=== PATIENT | male | born 1960 | race African-American/Black ===

== ENCOUNTER 2016-11-07 12:58 | Emergency (ER) | payer OTHER ==
[2016-11-07 13:06] VITALS: BP 144/90; PULSE 106; TEMP 98; BMI 40.6
[2016-11-07] MEDS ORDERED: diazePAM 5 MG TABLET PO ONE (13:52)
[2016-11-07] MEDS ORDERED: KETOROLAC TROMETHAMINE 60 MG/2 ML VIAL IM ONE (13:52)
--- NOTE | 2016-11-07 14:11 | PDOC ---
History of Present Illness - General Chief Complaint: Pain Stated Complaint: PAIN Time Seen by Provider: 11/07/16 13:30 History Source: Patient Exam Limitations: No Limitations - History of Present Illness Initial Comments: 11/07/16 14:06 CC pain to left shoulder x 4 days; no trauma; seen at [facility] and at [facility] for same this week Occurred: reports: other (4 days) Upper Extremity Pain Location: left: shoulder Past History - Past Medical History Allergies/Adverse Reactions: Allergies Allergy/AdvReac Type Severity Reaction Status Date / Time No Known Allergies Allergy Verified 11/07/16 13:01 Home Medications: Ambulatory Orders No Home Medications 0 dose .ROUTE UTDICT 03/28/13 Other medical history: [email or web address] - Surgical History Abdominal Surgery: Yes Appendectomy: Yes - Psycho/Social/Smoking Cessation Hx Anxiety: No Suicidal Ideation: No Smoking Status: Yes Smoking History: Former smoker Years of Tobacco Use: 10 Have you smoked in the past 12 months: No Number of Cigarettes Smoked Daily: 15 Information on smoking cessation initiated: No Hx Alcohol Use: No Drug/Substance Use Hx: No Substance Use Type: None Review of Systems - Review of Systems Constitutional: No: Symptoms Reported, Chills, Fever, Malaise HEENTM: No: Symptoms Reported Respiratory: No: Symptoms reported, Cough Cardiac (ROS): No: Symptoms Reported ABD/GI: No: Symptoms Reported : Yes: Symptoms Reported Musculoskeletal: Yes: Joint Pain, Muscle Pain, Joint Stiffness Integumentary: Yes: Symptoms Reported. No: Sweating Neurological: No: Numbness, Paresthesia *Physical Exam - Vital Signs Last Vital Signs Temp Pulse Resp BP Pulse Ox 98.0 F 106 H 18 144/90 100 11/07/16 13:02 11/07/16 13:02 11/07/16 13:02 11/07/16 13:02 11/07/16 13:02 - Physical Exam General Appearance: Yes: Appropriately Dressed HEENT: positive: TMs Normal, Pharynx Normal Neck: positive: Tender lateral (on left lateral neck; limited ROM in all directions). negative: Tender midline Respiratory/Chest: positive: Lungs Clear, Other (tender upper left back with significant spasm). negative: Chest Tender Musculoskeletal: positive: Other (limited ROM left shoulder, no tenderness elbow , wrist) Extremity: positive: Other (nl strength wrist elbow) ED Treatment Course - RADIOLOGY Radiology Studies Ordered: Category Date Time Status SHOULDER-LEFT [RAD] Stat Radiology 11/07/16 13:51 Taken Medical Decision Making - Medical Decision Making 11/07/16 15:04 better post toradol and valium; xray negative *DC/Admit/Observation/Transfer Diagnosis at time of Disposition: Left shoulder pain Qualifiers: Chronicity: acute Qualified Code(s): M25.512 - Pain in left shoulder - Discharge Dispostion Disposition: HOME Condition at time of disposition: Stable Admit: No - Referrals Referrals: Hector Burnett MD [Staff Physician] - - Patient Instructions Additional Instructions: no driving after valium in ED; see dr burnett next week if no better; continue naprosyn; swith to skelaxin instead of flexeril - Post Discharge Activity Work/School Note: Back to Work
[2016-11-07] MEDS ORDERED: diazePAM 5 MG TABLET ONE (14:18)
[2016-11-07] MEDS ORDERED: KETOROLAC TROMETHAMINE 60 MG/2 ML VIAL ONE (14:19)
--- NOTE | 2016-11-12 10:32 | EKG ---
Test Reason : Blood Pressure : / mmHG Vent. Rate : 105 BPM Atrial Rate : 105 BPM P-R Int : 140 ms QRS Dur : 090 ms QT Int : 334 ms P-R-T Axes : 055 010 068 degrees QTc Int : 441 ms SINUS TACHYCARDIA OTHERWISE NORMAL ECG WHEN COMPARED WITH ECG OF 24-SEP-2014 11:16, NO SIGNIFICANT CHANGE WAS FOUND Confirmed by RAFAT MCCLOUD MD ([id number]) on 11/12/2016 10:31:33 AM Referred By: Confirmed By:RAFAT MCCLOUD MD
== END 2016-11-07 15:09 | disposition home or self-care (01) ==
LOC: JERFT 12:58 → JER 12:58 → MERGE 12:58 → JERFT 15:09
PROC: 3E0233Z Introduction of Anti-inflammatory into Muscle, Percutaneous Approach (ICD-10-PCS; principal; 2016-11-07)
DX: M25.512 Pain in left shoulder (principal)
CPT/HCPCS: 73030-TC-LT; 93005; 93010; 99281-25

== ENCOUNTER 2016-11-11 22:26 | Emergency (ER) | payer OTHER ==
[2016-11-11 22:35] VITALS: BP 141/96; TEMP 97.4; BMI 41.8
[2016-11-11] MEDS ORDERED: diazePAM 5 MG TABLET PO ONE (23:05)
--- NOTE | 2016-11-11 23:05 | PDOC ---
History of Present Illness - General Chief Complaint: Back Pain Stated Complaint: BACK PAIN Time Seen by Provider: 11/11/16 22:40 History Source: Patient Exam Limitations: No Limitations - History of Present Illness Initial Comments: CHIEF COMPLAINT: 56 y/o afebrile male who was seen here a few days ago c/o worsened low back pain. HISTORY OF PRESENT ILLNESS: The patient states he was seen for upper back pain. Today he states he felt a pop in his left lower back and now has pain when he moved. He denies f/c, n/v/d, CP, SOB, abd pain, hematuria, dysuria, saddle anesthesia, numbness/tingling in lower extremities, bowel/bladder incontinence. Vital signs on arrival are notable for pulse of 108. REVIEW OF SYSTEMS: GENERAL/CONSTITUTIONAL: No fever. HEAD, EYES, EARS, NOSE AND THROAT: No change in vision. No ear pain or discharge. No sore throat. CARDIOVASCULAR: No chest pain or shortness of breath. RESPIRATORY: No cough, wheezing, or hemoptysis. GASTROINTESTINAL: No abd pain, nausea, vomiting, diarrhea. GENITOURINARY: No dysuria, frequency, or change in urination. MUSCULOSKELETAL: No joint or muscle swelling or pain. No neck pain. +left low back pain. SKIN: No rash or easy bruising. NEUROLOGIC: No headache, vertigo, loss of consciousness, or loss of sensation. PHYSICAL EXAM: GENERAL: The patient is awake, alert, and fully oriented, in no acute distress. He is obese and ambulatory. HEAD: Normal with no signs of trauma. ABDOMEN: Soft, non-distended, non-tender even to deep palpation, no hepatomegaly or splenomegaly, no masses. BACK: TTP of left flank and left lower lumbar paravertebral muscles. No midline lumbar spine TTP or step offs. EXTREMITIES: Normal range of motion, no edema. NEUROLOGICAL: Normal speech, normal gait. CN II-XII grossly intact. PSYCH: Normal mood, normal affect. SKIN: Warm, dry, normal turgor, no rashes or lesions noted. Past History - Past Medical History Allergies/Adverse Reactions: Allergies Allergy/AdvReac Type Severity Reaction Status Date / Time No Known Allergies Allergy Verified 11/11/16 22:31 Home Medications: Ambulatory Orders Diazepam [Valium] 10 mg PO HS #6 tablet MDD 3 11/12/16 Other medical history: denies - Surgical History Appendectomy: Yes - Psycho/Social/Smoking Cessation Hx Anxiety: No Suicidal Ideation: No Smoking Status: Yes Smoking History: Current every day smoker Number of Cigarettes Smoked Daily: 8 Cigars Per Day: 0 Information on smoking cessation initiated: Yes 'Breaking Loose' booklet given: 11/11/16 Hx Alcohol Use: No Drug/Substance Use Hx: No Trauma Specific PMHX - Complaint Specific PMHX Arthritis: No Back Injury: No Neck Injury: No Hx Sacro Iliac Joint Dysfunction: No *Physical Exam - Vital Signs Last Vital Signs Temp Pulse Resp BP Pulse Ox 97.4 F L 108 H 18 141/96 98 11/11/16 22:32 11/11/16 22:32 11/11/16 22:32 11/11/16 22:32 11/11/16 22:32 Medical Decision Making - Medical Decision Making A/P: 56 y/o male with left low back pain today. Already on Naproxen and flexeril with little relief. Will proceed as follows: 1. UA 2. PO valium UA negative for blood Pt states he feels much better after valium. Will d/c to home with rx for valium. Instructed him not to drive while taking. INstructed him to apply heating pad to the affected area and stretch affected area multiple times per day. INstructed him to f/u with his PCP within 1 week for refill of valium The patient verbalizes understanding of all instructions, has no further questions and is awaiting discharge. *DC/Admit/Observation/Transfer Diagnosis at time of Disposition: Back muscle spasm Low back pain Qualifiers: Chronicity: acute Back pain laterality: left Sciatica presence: without sciatica Qualified Code(s): M54.5 - Low back pain - Discharge Dispostion Disposition: HOME Condition at time of disposition: Improved - Patient Instructions Printed Discharge Instructions: DI for Back Spasm Additional Instructions: Discharge Instructions: -Take Valium as prescribed for spasm; may cause drowsiness so do not drive while taking -Continue taking naproxen -Use heating pad to the area -Stretch the affected area multiple times per day -Follow up with your doctor within 1 week
[2016-11-11] MEDS ORDERED: diazePAM 5 MG TABLET ONE (23:09)
[2016-11-11 23:39] LABS: URINE APPEARANCE CLEAR; URINE BILIRUBIN NEGATIVE (NEGATIVE); URINE BLOOD NEGATIVE (NEGATIVE); URINE COLOR LTYELLOW; URINE GLUCOSE (UA) NEGATIVE (NEGATIVE); URINE KETONE NEGATIVE (NEGATIVE); URINE LEUK ESTERASE NEGATIVE (NEGATIVE); URINE NITRITE NEGATIVE (NEGATIVE); URINE PROTEIN NEGATIVE (NEGATIVE); URINE UROBILINOGEN NEGATIVE E.U./dl (0.2-1.0)
[2016-11-12 00:33] VITALS: PULSE 103
== END 2016-11-12 00:46 | disposition home or self-care (01) ==
LOC: JERFT 22:26
DX: M62.830 Muscle spasm of back (principal); M54.5 Low back pain; F17.210 Nicotine dependence, cigarettes, uncomplicated
CPT/HCPCS: 81003; 87086; 99281-25

== ENCOUNTER 2016-11-28 20:55 | Inpatient (IN) | payer OTHER ==
[2016-11-28] MEDS ORDERED: diazePAM 2 MG TABLET PO ONE (21:50)
[2016-11-28] MEDS ORDERED: diazePAM 2 MG TABLET ONE (22:12)
--- NOTE | 2016-11-28 22:19 | PDOC ---
History of Present Illness - General Chief Complaint: Pain, Acute Stated Complaint: SIDE PAIN Time Seen by Provider: 11/28/16 21:10 - History of Present Illness Initial Comments: 11/28/16 22:22 Mr. Leiva is a 56 y/o obese male with no PMH presenting to the ED with increasing spasmodic pain. Pt. states that he was seen in the ED in October with similar pain. Now he states that the pain is worse/more frequent and affecting his neck, upper back, chest and arms. When he is having the pain, he rates it at a 12/10, after the spasm finishes, the pain is a 0/10. Pt. states the pain is more frequent when he lays down and nothing has made the spasm better or less frequent. States that ibuprofen, naproxen, and flexaril have not helped him. Pt. is unable to put a shirt on unassisted and states he has limited range of motion in his arms. Pt. states that his arms feel weak more so on his left side. Denies saddle anaesthesia, gait changes, bladder or bowel incontinence. GENERAL/CONSTITUTIONAL: No fever or chills. No weakness. No weight change. HEAD, EYES, EARS, NOSE AND THROAT: No change in vision. No ear pain or discharge. No sore throat. CARDIOVASCULAR: No chest pain or palpitations. RESPIRATORY: No cough, wheezing, or shortness of breath. GASTROINTESTINAL: No nausea, vomiting, diarrhea or constipation. GENITOURINARY: No dysuria, frequency, or change in urination. Denies bladder/ bowel incontinence MUSCULOSKELETAL: (+) neck/back No joint or muscle swelling or pain. SKIN: No rash or easy bruising. NEUROLOGIC: No headache, vertigo, loss of consciousness, or loss of sensation. PSYCHIATRIC: No depression or anxiety. ENDOCRINE: No increased thirst. No abnormal weight change. HEMATOLOGIC/LYMPHATIC: No anemia, easy bleeding, or history of blood clots. ALLERGIC/IMMUNOLOGIC: No hives or skin allergy. No latex allergy. Past History - Past Medical History Allergies/Adverse Reactions: Allergies Allergy/AdvReac Type Severity Reaction Status Date / Time No Known Allergies Allergy Verified 11/28/16 21:02 Home Medications: Ambulatory Orders Diazepam [Valium] 10 mg PO HS #6 tablet MDD 3 11/12/16 Other medical history: Deneis - Surgical History Appendectomy: Yes - Immunization History Immunization Up to Date: No - Psycho/Social/Smoking Cessation Hx Anxiety: No Suicidal Ideation: No Smoking Status: Yes Smoking History: Former smoker Have you smoked in the past 12 months: No Number of Cigarettes Smoked Daily: 8 Cigars Per Day: 0 Information on smoking cessation initiated: No 'Breaking Loose' booklet given: 11/11/16 Hx Alcohol Use: Yes Drug/Substance Use Hx: No *Physical Exam - Vital Signs Last Vital Signs Temp Pulse Resp BP Pulse Ox 97.9 F 125 H 24 150/95 99 11/28/16 20:59 11/28/16 20:59 11/28/16 20:59 11/28/16 20:59 11/28/16 20:59 - Physical Exam Comments: 11/28/16 22:34 GENERAL: The patient is awake, alert, and fully oriented, in no acute distress. Pt. is sitting on exam bed, guarding his back. HEAD: Normal with no signs of trauma. ENT: Pupils equal, round and reactive to light, extraocular movements intact, sclera anicteric, conjunctiva clear. Neck supple. LUNGS: Clear to auscultation bilaterally. Normal excursion. No respiratory distress or use of accessory muscles. CV: RRR, S1/S2, no MRG. Cap refill < 2 sec. ABDOMEN: Soft, non-distended, non-tender. EXTREMITIES: Flexion of shoulders to 45 degrees b/l pain with further flexion. 3 /5 strength in RUE and erp consultant B/L. No edema. NECK/BACK: TTP of paraspinous muscles of the thoracic spine and cervical spine. Pain with flexion, abduction, lateral rotation of neck. Gait intact, patient refused toe to heel walking. NEUROLOGICAL: Normal speech, normal gait. CN II-XII grossly intact. PSYCH: Normal mood, normal affect. SKIN: Warm, dry, normal turgor, no rashes or lesions noted. ED Treatment Course - LABORATORY CBC & Chemistry Diagram: 11/28/16 22:15 11/28/16 22:15 - RADIOLOGY Radiology Studies Ordered: Category Date Time Status CERVICAL SPINE CT W/O CONTR [CT] Stat CT Scan 11/28/16 21:49 Ordered - Medications Given in the ED: ED Medications Discontinued Medications Generic Name Dose Route Start Last Admin Trade Name Freq PRN Reason Stop Dose Admin Diazepam 2 mg 11/28/16 21:50 11/28/16 22:14 Valium - PO 11/28/16 21:51 2 mg ONCE ONE Administration Medical Decision Making - Medical Decision Making 11/28/16 22:44 Mr. Leiva is a 56 y/o male who presents with increasing spasmodic pain of his back and neck. Given worsening symptoms of neck and arm strength, concerned for new c-spine herniation. Will order CT-scan. Will also order blood work to look for electrolyte changes given the spasmotic nature of his symptoms. Will medicate for pain. 1. Basic labs 2. CT-cervical spine to evaluate neck 3. Valium to reduce the spasms Will re-evaluate. 11/28/16 23:59 Pt. was entered into [facility]. Last narcotic received and only narcotic received was 06/03/2016 for Tylenol with codeine. Pt. also received a prescription for valium on 11/12/16. Pt. could not tolerate laying flat for CT scan. 5mg IV valium ordered to help with symptoms. 11/29/16 02:[address] C-Spine EXAM: CT of the cervical spine without contrast. IMAGES: 362. There are multifocal osseous lytic lesions suspicious for metastasis, one notably involving the left C4 facets/pedicle with soft tissue extension into the C4/5 perineuroforaminal space; correlate clinically (?side/level of arm symptoms). No gross acute central canal/epidural soft tissue abnormality. Impression: as above. THIS DOCUMENT HAS BEEN ELECTRONICALLY SIGNED Joesph Rodriguez MD 11/29/2016 00:14 ROSA M.Jeff. Please call Imaging Documentation Coordinator [phone] ([phone]) with questions. Pt. was made aware of CT scan reading. Advised that it was a preliminary reading and that he would be admitted to the hosptial for further evaluation. Called Dr. Riggs for admission. 1st call 11/29/16 03:[address] Riggs. Will admit *DC/Admit/Observation/Transfer Diagnosis at time of Disposition: Cancer - Discharge Dispostion Condition at time of disposition: Fair Admit: Yes - Referrals Referrals: Bryson Villarreal MD [Primary Care Provider] -
[2016-11-28 22:47] LABS: BASOPHIL 0.7 % (0-2.0); MCH 27.8 pg (25.7-33.7); MCHC 33.3 g/dl (32.0-35.9); MEAN CELL VOLUME 83.4 fl (80-96); MEAN PLT VOLUME 7.3 fl (7.5-11.1); NEUTROPHILS 67.6 % (42.8-82.8); PLATELET COUNT 420 K/MM3 (134-434); RDW 14.3 % (11.9-15.9); WHITE BLOOD COUNT 10.7 K/mm3 (4.0-10.0)
[2016-11-28 23:10] LABS: ALBUMIN 3.5 g/dl (3.4-5.0); BILIRUBIN,TOTAL 0.4 mg/dL (0.2-1.0); CREATININE 1.4 mg/dL (0.7-1.3); TOT PROT 8.2 g/dl (6.4-8.2)
[2016-11-28] MEDS ORDERED: diazePAM CARPU-JECT 10 MG/2 ML DISP.SYRIN IVPUSH ONE (23:31)
[2016-11-28] MEDS ORDERED: diazePAM CARPU-JECT 10 MG/2 ML DISP.SYRIN ONE (23:34)
[2016-11-29] MEDS ORDERED: SODIUM CHLORIDE 1,000 ML IV STA ×2 (01:12→12:23)
[2016-11-29] MEDS ORDERED: KETOROLAC TROMETHAMINE 30 MG/1 ML VIAL ONE (01:19)
[2016-11-29] MEDS ORDERED: KETOROLAC TROMETHAMINE 30 MG/1 ML VIAL IVPUSH ONE (01:19)
[2016-11-29] MEDS ORDERED: HYDROmorphone HCL CARPU-JECT 2 MG/1 ML DISP.SYRIN IVPUSH ONE (02:23)
[2016-11-29] MEDS ORDERED: methylPREDNISolone NA SUCC 125 MG/2 ML VIAL IVPB ONE (02:23)
[2016-11-29] MEDS ORDERED: HYDROmorphone HCL CARPU-JECT 2 MG/1 ML DISP.SYRIN ONE (02:31)
[2016-11-29] MEDS ORDERED: methylPREDNISolone NA SUCC 125 MG/2 ML VIAL ONE (02:41)
[2016-11-29] MEDS ORDERED: DOCUSATE SODIUM 100 MG CAPSULE (FP) PO PRN (03:42)
[2016-11-29 05:25] VITALS: BMI 42.0
[2016-11-29] MEDS: HYDROmorphone HCL CARPU-JECT 1 MG/1 ML DISP.SYRIN IVPB PRN ×2 (06:10→10:43)
[2016-11-29 09:15] LABS: BASOPHIL 0.4 % (0-2.0); EOSINOPHIL 0.1 % (0-4.5); MCH 27.7 pg (25.7-33.7); MCHC 32.8 g/dl (32.0-35.9); MEAN CELL VOLUME 84.5 fl (80-96); MEAN PLT VOLUME 6.9 fl (7.5-11.1); NEUTROPHILS 90.2 % (42.8-82.8); PLATELET COUNT 382 K/MM3 (134-434); RDW 14.5 % (11.9-15.9); WHITE BLOOD COUNT 7.8 K/mm3 (4.0-10.0)
[2016-11-29] MEDS: HEPARIN NA (PORCINE) 5,000 UNITS/ML 1ML VIAL SQ SCH ×2 (09:35→23:22)
[2016-11-29 09:42] LABS: ALBUMIN 3.3 g/dl (3.4-5.0); BILIRUBIN,TOTAL 0.4 mg/dL (0.2-1.0); CALCIUM 9.6 mg/dL (8.5-10.1); CREATININE 1.5 mg/dL (0.7-1.3)
--- NOTE | 2016-11-29 12:14 | HP ---
Admitting History and Physical - Primary Care Physician PCP: Bryson Villarreal - Admission Chief Complaint: BONE LYTIC LESIONS History Source: Medical Record - Smoking History Smoking history: Former smoker Have you smoked in the past 12 months: No Aproximately how many cigarettes per day: 8 If you are a former smoker, when did you quit?: 9 MONTHS - Alcohol/Substance Use Hx Alcohol Use: Yes Home Medications - Allergies Allergies/Adverse Reactions: Allergies Allergy/AdvReac Type Severity Reaction Status Date / Time No Known Allergies Allergy Verified 11/28/16 21:02 - Home Medications Home Medications: Ambulatory Orders Diazepam [Valium] 10 mg PO HS #6 tablet MDD 3 11/12/16 Review of Systems - Review of Systems Constitutional: denies: Chills, Fever Cardiovascular: denies: Chest Pain Respiratory: denies: SOB Gastrointestinal: denies: Abdominal Pain Musculoskeletal: reports: Back Pain Physical Examination Vital Signs: Vital Signs Temperature 97.6 F 11/29/16 08:16 Pulse Rate 95 H 11/29/16 08:16 Respiratory Rate 20 11/29/16 03:40 Blood Pressure 131/93 11/29/16 08:16 O2 Sat by Pulse Oximetry (%) 97 11/29/16 03:40 Constitutional: Yes: Calm Cardiovascular: Yes: Regular Rate and Rhythm, Murmur, S1, S2 Respiratory: Yes: CTA Bilaterally Gastrointestinal: Yes: Normal Bowel Sounds, Soft Musculoskeletal: Yes: Back Pain Edema: No Labs: CBC, BMP 11/29/16 09:00 11/29/16 09:00 Imaging - Results Chest X-ray: Report Reviewed Cat Scan: Report Reviewed Problem List - Problems (1) Low back pain Code(s): M54.5 - LOW BACK PAIN Qualifiers: Chronicity: acute Back pain laterality: left Sciatica presence: without sciatica Qualified Code(s): M54.5 - Low back pain (2) Lytic bone lesions on xray Code(s): M89.9 - DISORDER OF BONE, UNSPECIFIED (3) STEPHEN (acute kidney injury) Code(s): N17.9 - ACUTE KIDNEY FAILURE, UNSPECIFIED (4) Murmur Code(s): R01.1 - CARDIAC MURMUR, UNSPECIFIED Assessment/Plan Mr. Leiva is a 56 y/o obese male with no PMH presenting to the ED with increasing spasmodic pain. Pt. states that he was seen in the ED in October with similar pain. Now he states that the pain is worse/more frequent and affecting his neck, upper back, chest and arms. When he is having the pain, he rates it at a 12/10, after the spasm finishes, the pain is a 0/10. Pt. states the pain is more frequent when he lays down and nothing has made the spasm better or less frequent. States that ibuprofen, naproxen, and flexaril have not helped him. Pt. is unable to put a shirt on unassisted and states he has limited range of motion in his arms. Pt. states that his arms feel weak more so on his left side. Denies saddle anaesthesia, gait changes, bladder or bowel incontinence. (1) Low back pain Code(s): M54.5 - LOW BACK PAIN Qualifiers: Chronicity: acute Back pain laterality: left Sciatica presence: without sciatica Qualified Code(s): M54.5 - Low back pain DILAUDID VALIUM PT & ORTHO CONSULTED (2) Lytic bone lesions on xray Code(s): M89.9 - DISORDER OF BONE, UNSPECIFIED ONCO NOTE APPRECIATED -> F/U W/U ORTHO CONSULTED (3) STEPHEN (acute kidney injury) Code(s): N17.9 - ACUTE KIDNEY FAILURE, UNSPECIFIED Cr WORSENING RENAL CONSULTED NS 1000 BOLUS CXr -> CONGESTION CHANGES -> BNP & TROP (4) Murmur Code(s): R01.1 - CARDIAC MURMUR, UNSPECIFIED REMEMBERS BEING TOLD HAS MURMUR - CARDIO DISCHARGE PLANNING [facility]
--- NOTE | 2016-11-29 12:28 | CONSULT ---
Consult Consult Specialty:: hematology Referred by:: Reason for Consultation:: Lytic lesions noted on CT C-spine - History of Present Illness Chief Complaint: Patient with 3 week history of spasm like pain neck and back, multiple ER visits, last night underwent CT which revealed multiple lytic lesion sin the C-spine, suggestive of metastatic disease. History of Present Illness: As above. Of note, reports no preceding symptoms, constitutional or otherwise. - History Source History Provided By: Patient Limitations to Obtaining History: No Limitations - Alcohol/Substance Use Hx Alcohol Use: Yes - Smoking History Smoking history: Former smoker Have you smoked in the past 12 months: No Aproximately how many cigarettes per day: 8 If you are a former smoker, when did you quit?: 9 MONTHS Home Medications - Allergies Allergies/Adverse Reactions: Allergies Allergy/AdvReac Type Severity Reaction Status Date / Time No Known Allergies Allergy Verified 11/28/16 21:02 - Home Medications Home Medications: Ambulatory Orders Diazepam [Valium] 10 mg PO HS #6 tablet MDD 3 11/12/16 Family Disease History - Family Disease History Other Family History: Denies family history of cancer, or other hematological issues. Review of Systems - Review of Systems Constitutional: reports: No Symptoms Eyes: reports: No Symptoms HENT: reports: No Symptoms Cardiovascular: reports: No Symptoms Respiratory: reports: Other (Dyspnea on exertion - not new) Gastrointestinal: reports: No Symptoms Genitourinary: reports: Frequency (nocturia, several months) Musculoskeletal: reports: No Symptoms Integumentary: reports: No Symptoms Neurological: reports: No Symptoms Psychiatric: reports: No Symptoms Physical Exam Vital Signs: Vital Signs Temperature 97.6 F 11/29/16 08:16 Pulse Rate 95 H 11/29/16 08:16 Respiratory Rate 20 11/29/16 03:40 Blood Pressure 131/93 11/29/16 08:16 O2 Sat by Pulse Oximetry (%) 97 11/29/16 03:40 Constitutional: Yes: Well Nourished, No Distress, Calm, Obese Eyes: Yes: Conjunctiva Clear HENT: Yes: Normocephalic Neck: Yes: Tenderness (Diffuse tenderness palpation of neck) Respiratory: Yes: WNL, Regular, CTA Bilaterally Gastrointestinal: Yes: WNL, Normal Bowel Sounds, Soft, Abdomen, Obese ...Rectal Exam: Yes: Deferred Musculoskeletal: Yes: WNL, Joint Stiffness. No: Joint Swelling Extremities: Yes: WNL. No: Erythema Edema: No Peripheral Pulses WNL: Yes Integumentary: No: Bruising, Petechiae Neurological: Yes: WNL, Alert, Oriented ...Motor Strength: WNL Psychiatric: Yes: WNL, Alert, Oriented Labs: CBC, BMP 11/29/16 09:00 11/29/16 09:00 Imaging - Results Cat Scan: Report Reviewed Assessment/Plan Patient with 3 week history of neck/back spasms, with CT neck revealing multiple lytic lesions. Unclear if radiological finding is accountable for presentation, but finding is certainly of concern and requires workup. If attributed to malignant process then 2 most likely etiologies are myeloma and prostate cancer, and initial workup for those 2 conditions appropriate. Check PSA. SPEP, sFLC's. Skeletal survey. If negative, then more extensive imaging (CT C/A/P) appropriate. If patient's pain is controlled then inpatient workup is not strongly indicated , and patient has expressed an interest to be discharged, which is not unreasonable if appropriate OP follow up is assured.
--- NOTE | 2016-11-29 13:53 | CONSULT ---
Consult - text type - Consultation Consultation Note: Renal Consult for STEPHEN This is a 56 year old Gentleman who is a former smoker w/o any significant past medical history who presented with neck pain and muscle spasm for several days and found to have lytic bone lesions on cervical spine CT and with a BUN/Cr of 30/1.5. Pt denies any CKD history. Denies any history fo Kidney stones. Was using NSIADs at home for pain control. No N/V/D. + occasional dark urine. No gross hematuria. No flank pain. No recent contrast exposure. No confuison, lethargy or weakness. Denies sob or chest pain. Currently on IVF. PMhx: as above Allergies: NDKA Family Hx: NC Social Hx: + Former smoker ROS: As per HPI, all other pertinent ros negative Home Meds: Tylenol, Motrin, Naproxen Vital Signs Temperature 97.6 F 11/29/16 08:16 Pulse Rate 95 H 11/29/16 08:16 Respiratory Rate 20 11/29/16 03:40 Blood Pressure 131/93 11/29/16 08:16 O2 Sat by Pulse Oximetry (%) 96 11/29/16 09:00 Gen: NAD, awake and alert HEENT: NC/AT, MMM, No JVD CVS: Dec BS lung bases, no rales Abd: soft NT/ND, Obese Ext: Trace to 1+ edema in the LE : No bladder distension Neuro: AAOX3, on focal defects CBC, BMP 11/29/16 09:00 11/29/16 09:00 Current Medications Diazepam (Valium -) 5 mg PO BID PRN PRN Reason: AGITATION Docusate Sodium (Colace -) 100 mg PO BID PRN PRN Reason: CONSTIPATION Heparin Sodium (Porcine) (Heparin -) 5,000 unit SQ BID AMINAH Last Admin: 11/29/16 09:35 Dose: 5,000 unit Hydromorphone HCl (Dilaudid Injection -) 1 mg IVPB Q4H PRN PRN Reason: PAIN Last Admin: 11/29/16 10:43 Dose: 1 mg A/p 56 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 #Acute vs. Chronic Renal insufficiency r/o paraproteinema Check UA, UPCR, FeNa Check Renal US to access size and texture of the kidney Agree with trial of IVF for now avoid any further NSAID use pt wants to go home, if renal function stable or improve by tomorrow can be discharged and follow up as outpatient #Lytic lesions on CT of the Neck Check SPEP/ Free light chains Oncology Evalulation #Neck pain/Spasms Pain control without nsaids Consider Valium as a muscle relaxant #Pre-HTN/Hypertension Trend BP for now pain control Thank you Will follow Didier Yen DO
[2016-11-29] MEDS: HYDROmorphone HCL 2 MG TABLET PO PRN ×2 (14:56→20:14)
[2016-11-29 17:13] LABS: URINE APPEARANCE CLEAR; URINE BILIRUBIN NEGATIVE (NEGATIVE); URINE BLOOD NEGATIVE (NEGATIVE); URINE COLOR LTYELLOW; URINE GLUCOSE (UA) 1+ (NEGATIVE); URINE KETONE NEGATIVE (NEGATIVE); URINE LEUK ESTERASE NEGATIVE (NEGATIVE); URINE NITRITE NEGATIVE (NEGATIVE); URINE PROTEIN NEGATIVE (NEGATIVE); URINE UROBILINOGEN NEGATIVE E.U./dl (0.2-1.0)
--- NOTE | 2016-11-29 17:27 | CON.ORTH ---
Consult Consult Specialty:: Ortho Reason for Consultation:: neck pain - Alcohol/Substance Use Hx Alcohol Use: Yes - Smoking History Smoking history: Former smoker Have you smoked in the past 12 months: No Aproximately how many cigarettes per day: 8 If you are a former smoker, when did you quit?: 9 MONTHS Home Medications - Allergies Allergies/Adverse Reactions: Allergies Allergy/AdvReac Type Severity Reaction Status Date / Time No Known Allergies Allergy Verified 11/28/16 21:02 - Home Medications Home Medications: Ambulatory Orders Diazepam [Valium] 10 mg PO HS #6 tablet MDD 3 11/12/16 Family Disease History - Family Disease History Other Family History: Denies family history of cancer, or other hematological issues. Physical Exam for Ortho Vital Signs: Vital Signs Temperature 97.4 F L 11/29/16 14:00 Pulse Rate 92 H 11/29/16 14:00 Respiratory Rate 20 11/29/16 14:00 Blood Pressure 136/78 11/29/16 14:00 O2 Sat by Pulse Oximetry (%) 96 11/29/16 09:00 Neck: Yes: Decreased ROM, Other (mild ttp, dec rom, +weakness, nvi) Labs: CBC, BMP 11/29/16 09:00 11/29/16 09:00 Imaging - Results Cat Scan: Report Reviewed, Image Reviewed Assessment/Plan 56 yo male with 3 week history of spasm like pain neck and back, multiple ER visits, last night underwent CT which revealed multiple lytic lesion sin the C- spine, suggestive of metastatic disease. a/p- Multi-level cervical lytic lesions CT d/w pt in detail Needs further work-up for primary CA Heme/onc f/u evaluate for RT NTD orthopedically d/w Dr. Rice
--- NOTE | 2016-11-29 17:43 | EKG ---
Test Reason : Blood Pressure : / mmHG Vent. Rate : 097 BPM Atrial Rate : 097 BPM P-R Int : 142 ms QRS Dur : 090 ms QT Int : 350 ms P-R-T Axes : 059 028 053 degrees QTc Int : 444 ms NORMAL SINUS RHYTHM NORMAL ECG NO PREVIOUS ECGS AVAILABLE Confirmed by MAURICE SANCHEZ MD ([id number]) on 11/29/2016 5:42:38 PM Referred By: Confirmed By:MAURICE SANCHEZ MD
[2016-11-29] MEDS: diazePAM 5 MG TABLET PO PRN (20:18)
[2016-11-30] MEDS: HYDROmorphone HCL 2 MG TABLET PO PRN (00:15)
[2016-11-30] MEDS: HYDROmorphone HCL CARPU-JECT 2 MG/1 ML DISP.SYRIN IVPB PRN ×6 (03:00→23:18)
[2016-11-30 08:35] LABS: ALBUMIN 3.2 g/dl (3.4-5.0); ALK PHOS 95 U/L (45-117); ANION GAP 11 (8-16); BILIRUBIN,TOTAL 0.5 mg/dL (0.2-1.0); CO2 23 mmol/L (21-32); CREATININE 1.1 mg/dL (0.7-1.3); GLUCOSE,RANDOM 115 mg/dL (74-106); PHOSPHOROUS 3.3 mg/dL (2.5-4.9); SGOT/AST 14 U/L (15-37); SGPT/ALT 15 U/L (12-78); TOT PROT 7.6 g/dl (6.4-8.2); TROPONIN I < 0.02 ng/ml (0.00-0.05)
--- NOTE | 2016-11-30 09:05 | CON.CARD ---
Consult Consult Specialty:: Cardiology Referred by:: Dr. Riggs Reason for Consultation:: Cardiac murmur - History of Present Illness Chief Complaint: Neck pain History of Present Illness: 56 yo obese male with no significant PMH who was admitted with severe episodic pain/spasm of his neck, upper back, chest, and arms. He was found to have mutliple lytic lesions on cervical spine CT on 11/28/16 which is suspicious for metastatic disease. Cardiology was consulted for evaluation of cardiac murmur noted on physical exam. Patient denies exertional chest pain or dyspnea. He was exercising regularly up until several months ago before he developed his neck and back issues. Denies orthopnea, palpitations, edema, syncope, melena, hematochezia, or hematemesis. - History Source History Provided By: Patient Limitations to Obtaining History: No Limitations - Past Surgical History Past Surgical History: Yes: Appendectomy (as a child) - Alcohol/Substance Use Hx Alcohol Use: Yes (Occasional glass of wine or shot of [place]) History of Substance Use: reports: None - Smoking History Smoking history: Former smoker Have you smoked in the past 12 months: No Aproximately how many cigarettes per day: 8 If you are a former smoker, when did you quit?: 9 MONTHS Home Medications - Allergies Allergies/Adverse Reactions: Allergies Allergy/AdvReac Type Severity Reaction Status Date / Time No Known Allergies Allergy Verified 11/28/16 21:02 - Home Medications Home Medications: Ambulatory Orders Diazepam [Valium] 10 mg PO HS #6 tablet MDD 3 11/12/16 Family Disease History - Family Disease History Family Disease History: Heart Disease: Father ([place] in his 70s) Other Family History: Denies family history of cancer, or other hematological issues. Review of Systems - Review of Systems Constitutional: reports: No Symptoms Eyes: reports: No Symptoms HENT: reports: No Symptoms Neck: reports: Pain on Movement Cardiovascular: reports: No Symptoms Respiratory: reports: No Symptoms Gastrointestinal: reports: No Symptoms Genitourinary: reports: No Symptoms Neurological: reports: No Symptoms Endocrine: reports: No Symptoms Hematology/Lymphatic: reports: No Symptoms Vital Signs: Vital Signs Temperature 97.5 F L 11/30/16 02:28 Pulse Rate 93 H 11/30/16 02:28 Respiratory Rate 20 11/30/16 02:28 Blood Pressure 130/80 11/30/16 02:28 O2 Sat by Pulse Oximetry (%) 96 11/29/16 21:00 Constitutional: Yes: Well Nourished, No Distress Eyes: Yes: Conjunctiva Clear, EOM Intact HENT: Yes: Atraumatic, Normocephalic Respiratory: Yes: CTA Bilaterally Gastrointestinal: Yes: Normal Bowel Sounds, Soft. No: Tenderness Cardiovascular: Yes: Regular Rate and Rhythm JVD: No Carotid Bruit: No Heart Sounds: Yes: S1, S2 Murmur: Yes: Systolic Murmur (Grade 2-3 systolic murmur) Edema: No Peripheral Pulses WNL: Yes Neurological: Yes: Alert, Oriented, Cran Nerves II-XII Intact Psychiatric: Yes: WNL - Other Data Labs, Other Data: CBC, BMP 11/29/16 09:00 11/30/16 06:20 Troponin, BNP 11/30/16 06:20 Troponin I < 0.02 B-Natriuretic Peptide 75.59 Troponin, BNP 11/30/16 06:20 Troponin I < 0.02 B-Natriuretic Peptide 75.59 11/29/16 ECG: Sinus rhythm Imaging - Results Chest X-ray: Report Reviewed (11/29/16: Prominent mediastinum), Image Reviewed Cat Scan: Report Reviewed (11/28/[address]: Multiple lytic lesions suspicious for metastatic disease) Assessment/Plan 56 yo obese male with no significant PMH who was admitted with severe episodic pain/spasm of his neck, upper back, chest, and arms. He was found to have mutliple lytic lesions on cervical spine CT on 11/28/16 which is suspicious for metastatic disease. Cardiology was consulted for evaluation of cardiac murmur noted on physical exam. No symptoms to suggest severe valvular disease or heart failure. BNP normal. RECS: Will perform echocardiogram to assess LV function and valvular heart disease. Pending echo results will determine if further cardiac work-up or intervention is clinically warranted. Management of cervical spine lytic lesions as per primary team and oncology. Call with questions.
[2016-11-30] MEDS: HEPARIN NA (PORCINE) 5,000 UNITS/ML 1ML VIAL SQ SCH ×2 (09:36→22:38)
[2016-11-30] MEDS: diazePAM 5 MG TABLET PO PRN ×2 (09:36→23:39)
--- NOTE | 2016-11-30 09:37 | PN ---
Progress Note, Physician Chief Complaint: REQUESTING HIGHER NARCOTIC PAIN Rx - Current Medication List Current Medications: Active Medications Diazepam (Valium -) 5 mg PO BID PRN PRN Reason: AGITATION Last Admin: 11/30/16 09:36 Dose: 5 mg Docusate Sodium (Colace -) 100 mg PO BID PRN PRN Reason: CONSTIPATION Heparin Sodium (Porcine) (Heparin -) 5,000 unit SQ BID AMINAH Last Admin: 11/30/16 09:36 Dose: 5,000 unit Hydromorphone HCl (Dilaudid Injection -) 2 mg IVPB Q4H PRN Last Admin: 11/30/16 07:56 Dose: 2 mg - Objective Vital Signs: Vital Signs Temperature 97.5 F L 11/30/16 02:28 Pulse Rate 93 H 11/30/16 02:28 Respiratory Rate 20 11/30/16 02:28 Blood Pressure 130/80 11/30/16 02:28 O2 Sat by Pulse Oximetry (%) 96 11/29/16 21:00 Constitutional: Yes: Calm Cardiovascular: Yes: Regular Rate and Rhythm, S1, S2 Respiratory: Yes: CTA Bilaterally Gastrointestinal: Yes: Normal Bowel Sounds, Soft Edema: No Labs: CBC, BMP 11/29/16 09:00 11/30/16 06:20 Problem List - Problems (1) Low back pain Code(s): M54.5 - LOW BACK PAIN Qualifiers: Chronicity: acute Back pain laterality: left Sciatica presence: without sciatica Qualified Code(s): M54.5 - Low back pain (2) Lytic bone lesions on xray Code(s): M89.9 - DISORDER OF BONE, UNSPECIFIED (3) STEPHEN (acute kidney injury) Code(s): N17.9 - ACUTE KIDNEY FAILURE, UNSPECIFIED (4) Murmur Code(s): R01.1 - CARDIAC MURMUR, UNSPECIFIED Assessment/Plan Mr. Leiva is a 56 y/o obese male with no PMH presenting to the ED with increasing spasmodic pain. Pt. states that he was seen in the ED in October with similar pain. Now he states that the pain is worse/more frequent and affecting his neck, upper back, chest and arms. When he is having the pain, he rates it at a 12/10, after the spasm finishes, the pain is a 0/10. Pt. states the pain is more frequent when he lays down and nothing has made the spasm better or less frequent. States that ibuprofen, naproxen, and flexaril have not helped him. Pt. is unable to put a shirt on unassisted and states he has limited range of motion in his arms. Pt. states that his arms feel weak more so on his left side. Denies saddle anaesthesia, gait changes, bladder or bowel incontinence. (1) Low back pain Code(s): M54.5 - LOW BACK PAIN Qualifiers: Chronicity: acute Back pain laterality: left Sciatica presence: without sciatica Qualified Code(s): M54.5 - Low back pain DILAUDID VALIUM PT & ORTHO ON CASE (2) Lytic bone lesions on xray Code(s): M89.9 - DISORDER OF BONE, UNSPECIFIED ONCO NOTE APPRECIATED -> CAN F/U OUTPT ORTHO CONSULT APPRECIATED (3) STEPHEN (acute kidney injury) Code(s): N17.9 - ACUTE KIDNEY FAILURE, UNSPECIFIED IMPROVED RENAL CONSULT NOTED CXr -> CONGESTION CHANGES BNP & TROP - NEG (4) Murmur Code(s): R01.1 - CARDIAC MURMUR, UNSPECIFIED REMEMBERS BEING TOLD HAS MURMUR CARDIO CONSULT NOTED - F/U ECHO DISCHARGE PLANNING S/P ECHO [employer] [facility]
--- NOTE | 2016-11-30 13:41 | PN ---
Progress Note (short form) - Note Progress Note: Patient seen in follow up. Pain improved but still present. No events overnight. Meds reviewed. Current Medications Generic Name Dose Route Start Last Admin Trade Name Freq PRN Reason Stop Dose Admin Diazepam 5 mg 11/29/16 03:42 11/30/16 09:36 Valium - PO 5 mg BID PRN Administration AGITATION Docusate Sodium 100 mg 11/29/16 03:42 Colace - PO BID PRN CONSTIPATION Heparin Sodium (Porcine) 5,000 unit 11/29/16 10:00 11/30/16 09:36 Heparin - SQ 5,000 unit BID AMINAH Administration Hydromorphone HCl 2 mg 11/30/16 11:08 11/30/16 12:17 Dilaudid Injection - IVPB 2 mg Q3H PRN Administration PAIN On exam: Last Vital Signs Temp Pulse Resp BP Pulse Ox 97.7 F 101 H 18 143/73 96 11/30/16 10:00 11/30/16 10:00 11/30/16 10:00 11/30/16 10:00 11/29/16 21:00 Constitutional: Yes: Well Nourished, No Distress, Calm, Obese Eyes: Yes: Conjunctiva Clear HENT: Yes: Normocephalic Neck: Yes: Tenderness (Diffuse tenderness palpation of neck) Respiratory: Yes: WNL, Regular, CTA Bilaterally Gastrointestinal: Yes: WNL, Normal Bowel Sounds, Soft, Abdomen, Obese ...Rectal Exam: Yes: Deferred Musculoskeletal: Yes: WNL, Joint Stiffness. No: Joint Swelling Extremities: Yes: WNL. No: Erythema Edema: No Peripheral Pulses WNL: Yes Integumentary: No: Bruising, Petechiae Neurological: Yes: WNL, Alert, Oriented ...Motor Strength: WNL Psychiatric: Yes: WNL, Alert, Oriented 11/29/16 09:00 11/30/16 06:20 Assessment/Plan Patient with 3 week history of neck/back spasms, with CT neck revealing multiple lytic lesions. Unclear if radiological finding is accountable for presentation, but finding is certainly of concern and requires workup. If attributed to malignant process then 2 most likely etiologies are myeloma and prostate cancer, and initial workup for those 2 conditions appropriate. PSA. SPEP, sFLC's. Skeletal survey. All pending. If negative, then more extensive imaging (CT C/A/P) appropriate. If patient's pain is controlled then inpatient workup is not strongly indicated , and patient has expressed an interest to be discharged, which is not unreasonable if appropriate OP follow up is assured.
[2016-11-30 16:09] LABS: PROSTATE SPECIFIC ANTIGEN 0.3 ng/mL (0.0-4.0)
[2016-12-01] MEDS: HYDROmorphone HCL CARPU-JECT 2 MG/1 ML DISP.SYRIN IVPB PRN ×7 (02:18→22:56)
[2016-12-01 07:19] LABS: BASOPHIL 0.7 % (0-2.0); EOSINOPHIL 1.8 % (0-4.5); MCH 27.5 pg (25.7-33.7); MEAN CELL VOLUME 83.5 fl (80-96); MEAN PLT VOLUME 7.2 fl (7.5-11.1); NEUTROPHILS 74.6 % (42.8-82.8); PLATELET COUNT 394 K/MM3 (134-434); RDW 14.6 % (11.9-15.9); WHITE BLOOD COUNT 11.2 K/mm3 (4.0-10.0)
[2016-12-01 07:34] LABS: ALBUMIN 3.4 g/dl (3.4-5.0); ANION GAP 10 (8-16); CALCIUM 9.2 mg/dL (8.5-10.1); CO2 25 mmol/L (21-32); GLUCOSE,RANDOM 118 mg/dL (74-106)
[2016-12-01 07:37] LABS: ALK PHOS 98 U/L (45-117); BILIRUBIN,TOTAL 0.5 mg/dL (0.2-1.0); CREATININE 1.2 mg/dL (0.7-1.3); SGOT/AST 13 U/L (15-37); SGPT/ALT 15 U/L (12-78); TOT PROT 7.8 g/dl (6.4-8.2)
--- NOTE | 2016-12-01 08:54 | PN ---
Progress Note (short form) - Note Progress Note: Ortho Pt seen and examined pain has improved but still present decr pain, incr rom, nvi a/p bone scan pending PT pain control will follow d/w Dr. Rice
[2016-12-01] MEDS: HEPARIN NA (PORCINE) 5,000 UNITS/ML 1ML VIAL SQ SCH ×2 (10:50→21:45)
[2016-12-01] MEDS: diazePAM 5 MG TABLET PO PRN ×2 (10:50→22:22)
--- NOTE | 2016-12-01 11:50 | PN ---
Progress Note (short form) - Note Progress Note: Renal Follow up for STEPHEN Pt seen and examined at the bedside continues to have neck pain and right UE weakness denies any sob, chest pain , abd pain, N/V/D Vital Signs Temperature 98.3 F 12/01/16 10:00 Pulse Rate 90 12/01/16 10:00 Respiratory Rate 16 12/01/16 10:00 Blood Pressure 140/70 12/01/16 10:00 O2 Sat by Pulse Oximetry (%) 96 11/30/16 21:00 Intake & Output 11/28/16 11/29/16 11/30/16 12/01/16 23:59 23:59 23:59 23:59 Intake Total 1050 100 150 Balance 1050 100 150 Weight 300 lb 301 lb 9.6 oz Gen: NAD, awake and alert CVS: Dec BS lung bases, no rales Abd: soft NT/ND, Obese Ext: Trace to 1+ edema in the LE CBC, BMP 12/01/16 06:30 12/01/16 06:30 Current Medications Diazepam (Valium -) 5 mg PO BID PRN PRN Reason: AGITATION Last Admin: 12/01/16 10:50 Dose: 5 mg Docusate Sodium (Colace -) 100 mg PO BID PRN PRN Reason: CONSTIPATION Heparin Sodium (Porcine) (Heparin -) 5,000 unit SQ BID AMINAH Last Admin: 12/01/16 10:50 Dose: 5,000 unit Hydromorphone HCl (Dilaudid Injection -) 2 mg IVPB Q3H PRN PRN Reason: PAIN Last Admin: 12/01/16 08:25 Dose: 2 mg A/p 56 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 #Acute vs. Chronic Renal insufficiency r/o paraproteinema Renal function improved and stable Renal US showed normal size kidneys Urine protein to Cr ratio showed insignificant proteinuria #Lytic lesions on CT of the Neck Check SPEP/ Free light chains - results pending f/u Bone scan #Neck pain/Spasms Pain control without nsaids #Pre-HTN/Hypertension Trend BP for now pain control Didier Yen DO
--- NOTE | 2016-12-01 13:31 | PN ---
Progress Note, Physician History of Present Illness: No new complaints. Denies chest pain or dyspnea. - Current Medication List Current Medications: Active Medications Diazepam (Valium -) 5 mg PO BID PRN PRN Reason: AGITATION Last Admin: 12/01/16 10:50 Dose: 5 mg Docusate Sodium (Colace -) 100 mg PO BID PRN PRN Reason: CONSTIPATION Heparin Sodium (Porcine) (Heparin -) 5,000 unit SQ BID AMINAH Last Admin: 12/01/16 10:50 Dose: 5,000 unit Hydromorphone HCl (Dilaudid Injection -) 2 mg IVPB Q3H PRN PRN Reason: PAIN Last Admin: 12/01/16 12:03 Dose: 2 mg - Objective Vital Signs: Vital Signs Temperature 98.3 F 12/01/16 10:00 Pulse Rate 90 12/01/16 10:00 Respiratory Rate 16 12/01/16 10:00 Blood Pressure 140/70 12/01/16 10:00 O2 Sat by Pulse Oximetry (%) 96 11/30/16 21:00 Constitutional: Yes: No Distress Eyes: Yes: Conjunctiva Clear, EOM Intact HENT: Yes: Atraumatic, Normocephalic Cardiovascular: Yes: Regular Rate and Rhythm Respiratory: Yes: CTA Bilaterally Gastrointestinal: Yes: Normal Bowel Sounds, Soft. No: Tenderness Edema: No Neurological: Yes: Alert, Oriented, Cran Nerves II-XII Intact Psychiatric: Yes: WNL Labs: CBC, BMP 12/01/16 06:30 12/01/16 06:30 Assessment/Plan 56 yo obese male with no significant PMH who was admitted with severe episodic pain/spasm of his neck, upper back, chest, and arms. He was found to have mutliple lytic lesions on cervical spine CT on 11/28/16 which is suspicious for metastatic disease. Cardiology was consulted for evaluation of cardiac murmur noted on physical exam. No symptoms to suggest severe valvular disease or heart failure. BNP normal. Reviewed echo images today and calcification of aortic valve was noted, but appeared to open without significant restriction. Final report pending. RECS: Will follow-up final report of echocardiogram. Management of cervical spine lytic lesions as per primary team and oncology. Will see as needed. Call with questions.
--- NOTE | 2016-12-01 16:50 | DS ---
Physical Examination Vital Signs: Vital Signs Temperature 98.2 F 12/01/16 14:00 Pulse Rate 114 H 12/01/16 14:00 Respiratory Rate 20 12/01/16 14:00 Blood Pressure 140/70 12/01/16 10:00 O2 Sat by Pulse Oximetry (%) 96 11/30/16 21:00 Findings/Remarks: UNDERSTANDS BONE LESION DDx Constitutional: Yes: Calm Cardiovascular: Yes: Regular Rate and Rhythm, S1, S2 Respiratory: Yes: CTA Bilaterally Gastrointestinal: Yes: Normal Bowel Sounds, Soft Musculoskeletal: Yes: Back Pain Edema: No Labs: CBC, BMP 12/01/16 06:30 12/01/16 06:30 Discharge Summary Reason For Visit: MALIGNANT NEOPLASM, LYSIC LESION OF BONE Current Active Problems STEPHEN (acute kidney injury) (Acute) Cancer (Acute) Lytic bone lesions on xray (Acute) Murmur (Acute) Hospital Course: Mr. Leiva is a 56 y/o obese male with no PMH presenting to the ED with increasing spasmodic pain. Pt. states that he was seen in the ED in October with similar pain. Now he states that the pain is worse/more frequent and affecting his neck, upper back, chest and arms. When he is having the pain, he rates it at a 12/10, after the spasm finishes, the pain is a 0/10. Pt. states the pain is more frequent when he lays down and nothing has made the spasm better or less frequent. States that ibuprofen, naproxen, and flexaril have not helped him. Pt. is unable to put a shirt on unassisted and states he has limited range of motion in his arms. Pt. states that his arms feel weak more so on his left side. Denies saddle anaesthesia, gait changes, bladder or bowel incontinence. (1) Low back pain Code(s): M54.5 - LOW BACK PAIN Qualifiers: Chronicity: acute Back pain laterality: left Sciatica presence: without sciatica Qualified Code(s): M54.5 - Low back pain DILAUDID -> PO VALIUM -> PO PT & ORTHO ON CASE (2) Lytic bone lesions on xray Code(s): M89.9 - DISORDER OF BONE, UNSPECIFIED ONCO NOTE APPRECIATED -> CAN F/U OUTPT ORTHO CONSULT APPRECIATED DDx - PROSTATE CA or MM (3) STEPHEN (acute kidney injury) Code(s): N17.9 - ACUTE KIDNEY FAILURE, UNSPECIFIED IMPROVED RENAL CONSULT NOTED CXr -> CONGESTION CHANGES BNP & TROP - NEG (4) Murmur Code(s): R01.1 - CARDIAC MURMUR, UNSPECIFIED REMEMBERS BEING TOLD HAS MURMUR CARDIO CONSULT NOTED F/U ECHO -> Reviewed echo images today and calcification of aortic valve was noted, but appeared to open without significant restriction. Final report pending. 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
--- NOTE | 2016-12-01 20:51 | PN ---
Progress Note (short form) - Note Progress Note: patient seen and examined c/o severe pain over both clavicles.also trouble with raising rue Last Vital Signs Temp Pulse Resp BP Pulse Ox 99.6 F 118 H 20 127/83 96 12/01/16 21:10 12/01/16 21:10 12/01/16 21:10 12/01/16 21:10 11/30/16 21:00 HEENT: LORI, EOM Intact Cor: RSR, No murmurs, No gallops Lungs: Clear to P&A Abd: Soft, Normal bowel sounds, No organomegaly Ext:chronic stasis dermatitis. rue --unable to abduct Skin: No rashes, Integument intact Abnormal Lab Results 12/01/16 12/01/16 06:30 06:30 WBC 11.2 H D RBC 3.51 L Hgb 9.7 L Hct 29.3 L MPV 7.2 L BUN 25 H Random Glucose 118 H AST 13 L Current Medications Diazepam (Valium -) 5 mg PO BID PRN PRN Reason: AGITATION Last Admin: 12/01/16 22:22 Dose: 5 mg Docusate Sodium (Colace -) 100 mg PO BID PRN PRN Reason: CONSTIPATION Heparin Sodium (Porcine) (Heparin -) 5,000 unit SQ BID AMINAH Last Admin: 12/01/16 21:45 Dose: 5,000 unit Hydromorphone HCl (Dilaudid Injection -) 2 mg IVPB Q3H PRN PRN Reason: PAIN Last Admin: 12/01/16 22:56 Dose: 2 mg a/p 56 y/o patient with b/l clavicular severe pain. multiple lytic lesions on skeleta; survey. rue abduction deficit will check CT scan soft tissues and bones neck/chest/b/l humerus ? occult fx will gently hydrate given contrast patient requesting anxiolytcs prior to ct given extent of pain/RUE abduction deficit will w/u for occult fx prior to discharge will discuss with primary team
[2016-12-02 07:40] LABS: BASOPHIL 0.5 % (0-2.0); EOSINOPHIL 1.8 % (0-4.5); INR 1.29 (0.82-1.09); MCH 27.6 pg (25.7-33.7); MCHC 32.9 g/dl (32.0-35.9); MEAN CELL VOLUME 83.8 fl (80-96); NEUTROPHILS 73.6 % (42.8-82.8); PLATELET COUNT 353 K/MM3 (134-434); PROTHROMBIN TIME (PATIENT) 14.3 SEC (9.98-11.88); RDW 14.6 % (11.9-15.9); WHITE BLOOD COUNT 9.6 K/mm3 (4.0-10.0)
[2016-12-02 07:43] LABS: ACTIVATED PTT 29.3 SECONDS (26.9-34.4)
[2016-12-02 08:02] LABS: ALBUMIN 3.1 g/dl (3.4-5.0); ANION GAP 7 (8-16); CALCIUM 9.9 mg/dL (8.5-10.1); CO2 27 mmol/L (21-32); GLUCOSE,RANDOM 109 mg/dL (74-106); SGOT/AST 21 U/L (15-37)
[2016-12-02 08:04] LABS: ALK PHOS 102 U/L (45-117); BILIRUBIN,TOTAL 0.7 mg/dL (0.2-1.0); CREATININE 1.1 mg/dL (0.7-1.3); LDH 149 U/L (87-241); SGPT/ALT 20 U/L (12-78); TOT PROT 7.2 g/dl (6.4-8.2)
[2016-12-02] MEDS: diazePAM 5 MG TABLET PO PRN (09:22)
[2016-12-02] MEDS: HEPARIN NA (PORCINE) 5,000 UNITS/ML 1ML VIAL SQ SCH ×2 (09:22→21:31)
[2016-12-02] MEDS: HYDROmorphone HCL CARPU-JECT 2 MG/1 ML DISP.SYRIN IVPB PRN ×5 (09:22→21:45)
--- NOTE | 2016-12-02 11:33 | PN ---
Progress Note (short form) - Note Progress Note: Renal Follow up for STEPHEN Pt seen and examined at the bedside has pain in b/l shoulders pain is slightly better controlled no sob or chest pain off IVF good urine output Vital Signs Temperature 98.7 F 12/02/16 10:00 Pulse Rate 106 H 12/02/16 10:00 Respiratory Rate 18 12/02/16 10:00 Blood Pressure 116/80 12/02/16 10:00 O2 Sat by Pulse Oximetry (%) 96 11/30/16 21:00 Intake & Output 11/29/16 11/30/16 12/01/16 12/02/16 23:59 23:59 23:59 23:59 Intake Total 1050 100 500 Balance 1050 100 500 Weight 301 lb 9.6 oz Gen: NAD, awake and alert CVS: Dec BS lung bases, no rales Abd: soft NT/ND, Obese Ext: Trace edema in LE CBC, BMP 12/02/16 05:35 12/02/16 05:35 Current Medications Diazepam (Valium -) 5 mg PO BID PRN PRN Reason: AGITATION Last Admin: 12/02/16 09:22 Dose: 5 mg Docusate Sodium (Colace -) 100 mg PO BID PRN PRN Reason: CONSTIPATION Heparin Sodium (Porcine) (Heparin -) 5,000 unit SQ BID AMINAH Last Admin: 12/02/16 09:22 Dose: 5,000 unit Hydromorphone HCl (Dilaudid Injection -) 2 mg IVPB Q3H PRN PRN Reason: PAIN Last Admin: 12/02/16 09:22 Dose: 2 mg A/p 56 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 #Acute vs. Chronic Renal insufficiency r/o paraproteinema Renal function improved and stable Renal US showed normal size kidneys Urine protein to Cr ratio showed insignificant proteinuria SPEP/UPEP pending if pt to get contrast exposure would recommend pre and post IVF hydration #Lytic lesions on CT of the Neck Check SPEP/ Free light chains - results pending Bone scan showed multiple lytic lesions from the skull to the humerus #Neck pain/Spasms Pain control if renal function remains stable and pt is not going to get contrast exposure can use NSAIDS #Pre-HTN/Hypertension Trend BP for now pain control Didier Yen DO
[2016-12-02] MEDS ORDERED: FENTANYL PATCH WASTE MC PRN (15:51)
[2016-12-02] MEDS ORDERED: DOCUSATE SODIUM 100 MG CAPSULE (FP) PO PRN (15:51)
--- NOTE | 2016-12-02 15:51 | PN ---
Progress Note, Physician Chief Complaint: AWAKE ALERT DISCUSSING CASE WITH FAMILY PATIENT FOUND TO HAVE LYTIC LESIONS ON CSPINE WILL NEED METASTATIC WORKUP - Current Medication List Current Medications: Active Medications Diazepam (Valium -) 5 mg PO BID PRN PRN Reason: AGITATION Last Admin: 12/02/16 09:22 Dose: 5 mg Docusate Sodium (Colace -) 100 mg PO BID PRN PRN Reason: CONSTIPATION Heparin Sodium (Porcine) (Heparin -) 5,000 unit SQ BID AMINAH Last Admin: 12/02/16 09:22 Dose: 5,000 unit Hydromorphone HCl (Dilaudid Injection -) 2 mg IVPB Q3H PRN PRN Reason: PAIN Last Admin: 12/02/16 12:34 Dose: 2 mg - Objective Vital Signs: Vital Signs Temperature 97.9 F 12/02/16 12:53 Pulse Rate 113 H 12/02/16 12:53 Respiratory Rate 18 12/02/16 12:53 Blood Pressure 116/71 12/02/16 12:53 O2 Sat by Pulse Oximetry (%) 96 11/30/16 21:00 Constitutional: Yes: Moderate Distress Eyes: Yes: WNL HENT: Yes: WNL Neck: Yes: WNL Cardiovascular: Yes: WNL Respiratory: Yes: WNL Gastrointestinal: Yes: WNL Genitourinary: Yes: WNL Musculoskeletal: Yes: Back Pain, Muscle Weakness Extremities: Yes: WNL Edema: Yes Edema: LLE: 1+, RLE: 1+ Peripheral Pulses WNL: Yes Integumentary: Yes: WNL Wound/Incision: Yes: Clean/Dry Neurological: Yes: Numbness, Paresthesia, Weakness ...Motor Strength: LUE, RUE Psychiatric: Yes: Other Labs: CBC, BMP 12/02/16 05:35 12/02/16 05:35 INR, PTT INR 1.29 (0.82-1.09) H 12/02/16 05:35 Problem List - Problems (1) STEPHEN (acute kidney injury) Code(s): N17.9 - ACUTE KIDNEY FAILURE, UNSPECIFIED (2) Cancer Code(s): C80.1 - MALIGNANT (PRIMARY) NEOPLASM, UNSPECIFIED (3) Lytic bone lesions on xray Code(s): M89.9 - DISORDER OF BONE, UNSPECIFIED Assessment/Plan METASTATIC WORKUP IN PROGRESS WILL ORDER CT BRAIN/CHEST/ABD/PELVIS LABS PAIN CONTROL ONCOLOGY EVAL NEUROSURGERY FOR LYTIC LESIONS CALCITONIN NASAL SPRAY PAIN MEDICINE EVAL
[2016-12-02] MEDS ORDERED: ONDANSETRON *ODT* 4 MG TABLET SL PRN (15:52)
[2016-12-02] MEDS ORDERED: fentaNYL 12mcg/hr PATCH.TD72 TD SCH (16:00)
--- NOTE | 2016-12-02 17:00 | PN ---
Progress Note (short form) - Note Progress Note: NEUROSURGERY CONSULT DICTATED Chart reviewed Pt examined 5-6 week history of spasm and pain in neck and back, multiple ER visits. CT Cspine which revealed multiple lytic lesions. Unable to sleep lying down, taking "tons" of NSAIDS in October CT CS- multiple lytic lesions of entire C spine vertebral column mostly anterior ; no severe canal compromise Skeletal series- humerus and pelvis lytic lesions Cr 1.4, now 1.[address] scans pending Preferably would need C spine MRI with/without if renal function adequate per renal Oncology w/u If solid lesion(s) could consider bx (if not MM per serum studies)
[2016-12-02] MEDS: CALCITONIN - SALMON SYNTHETIC 3.7 ML SPRAY.PUMP NS SCH (17:04)
[2016-12-02] MEDS ORDERED: PT OWN MED DRAWER 7, Y5N ONE (18:58)
--- NOTE | 2016-12-02 19:08 | CONSULT ---
Consult Consult Specialty:: pain medicien Referred by:: ananda - History of Present Illness Chief Complaint: neck pain History of Present Illness: 56 year old who presented with neck pain and muscle spasm for several days and found to have lytic bone lesions on cervical spine CT. Currently he reports good pain relief with current regimen of dilaudid and morphine. Pain score 4/10. - Past Surgical History Past Surgical History: Yes: Appendectomy (as a child) - Alcohol/Substance Use Hx Alcohol Use: Yes (Occasional glass of wine or shot of [place]) History of Substance Use: reports: None - Smoking History Smoking history: Former smoker Have you smoked in the past 12 months: No Aproximately how many cigarettes per day: 8 If you are a former smoker, when did you quit?: 9 MONTHS Home Medications - Allergies Allergies/Adverse Reactions: Allergies Allergy/AdvReac Type Severity Reaction Status Date / Time No Known Allergies Allergy Verified 11/28/16 21:02 - Home Medications Home Medications: Ambulatory Orders Diazepam [Valium] 10 mg PO HS #6 tablet MDD 3 11/12/16 Docusate Sodium [Colace -] 100 mg PO BID PRN #60 capsule 12/01/16 Hydromorphone [Dilaudid -] 2 mg PO Q6H PRN #20 tablet MDD 4 12/01/16 Family Disease History - Family Disease History Family Disease History: Heart Disease: Father ([place] in his 70s) Other Family History: Denies family history of cancer, or other hematological issues. Physical Exam Vital Signs: Vital Signs Temperature 97.9 F 12/02/16 12:53 Pulse Rate 113 H 12/02/16 12:53 Respiratory Rate 18 12/02/16 12:53 Blood Pressure 116/71 12/02/16 12:53 O2 Sat by Pulse Oximetry (%) 96 11/30/16 21:00 Musculoskeletal: Yes: Other (neck pain with stiffness) Labs: CBC, BMP 12/02/16 05:35 12/02/16 05:35 Assessment/Plan neck pain secondary to lytic lesions most likely secondary to MM 1. Pharmacologically- the patient reports good relief with current regimen of dilaudid. The patient will be also getting ms contin today I offered to switch the patient to a dilaudid UNDER TRIMMER but patient is comfortable with current therapy 2. Oncology follow up
--- NOTE | 2016-12-02 20:04 | PN ---
Progress Note (short form) - Note Progress Note: Patient seen and examined Rather immobile from bone pains. Protein studies pending. Reverse A/G noted. Last Vital Signs Temp Pulse Resp BP Pulse Ox 97.9 F 113 H 18 116/71 96 12/02/16 12:53 12/02/16 12:53 12/02/16 12:53 12/02/16 12:53 Rather immobile Cor: RSR, No murmurs, No gallops Lungs: Clear to P&A Abd: Soft, Normal bowel sounds, No organomegaly Ext:edema Skin: No rashes, Integument intact Reviewed skeletal survey and to my eyes there is large right proximal humeral lytic lesion with thinning of cortex and possible even fracture. Would suggest orthopedic consult to evaluate. May need prophylactic pinning. If so, at time of surgery will be able to get tissue. Plan-as above- would obtain ortho consult with attention to proximal right humerus. Await protein studies. IF no diagnosis is established - bone biopsy/marrow biopsy.
[2016-12-02] MEDS: morphine SO4 SUSTAINED ACTING 15 MG TABLET.SA PO SCH (21:30)
[2016-12-02] MEDS: GABAPENTIN 300 MG CAPSULE (FP) PO SCH (21:30)
[2016-12-02] MEDS: PANTOPRAZOLE 40 MG TABLET (FP) PO SCH (21:31)
[2016-12-03 00:07] LABS: A/G RATIO 0.8 (0.7-1.7); ALBUMIN 3.3 g/dL (2.9-4.4); GLOBULIN, TOTAL 4.1 g/dL (2.2-3.9); M-SPIKE 1.2 g/dL (Not Observed); TOTAL PROTEIN 7.4 g/dL (6.0-8.5)
[2016-12-03] MEDS: HYDROmorphone HCL CARPU-JECT 2 MG/1 ML DISP.SYRIN IVPB PRN ×3 (07:41→18:32)
[2016-12-03 08:05] LABS: CALCIUM 9.4 mg/dL (8.5-10.1); CREATININE 1.1 mg/dL (0.7-1.3); MAGNESIUM 1.9 mg/dL (1.8-2.4)
[2016-12-03 08:06] LABS: IGG IMMUNOGLOBULIN 1941 mg/dL (700-1600); IGM IMMUNOGLOBULIN 19 mg/dL (20-172)
--- NOTE | 2016-12-03 09:04 | PN ---
Progress Note, Physician Chief Complaint: AWAKE ALERT MORE COMFORTABLE WITH NEW PAIN MED REGIMEN CT SCANS REVIEWED - Current Medication List Current Medications: Active Medications Calcitonin (Miacalcin [place] -) 200 units NS DAILY [facility] Last Admin: 12/02/16 17:04 Dose: 1 spray Diazepam (Valium -) 5 mg PO BID PRN PRN Reason: AGITATION Last Admin: 12/02/16 09:22 Dose: 5 mg Docusate Sodium (Colace -) 100 mg PO BID PRN PRN Reason: CONSTIPATION Docusate Sodium (Colace -) 100 mg PO Q8H PRN PRN Reason: CONSTIPATION Gabapentin (Neurontin -) 300 mg PO BID [facility] Last Admin: 12/02/16 21:30 Dose: 300 mg Heparin Sodium (Porcine) (Heparin -) 5,000 unit SQ BID [facility] Last Admin: 12/02/16 21:31 Dose: 5,000 unit Hydromorphone HCl (Dilaudid Injection -) 2 mg IVPB Q3H PRN PRN Reason: PAIN Last Admin: 12/03/16 07:41 Dose: 2 mg Miscellaneous (Duragesic Patch Waste) 1 each MC PRN PRN PRN Reason: PAIN Morphine Sulfate (Ms Contin -) 15 mg PO BID [facility] Last Admin: 12/02/16 21:30 Dose: 15 mg Ondansetron HCl (Zofran Odt -) 8 mg SL Q6H PRN PRN Reason: NAUSEA AND/OR VOMITING Pantoprazole Sodium (Protonix -) 40 mg PO DAILY [facility] Last Admin: 12/02/16 21:31 Dose: 40 mg - Objective Vital Signs: Vital Signs Temperature 97.9 F 12/02/16 12:53 Pulse Rate 113 H 12/02/16 12:53 Respiratory Rate 18 12/02/16 21:00 Blood Pressure 116/71 12/02/16 12:53 O2 Sat by Pulse Oximetry (%) 96 11/30/16 21:00 Constitutional: Yes: Mild Distress Eyes: Yes: WNL HENT: Yes: WNL Neck: Yes: WNL Cardiovascular: Yes: WNL Respiratory: Yes: WNL Gastrointestinal: Yes: WNL Genitourinary: Yes: WNL Musculoskeletal: Yes: Back Pain, Joint Stiffness, Muscle Pain Extremities: Yes: Other Edema: No Peripheral Pulses WNL: Yes Integumentary: Yes: WNL Wound/Incision: Yes: Clean/Dry Neurological: Yes: Numbness, Paresthesia, Weakness ...Motor Strength: LUE, LLE, RUE, RLE Psychiatric: Yes: Other Labs: CBC, BMP 12/02/16 05:35 12/03/16 06:30 INR, PTT INR 1.29 (0.82-1.09) H 12/02/16 05:35 Problem List - Problems (1) STEPHEN (acute kidney injury) Code(s): N17.9 - ACUTE KIDNEY FAILURE, UNSPECIFIED (2) Cancer Code(s): C80.1 - MALIGNANT (PRIMARY) NEOPLASM, UNSPECIFIED (3) Lytic bone lesions on xray Code(s): M89.9 - DISORDER OF BONE, UNSPECIFIED Assessment/Plan CT SCAN REVIEWED MULTIPLE LYTIC LESIONS ONCOLOGY AND NEUROSURGERY WORKUP IN PROGRESS ORTHOPEDICS FOR RIGHT HUMERUS PINNING PAIN CONTROL RELASTOR FOR OPIOD BOWEL CONSTIPATION WILL START DECADRON CALCITONIN NASAL
[2016-12-03] MEDS: diazePAM 5 MG TABLET PO PRN ×2 (09:24→21:31)
[2016-12-03] MEDS: morphine SO4 SUSTAINED ACTING 15 MG TABLET.SA PO SCH ×2 (09:24→21:31)
[2016-12-03] MEDS: GABAPENTIN 300 MG CAPSULE (FP) PO SCH ×2 (09:24→21:32)
[2016-12-03] MEDS: PANTOPRAZOLE 40 MG TABLET (FP) PO SCH (09:24)
[2016-12-03] MEDS: CALCITONIN - SALMON SYNTHETIC 3.7 ML SPRAY.PUMP NS SCH (09:33)
[2016-12-03] MEDS: HEPARIN NA (PORCINE) 5,000 UNITS/ML 1ML VIAL SQ SCH ×2 (09:40→21:32)
[2016-12-03] MEDS ORDERED: DEXAMETHASONE SOD PHOSPHATE 10 MG/1 ML VIAL IVPB SCH (10:00)
--- NOTE | 2016-12-03 10:30 | CONSULT ---
Consult - text type - Consultation Consultation Note: metastatic francisca survey revealed a large lytic lesion in the right humeral shaft measuring>4cm along with multiple other lesions throughout jennifer, c-spine , bilateral clavicles and small lesions in distal humerus bilaterally. Patient has no symptoms from the humeral lesion but does have pain in his right clavicle. I had a long discussion with him about these lesion and possible treatment and about impending fractures. The most worrisome is the right humeral shaft which I recommend IM rodding. He will think about his options and discuss it with his family and come to a decision
--- NOTE | 2016-12-03 10:34 | PN ---
Progress Note (short form) - Note Progress Note: NEUROSURGERY Pain controlled with meds Sitting up in chair PE; AF, VSS Motor- 4+-5/5 B UE/LE Sensation- intact LT Dressing C/D/I CT CS- multiple lytic lesions of entire C spine vertebral column mostly anterior ; no severe canal compromise Skeletal series- humerus and pelvis lytic lesions Head CT- multiple calvarial lytic lesion; small R parietal hyperdense; mild edema Cr 1.1 Skeletal and R parietal mets Preferably would need C spine MRI and brain MRI with/without if renal function adequate per renal Oncology w/u
--- NOTE | 2016-12-03 12:18 | CONS ---
DATE OF CONSULTATION: 12/02/2016 CHIEF COMPLAINT: Neck pain. HISTORY OF PRESENT ILLNESS: The patient is a 56-year-old right-handed male with history of intractable neck pain of 4-6 weeks' duration. This started in late September. The pain was so severe it was radiating into his right shoulder. He was taking "a ton of anti-inflammatory medication." This was associated with some subjective right arm paresthesias. He denies Lhermitte sign, and has no bowel or bladder incontinence. He went to multiple urgent care centers, and was discharged after giving pain medications only. He eventually showed up at the emergency room on multiple occasions and a CT scan of the cervical spine was done. That demonstrated lytic lesions and he was admitted for evaluation. Medical Oncology and Renal consults were noted. PAST MEDICAL HISTORY: Noncontributory. CURRENT MEDICATIONS: Include Duragesic patch, subcutaneous heparin, gabapentin, Valium, Colace, Dilaudid p.r.n., MS Contin, as well as Miacalcin spray. ALLERGIES: No known drug allergies. FAMILY HISTORY: Noncontributory. SOCIAL HISTORY: He used to smoke up to a couple of weeks ago when he quit. He used to smoke about a pack a day. He drinks alcohol socially. 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 REVIEW OF SYSTEMS: Otherwise negative for other major cardiovascular, pulmonary, gastrointestinal, genitourinary, endocrinologic, neurological, psychological problem. He has no recent infection nor has he reported any recent weight loss. PHYSICAL EXAMINATION: Vital Signs: Temperature is 97.9, blood pressure is 116/71, pulse rate of 113. HEENT: Shows him to be normocephalic, atraumatic, anicteric. Neck: Supple with greater than left-sided paraspinal muscle spasm. Right shoulder range of motion is diminished. Coronary: Demonstrated a regular rhythm. Lungs: Clear bilaterally. Abdomen: Benign. He is obese. Extremities: Show no sign of DVT. Neurologic: He is awake, alert, and oriented x4. Cranial nerve examination is intact 2-12. Motor examination shows 5/5 strength except right hand intrinsic muscles and triceps which are 4/5 limited by pain. Sensory examination is intact to light touch. Deep tendon reflexes are 2+ throughout. There is no pathological long tract sign. Gait is normal. Cerebellar examination demonstrates normal coordination without tremor. LABORATORY EXAMINATION: Shows white blood cell count to be 9600, hemoglobin is 8.7, platelet count 353,000. INR is 1.29 and PTT is 29.3. Serum sodium is 135 and potassium is 4.2. BUN 20, creatinine 1.1, previously was 26 and 1.4. Urinalysis is negative except for 1+ glucose. Serum protein electrophoresis is pending. CT scan of the cervical spine without contrast demonstrating multifocal lytic lesions from C2 all the way down to T1. There is no significant compression fracture or compromised vertebral column. There is multilevel degenerative disk disease with some reversal cervical lordosis. Skeletal survey demonstrated multifocal involvement of the humerus and the pelvis. IMPRESSION: 1. Probable metastatic disease of the cervical spine. 2. Obesity. RECOMMENDATIONS: The patient presents with 4-6 week history of relatively sudden onset neck pain. He was not able to sleep at night supine. He has taken a lot of anti-inflammatory medications which could have contributed to the elevated creatinine at baseline. The most likely diagnosis is metastatic disease with metastasis to the axial skeleton. There is also a possibility of multiple myeloma. Prostate is unlikely because of lytic rather than blastic nature of the vertebral findings. Ideally, he should undergo an MRI of the cervical spine with and without gadolinium to better define the disease process and any epidural involvement. The patient is extremely claustrophobic by report and has mildly elevated creatinine initially. Creatinine has subsequently normalized. Nephrology has already been consulted and is on the case. If he is to undergo a closed MRI, some sedation may be required. The above was discussed with patient at bedside, and he is eager to have the evaluation completed. BRIAN FOURNIER M.D. GÉNESIS/[id number]
[2016-12-03] MEDS: DEXAMETHASONE SOD PHOSPHATE 4 MG/1 ML VIAL IVPB SCH ×2 (12:42→18:33)
--- NOTE | 2016-12-03 16:31 | PN ---
Progress Note (short form) - Note Progress Note: Renal Follow up for STEPHEN Pt seen and examined at the bedside continues to have pain no sob or chest pain s/p CT of the abd and UE done yesterday w/o contrast Vital Signs Temperature 98.5 F 12/03/16 14:00 Pulse Rate 108 H 12/03/16 14:00 Respiratory Rate 22 12/03/16 14:00 Blood Pressure 111/69 12/03/16 10:00 O2 Sat by Pulse Oximetry (%) 96 11/30/16 21:00 Intake & Output 11/30/16 12/01/16 12/02/16 12/03/16 23:59 23:59 23:59 23:59 Intake Total 100 500 800 220 Balance 100 500 800 220 Gen: NAD, awake and alert CVS: Dec BS lung bases, no rales Abd: soft NT/ND, Obese Ext: Trace edema in LE CBC, BMP 12/02/16 05:35 12/03/16 06:30 Current Medications Calcitonin (Miacalcin [place] -) 200 units NS DAILY [facility] Last Admin: 12/03/16 09:33 Dose: 1 spray Dexamethasone Sodium Phosphate (Decadron Injection -) 10 mg IVPB Q8H-IV [facility] Last Admin: 12/03/16 12:42 Dose: 10 mg Diazepam (Valium -) 5 mg PO BID PRN PRN Reason: AGITATION Last Admin: 12/03/16 09:24 Dose: 5 mg Docusate Sodium (Colace -) 100 mg PO Q8H PRN PRN Reason: CONSTIPATION Gabapentin (Neurontin -) 300 mg PO BID [facility] Last Admin: 12/03/16 09:24 Dose: 300 mg Heparin Sodium (Porcine) (Heparin -) 5,000 unit SQ BID [facility] Last Admin: 12/03/16 09:40 Dose: 5,000 unit Hydromorphone HCl (Dilaudid Injection -) 2 mg IVPB Q3H PRN PRN Reason: PAIN Last Admin: 12/03/16 12:41 Dose: 2 mg Insulin Aspart (Novolog Vial Sliding Scale -) [facility] Reason: Protocol Methylnaltrexone [place] (Relistor -) 8 mg SQ DAILY [facility] Miscellaneous (Duragesic Patch Waste) 1 each MC PRN PRN PRN Reason: PAIN Morphine Sulfate (Ms Contin -) 15 mg PO BID [facility] Last Admin: 12/03/16 09:24 Dose: 15 mg Ondansetron HCl (Zofran Odt -) 8 mg SL Q6H PRN PRN Reason: NAUSEA AND/OR VOMITING Pantoprazole Sodium (Protonix -) 40 mg PO DAILY [facility] Last Admin: 12/03/16 09:24 Dose: 40 mg A/p 56 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 #Acute vs. Chronic Renal insufficiency r/o paraproteinema Renal function improved and stable Renal US showed normal size kidneys Urine protein to Cr ratio showed insignificant proteinuria SPEP showed M-spike if pt to get any CT studies with contrast would advise pre and post IVF hydration #Lytic lesions on CT of the Neck SPEP showed M-spike F/u Oncology Recs Bone scan showed multiple lytic lesions from the skull to the humerus #Neck pain/Spasms Pain control if renal function remains stable and pt is not going to get contrast exposure can use NSAIDS #Pre-HTN/Hypertension Trend BP for now pain control Didier Yen DO
[2016-12-03] MEDS: Methylnaltrexone Bromide 12 MG/0.6 ML KIT SQ SCH (18:32)
[2016-12-03] MEDS: INSULIN SLIDING SCALE (NOVOLOG) 1 VIAL SQ SCH (18:33)
--- NOTE | 2016-12-03 19:23 | PN ---
Progress Note (short form) - Note Progress Note: patient seen and examined pain better controlled very angry that we said that I had said thatthe scenario was suspicious for cancer . Last Vital Signs Temp Pulse Resp BP Pulse Ox 98.5 F 108 H 22 111/69 96 12/03/16 14:00 12/03/16 14:00 12/03/16 14:00 12/03/16 10:00 11/30/16 21:00 HEENT: LORI, EOM Intact Cor: RSR, No murmurs, No gallops Lungs: Clear to P&A Abd: Soft, Normal bowel sounds, No organomegaly Ext:chronic stasis dermatitis. rue --unable to abduct Abnormal Lab Results 11/29/16 12/02/16 12/03/16 13:10 05:35 06:30 Sodium 135 L BUN 19 H Globulin 4.1 H IgG 1941 H IgA 58 L IgM 19 L LIVIER M-Rangel 1.2 H Free Lambda LC, Quant 50.44 H Current Medications Calcitonin (Miacalcin [place] -) 200 units NS DAILY [facility] Last Admin: 12/03/16 09:33 Dose: 1 spray Diazepam (Valium -) 5 mg PO BID PRN PRN Reason: AGITATION Last Admin: 12/03/16 09:24 Dose: 5 mg Docusate Sodium (Colace -) 100 mg PO Q8H PRN PRN Reason: CONSTIPATION Gabapentin (Neurontin -) 300 mg PO BID [facility] Last Admin: 12/03/16 09:24 Dose: 300 mg Heparin Sodium (Porcine) (Heparin -) 5,000 unit SQ BID [facility] Last Admin: 12/03/16 09:40 Dose: 5,000 unit Hydromorphone HCl (Dilaudid Injection -) 2 mg IVPB Q3H PRN PRN Reason: PAIN Last Admin: 12/03/16 18:32 Dose: 2 mg Insulin Aspart (Novolog Vial Sliding Scale -) 1 vial SQ BIDAC [facility] PRN Reason: Protocol Last Admin: 12/03/16 18:33 Dose: Not Given Methylnaltrexone [place] (Relistor -) 8 mg SQ DAILY [facility] Last Admin: 12/03/16 18:32 Dose: 8 mg Miscellaneous (Duragesic Patch Waste) 1 each [facility] PRN PRN PRN Reason: PAIN Morphine Sulfate (Ms Contin -) 15 mg PO BID [facility] Last Admin: 12/03/16 09:24 Dose: 15 mg Ondansetron HCl (Zofran Odt -) 8 mg SL Q6H PRN PRN Reason: NAUSEA AND/OR VOMITING Pantoprazole Sodium (Protonix -) 40 mg PO DAILY [facility] Last Admin: 12/03/16 09:24 Dose: 40 mg a/p 56 y/o patient with b/l clavicular severe pain. multiple lytic lesions on skeletal survey. rue abduction deficit CT scan chest/b/l humerus, a/p--multiple osteolytic lesions --ribs, vertebrae, T5 fx, b/l humerii. no lung/liver,asses/nodes Ct head shows small lesion in rt. parietal lobe --- MRI vs CT contrast was suggested. Patient not able to get MRI , due to obesity, claustrophobia, in house. will discuss with PMD and renal team about getting CT with and without contrast of the brain Orthopaedic input appreciated. Patient considering prophylactic rodding for rt. humeral lytic lesion. will need to get tissue diagnosis at the same time Protein studies show normal K/L ratio , small M spike -- not common with myeloma ?? nonsecretory myeloma, possibility but extremely rare entity versus other solid tumor but no obvious mass. LDH/PSA normal/ Also brain lesion not assocuiated with myelonma Will need to get CT head with and without contrast with help of renal team will follow
[2016-12-04] MEDS: HYDROmorphone HCL CARPU-JECT 2 MG/1 ML DISP.SYRIN IVPB PRN ×5 (00:03→21:38)
[2016-12-04] MEDS: INSULIN SLIDING SCALE (NOVOLOG) 1 VIAL SQ SCH ×2 (06:48→17:43)
[2016-12-04 08:37] LABS: C-REACTIVE PROTEIN 11.4 MG/DL (0.00-0.3); LDH 166 U/L (87-241)
[2016-12-04 08:38] LABS: ANION GAP 10 (8-16); CALCIUM 9.7 mg/dL (8.5-10.1); CO2 26 mmol/L (21-32); GLUCOSE,RANDOM 113 mg/dL (74-106)
[2016-12-04 08:41] LABS: BASOPHIL 0.2 % (0-2.0); EOSINOPHIL 0.2 % (0-4.5); MCH 27.3 pg (25.7-33.7); MCHC 32.7 g/dl (32.0-35.9); MEAN CELL VOLUME 83.4 fl (80-96); MEAN PLT VOLUME 7.2 fl (7.5-11.1); PLATELET COUNT 425 K/MM3 (134-434); RDW 14.6 % (11.9-15.9); WHITE BLOOD COUNT 12.4 K/mm3 (4.0-10.0)
[2016-12-04 08:42] LABS: FERRITIN 54.782 ng/ml (16.4-293.9); FREE T4 1.39 ng/dl (0.76-1.16)
[2016-12-04 08:48] LABS: THYROID STIMULATING HORMONE 0.33 uIU/ml (0.358-3.74)
[2016-12-04 09:04] LABS: ALK PHOS 111 U/L (45-117); BILIRUBIN,TOTAL 0.3 mg/dL (0.2-1.0); SGOT/AST 32 U/L (15-37); SGPT/ALT 31 U/L (12-78); TOT PROT 7.6 g/dl (6.4-8.2); URIC ACID 5.3 mg/dL (2.6-7.2)
[2016-12-04 09:12] LABS: ALBUMIN 3.1 g/dl (3.4-5.0)
--- NOTE | 2016-12-04 09:45 | PN ---
Progress Note (short form) - Note Progress Note: ID Consult dictated HIV counseling offered and declined noting that he has no risk factors or life style that would require testing Also expressed need to have 1 physician convey ( primary care) important information to him Kindly recall if I can assist Kianna MONTENEGRO
--- NOTE | 2016-12-04 09:46 | PN ---
Problem List - Problems (1) Lytic bone lesions on xray Code(s): M89.9 - DISORDER OF BONE, UNSPECIFIED (2) Encounter for HIV counseling Code(s): Z71.7 - HUMAN IMMUNODEFICIENCY VIRUS [HIV] COUNSELING
[2016-12-04] MEDS: morphine SO4 SUSTAINED ACTING 15 MG TABLET.SA PO SCH ×2 (09:51→21:37)
[2016-12-04] MEDS: HEPARIN NA (PORCINE) 5,000 UNITS/ML 1ML VIAL SQ SCH (09:52)
[2016-12-04] MEDS: PANTOPRAZOLE 40 MG TABLET (FP) PO SCH (09:53)
[2016-12-04] MEDS: CALCITONIN - SALMON SYNTHETIC 3.7 ML SPRAY.PUMP NS SCH (09:53)
[2016-12-04] MEDS: GABAPENTIN 300 MG CAPSULE (FP) PO SCH ×2 (09:53→21:37)
[2016-12-04] MEDS: Methylnaltrexone Bromide 12 MG/0.6 ML KIT SQ SCH (10:48)
[2016-12-04 11:35] LABS: SICKLE CELL SCREEN NEGATIVE (NEGATIVE)
--- NOTE | 2016-12-04 11:57 | PN ---
Progress Note (short form) - Note Progress Note: Renal Follow up for STEPHEN Pt seen and examined at the bedside No acute complaints upset about not knowing exactly whats going on reports some swelling in LE Vital Signs Temperature 97.6 F 12/04/16 06:38 Pulse Rate 93 H 12/04/16 06:38 Respiratory Rate 20 12/04/16 06:38 Blood Pressure 128/88 12/04/16 06:38 O2 Sat by Pulse Oximetry (%) 96 11/30/16 21:00 Gen: NAD, awake and alert CVS: Dec BS lung bases, no rales Abd: soft NT/ND, Obese Ext: Trace edema in LE CBC, BMP 12/04/16 08:00 12/04/16 07:00 Current Medications Calcitonin (Miacalcin [place] -) 200 units NS DAILY [facility] Last Admin: 12/04/16 09:53 Dose: 1 spray Diazepam (Valium -) 5 mg PO BID PRN PRN Reason: AGITATION Last Admin: 12/03/16 21:31 Dose: 5 mg Docusate Sodium (Colace -) 100 mg PO Q8H PRN PRN Reason: CONSTIPATION Gabapentin (Neurontin -) 300 mg PO BID [facility] Last Admin: 12/04/16 09:53 Dose: 300 mg Heparin Sodium (Porcine) (Heparin -) 5,000 unit SQ BID [facility] Last Admin: 12/04/16 09:52 Dose: 5,000 unit Hydromorphone HCl (Dilaudid Injection -) 2 mg IVPB Q3H PRN PRN Reason: PAIN Last Admin: 12/04/16 08:25 Dose: 2 mg Insulin Aspart (Novolog Vial Sliding Scale -) [facility] PRN Reason: Protocol Last Admin: 12/04/16 06:48 Dose: Not Given Methylnaltrexone [place] (Relistor -) 8 mg SQ DAILY [facility] Last Admin: 12/04/16 10:48 Dose: 8 mg Miscellaneous (Duragesic Patch Waste) 1 each [facility] PRN PRN PRN Reason: PAIN Morphine Sulfate (Ms Contin -) 15 mg PO BID [facility] Last Admin: 12/04/16 09:51 Dose: 15 mg Ondansetron HCl (Zofran Odt -) 8 mg SL Q6H PRN PRN Reason: NAUSEA AND/OR VOMITING Pantoprazole Sodium (Protonix -) 40 mg PO DAILY [facility] Last Admin: 12/04/16 09:53 Dose: Not Given A/p 56 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 #Acute Renal insufficiency secondary to volume depletion Renal function improved and stable Continue to trend BUN/Cr if contrast needed for any diagnostic studies would use pre and post hydration Mild Edema in LE, hold off diuretics for now, leg elevation if tolerated #Lytic lesions on CT of the Neck SPEP showed M-spike F/u Oncology Recs Bone scan showed multiple lytic lesions from the skull to the humerus Work up/Tx as per Oncology/Ortho #Pre-HTN/Hypertension Trend BP for now pain control Didier Yen DO
--- NOTE | 2016-12-04 13:41 | CONS ---
DATE OF CONSULTATION: DATE OF DICTATION: 12/04/2016 REASON FOR CONSULTATION: This is a 56-year-old male who I am asked to see to provide HIV counseling to the patient. CHIEF COMPLAINT: This is a 56-year-old male weighing 300 pounds, who came to the emergency room with chief complaint of 3-week history of severe pain in his back , neck and shoulder. HISTORY OF PRESENT ILLNESS: On the night of admission, he underwent a CAT scan, which revealed multiple lytic lesions in the cervical spine suggestive of metastatic disease. Since that time, he has been seen by multiple consultants, including Neurosurgery, Oncology, Orthopedic Surgery and Renal. The patient has no fever, chills, night sweats, weight loss, loss of appetite, and I am asked to see him for HIV counseling, I assume for completeness. The patient denies any HIV risk factors or lifestyle that would predispose to HIV noting that he has been 25 years and has no history of substance abuse or other relationships. He has been seen by Dr. Burnett with a suggestion that he will need orthopedic surgery with placement of an intramedullary sonam, but at this point is having lab work in an effort to make a diagnosis of possible myeloma. He has been afebrile with no chills, night sweats or other systemic complaints. PAST MEDICAL HISTORY: Negative. CURRENT MEDICATIONS: Duragesic patch, Dilaudid, Protonix. ALLERGIES: None known. 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 FAMILY HISTORY: Noncontributory. REVIEW OF SYSTEMS: Respiratory: No cough, shortness of breath, hemoptysis. Cardiac: No chest pain, palpitations, syncope. Gastrointestinal: No nausea, vomiting, diarrhea, abdominal pain. Genitourinary: No dysuria, hematuria, urinary frequency. PHYSICAL EXAMINATION: General: He was a well-nourished heavy-set male/ Vitals: Afebrile, temperature 97.6, pulse 95, blood pressure 130/93, respirations 20. Neck: Supple. Lungs: Clear. Heart: S1, S2 regular rhythm. Abdomen: Soft, nontender. Extremities: With bilateral lower extremity edema. The white count was 12.4, hemoglobin 8, hematocrit 24.6, platelets 425, reticulocyte count 3.7, ESR pending. PT/INR 1.29, BUN 19, creatinine 1.0. Liver enzymes within normal limit. Alkaline phosphatase 102. LDH 149. Total protein 7.2, albumin 3.1, SPEP pending. Urinalysis negative for leukocyte esterase, 1+ glucose. Quantitate immunoglobulins elevation of IgG 1941. Upper extremity CT scan: Proximal right humeral osteolytic lesion risk for pathologic fracture. Cervical spine CT: Multiple lytic lesions consistent with metastasis. ASSESSMENT: A 56-year-old male presents with severe cervical and shoulder pain, found to have multiple lytic lesions. Oncology consult in progress with workup for possible myeloma. Has been seen by Dr. Walker and Dr. Lee. CT scan shows probable brain lesions in the parietal lobe. To get an MRI. At this point, no obvious risk factors for HIV as per patient's history. I discussed at length the routine nature of HIV counseling for all patients in his age group and in addition to get the test as part of the workup for his metastatic disease in the interest of completeness primarily. The patient understood, but declined noting that he has no lifestyle changes that would predispose to this and has been HIV tested negative in the past. Kindly recall if I can be of service Tay KRISHNAN M.D. SHOSHANA/[id number] MTDD
--- NOTE | 2016-12-04 15:47 | PN ---
Progress Note, Physician Chief Complaint: AWAKE ANXIOUS REFUSED HIV TESTING WOULD AGREE TO BRAIN BIOPSY AND HUMERUS PINNING IF DONE AT A COLLABORATIVE TIME WITH BOTH NEUROSURGERY AND ORTHOPEDICS - Current Medication List Current Medications: Active Medications Calcitonin (Miacalcin [place] -) 200 units NS DAILY [facility] Last Admin: 12/04/16 09:53 Dose: 1 spray Diazepam (Valium -) 5 mg PO BID PRN PRN Reason: AGITATION Last Admin: 12/03/16 21:31 Dose: 5 mg Docusate Sodium (Colace -) 100 mg PO Q8H PRN PRN Reason: CONSTIPATION Gabapentin (Neurontin -) 300 mg PO BID [facility] Last Admin: 12/04/16 09:53 Dose: 300 mg Heparin Sodium (Porcine) (Heparin -) 5,000 unit SQ BID [facility] Last Admin: 12/04/16 09:52 Dose: 5,000 unit Hydromorphone HCl (Dilaudid Injection -) 2 mg IVPB Q3H PRN PRN Reason: PAIN Last Admin: 12/04/16 12:17 Dose: 2 mg Insulin Aspart (Novolog Vial Sliding Scale -) 1 vial SQ BIDAC [facility] PRN Reason: Protocol Last Admin: 12/04/16 06:48 Dose: Not Given Methylnaltrexone [place] (Relistor -) 8 mg SQ DAILY [facility] Last Admin: 12/04/16 10:48 Dose: 8 mg Miscellaneous (Duragesic Patch Waste) 1 each MC PRN PRN PRN Reason: PAIN Morphine Sulfate (Ms Contin -) 15 mg PO BID [facility] Last Admin: 12/04/16 09:51 Dose: 15 mg Ondansetron HCl (Zofran Odt -) 8 mg SL Q6H PRN PRN Reason: NAUSEA AND/OR VOMITING Pantoprazole Sodium (Protonix -) 40 mg PO DAILY [facility] Last Admin: 12/04/16 09:53 Dose: Not Given - Objective Vital Signs: Vital Signs Temperature 97.6 F 12/04/16 06:38 Pulse Rate 106 H 12/04/16 09:00 Respiratory Rate 20 12/04/16 09:00 Blood Pressure 129/79 12/04/16 09:00 O2 Sat by Pulse Oximetry (%) 96 11/30/16 21:00 Constitutional: Yes: Mild Distress Eyes: Yes: WNL HENT: Yes: WNL Neck: Yes: WNL Cardiovascular: Yes: WNL Respiratory: Yes: WNL Gastrointestinal: Yes: WNL Genitourinary: Yes: WNL Musculoskeletal: Yes: Joint Stiffness, Joint Swelling, Muscle Pain Extremities: Yes: Other Edema: Yes Edema: RUE: Trace Peripheral Pulses WNL: Yes Integumentary: Yes: WNL Wound/Incision: Yes: Clean/Dry Neurological: Yes: Paresthesia, Weakness ...Motor Strength: RUE (4/5) Psychiatric: Yes: Other Labs: CBC, BMP 12/04/16 08:00 12/04/16 07:00 INR, PTT INR 1.29 (0.82-1.09) H 12/02/16 05:35 Problem List - Problems (1) STEPHEN (acute kidney injury) Code(s): N17.9 - ACUTE KIDNEY FAILURE, UNSPECIFIED (2) Cancer Code(s): C80.1 - MALIGNANT (PRIMARY) NEOPLASM, UNSPECIFIED (3) Lytic bone lesions on xray Code(s): M89.9 - DISORDER OF BONE, UNSPECIFIED (4) Brain mass Code(s): G93.9 - DISORDER OF BRAIN, UNSPECIFIED (5) Humerus fracture Code(s): S42.309A - UNSP FRACTURE OF SHAFT OF HUMERUS, UNSP ARM, INIT Qualifiers: Humerus Location: proximal Laterality: right Assessment/Plan DISCUSSED WITH PATIENT FOR 30MINS ABOUT HIS CURRENT MEDICAL DIAGNOSIS AND THE NEED FOR BIOPSY AND HUMERAL REPAIR HE WILL NEED A RIGHT HUMERUS REPAIR WITH BERNA INSERTION BY ORTHOPEDICS HE ALSO WILL NEED A BRAIN BIOPSY WITH NEUROSURGERY . THE PATIENT WILL AGREE TO BOTH PROCEDURES IF DONE AT THE SAME TIME IN A COLLABORATIVE EFFORT FROM BOTH SURGEONS WILL CONTINUE PAIN MEDS, STEROIDS, BGM CHECKS DVT PROPHYLAXIS OOB TO CHAIR DISCUSSED HIV TESTING AND HE HAS REFUSED UNDERSTANDING RAMIFICATIONS I SPENT 35 MINS REVIEWING CHART AND DISCUSSING WITH PATIENT AND STAFF.
[2016-12-04] MEDS ORDERED: ALLOPURINOL 100 MG TABLET (FP) PO SCH (16:00)
[2016-12-04] MEDS ORDERED: DEXAMETHASONE SOD PHOSPHATE 4 MG/1 ML VIAL IVPB SCH (18:00)
--- NOTE | 2016-12-04 18:25 | PN ---
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
--- NOTE | 2016-12-04 18:43 | PN ---
Progress Note (short form) - Note Progress Note: I DISCUSSED THE PATIENT'S CASE WITH DR HIGGINS FROM ONCOLOGY, DR DAILY FROM ORTHOPEDICS AND WE ALL HAVE DECIDED THAT THE PATIENT WILL HAVE A RIGHT HUMERUS BERNA INSERTED TOMORROW WITH A LYTIC LESION AND SOFT TISSUE BIOPSY OF THE RIGHT HUMERAL HEAD DURING THE PROCEDURE. DR DAILY WILL PLACE A MRI SAFE BERNA FOR FUTURE DIAGNOSTIC EXAMS. WE WILL HOLD OFF ON THE BRAIN BIOPSY UNTIL WE GET A DEFINITIVE RESULT FROM THE ORTHOPEDIC BIOPSY. ALLOPURINOL STARTED, DECADRON ON HOLD, VALIUM PRN. I SPENT 75 MINUTES DISCUSSING AND REVIEWING THIS CASE Problem List - Problems (1) STEPHEN (acute kidney injury) Code(s): N17.9 - ACUTE KIDNEY FAILURE, UNSPECIFIED (2) Cancer Code(s): C80.1 - MALIGNANT (PRIMARY) NEOPLASM, UNSPECIFIED (3) Lytic bone lesions on xray Code(s): M89.9 - DISORDER OF BONE, UNSPECIFIED (4) Brain mass Code(s): G93.9 - DISORDER OF BRAIN, UNSPECIFIED (5) Humerus fracture Code(s): S42.309A - UNSP FRACTURE OF SHAFT OF HUMERUS, UNSP ARM, INIT Qualifiers: Humerus Location: proximal Laterality: right
--- NOTE | 2016-12-04 19:35 | PN ---
Progress Note (short form) - Note Progress Note: NEUROSURGERY No new reported issues PE; AF, VSS CT CS- multiple lytic lesions of entire C spine vertebral column mostly anterior ; no severe canal compromise Skeletal series- humerus and pelvis lytic lesions Head CT- multiple calvarial lytic lesion; small R parietal hyperdense; mild edema Cr 1.1 Skeletal and R parietal mets For ortho procedure and tissue dx Adjuvant tx per med onc and rad onc Care d/w Dr. Walker yesterday Care d/w Dr. Dozier today
[2016-12-05] MEDS: HYDROmorphone HCL CARPU-JECT 2 MG/1 ML DISP.SYRIN IVPB PRN ×3 (01:52→23:51)
[2016-12-05 06:06] LABS: SERUM IRON 37 ug/dL (38-169); TOTAL IRON BINDING CAPACITY 274 ug/dL (250-450); UIBC 237 ug/dL (111-343)
[2016-12-05] MEDS: INSULIN SLIDING SCALE (NOVOLOG) 1 VIAL SQ SCH ×2 (06:07→16:21)
[2016-12-05 07:12] LABS: BASOPHIL 0.7 % (0-2.0); EOSINOPHIL 1.5 % (0-4.5); MCH 27.5 pg (25.7-33.7); MCHC 32.6 g/dl (32.0-35.9); MEAN CELL VOLUME 84.3 fl (80-96); MEAN PLT VOLUME 6.7 fl (7.5-11.1); NEUTROPHILS 69.2 % (42.8-82.8); PLATELET COUNT 386 K/MM3 (134-434); RDW 14.6 % (11.9-15.9)
[2016-12-05 07:31] LABS: INR 1.23 (0.82-1.09); PROTHROMBIN TIME (PATIENT) 13.6 SEC (9.98-11.88)
[2016-12-05 07:34] LABS: ACTIVATED PTT 29.5 SECONDS (26.9-34.4)
[2016-12-05 07:45] LABS: ANION GAP 8 (8-16); CALCIUM 9.5 mg/dL (8.5-10.1); CO2 28 mmol/L (21-32); GLUCOSE,RANDOM 100 mg/dL (74-106)
[2016-12-05 07:48] LABS: CREATININE 1.2 mg/dL (0.7-1.3); LDH 146 U/L (87-241)
--- NOTE | 2016-12-05 08:03 | PN ---
Progress Note (short form) - Note Progress Note: NEUROSURGERY Care d/w Dr Dozier PE; AF, VSS CT CS- multiple lytic lesions of entire C spine vertebral column mostly anterior ; no severe canal compromise Skeletal series- humerus and pelvis lytic lesions Head CT- multiple calvarial lytic lesion; small R parietal hyperdense; mild edema Cr 1.1 Multifocal skeletal and R parietal mets For ortho jumerus procedure and tissue dx Adjuvant tx per med onc and rad onc
[2016-12-05 08:17] LABS: TROPONIN I < 0.02 ng/ml (0.00-0.05)
--- NOTE | 2016-12-05 09:23 | PN ---
Progress Note, Physician Chief Complaint: AWAKE ALERT BEING TRANSFUSED PRBC - Current Medication List Current Medications: Active Medications Allopurinol (Zyloprim -) 300 mg PO DAILY [facility] Calcitonin (Miacalcin [place] -) 200 units NS DAILY [facility] Last Admin: 12/04/16 09:53 Dose: 1 spray Diazepam (Valium -) 5 mg PO BID PRN PRN Reason: AGITATION Last Admin: 12/03/16 21:31 Dose: 5 mg Docusate Sodium (Colace -) 100 mg PO Q8H PRN PRN Reason: CONSTIPATION Ferrous Sulfate (Feosol -) 325 mg PO DAILY [facility] Gabapentin (Neurontin -) 300 mg PO BID [facility] Last Admin: 12/04/16 21:37 Dose: 300 mg Hydromorphone HCl (Dilaudid Injection -) 2 mg IVPB Q3H PRN PRN Reason: PAIN Last Admin: 12/05/16 01:52 Dose: 2 mg Sodium Chloride (Normal Saline -) 1,000 mls @ 75 mls/hr IV ASDIR [facility] Insulin Aspart (Novolog Vial Sliding Scale -) 1 vial SQ BIDAC [facility] PRN Reason: Protocol Last Admin: 12/05/16 06:07 Dose: Not Given Methylnaltrexone [place] (Relistor -) 8 mg SQ DAILY [facility] Last Admin: 12/04/16 10:48 Dose: 8 mg Miscellaneous (Duragesic Patch Waste) 1 each [facility] PRN PRN PRN Reason: PAIN Morphine Sulfate (Ms Contin -) 15 mg PO BID [facility] Last Admin: 12/04/16 21:37 Dose: 15 mg Ondansetron HCl (Zofran Odt -) 8 mg SL Q6H PRN PRN Reason: NAUSEA AND/OR VOMITING Pantoprazole Sodium (Protonix -) 40 mg PO DAILY [facility] Last Admin: 12/04/16 09:53 Dose: Not Given - Objective Vital Signs: Vital Signs Temperature 97.6 F 12/04/16 06:38 Pulse Rate 106 H 12/04/16 09:00 Respiratory Rate 20 12/04/16 21:00 Blood Pressure 129/79 12/04/16 09:00 O2 Sat by Pulse Oximetry (%) 96 11/30/16 21:00 Constitutional: Yes: Mild Distress Eyes: Yes: WNL HENT: Yes: WNL Neck: Yes: WNL Cardiovascular: Yes: WNL Respiratory: Yes: WNL Gastrointestinal: Yes: WNL Genitourinary: Yes: WNL Musculoskeletal: Yes: Back Pain, Joint Stiffness, Joint Swelling, Muscle Pain, Muscle Weakness Extremities: Yes: Deformity, Other Edema: Yes Edema: LLE: 2+, RLE: 1+ Peripheral Pulses WNL: Yes Integumentary: Yes: WNL Wound/Incision: Yes: Clean/Dry Neurological: Yes: WNL ...Motor Strength: LUE, LLE, RUE, RLE Psychiatric: Yes: Agitated Labs: CBC, BMP 12/05/16 05:35 12/05/16 05:35 INR, PTT INR 1.23 (0.82-1.09) H 12/05/16 05:35 Fibrinogen 488.0 mg/dL (238-498) 12/05/16 05:35 Problem List - Problems (1) STEPHEN (acute kidney injury) Code(s): N17.9 - ACUTE KIDNEY FAILURE, UNSPECIFIED (2) Cancer Code(s): C80.1 - MALIGNANT (PRIMARY) NEOPLASM, UNSPECIFIED (3) Lytic bone lesions on xray Code(s): M89.9 - DISORDER OF BONE, UNSPECIFIED (4) Brain mass Code(s): G93.9 - DISORDER OF BRAIN, UNSPECIFIED (5) Humerus fracture Code(s): S42.309A - UNSP FRACTURE OF SHAFT OF HUMERUS, UNSP ARM, INIT Qualifiers: Humerus Location: proximal Laterality: right Assessment/Plan TODAY FOR HUMERUS BERNA PLACEMENT ON RIGHT BIOPSY OF RIGHT HUMERAL HEAD TRANSFUSE PRBC AWAIT CULTURES/PATHOLOGY PREDNISONE PER ONCOLOGY LASIX FOR EDEMA
[2016-12-05] MEDS: GABAPENTIN 300 MG CAPSULE (FP) PO SCH ×2 (09:41→22:34)
[2016-12-05] MEDS: FERROUS SO4 325 MG TABLET (FP) PO SCH (09:41)
[2016-12-05] MEDS: CALCITONIN - SALMON SYNTHETIC 3.7 ML SPRAY.PUMP NS SCH (09:41)
[2016-12-05] MEDS: morphine SO4 SUSTAINED ACTING 15 MG TABLET.SA PO SCH ×2 (09:41→22:34)
[2016-12-05] MEDS: PANTOPRAZOLE 40 MG TABLET (FP) PO SCH (09:42)
[2016-12-05] MEDS: ALLOPURINOL 100 MG TABLET (FP) PO SCH (09:42)
[2016-12-05] MEDS: Methylnaltrexone Bromide 12 MG/0.6 ML KIT SQ SCH (09:42)
--- NOTE | 2016-12-05 11:02 | PN ---
Chief Complaint: CC: skeletal pains - Review of Systems Constitutional: denies: Fever, Malaise, Night Sweats, Unintentional Wgt. Loss, Weakness Eyes: denies: Blurred Vision, Double Vision HENT: denies: Difficult Swallowing Neck: reports: Decreased ROM Cardiovascular: denies: Chest Pain Respiratory: denies: SOB, SOB on Exertion Gastrointestinal: denies: Diarrhea, Nausea, Vomiting Genitourinary: denies: Burning, Dysuria, Flank Pain Musculoskeletal: reports: Muscle Pain Neurological: reports: Weakness Endocrine: reports: No Symptoms Hematology/Lymphatic: denies: Easily Bruised, Excessive Bleeding, Swollen Glands Psychiatric: reports: No Symptoms - Medications/Allergies Allergies/Adverse Reactions: Allergies Allergy/AdvReac Type Severity Reaction Status Date / Time No Known Allergies Allergy Verified 11/28/16 21:02 Medications: Current Medications Allopurinol (Zyloprim -) 300 mg PO DAILY [facility] Last Admin: 12/05/16 09:42 Dose: Not Given Calcitonin (Miacalcin [place] -) 200 units NS DAILY [facility] Last Admin: 12/05/16 09:41 Dose: Not Given Diazepam (Valium -) 5 mg PO BID PRN PRN Reason: AGITATION Last Admin: 12/03/16 21:31 Dose: 5 mg Docusate Sodium (Colace -) 100 mg PO Q8H PRN PRN Reason: CONSTIPATION Ferrous Sulfate (Feosol -) 325 mg PO DAILY [facility] Last Admin: 12/05/16 09:41 Dose: Not Given Furosemide (Lasix Injection -) 40 mg IVPB ONCE ONE Stop: 12/05/16 17:01 Gabapentin (Neurontin -) 300 mg PO BID [facility] Last Admin: 12/05/16 09:41 Dose: Not Given Hydromorphone HCl (Dilaudid Injection -) 2 mg IVPB Q3H PRN PRN Reason: PAIN Last Admin: 12/05/16 01:52 Dose: 2 mg Sodium Chloride (Normal Saline -) 1,000 mls @ 75 mls/hr IV ASDIR [facility] Insulin Aspart (Novolog Vial Sliding Scale -) 1 vial SQ BIDAC [facility] PRN Reason: Protocol Last Admin: 12/05/16 06:07 Dose: Not Given Methylnaltrexone [place] (Relistor -) 8 mg SQ DAILY [facility] Last Admin: 12/05/16 09:42 Dose: Not Given Miscellaneous (Duragesic Patch Waste) 1 each [facility] PRN PRN PRN Reason: PAIN Morphine Sulfate (Ms Contin -) 15 mg PO BID [facility] Last Admin: 12/05/16 09:41 Dose: Not Given Ondansetron HCl (Zofran Odt -) 8 mg SL Q6H PRN PRN Reason: NAUSEA AND/OR VOMITING Pantoprazole Sodium (Protonix -) 40 mg PO DAILY [facility] Last Admin: 12/05/16 09:42 Dose: Not Given - Objective Vital Signs: Vital Signs Temperature 97.6 F 12/04/16 06:38 Pulse Rate 106 H 12/04/16 09:00 Respiratory Rate 20 12/04/16 21:00 Blood Pressure 129/79 12/04/16 09:00 O2 Sat by Pulse Oximetry (%) 96 11/30/16 21:00 Constitutional: Yes: Moderate Distress Eyes: Yes: PERRL. No: Diplopia, Ptosis, Sclera Icterus HENT: No: Epistaxis, Hoarseness, Pharyngeal Erythema, Tonsillar Exudate Neck: Yes: Decreased ROM. No: Lymphadenopathy Cardiovascular: Yes: Regular Rate and Rhythm, Murmur Respiratory: Yes: Regular Gastrointestinal: Yes: Normal Bowel Sounds, Soft, Abdomen, Obese. No: Hypoactive Bowel Sounds, Tenderness, Rebound ...Rectal Exam: No: Other Genitourinary: No: CVA Tenderness - Right Musculoskeletal: No: Muscle Weakness Extremities: Yes: Other (decrease ROM) Integumentary: No: Bruising, Jaundice Neurological: Yes: Oriented ...Motor Strength: LUE Psychiatric: Yes: WNL Labs: CBC, BMP 12/05/16 05:35 12/05/16 05:35 Problem List - Problems (1) Brain mass Assessment/Plan: Etiology unclear. Patient reluctant to have MRI currently. Consider monitoring and outpatient open MRI Code(s): G93.9 - DISORDER OF BRAIN, UNSPECIFIED (2) Humerus fracture Assessment/Plan: For repair and biopsy for tissue. Code(s): S42.309A - UNSP FRACTURE OF SHAFT OF HUMERUS, UNSP ARM, INIT Qualifiers: Humerus Location: proximal Laterality: right (3) Lytic bone lesions on xray Assessment/Plan: Free kappa/ lambda light chain ratio -normal. This is against diagnosis of myeloma unless this is non secretory myeloma. Will need to await tissue. Does have elevated IgA with diminished IgG and IgM. Code(s): M89.9 - DISORDER OF BONE, UNSPECIFIED (4) Positive Davi test Assessment/Plan: Positive Davi, falling Hct. ?? Low grade hemolysis. Low retic count and LDH noted. For transfusion of packed cells. Monitor Hb/Hct. May need to be placed on steroids. Hold steroids for now. Code(s): R76.8 - OTHER SPECIFIED ABNORMAL IMMUNOLOGICAL FINDINGS IN SERUM
--- NOTE | 2016-12-05 12:47 | PN ---
Progress Note (short form) - Note Progress Note: Renal Follow up for STEPHEN Pt seen and examined at the bedside complains of some cough and chest discomfort with mild sob Vital Signs Temperature 98.1 F 12/05/16 08:00 Pulse Rate 105 H 12/05/16 08:00 Respiratory Rate 20 12/05/16 08:00 Blood Pressure 130/74 12/05/16 08:00 O2 Sat by Pulse Oximetry (%) 96 12/05/16 08:00 Intake & Output 12/02/16 12/03/16 12/04/16 12/05/16 23:59 23:59 23:59 23:59 Intake Total 800 620 850 Balance 800 620 850 Gen: NAD, awake and alert CVS: Dec BS lung bases, no rales Abd: soft NT/ND, Obese Ext: Trace edema in LE CBC, BMP 12/05/16 05:35 12/05/16 05:35 Current Medications Allopurinol (Zyloprim -) 300 mg PO DAILY [facility] Last Admin: 12/05/16 09:42 Dose: Not Given Calcitonin (Miacalcin [place] -) 200 units NS DAILY [facility] Last Admin: 12/05/16 09:41 Dose: Not Given Diazepam (Valium -) 5 mg PO BID PRN PRN Reason: AGITATION Last Admin: 12/03/16 21:31 Dose: 5 mg Docusate Sodium (Colace -) 100 mg PO Q8H PRN PRN Reason: CONSTIPATION Ferrous Sulfate (Feosol -) 325 mg PO DAILY [facility] Last Admin: 12/05/16 09:41 Dose: Not Given Furosemide (Lasix Injection -) 40 mg IVPB ONCE ONE Stop: 12/05/16 17:01 Gabapentin (Neurontin -) 300 mg PO BID [facility] Last Admin: 12/05/16 09:41 Dose: Not Given Hydromorphone HCl (Dilaudid Injection -) 2 mg IVPB Q3H PRN PRN Reason: PAIN Last Admin: 12/05/16 01:52 Dose: 2 mg Sodium Chloride (Normal Saline -) 1,000 mls @ 75 mls/hr IV ASDIR [facility] Insulin Aspart (Novolog Vial Sliding Scale -) 1 vial SQ BIDAC [facility] PRN Reason: Protocol Last Admin: 12/05/16 06:07 Dose: Not Given Methylnaltrexone [place] (Relistor -) 8 mg SQ DAILY [facility] Last Admin: 12/05/16 09:42 Dose: Not Given Miscellaneous (Duragesic Patch Waste) 1 each [facility] PRN PRN PRN Reason: PAIN Morphine Sulfate (Ms Contin -) 15 mg PO BID [facility] Last Admin: 12/05/16 09:41 Dose: Not Given Ondansetron HCl (Zofran Odt -) 8 mg SL Q6H PRN PRN Reason: NAUSEA AND/OR VOMITING Pantoprazole Sodium (Protonix -) 40 mg PO DAILY [facility] Last Admin: 12/05/16 09:42 Dose: Not Given A/p 56 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 #Acute Renal insufficiency secondary to volume depletion Renal function improved and stable #Anemia Currently getting PRBC transfusion iron stores are low Will order Venofer infusions to be given daily after Sx #Lytic lesions on CT of the Neck SPEP showed M-spike Ethete/Lamda ratio pending Tissue diagnosis pending F/u Oncology Recs Bone scan showed multiple lytic lesions from the skull to the humerus Work up/Tx as per Oncology/Ortho #Pre-HTN/Hypertension/Edema Trend BP for now pain control Start Lasix 40mg PO once daily after Sx Trend weights, edema Didier Yen DO
[2016-12-05] MEDS ORDERED: ROCURONIUM BROMIDE 50 MG/5 ML VIAL ONE (13:47)
[2016-12-05] MEDS ORDERED: PROPOFOL 20 ML ONE ×2 (13:47→14:11)
[2016-12-05] MEDS ORDERED: MIDAZOLAM HCL 2 MG/2 ML SINGLE DOSE VIAL ONE ×2 (13:47→14:11)
[2016-12-05] MEDS ORDERED: SUCCINYLCHOLINE CHLORIDE 200 MG/10 ML VIAL ONE (13:47)
[2016-12-05] MEDS ORDERED: ceFAZolin SODIUM 1 GM VIAL IVPB ONE ×2 (14:15)
[2016-12-05] MEDS ORDERED: HYDROmorphone HCL/PF 1 MG/ML VIAL (FOR PYXIS CHARGING ONLY) ONE (14:46)
[2016-12-05] MEDS ORDERED: LABETALOL HCL 5 MG/1 ML (100MG/20 ML VIAL) ONE (14:49)
[2016-12-05] MEDS ORDERED: NEOSTIGMINE METHYLSULFATE 0.5 MG/ML - 10 ML MDV ONE (15:38)
[2016-12-05] MEDS ORDERED: GLYCOPYRROLATE 0.2 MG/1 ML VIAL ONE (15:38)
--- NOTE | 2016-12-05 15:53 | OP ---
Operative Note - Note: Operative Date: 12/05/16 ([facility]) Pre-Operative Diagnosis: right humerus lytic lesion Operation: right humerus IM sonam and bone biopsy Post-Operative Diagnosis: Same as Pre-op Surgeon: Hector Burnett Warp Spooler: Michael Ricardo Anesthesiologist/CIVIL PREPAREDNESS COORDINATOR: Jayant Benoit Anesthesia: General Specimens Removed: bone Estimated Blood Loss (mls): 50 Operative Report Dictated: Yes
[2016-12-05] MEDS ORDERED: HYDROmorphone HCL CARPU-JECT 2 MG/1 ML DISP.SYRIN ONE ×2 (16:20→16:34)
[2016-12-05] MEDS: HYDROmorphone HCL CARPU-JECT 2 MG/1 ML DISP.SYRIN IVPUSH PRN ×3 (16:22→16:36)
[2016-12-05] MEDS ORDERED: FUROSEMIDE 40 MG/4 ML INJECTABLE VIAL IVPB ONE (17:00)
[2016-12-05] MEDS: SODIUM CHLORIDE 1,000 ML IV SCH ×2 (17:30→18:53)
[2016-12-05] MEDS: diazePAM 5 MG TABLET PO PRN (22:34)
[2016-12-05] MEDS: CEFAZOLIN 2 GM/D5W 50 ML IVPB SCH (22:35)
[2016-12-06] MEDS: CEFAZOLIN 2 GM/D5W 50 ML IVPB SCH ×3 (02:15→18:18)
[2016-12-06] MEDS: HYDROmorphone HCL CARPU-JECT 2 MG/1 ML DISP.SYRIN IVPB PRN ×4 (03:51→18:56)
[2016-12-06] MEDS: INSULIN SLIDING SCALE (NOVOLOG) 1 VIAL SQ SCH ×2 (06:31→18:25)
[2016-12-06 08:06] LABS: HEMATOCRIT 24.1 % (37.5-51.0)
[2016-12-06 08:24] LABS: BASOPHIL 0.3 % (0-2.0); EOSINOPHIL 0.6 % (0-4.5); MCH 27.5 pg (25.7-33.7); MEAN CELL VOLUME 83.3 fl (80-96); MEAN PLT VOLUME 6.7 fl (7.5-11.1); NEUTROPHILS 78.2 % (42.8-82.8); PLATELET COUNT 356 K/MM3 (134-434); RDW 14.7 % (11.9-15.9); WHITE BLOOD COUNT 9.8 K/mm3 (4.0-10.0)
[2016-12-06 08:25] LABS: MCH 27.6 pg (25.7-33.7); MCHC 33.2 g/dl (32.0-35.9); MEAN CELL VOLUME 83.2 fl (80-96); MEAN PLT VOLUME 6.8 fl (7.5-11.1); PLATELET COUNT 351 K/MM3 (134-434); RDW 14.6 % (11.9-15.9); WHITE BLOOD COUNT 9.9 K/mm3 (4.0-10.0)
[2016-12-06] MEDS ORDERED: HYDROmorphone HCL CARPU-JECT 2 MG/1 ML DISP.SYRIN IVPB ONE (08:45)
[2016-12-06 08:59] LABS: ALBUMIN 2.7 g/dl (3.4-5.0); ALK PHOS 109 U/L (45-117); ANION GAP 10 (8-16); BILIRUBIN,TOTAL 0.5 mg/dL (0.2-1.0); CO2 26 mmol/L (21-32); CREATININE 1.2 mg/dL (0.7-1.3); GLUCOSE,RANDOM 142 mg/dL (74-106); LDH 176 U/L (87-241); MAGNESIUM 1.9 mg/dL (1.8-2.4); SGOT/AST 22 U/L (15-37); SGPT/ALT 23 U/L (12-78); TOT PROT 6.5 g/dl (6.4-8.2); URIC ACID 5.7 mg/dL (2.6-7.2)
[2016-12-06] MEDS ORDERED: PT OWN MED DRAWER 7, Y5N ONE ×2 (09:02→18:53)
[2016-12-06] MEDS: PANTOPRAZOLE 40 MG TABLET (FP) PO SCH (09:08)
[2016-12-06] MEDS: ALLOPURINOL 100 MG TABLET (FP) PO SCH (09:08)
[2016-12-06] MEDS: morphine SO4 SUSTAINED ACTING 15 MG TABLET.SA PO SCH ×2 (09:08→22:30)
[2016-12-06] MEDS: FERROUS SO4 325 MG TABLET (FP) PO SCH (09:09)
[2016-12-06] MEDS: CALCITONIN - SALMON SYNTHETIC 3.7 ML SPRAY.PUMP NS SCH (09:09)
[2016-12-06] MEDS: GABAPENTIN 300 MG CAPSULE (FP) PO SCH ×2 (09:09→22:30)
[2016-12-06] MEDS: diazePAM 5 MG TABLET PO PRN ×2 (09:09→22:30)
--- NOTE | 2016-12-06 09:30 | PN ---
Progress Note (short form) - Note Progress Note: NEUROSURGERY s/p humerus procedure Incisional pain severe initially but better this am PE; Tmax 99, AF, VSS CT CS- multiple lytic lesions of entire C spine vertebral column mostly anterior ; no severe canal compromise Skeletal series- humerus and pelvis lytic lesions Head CT- multiple calvarial lytic lesion; small R parietal hyperdense; mild edema WBC 9.8; Hgb 8.6; Cr 1.2 Multifocal skeletal and R parietal mets Path pending Adjuvant tx per med onc and rad onc Brain MRI and C spine MRI with diane if feasible Depending on overall plan may benefit from stereotactic radiosurgery for R parietal parenchymal lesion
[2016-12-06] MEDS ORDERED: FUROSEMIDE 40 MG TABLET (FP) PO SCH (10:00)
[2016-12-06] MEDS ORDERED: IRON SUCROSE INJECTION 200 MG in SODIUM CHLORIDE 100 ML IVPB ONE (10:00)
[2016-12-06] MEDS: Methylnaltrexone Bromide 12 MG/0.6 ML KIT SQ SCH (10:14)
--- NOTE | 2016-12-06 10:46 | PN ---
Progress Note (short form) - Note Progress Note: POD #1 - s/p IM rodding of right humerus under general anesthesia. VSS. No apparent anesthetic complications noted. Continue current care.
--- NOTE | 2016-12-06 11:34 | RAPID ---
<Cherry Lozano - Last Filed: 12/06/16 12:12> Physical Examination Vital Signs: Vital Signs Temperature 97.9 F 12/06/16 10:00 Pulse Rate 116 H 12/06/16 10:00 Respiratory Rate 18 12/06/16 10:00 Blood Pressure 112/65 12/06/16 10:00 O2 Sat by Pulse Oximetry (%) 98 12/06/16 09:00 Findings/Remarks: The pt was sitting in chair. He just finished Venofer treatment. He was in mild distress, shivering. He was complaining of being cold. He denies SOB, chest pain , palpitations. Constitutional: Yes: Mild Distress Eyes: Yes: EOM Intact HENT: Yes: Atraumatic, Normocephalic Cardiovascular: Yes: Tachycardia, Murmur (systolic murmur over left sternal border) Respiratory: Yes: CTA Bilaterally (anteriorly), Tachypnea. No: Accessory Muscle Use, Rales, Rhonchi, Wheezes Labs: CBC, BMP 12/06/16 07:35 12/06/16 07:35 Rapid Response - Rapid Response Assessment: 56 year old man who is a former smoker with no significant past medical history who presented with neck pain and muscle spasm for several days and found to have lytic bone lesions on cervical spine CT, brain mass, s/p right humerus surgery yesterday. Rapid response was called. He was tachycardic 175, BP 144/76 and his oxygen Sat. was 92 on 4 L NC. We suspect PE/reaction to Venofer/Sepsis. We recommended ABG, EKG, repeat his VS , CTA chest, blood cultures and transfer him to ICU. Dr. Dozier came to assess the pt and will f/u. Outcome: The pt is being transferred to ICU. Recommendations/Interventions: ABG, EKG, repeat his VS, CTA chest, blood cultures Primary Physician Notified: Kalpesh Reyna Critical Care Total Critical Care Time (in minutes): 40 Critical Care Statement: The care of this patient involved high complexity decision making to prevent further life threatening deterioration of the patient 's condition and/or to evalute & treat vital organ system(s) failure or risk of failure. <Kalpesh Reyna - Last Filed: 12/06/16 12:46> Physical Examination Vital Signs: Labs: CBC, BMP 12/06/16 07:35 12/06/16 07:35 Critical Care Total Critical Care Time (in minutes): 20
[2016-12-06 11:45] LABS: ARTERIAL BLD GAS O2 SATURATION 91.3 % (90-98.9); ARTERIAL BLOOD GAS BASE EXCESS 1.7 meq/l (-2-2); ARTERIAL BLOOD GAS HCO3 24.6 meq/L (22-26); ARTERIAL BLOOD GAS pH 7.48 (7.35-7.45)
[2016-12-06] MEDS ORDERED: CEFEPIME 1 GM/100 ML BAG PRE-DOCKED IVPB ONE (11:45)
[2016-12-06] MEDS ORDERED: VANCOMYCIN 1 GRAM (PRE-DOCKED) 1,000 MG/250 ML BAG IVPB ONE (11:45)
[2016-12-06 11:46] LABS: ART PUNCT SITE LEFT BRACHIAL; LPM/O2% 4L; PT. ON O2? YES
--- NOTE | 2016-12-06 12:27 | PN ---
Progress Note, Physician Chief Complaint: RAPID RESPONSE CALLED FOR UNRESPONSIVENESS PATIENT AWAKE AND ALERT CODE TEAM IN THE ROOM EKG SINUS TACH ABG 02A = 60 WITH PH 7.48 C/O BEING COLD, WITH RIGORS - Current Medication List Current Medications: Active Medications Allopurinol (Zyloprim -) 300 mg PO DAILY [facility] Last Admin: 12/06/16 09:08 Dose: 300 mg Calcitonin (Miacalcin [place] -) 200 units NS DAILY [facility] Last Admin: 12/06/16 09:09 Dose: 1 spray Diazepam (Valium -) 5 mg PO BID PRN PRN Reason: AGITATION Last Admin: 12/06/16 09:09 Dose: 5 mg Docusate Sodium (Colace -) 100 mg PO Q8H PRN PRN Reason: CONSTIPATION Last Admin: 12/06/16 09:09 Dose: 100 mg Ferrous Sulfate (Feosol -) 325 mg PO DAILY [facility] Last Admin: 12/06/16 09:09 Dose: 325 mg Furosemide (Lasix -) 40 mg PO DAILY [facility] Last Admin: 12/06/16 09:09 Dose: Not Given Gabapentin (Neurontin -) 300 mg PO BID [facility] Last Admin: 12/06/16 09:09 Dose: 300 mg Hydromorphone HCl (Dilaudid Injection -) 2 mg IVPB Q3H PRN PRN Reason: PAIN Last Admin: 12/06/16 07:39 Dose: 2 mg Hydromorphone HCl (Dilaudid Injection -) 2 mg IVPUSH [id number] PRN PRN Reason: PAIN Stop: 12/08/16 14:41 Last Admin: 12/05/16 16:36 Dose: 2 mg Cefazolin Sodium/Dextrose (Ancef 2 Gm Premixed Ivpb -) 50 mls @ 100 mls/hr IVPB Q8H-IV AMINAH Stop: 12/06/16 21:59 Last Admin: 12/06/16 09:08 Dose: 100 mls/hr Insulin Aspart (Novolog Vial Sliding Scale -) 1 vial SQ BIDAC [facility] PRN Reason: Protocol Last Admin: 12/06/16 06:31 Dose: Not Given Methylnaltrexone [place] (Relistor -) 8 mg SQ DAILY [facility] Last Admin: 12/06/16 10:14 Dose: 8 mg Miscellaneous (Duragesic Patch Waste) 1 each MC PRN PRN PRN Reason: PAIN Morphine Sulfate (Ms Contin -) 15 mg PO BID [facility] Last Admin: 12/06/16 09:08 Dose: 15 mg Ondansetron HCl (Zofran Odt -) 8 mg SL Q6H PRN PRN Reason: NAUSEA AND/OR VOMITING Pantoprazole Sodium (Protonix -) 40 mg PO DAILY [facility] Last Admin: 12/06/16 09:08 Dose: 40 mg - Objective Vital Signs: Vital Signs Temperature 97.9 F 12/06/16 10:00 Pulse Rate 116 H 12/06/16 10:00 Respiratory Rate 18 12/06/16 10:00 Blood Pressure 112/65 12/06/16 10:00 O2 Sat by Pulse Oximetry (%) 98 12/06/16 09:00 Constitutional: Yes: Moderate Distress Eyes: Yes: WNL HENT: Yes: WNL Neck: Yes: WNL Cardiovascular: Yes: Tachycardia Respiratory: Yes: Poor Air Entry Gastrointestinal: Yes: WNL Genitourinary: Yes: WNL Musculoskeletal: Yes: Back Pain, Muscle Pain, Muscle Weakness Extremities: Yes: Other Edema: Yes Edema: LLE: 2+, RLE: 2+ Peripheral Pulses WNL: Yes Integumentary: Yes: WNL Wound/Incision: Yes: Clean/Dry Neurological: Yes: WNL ...Motor Strength: LLE, RUE, RLE Psychiatric: Yes: Other Labs: CBC, BMP 12/06/16 07:35 12/06/16 07:35 INR, PTT INR 1.23 (0.82-1.09) H 12/05/16 05:35 Fibrinogen 488.0 mg/dL (238-498) 12/05/16 05:35 Problem List - Problems (1) STEPHEN (acute kidney injury) Code(s): N17.9 - ACUTE KIDNEY FAILURE, UNSPECIFIED (2) Cancer Code(s): C80.1 - MALIGNANT (PRIMARY) NEOPLASM, UNSPECIFIED (3) Lytic bone lesions on xray Code(s): M89.9 - DISORDER OF BONE, UNSPECIFIED (4) Brain mass Code(s): G93.9 - DISORDER OF BRAIN, UNSPECIFIED (5) Humerus fracture Code(s): S42.309A - UNSP FRACTURE OF SHAFT OF HUMERUS, UNSP ARM, INIT Assessment/Plan TRANSFERRING TO ICU PULMONARY EMBOLISM RULE OUT CAUTION OF AC WITH BRAIN LESIONS/MASS STILL NOT FULLY WORKED UP 02 SUPPORT SEPSIS WORKUP VANCO AND CEFIPIME GIVEN DOPPLER LEGS DDIMER LEVEL CARDIAC ENZYMES DISCUSSED WITH DR BENNETT PATIENT HAS BEEN RESISTING TRANSFER TO ICU, I DISCUSSED IMPORTANCE OF BEING IN A CRITICAL CARE SETTING.
--- NOTE | 2016-12-06 12:27 | PN ---
Progress Note, Physician Chief Complaint: 56 y/o male with Multiplr lytic bone lesions. Had Intramedullary sonam placed right humerus. Had a shaking chill and feeling of "fever" earlier. Patient is afebrile Has pain in the right arm. Dressings in place. Arm on a sling - Current Medication List Current Medications: Active Medications Allopurinol (Zyloprim -) 300 mg PO DAILY [facility] Last Admin: 12/06/16 09:08 Dose: 300 mg Calcitonin (Miacalcin [place] -) 200 units NS DAILY [facility] Last Admin: 12/06/16 09:09 Dose: 1 spray Diazepam (Valium -) 5 mg PO BID PRN PRN Reason: AGITATION Last Admin: 12/06/16 09:09 Dose: 5 mg Docusate Sodium (Colace -) 100 mg PO Q8H PRN PRN Reason: CONSTIPATION Last Admin: 12/06/16 09:09 Dose: 100 mg Ferrous Sulfate (Feosol -) 325 mg PO DAILY [facility] Last Admin: 12/06/16 09:09 Dose: 325 mg Furosemide (Lasix -) 40 mg PO DAILY [facility] Last Admin: 12/06/16 09:09 Dose: Not Given Gabapentin (Neurontin -) 300 mg PO BID [facility] Last Admin: 12/06/16 09:09 Dose: 300 mg Hydromorphone HCl (Dilaudid Injection -) 2 mg IVPB Q3H PRN PRN Reason: PAIN Last Admin: 12/06/16 07:39 Dose: 2 mg Hydromorphone HCl (Dilaudid Injection -) 2 mg IVPUSH [id number] PRN PRN Reason: PAIN Stop: 12/08/16 14:41 Last Admin: 12/05/16 16:36 Dose: 2 mg Cefazolin Sodium/Dextrose (Ancef 2 Gm Premixed Ivpb -) 50 mls @ 100 mls/hr IVPB Q8H-IV [facility] Stop: 12/06/16 21:59 Last Admin: 12/06/16 09:08 Dose: 100 mls/hr Insulin Aspart (Novolog Vial Sliding Scale -) 1 vial SQ BIDAC [facility] PRN Reason: Protocol Last Admin: 12/06/16 06:31 Dose: Not Given Methylnaltrexone [place] (Relistor -) 8 mg SQ DAILY [facility] Last Admin: 12/06/16 10:14 Dose: 8 mg Miscellaneous (Duragesic Patch Waste) 1 each MC PRN PRN PRN Reason: PAIN Morphine Sulfate (Ms Contin -) 15 mg PO BID [facility] Last Admin: 12/06/16 09:08 Dose: 15 mg Ondansetron HCl (Zofran Odt -) 8 mg SL Q6H PRN PRN Reason: NAUSEA AND/OR VOMITING Pantoprazole Sodium (Protonix -) 40 mg PO DAILY [facility] Last Admin: 12/06/16 09:08 Dose: 40 mg - Objective Vital Signs: Vital Signs Temperature 97.9 F 12/06/16 10:00 Pulse Rate 116 H 12/06/16 10:00 Respiratory Rate 18 12/06/16 10:00 Blood Pressure 112/65 12/06/16 10:00 O2 Sat by Pulse Oximetry (%) 98 12/06/16 09:00 Constitutional: Yes: Well Nourished, Anxious, Moderate Distress Eyes: Yes: Conjunctiva Clear HENT: Yes: Normocephalic Neck: Yes: Trachea Midline Cardiovascular: Yes: S1, S2 Respiratory: Yes: CTA Bilaterally, Poor Air Entry Gastrointestinal: Yes: Soft, Abdomen, Obese Musculoskeletal: Yes: Back Pain, Joint Stiffness, Muscle Pain Extremities: Yes: Other (Rt arm as noted above) Neurological: Yes: Alert, Oriented Psychiatric: Yes: Alert, Oriented Labs: CBC, BMP 12/06/16 07:35 12/06/16 07:35 INR, PTT INR 1.23 (0.82-1.09) H 12/05/16 05:35 Fibrinogen 488.0 mg/dL (238-498) 12/05/16 05:35 Problem List - Problems (1) STEPHEN (acute kidney injury) Code(s): N17.9 - ACUTE KIDNEY FAILURE, UNSPECIFIED (2) Cancer Code(s): C80.1 - MALIGNANT (PRIMARY) NEOPLASM, UNSPECIFIED (3) Humerus fracture Code(s): S42.309A - UNSP FRACTURE OF SHAFT OF HUMERUS, UNSP ARM, INIT Qualifiers: Humerus Location: proximal Laterality: right (4) Lytic bone lesions on xray Code(s): M89.9 - DISORDER OF BONE, UNSPECIFIED (5) Murmur Code(s): R01.1 - CARDIAC MURMUR, UNSPECIFIED (6) Back muscle spasm Code(s): M62.830 - MUSCLE SPASM OF BACK (7) Low back pain Code(s): M54.5 - LOW BACK PAIN Qualifiers: Chronicity: acute Back pain laterality: left Sciatica presence: without sciatica Qualified Code(s): M54.5 - Low back pain (8) Neck muscle strain Code(s): S16.1XXA - STRAIN OF MUSCLE, FASCIA AND TENDON AT NECK LEVEL, INIT Qualifiers: Encounter type: initial encounter Qualified Code(s): S16.1XXA - Strain of muscle, fascia and tendon at neck level, initial encounter Assessment/Plan Renal functions stable. Mild Hypercalcemia noted. The patient has multiple bone lytic lesions. Awaiting Histopath. Had febrile reaction today. need to r/o an infectious etiology. Concur with the current management. Will follow with you. Ivet Puga MD
--- NOTE | 2016-12-06 13:12 | EKG ---
Test Reason : Blood Pressure : / mmHG Vent. Rate : 164 BPM Atrial Rate : 164 BPM P-R Int : 130 ms QRS Dur : 080 ms QT Int : 250 ms P-R-T Axes : 062 035 028 degrees QTc Int : 412 ms SINUS TACHYCARDIA WHEN COMPARED WITH ECG OF 29-NOV-2016 03:11, VENT. RATE HAS INCREASED BY 67 BPM Confirmed by AYUSH DORSEY MD ([id number]) on 12/06/2016 1:12:18 PM Referred By: Confirmed By:AYUSH DORSEY MD
--- NOTE | 2016-12-06 13:33 | CONSULT ---
Consult Consult Specialty:: PULMONARY/CCM Referred by:: Dr. Dozier Reason for Consultation:: altered mental status, r/o sepsis - History of Present Illness Chief Complaint: unresponsive History of Present Illness: 56yo male without significant past medical history who was admitted on 11/28 with back and neck pain. Found to have innumerable lytic bone lesions on skeletal survey s/p bone biopsy and humeral sonam placement. Rapid response called this AM after pt found unresponsive in his room. Noted to have fevers, chills with rigors with tachycardia and hypoxia, transferred to the ICU for further monitoring. Currently mental status back to baseline. Denies cough, nausea, vomiting, abdominal pain. +shoulder, back and neck pain. No diarrhea, c/o constipation. - Past Surgical History Past Surgical History: Yes: Appendectomy (as a child) - Alcohol/Substance Use Hx Alcohol Use: Yes (Occasional glass of wine or shot of [place]) History of Substance Use: reports: None - Smoking History Smoking history: Former smoker Have you smoked in the past 12 months: No Aproximately how many cigarettes per day: 8 If you are a former smoker, when did you quit?: 9 MONTHS Home Medications - Allergies Allergies/Adverse Reactions: Allergies Allergy/AdvReac Type Severity Reaction Status Date / Time No Known Allergies Allergy Verified 11/28/16 21:02 - Home Medications Home Medications: Ambulatory Orders Diazepam [Valium] 10 mg PO HS #6 tablet MDD 3 11/12/16 Docusate Sodium [Colace -] 100 mg PO BID PRN #60 capsule 12/01/16 Hydromorphone [Dilaudid -] 2 mg PO Q6H PRN #20 tablet MDD 4 12/01/16 Family Disease History - Family Disease History Family Disease History: Heart Disease: Father ([place] in his 70s) Other Family History: Denies family history of cancer, or other hematological issues. Review of Systems - Review of Systems Constitutional: reports: Chills, Fever Eyes: denies: Recent Change in Vision HENT: denies: Nasal Congestion, Throat Pain Neck: reports: Decreased ROM, Pain on Movement, Tenderness. denies: Stiffness Cardiovascular: denies: Chest Pain, Shortness of Breath Respiratory: denies: Cough, Hemoptysis, SOB, Wheezing Gastrointestinal: reports: Constipation. denies: Abdominal Pain, Nausea, Vomiting Genitourinary: denies: Dysuria, Hematuria Neurological: reports: Headache Physical Exam Vital Signs: Vital Signs Temperature 97.9 F 12/06/16 10:00 Pulse Rate 116 H 12/06/16 10:00 Respiratory Rate 18 12/06/16 10:00 Blood Pressure 112/65 12/06/16 10:00 O2 Sat by Pulse Oximetry (%) 98 12/06/16 09:00 Constitutional: Yes: Calm Eyes: Yes: Conjunctiva Clear, EOM Intact HENT: Yes: Atraumatic, Normocephalic Neck: Yes: Supple, Trachea Midline Cardiovascular: Yes: Regular Rate and Rhythm Respiratory: Yes: Regular, CTA Bilaterally Gastrointestinal: Yes: Normal Bowel Sounds, Soft, Abdomen, Obese. No: Tenderness Edema: No Neurological: Yes: Alert, Oriented Labs: CBC, BMP 12/06/16 07:35 12/06/16 07:35 Problem List - Problems (1) Altered mental status Code(s): R41.82 - ALTERED MENTAL STATUS, UNSPECIFIED (2) Humerus fracture Code(s): S42.309A - UNSP FRACTURE OF SHAFT OF HUMERUS, UNSP ARM, INIT Qualifiers: Humerus Location: proximal Laterality: right (3) Lytic bone lesions on xray Code(s): M89.9 - DISORDER OF BONE, UNSPECIFIED Assessment/Plan Altered Mental Status resolved r/o Sepsis r/o PE Multiple Lytic Bone Lesions - r/o Malignancy Humeral Fracture s/p IM sonam placement Anemia - pain control - panculture, repeat CXR - received empiric antibiotics - O2 as needed - IVF hydration - incentive spirometry - LE dopplers - DVT prophylaxis - monitor in ICU for now Thank you for this consult Sergio Cid MD
[2016-12-06] MEDS: ACETAMINOPHEN 1000 MG/100 ML VIAL (NON FORMULARY) IVPB PRN (13:57)
[2016-12-06] MEDS ORDERED: FENTANYL PATCH WASTE MC PRN (15:25)
[2016-12-06] MEDS ORDERED: ONDANSETRON *ODT* 4 MG TABLET SL PRN (15:25)
[2016-12-06] MEDS ORDERED: HYDROmorphone HCL CARPU-JECT 2 MG/1 ML DISP.SYRIN IVPUSH PRN (15:25)
[2016-12-06 18:03] LABS: URINE APPEARANCE CLEAR; URINE BILIRUBIN NEGATIVE (NEGATIVE); URINE COLOR YELLOW; URINE GLUCOSE (UA) NEGATIVE (NEGATIVE); URINE KETONE NEGATIVE (NEGATIVE); URINE LEUK ESTERASE NEGATIVE (NEGATIVE); URINE NITRITE NEGATIVE (NEGATIVE); URINE PROTEIN NEGATIVE (NEGATIVE); URINE UROBILINOGEN NEGATIVE E.U./dl (0.2-1.0)
[2016-12-06 18:04] LABS: URINE BLOOD 1+ (NEGATIVE)
[2016-12-06 18:08] LABS: URINE MUCUS RARE; URINE RBC <1 /hpf (0-3); URINE WBC <1 /hpf (3-5)
[2016-12-06] MEDS: DOCUSATE SODIUM 100 MG CAPSULE (FP) PO PRN (22:30)
[2016-12-07] MEDS: HYDROmorphone HCL CARPU-JECT 2 MG/1 ML DISP.SYRIN IVPB PRN ×6 (00:50→23:13)
[2016-12-07] MEDS: ACETAMINOPHEN 1000 MG/100 ML VIAL (NON FORMULARY) IVPB PRN (01:13)
[2016-12-07] MEDS: CEFAZOLIN 2 GM/D5W 50 ML IVPB SCH (01:36)
[2016-12-07 06:47] LABS: BASOPHIL 0.6 % (0-2.0); EOSINOPHIL 2.3 % (0-4.5); MCH 27.6 pg (25.7-33.7); MCHC 33.3 g/dl (32.0-35.9); MEAN CELL VOLUME 82.8 fl (80-96); PLATELET COUNT 381 K/MM3 (134-434); RDW 15.3 % (11.9-15.9); WHITE BLOOD COUNT 11.2 K/mm3 (4.0-10.0)
[2016-12-07] MEDS: INSULIN SLIDING SCALE (NOVOLOG) 1 VIAL SQ SCH ×2 (06:52→17:04)
[2016-12-07 07:05] LABS: BILIRUBIN,TOTAL 0.4 mg/dL (0.2-1.0); PHOSPHOROUS 3.7 mg/dL (2.5-4.9); SGOT/AST 43 U/L (15-37); SGPT/ALT 28 U/L (12-78); TOT PROT 6.6 g/dl (6.4-8.2)
[2016-12-07 07:10] LABS: ALBUMIN 2.6 g/dl (3.4-5.0); ALK PHOS 144 U/L (45-117); ANION GAP 7 (8-16); CALCIUM 9.1 mg/dL (8.5-10.1); CO2 30 mmol/L (21-32); CREATININE 1.2 mg/dL (0.7-1.3); GLUCOSE,RANDOM 111 mg/dL (74-106)
--- NOTE | 2016-12-07 07:17 | PN ---
Progress Note, Physician Chief Complaint: ID Day 2 post op Alert oriented No distress Episode of shaking chills yesterday Given dose of vancomycin 1 gram along with post op Cefazolin Currently 100.2 - Current Medication List Current Medications: Active Medications Acetaminophen (Ofirmev Injection -) 1,000 mg IVPB Q6H PRN PRN Reason: FEVER OR PAIN Stop: 12/07/16 07:32 Last Admin: 12/07/16 01:13 Dose: 1,000 mg Allopurinol (Zyloprim -) 300 mg PO DAILY [facility] Calcitonin (Miacalcin [place] -) 200 units NS DAILY [facility] Diazepam (Valium -) 5 mg PO Q12H PRN PRN Reason: AGITATION Last Admin: 12/06/16 22:30 Dose: 5 mg Docusate Sodium (Colace -) 100 mg PO Q8H PRN PRN Reason: CONSTIPATION Last Admin: 12/06/16 22:30 Dose: 100 mg Ferrous Sulfate (Feosol -) 325 mg PO DAILY [facility] Furosemide (Lasix -) 40 mg PO DAILY [facility] Gabapentin (Neurontin -) 300 mg PO BID [facility] Last Admin: 12/06/16 22:30 Dose: 300 mg Hydromorphone HCl (Dilaudid Injection -) 2 mg IVPB Q3H PRN PRN Reason: PAIN Last Admin: 12/07/16 06:52 Dose: 2 mg Cefazolin Sodium/Dextrose (Ancef 2 Gm Premixed Ivpb -) 50 mls @ 100 mls/hr IVPB Q8H-IV [facility]IN[facility] Stop: 12/07/16 17:59 Last Admin: 12/07/16 01:36 Dose: 100 mls/hr Insulin Aspart (Novolog Vial Sliding Scale -) 1 vial SQ BIDAC [facility] PRN Reason: Protocol Last Admin: 12/07/16 06:52 Dose: Not Given Methylnaltrexone [place] (Relistor -) 8 mg SQ DAILY [facility] Miscellaneous (Duragesic Patch Waste) 1 each MC PRN PRN PRN Reason: PAIN Morphine Sulfate (Ms Contin -) 15 mg PO BID [facility] Last Admin: 12/06/16 22:30 Dose: 15 mg Ondansetron HCl (Zofran Odt -) 8 mg SL Q6H PRN PRN Reason: NAUSEA AND/OR VOMITING Pantoprazole Sodium (Protonix -) 40 mg PO DAILY [facility] - Objective Vital Signs: Vital Signs Temperature 100.3 F H 12/07/16 01:28 Pulse Rate 110 H 12/07/16 01:28 Respiratory Rate 22 12/07/16 01:28 Blood Pressure 125/95 12/07/16 01:28 O2 Sat by Pulse Oximetry (%) 99 12/06/16 21:00 Constitutional: Yes: Obese HENT: Yes: WNL, Atraumatic Neck: Yes: WNL, Supple Cardiovascular: Yes: Tachycardia, S1, S2. No: Murmur Respiratory: Yes: WNL, Regular, CTA Bilaterally, Rhonchi. No: Rales, Wheezes Gastrointestinal: Yes: WNL, Normal Bowel Sounds, Soft. No: Tenderness, Tenderness, Rebound Edema: Yes Labs: CBC, BMP 12/07/16 05:20 INR, PTT INR 1.23 (0.82-1.09) H 12/05/16 05:35 Fibrinogen 488.0 mg/dL (238-498) 12/05/16 05:35 Problem List - Problems (1) Lytic bone lesions on xray Code(s): M89.9 - DISORDER OF BONE, UNSPECIFIED (2) Encounter for HIV counseling Code(s): Z71.7 - HUMAN IMMUNODEFICIENCY VIRUS [HIV] COUNSELING Assessment/Plan Microbiology Laboratory Tests 12/06/16 12/06/16 12/06/16 07:35 07:35 11:45 WBC 9.8 Hgb 8.6 L Plt Count 356 ABG pH 7.48 H ABG pCO2 at Pt Temp 33.5 L Oxygen Flow Rate 4l BUN 15 D Creatinine 1.2 12/07/16 12/07/16 05:20 05:20 WBC Pending Hgb Pending Plt Count Pending ABG pH ABG pCO2 at Pt Temp Oxygen Flow Rate BUN Pending Creatinine Pending Assessment Post fever and chills cultures pending Day 2 repair of humerus fracture with sonam Obesity Multiple lytic lesions myeloma likely Plan Pending cultures give Vanco and Cefepime Lactic acid Await bone biopsy Kianna MONTENEGRO
[2016-12-07] MEDS: FERROUS SO4 325 MG TABLET (FP) PO SCH (09:32)
[2016-12-07] MEDS: morphine SO4 SUSTAINED ACTING 15 MG TABLET.SA PO SCH ×2 (09:32→20:59)
[2016-12-07] MEDS: GABAPENTIN 300 MG CAPSULE (FP) PO SCH ×2 (09:32→20:59)
[2016-12-07] MEDS: PANTOPRAZOLE 40 MG TABLET (FP) PO SCH (09:34)
[2016-12-07] MEDS: CEFEPIME 2 GM/100 ML BAG PRE-DOCKED IVPB SCH ×2 (09:34→17:08)
[2016-12-07] MEDS: FUROSEMIDE 40 MG TABLET (FP) PO SCH (09:34)
[2016-12-07] MEDS: DOCUSATE SODIUM 100 MG CAPSULE (FP) PO PRN (09:36)
[2016-12-07] MEDS ORDERED: PT OWN MED DRAWER 7, Y5N ONE ×2 (09:39→20:35)
[2016-12-07] MEDS: CALCITONIN - SALMON SYNTHETIC 3.7 ML SPRAY.PUMP NS SCH (09:40)
[2016-12-07] MEDS: ALLOPURINOL 300 MG TABLET (FP) PO SCH (09:41)
[2016-12-07] MEDS ORDERED: VANCOMYCIN 1,500 MG in DEXTROSE 5%-WATER - 250 ML IVPB SCH (10:00)
[2016-12-07] MEDS ORDERED: Methylnaltrexone Bromide 12 MG/0.6 ML KIT SQ SCH (10:00)
[2016-12-07] MEDS ORDERED: MAGNESIUM HYDROX 2400MG/30ML ORAL SUSPENSION 30 ML CUP PO PRN (10:07)
--- NOTE | 2016-12-07 10:13 | PN ---
Progress Note, Physician Chief Complaint: AWAKE FEELS MUCH BETTER IV CEFIPIME AND VANCO GIVEN - Current Medication List Current Medications: Active Medications Allopurinol (Zyloprim -) 300 mg PO DAILY [facility] Last Admin: 12/07/16 09:41 Dose: 300 mg Calcitonin (Miacalcin [place] -) 200 units NS DAILY [facility] Last Admin: 12/07/16 09:40 Dose: 1 inh Cefepime HCl (Maxipime 2gm Ivpb (Pre-Docked)) 2 gm IVPB Q8H-IV [facility] PRN Reason: Protocol Last Admin: 12/07/16 09:34 Dose: 2 gm Diazepam (Valium -) 5 mg PO Q12H PRN PRN Reason: AGITATION Last Admin: 12/06/16 22:30 Dose: 5 mg Docusate Sodium (Colace -) 100 mg PO Q8H PRN PRN Reason: CONSTIPATION Last Admin: 12/07/16 09:36 Dose: 100 mg Ferrous Sulfate (Feosol -) 325 mg PO DAILY [facility] Last Admin: 12/07/16 09:32 Dose: 325 mg Furosemide (Lasix -) 40 mg PO DAILY [facility] Last Admin: 12/07/16 09:34 Dose: Not Given Gabapentin (Neurontin -) 300 mg PO BID [facility] Last Admin: 12/07/16 09:32 Dose: 300 mg Hydromorphone HCl (Dilaudid Injection -) 2 mg IVPB Q3H PRN PRN Reason: PAIN Last Admin: 12/07/16 06:52 Dose: 2 mg Vancomycin HCl 1,500 mg/ (Dextrose) 500 mls @ 166.667 mls/hr IVPB BID [facility] Insulin Aspart (Novolog Vial Sliding Scale -) [facility] PRN Reason: Protocol Last Admin: 12/07/16 06:52 Dose: Not Given Lactobacillus Acidophilus (Bacid -) 1 tab PO DAILY [facility] Magnesium Hydroxide (Milk Of Magnesia -) 30 ml PO Q8H PRN PRN Reason: INDIGESTION Methylnaltrexone [place] (Relistor -) 8 mg SQ DAILY [facility] Miscellaneous (Duragesic Patch Waste) 1 each MC PRN PRN PRN Reason: PAIN Morphine Sulfate (Ms Contin -) 15 mg PO BID [facility] Last Admin: 12/07/16 09:32 Dose: 15 mg Ondansetron HCl (Zofran Odt -) 8 mg SL Q6H PRN PRN Reason: NAUSEA AND/OR VOMITING Pantoprazole Sodium (Protonix -) 40 mg PO DAILY [facility] Last Admin: 12/07/16 09:34 Dose: 40 mg Polyethylene Glycol (Miralax (For Daily Use) -) 17 gm PO DAILY [facility] - Objective Vital Signs: Vital Signs Temperature 98.1 F 12/07/16 09:52 Pulse Rate 96 H 12/07/16 09:52 Respiratory Rate 20 12/07/16 09:52 Blood Pressure 103/79 12/07/16 08:00 O2 Sat by Pulse Oximetry (%) 99 12/06/16 21:00 Constitutional: Yes: Mild Distress Eyes: Yes: WNL HENT: Yes: WNL Neck: Yes: WNL Cardiovascular: Yes: WNL Respiratory: Yes: WNL Gastrointestinal: Yes: WNL Genitourinary: Yes: WNL Musculoskeletal: Yes: Joint Stiffness, Joint Swelling, Muscle Pain, Muscle Weakness Extremities: Yes: Other Edema: Yes Edema: LLE: 1+, RLE: 1+ Peripheral Pulses WNL: Yes Integumentary: Yes: WNL Wound/Incision: Yes: Clean/Dry Neurological: Yes: Other ...Motor Strength: RUE Psychiatric: Yes: WNL Labs: CBC, BMP 12/07/16 05:20 12/07/16 05:20 INR, PTT INR 1.23 (0.82-1.09) H 12/05/16 05:35 Fibrinogen 488.0 mg/dL (238-498) 12/05/16 05:35 Problem List - Problems (1) STEPHEN (acute kidney injury) Code(s): N17.9 - ACUTE KIDNEY FAILURE, UNSPECIFIED (2) Cancer Code(s): C80.1 - MALIGNANT (PRIMARY) NEOPLASM, UNSPECIFIED (3) Lytic bone lesions on xray Code(s): M89.9 - DISORDER OF BONE, UNSPECIFIED (4) Brain mass Code(s): G93.9 - DISORDER OF BRAIN, UNSPECIFIED (5) Humerus fracture Code(s): S42.309A - UNSP FRACTURE OF SHAFT OF HUMERUS, UNSP ARM, INIT Qualifiers: Humerus Location: proximal Laterality: right (6) Sepsis Code(s): A41.9 - SEPSIS, UNSPECIFIED ORGANISM Assessment/Plan ICU BETTER TODAY AFTER RECEIVING IV ABX CHECK CULTURES STEROIDS RESP SUPPORT ON AC CONTINUE CURRENT CARE TRANSFER BACK TO PRIVATE FLOOR AWAIT BIOPSY RESULT ONCOLOGY AND ID F/U
--- NOTE | 2016-12-07 10:28 | PN ---
Progress Note (short form) - Note Progress Note: NEUROSURGERY Found to have fevers, chills with rigors with tachycardia and hypoxia yesterday , and transferred to the ICU. Now mental status back to baseline. "Shaking all over" s/p humerus procedure Incisional pain severe initially but better this am PE; Tmax 100.3, AF, VSS CT CS- multiple lytic lesions of entire C spine vertebral column mostly anterior ; no severe canal compromise Skeletal series- humerus and pelvis lytic lesions Head CT- multiple calvarial lytic lesion; small R parietal hyperdense; mild edema WBC 11; Hgb 8.2; Cr 1.2; BUN 15 Multifocal skeletal and R parietal mets Path pending Adjuvant tx per med onc and rad onc Son for Sz prophylaxis Brain MRI and C spine MRI with diane when and if feasible
[2016-12-07] MEDS: VANCOMYCIN 1,500 MG in DEXTROSE 5%-WATER - 500 ML IVPB SCH ×2 (11:01→21:18)
--- NOTE | 2016-12-07 11:19 | PN ---
Progress Note (short form) - Note Progress Note: PULMONARY/CCM Pt seen and examined in the ICU. Remains tachycardic but in sinus rhythm and lower rates. Febrile to 102 yesterday. Denies cough, nausea, vomiting, diarrhea , dysuria. Last Vital Signs Temp Pulse Resp BP Pulse Ox 98.1 F 113 H 20 103/79 96 12/07/16 09:52 12/07/16 11:11 12/07/16 10:00 12/07/16 08:00 12/07/16 11:11 Intake & Output 12/04/16 12/05/16 12/06/16 12/07/16 23:59 23:59 23:59 23:59 Intake Total 850 2630 800 400 Output Total 50 400 Balance 850 2580 800 0 Gen: NAD in chair Heart: tachycardic, regular, +systolic murmur Lung: decreased breath sounds at the bases Abd: soft, nontender Ext: + edema CBC, BMP 12/07/16 05:20 12/07/16 05:20 Active Medications Allopurinol (Zyloprim -) 300 mg PO DAILY [facility] Last Admin: 12/07/16 09:41 Dose: 300 mg Calcitonin (Miacalcin [place] -) 200 units NS DAILY [facility] Last Admin: 12/07/16 09:40 Dose: 1 inh Cefepime HCl (Maxipime 2gm Ivpb (Pre-Docked)) 2 gm IVPB Q8H-IV [facility] PRN Reason: Protocol Last Admin: 12/07/16 09:34 Dose: 2 gm Diazepam (Valium -) 5 mg PO Q12H PRN PRN Reason: AGITATION Last Admin: 12/06/16 22:30 Dose: 5 mg Docusate Sodium (Colace -) 100 mg PO Q8H PRN PRN Reason: CONSTIPATION Last Admin: 12/07/16 09:36 Dose: 100 mg Ferrous Sulfate (Feosol -) 325 mg PO DAILY [facility] Last Admin: 12/07/16 09:32 Dose: 325 mg Furosemide (Lasix -) 40 mg PO DAILY [facility] Last Admin: 12/07/16 09:34 Dose: Not Given Gabapentin (Neurontin -) 300 mg PO BID [facility] Last Admin: 12/07/16 09:32 Dose: 300 mg Hydromorphone HCl (Dilaudid Injection -) 2 mg IVPB Q3H PRN PRN Reason: PAIN Last Admin: 12/07/16 10:35 Dose: 2 mg Vancomycin HCl 1,500 mg/ (Dextrose) 500 mls @ 166.667 mls/hr IVPB BID [facility] Last Admin: 12/07/16 11:01 Dose: 166.667 mls/hr Insulin Aspart (Novolog Vial Sliding Scale -) 1 vial SQ BIDAC [facility] PRN Reason: Protocol Last Admin: 12/07/16 06:52 Dose: Not Given Lactobacillus Acidophilus (Bacid -) 1 tab PO DAILY [facility] Levetiracetam (Keppra -) 500 mg PO BID [facility] Magnesium Hydroxide (Milk Of Magnesia -) 30 ml PO Q8H PRN PRN Reason: INDIGESTION Methylnaltrexone [place] (Relistor -) 8 mg SQ DAILY [facility] Last Admin: 12/07/16 11:01 Dose: 8 mg Miscellaneous (Duragesic Patch Waste) 1 each MC PRN PRN PRN Reason: PAIN Morphine Sulfate (Ms Contin -) 15 mg PO BID [facility] Last Admin: 12/07/16 09:32 Dose: 15 mg Ondansetron HCl (Zofran Odt -) 8 mg SL Q6H PRN PRN Reason: NAUSEA AND/OR VOMITING Pantoprazole Sodium (Protonix -) 40 mg PO DAILY [facility] Last Admin: 12/07/16 09:34 Dose: 40 mg Polyethylene Glycol (Miralax (For Daily Use) -) 17 gm PO DAILY [facility] A/P Altered Mental Status resolved r/o Sepsis Multiple Lytic Bone Lesions - r/o Malignancy Humeral Fracture s/p IM sonam placement Anemia - pain control - continue antibiotics - f/u cultures - O2 as needed - IVF hydration - incentive spirometry - DVT prophylaxis - can monitor on floor Problem List - Problems (1) Altered mental status Code(s): R41.82 - ALTERED MENTAL STATUS, UNSPECIFIED (2) Humerus fracture Code(s): S42.309A - UNSP FRACTURE OF SHAFT OF HUMERUS, UNSP ARM, INIT Qualifiers: Humerus Location: proximal Laterality: right (3) Lytic bone lesions on xray Code(s): M89.9 - DISORDER OF BONE, UNSPECIFIED
[2016-12-07] MEDS: levETIRAcetam 500 MG TABLET (FP) PO SCH ×2 (11:32→21:00)
[2016-12-07] MEDS: LACTOBACILLUS ACIDOPHILUS 1 EACH TAB (FP) PO SCH (11:32)
[2016-12-07 13:00] LABS: BASOPHIL 0.4 % (0-2.0); EOSINOPHIL 2.3 % (0-4.5); MCH 27.5 pg (25.7-33.7); MEAN CELL VOLUME 83.2 fl (80-96); MEAN PLT VOLUME 6.5 fl (7.5-11.1); NEUTROPHILS 84.8 % (42.8-82.8); PLATELET COUNT 335 K/MM3 (134-434); RDW 15.3 % (11.9-15.9); WHITE BLOOD COUNT 11.2 K/mm3 (4.0-10.0)
--- NOTE | 2016-12-07 13:13 | PN ---
Progress Note, Physician Chief Complaint: The patient feeling much better. no further shakings and chills. Maintains good urine out put. Much better attitude today than yesterday. BP stable. - Current Medication List Current Medications: Active Medications Allopurinol (Zyloprim -) 300 mg PO DAILY [facility] Last Admin: 12/07/16 09:41 Dose: 300 mg Calcitonin (Miacalcin [place] -) 200 units NS DAILY [facility] Last Admin: 12/07/16 09:40 Dose: 1 inh Cefepime HCl (Maxipime 2gm Ivpb (Pre-Docked)) 2 gm IVPB Q8H-IV AMINAH PRN Reason: Protocol Last Admin: 12/07/16 09:34 Dose: 2 gm Diazepam (Valium -) 5 mg PO Q12H PRN PRN Reason: AGITATION Last Admin: 12/06/16 22:30 Dose: 5 mg Docusate Sodium (Colace -) 100 mg PO Q8H PRN PRN Reason: CONSTIPATION Last Admin: 12/07/16 09:36 Dose: 100 mg Ferrous Sulfate (Feosol -) 325 mg PO DAILY [facility] Last Admin: 12/07/16 09:32 Dose: 325 mg Furosemide (Lasix -) 40 mg PO DAILY [facility] Last Admin: 12/07/16 09:34 Dose: Not Given Gabapentin (Neurontin -) 300 mg PO BID [facility] Last Admin: 12/07/16 09:32 Dose: 300 mg Hydromorphone HCl (Dilaudid Injection -) 2 mg IVPB Q3H PRN PRN Reason: PAIN Last Admin: 12/07/16 10:35 Dose: 2 mg Vancomycin HCl 1,500 mg/ (Dextrose) 500 mls @ 166.667 mls/hr IVPB BID [facility] Last Admin: 12/07/16 11:01 Dose: 166.667 mls/hr Insulin Aspart (Novolog Vial Sliding Scale -) 1 vial SQ BIDAC [facility] PRN Reason: Protocol Last Admin: 12/07/16 06:52 Dose: Not Given Lactobacillus Acidophilus (Bacid -) 1 tab PO DAILY [facility] Last Admin: 12/07/16 11:32 Dose: 1 tab Levetiracetam (Keppra -) 500 mg PO BID [facility] Last Admin: 12/07/16 11:32 Dose: 500 mg Magnesium Hydroxide (Milk Of Magnesia -) 30 ml PO Q8H PRN PRN Reason: INDIGESTION Methylnaltrexone [place] (Relistor -) 8 mg SQ DAILY [facility] Last Admin: 12/07/16 11:01 Dose: 8 mg Miscellaneous (Duragesic Patch Waste) 1 each MC PRN PRN PRN Reason: PAIN Morphine Sulfate (Ms Contin -) 15 mg PO BID [facility] Last Admin: 12/07/16 09:32 Dose: 15 mg Ondansetron HCl (Zofran Odt -) 8 mg SL Q6H PRN PRN Reason: NAUSEA AND/OR VOMITING Pantoprazole Sodium (Protonix -) 40 mg PO DAILY [facility] Last Admin: 12/07/16 09:34 Dose: 40 mg Polyethylene Glycol (Miralax (For Daily Use) -) 17 gm PO DAILY [facility] - Objective Vital Signs: Vital Signs Temperature 98.1 F 12/07/16 09:52 Pulse Rate 113 H 12/07/16 11:11 Respiratory Rate 20 12/07/16 10:00 Blood Pressure 103/79 12/07/16 08:00 O2 Sat by Pulse Oximetry (%) 96 12/07/16 11:11 Constitutional: Yes: Well Nourished, No Distress, Anxious HENT: Yes: WNL Neck: Yes: Supple, Trachea Midline Cardiovascular: Yes: Regular Rate and Rhythm, S1, S2 Respiratory: Yes: Regular, CTA Bilaterally, Poor Air Entry Gastrointestinal: Yes: Normal Bowel Sounds, Abdomen, Obese Edema: Yes Edema: LLE: Trace Neurological: Yes: Alert, Oriented Psychiatric: Yes: Alert, Oriented Labs: CBC, BMP 12/07/16 12:45 12/07/16 05:20 INR, PTT INR 1.23 (0.82-1.09) H 12/05/16 05:35 Fibrinogen 488.0 mg/dL (238-498) 12/05/16 05:35 Problem List - Problems (1) STEPHEN (acute kidney injury) Code(s): N17.9 - ACUTE KIDNEY FAILURE, UNSPECIFIED (2) Cancer Code(s): C80.1 - MALIGNANT (PRIMARY) NEOPLASM, UNSPECIFIED (3) Humerus fracture Code(s): S42.309A - UNSP FRACTURE OF SHAFT OF HUMERUS, UNSP ARM, INIT Qualifiers: Humerus Location: proximal Laterality: right (4) Lytic bone lesions on xray Code(s): M89.9 - DISORDER OF BONE, UNSPECIFIED (5) Murmur Code(s): R01.1 - CARDIAC MURMUR, UNSPECIFIED (6) Back muscle spasm Code(s): M62.830 - MUSCLE SPASM OF BACK (7) Low back pain Code(s): M54.5 - LOW BACK PAIN Qualifiers: Chronicity: acute Back pain laterality: left Sciatica presence: without sciatica Qualified Code(s): M54.5 - Low back pain (8) Neck muscle strain Code(s): S16.1XXA - STRAIN OF MUSCLE, FASCIA AND TENDON AT NECK LEVEL, INIT Qualifiers: Encounter type: initial encounter Qualified Code(s): S16.1XXA - Strain of muscle, fascia and tendon at neck level, initial encounter Assessment/Plan Renal functions stable. Mild Hypercalcemia noted. The patient has multiple bone lytic lesions. Awaiting Histopath. The Hypercalcemia (corrected) still persists. Azotemia stable Will follow with you. Ivet Puga MD
--- NOTE | 2016-12-07 13:35 | PN ---
Progress Note (short form) - Note Progress Note: ONCOLOGY FOLLOW UP NOTE : Chief Complaint: He was transferred yesterday to the ICU due to sudden onset AMS which quickly resolved He feels better today - Review of Systems Constitutional: denies: Fever, Malaise, Night Sweats, Unintentional Wgt. Loss, Weakness Eyes: denies: Blurred Vision, Double Vision HENT: denies: Difficult Swallowing Neck: reports: Decreased ROM Cardiovascular: denies: Chest Pain Respiratory: denies: SOB, SOB on Exertion Gastrointestinal: denies: Diarrhea, Nausea, Vomiting Genitourinary: denies: Burning, Dysuria, Flank Pain Musculoskeletal: reports: Muscle Pain Neurological: reports: Weakness Endocrine: reports: No Symptoms Hematology/Lymphatic: denies: Easily Bruised, Excessive Bleeding, Swollen Glands Psychiatric: reports: No Symptoms - Medications/Allergies Allergies/Adverse Reactions: Allergies Allergy/AdvReac Type Severity Reaction Status Date / Time No Known Allergies Allergy Verified 11/28/16 21:02 Active Medications Generic Name Dose Route Start Last Admin Trade Name Freq PRN Reason Stop Dose Admin Allopurinol 300 mg 12/07/16 10:00 12/07/16 09:41 Zyloprim - PO 300 mg DAILY AMINAH Administration Calcitonin 200 units 12/07/16 10:00 12/07/16 09:40 Miacalcin [place] - NS 1 inh DAILY AMINAH Administration Cefepime HCl 2 gm 12/07/16 10:00 12/07/16 09:34 Maxipime 2gm Ivpb (Pre-Docked) IVPB 2 gm Q8H-IV AMINAH Administration Protocol Diazepam 5 mg 12/06/16 15:25 12/06/16 22:30 Valium - PO 5 mg Q12H PRN Administration AGITATION Docusate Sodium 100 mg 12/06/16 15:25 12/07/16 09:36 Colace - PO 100 mg Q8H PRN Administration CONSTIPATION Ferrous Sulfate 325 mg 12/07/16 10:00 12/07/16 09:32 Feosol - PO 325 mg DAILY AMINAH Administration Furosemide 40 mg 12/07/16 10:00 12/07/16 09:34 Lasix - PO Not Given DAILY AMINAH Gabapentin 300 mg 12/06/16 22:00 12/07/16 09:32 Neurontin - PO 300 mg BID AMINAH Administration Hydromorphone HCl 2 mg 12/06/16 15:25 12/07/16 10:35 Dilaudid Injection - IVPB 2 mg Q3H PRN Administration PAIN Vancomycin HCl 1,500 mg/ 500 mls @ 166.667 mls/hr 12/07/16 10:00 12/07/16 11:01 Dextrose IVPB 166.667 mls/hr BID AMINAH Administration Insulin Aspart 1 vial 12/06/16 16:30 12/07/16 06:52 Novolog Vial Sliding Scale - SQ Not Given BIDAC [facility] Protocol Lactobacillus Acidophilus 1 tab 12/07/16 10:15 12/07/16 11:32 Bacid - PO 1 tab DAILY AMINAH Administration Levetiracetam 500 mg 12/07/16 10:45 12/07/16 11:32 Keppra - PO 500 mg BID AMINAH Administration Magnesium Hydroxide 30 ml 12/07/16 10:07 Milk Of Magnesia - PO Q8H PRN INDIGESTION Methylnaltrexone [place] 8 mg 12/07/16 10:00 12/07/16 11:01 Relistor - SQ 8 mg DAILY AMINAH Administration Miscellaneous 1 each 12/06/16 15:25 Duragesic Patch Waste MC PRN PRN PAIN Morphine Sulfate 15 mg 12/06/16 22:00 12/07/16 09:32 Ms Contin - PO 15 mg BID AMINAH Administration Ondansetron HCl 8 mg 12/06/16 15:25 Zofran Odt - SL Q6H PRN NAUSEA AND/OR VOMITING Pantoprazole Sodium 40 mg 12/07/16 10:00 12/07/16 09:34 Protonix - PO 40 mg DAILY AMIN[facility] Administration Polyethylene Glycol 17 gm 12/07/16 10:15 Miralax (For Daily Use) - PO DAILY AMIN[facility] - Objective Vital Signs: Vital Signs Period Temp Pulse Resp BP Sys/[place] Pulse Ox Last 24 Hr 98.1 F-102.2 F 96-124 16-22 90-126/68-95 96-99 Constitutional: No distress, eating breakfast Eyes: Yes: PERRL. No: Diplopia, Ptosis, Sclera Icterus HENT: No: Epistaxis, Hoarseness, Pharyngeal Erythema, Tonsillar Exudate Neck: Yes: Decreased ROM. No: Lymphadenopathy Cardiovascular: Yes: Regular Rate and Rhythm, Murmur Respiratory: Yes: Regular Gastrointestinal: Yes: Normal Bowel Sounds, Soft, Abdomen, Obese. No: Hypoactive Bowel Sounds, Tenderness, Rebound Genitourinary: No: CVA Tenderness - Right Musculoskeletal: No: Muscle Weakness Extremities: Yes: Other (decrease ROM) Integumentary: No: Bruising, Jaundice Neurological: Yes: Oriented Psychiatric: Yes: WNL Labs: CBC, BMP 12/07/16 12:45 12/07/16 05:20 Plan : I have explained to him that we need to await biopsy results. Patient is more receptive today and he agrees. His main issue is mainitaning QOL. I have explaine dto him that /Denise will follow with him and once we know the biopsy results treatment plan dry room attendant be formulated. It can include chemotherapy / RT, patient is fine with it. Await biopsy results Problem List - Problems (1) Brain mass Assessment/Plan: Etiology unclear. Patient reluctant to have MRI currently. Consider monitoring and outpatient open MRI Code(s): G93.9 - DISORDER OF BRAIN, UNSPECIFIED (2) Humerus fracture Assessment/Plan: s/p fixation Code(s): S42.309A - UNSP FRACTURE OF SHAFT OF HUMERUS, UNSP ARM, INIT Qualifiers: Humerus Location: proximal Laterality: right (3) Lytic bone lesions on xray Assessment/Plan: Free kappa/ lambda light chain ratio -normal. This is against diagnosis of myeloma unless this is non secretory myeloma. Will need to await tissue. Does have elevated IgA with diminished IgG and IgM. Code(s): M89.9 - DISORDER OF BONE, UNSPECIFIED
[2016-12-07] MEDS: POLYETHYLENE GLYCOL 3350 119 GM BTL PO SCH ×2 (17:09→18:32)
[2016-12-07] MEDS: diazePAM 5 MG TABLET PO PRN (20:59)
[2016-12-08] MEDS ORDERED: PT OWN MED DRAWER 7, Y5N ONE ×2 (00:53→09:02)
[2016-12-08] MEDS: CEFEPIME 2 GM/100 ML BAG PRE-DOCKED IVPB SCH (02:31)
[2016-12-08] MEDS: HYDROmorphone HCL CARPU-JECT 2 MG/1 ML DISP.SYRIN IVPB PRN ×6 (03:05→23:52)
[2016-12-08] MEDS: INSULIN SLIDING SCALE (NOVOLOG) 1 VIAL SQ SCH ×2 (06:15→15:56)
--- NOTE | 2016-12-08 07:52 | PN ---
Progress Note, Physician Chief Complaint: SITTING UP AT BEDSIDE ON PHONE NO DISTRESS - Current Medication List Current Medications: Active Medications Allopurinol (Zyloprim -) 300 mg PO DAILY [facility] Last Admin: 12/07/16 09:41 Dose: 300 mg Calcitonin (Miacalcin [place] -) 200 units NS DAILY [facility] Last Admin: 12/07/16 09:40 Dose: 1 inh Cefepime HCl (Maxipime 2gm Ivpb (Pre-Docked)) 2 gm IVPB Q8H-IV AMINAH PRN Reason: Protocol Last Admin: 12/08/16 02:31 Dose: 2 gm Diazepam (Valium -) 5 mg PO Q12H PRN PRN Reason: AGITATION Last Admin: 12/07/16 20:59 Dose: 5 mg Docusate Sodium (Colace -) 100 mg PO Q8H PRN PRN Reason: CONSTIPATION Last Admin: 12/07/16 09:36 Dose: 100 mg Ferrous Sulfate (Feosol -) 325 mg PO DAILY [facility] Last Admin: 12/07/16 09:32 Dose: 325 mg Furosemide (Lasix -) 40 mg PO DAILY [facility] Last Admin: 12/07/16 09:34 Dose: Not Given Gabapentin (Neurontin -) 300 mg PO BID [facility] Last Admin: 12/07/16 20:59 Dose: 300 mg Hydromorphone HCl (Dilaudid Injection -) 2 mg IVPB Q3H PRN PRN Reason: PAIN Last Admin: 12/08/16 06:08 Dose: 2 mg Vancomycin HCl 1,500 mg/ (Dextrose) 500 mls @ 166.667 mls/hr IVPB BID [facility] Last Admin: 12/07/16 21:18 Dose: 166.667 mls/hr Insulin Aspart (Novolog Vial Sliding Scale -) 1 vial SQ BIDAC [facility] PRN Reason: Protocol Last Admin: 12/08/16 06:15 Dose: Not Given Lactobacillus Acidophilus (Bacid -) 1 tab PO DAILY [facility] Last Admin: 12/07/16 11:32 Dose: 1 tab Levetiracetam (Keppra -) 500 mg PO BID [facility] Last Admin: 12/07/16 21:00 Dose: 500 mg Magnesium Hydroxide (Milk Of Magnesia -) 30 ml PO Q8H PRN PRN Reason: INDIGESTION Methylnaltrexone [place] (Relistor -) 8 mg SQ DAILY [facility] Last Admin: 12/07/16 11:01 Dose: 8 mg Miscellaneous (Duragesic Patch Waste) 1 each MC PRN PRN PRN Reason: PAIN Morphine Sulfate (Ms Contin -) 15 mg PO BID [facility] Last Admin: 12/07/16 20:59 Dose: 15 mg Ondansetron HCl (Zofran Odt -) 8 mg SL Q6H PRN PRN Reason: NAUSEA AND/OR VOMITING Pantoprazole Sodium (Protonix -) 40 mg PO DAILY [facility] Last Admin: 12/07/16 09:34 Dose: 40 mg Polyethylene Glycol (Miralax (For Daily Use) -) 17 gm PO DAILY [facility] Last Admin: 12/07/16 18:32 Dose: 17 gm - Objective Vital Signs: Vital Signs Temperature 98.4 F 12/08/16 06:36 Pulse Rate 104 H 12/08/16 06:36 Respiratory Rate 20 12/08/16 06:36 Blood Pressure 124/90 12/08/16 06:36 O2 Sat by Pulse Oximetry (%) 96 12/07/16 20:02 Cardiovascular: Yes: Regular Rate and Rhythm, S1, S2 Respiratory: Yes: CTA Bilaterally Gastrointestinal: Yes: Normal Bowel Sounds, Soft Labs: CBC, BMP 12/07/16 12:45 12/07/16 05:20 INR, PTT INR 1.23 (0.82-1.09) H 12/05/16 05:35 Fibrinogen 488.0 mg/dL (238-498) 12/05/16 05:35 Problem List - Problems (1) Low back pain Code(s): M54.5 - LOW BACK PAIN Qualifiers: Chronicity: acute Back pain laterality: left Sciatica presence: without sciatica Qualified Code(s): M54.5 - Low back pain (2) Lytic bone lesions on xray Code(s): M89.9 - DISORDER OF BONE, UNSPECIFIED (3) STEPHEN (acute kidney injury) Code(s): N17.9 - ACUTE KIDNEY FAILURE, UNSPECIFIED (4) Murmur Code(s): R01.1 - CARDIAC MURMUR, UNSPECIFIED Assessment/Plan (1) STEPHEN (acute kidney injury) Code(s): N17.9 - ACUTE KIDNEY FAILURE, UNSPECIFIED (2) Cancer Code(s): C80.1 - MALIGNANT (PRIMARY) NEOPLASM, UNSPECIFIED (3) Lytic bone lesions on xray Code(s): M89.9 - DISORDER OF BONE, UNSPECIFIED (4) Brain mass Code(s): G93.9 - DISORDER OF BRAIN, UNSPECIFIED (5) Humerus fracture Code(s): S42.309A - UNSP FRACTURE OF SHAFT OF HUMERUS, UNSP ARM, INIT Qualifiers: Humerus Location: proximal Laterality: right (6) Sepsis Code(s): A41.9 - SEPSIS, UNSPECIFIED ORGANISM Assessment/Plan S/P ICU CHECK CULTURES -> UCx PENDING SCDs CONTINUE CURRENT CARE TRANSFER BACK TO PRIVATE FLOOR AWAIT BIOPSY RESULT ONCOLOGY 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
[2016-12-08 08:04] LABS: BASOPHIL 0.5 % (0-2.0); EOSINOPHIL 2.3 % (0-4.5); MCH 27.3 pg (25.7-33.7); MEAN CELL VOLUME 82.7 fl (80-96); MEAN PLT VOLUME 7.1 fl (7.5-11.1); NEUTROPHILS 77.4 % (42.8-82.8); PLATELET COUNT 356 K/MM3 (134-434); RDW 14.9 % (11.9-15.9); WHITE BLOOD COUNT 11.5 K/mm3 (4.0-10.0)
[2016-12-08 08:36] LABS: ALBUMIN 2.5 g/dl (3.4-5.0); ANION GAP 8 (8-16); CO2 27 mmol/L (21-32); GLUCOSE,RANDOM 140 mg/dL (74-106)
[2016-12-08 08:39] LABS: ALK PHOS 135 U/L (45-117); BILIRUBIN,TOTAL 0.4 mg/dL (0.2-1.0); PHOSPHOROUS 3.4 mg/dL (2.5-4.9); SGOT/AST 38 U/L (15-37); SGPT/ALT 27 U/L (12-78); TOT PROT 6.4 g/dl (6.4-8.2)
[2016-12-08] MEDS: FUROSEMIDE 40 MG TABLET (FP) PO SCH (09:11)
[2016-12-08] MEDS: levETIRAcetam 500 MG TABLET (FP) PO SCH ×2 (09:11→21:08)
[2016-12-08] MEDS: FERROUS SO4 325 MG TABLET (FP) PO SCH (09:11)
[2016-12-08] MEDS: LACTOBACILLUS ACIDOPHILUS 1 EACH TAB (FP) PO SCH (09:11)
[2016-12-08] MEDS: POLYETHYLENE GLYCOL 3350 119 GM BTL PO SCH (09:11)
[2016-12-08] MEDS: GABAPENTIN 300 MG CAPSULE (FP) PO SCH ×2 (09:12→21:09)
[2016-12-08] MEDS: ALLOPURINOL 300 MG TABLET (FP) PO SCH (09:12)
[2016-12-08] MEDS: morphine SO4 SUSTAINED ACTING 15 MG TABLET.SA PO SCH ×2 (09:12→21:09)
[2016-12-08] MEDS: PANTOPRAZOLE 40 MG TABLET (FP) PO SCH (09:12)
[2016-12-08] MEDS: CALCITONIN - SALMON SYNTHETIC 3.7 ML SPRAY.PUMP NS SCH (09:13)
--- NOTE | 2016-12-08 09:25 | PN ---
Progress Note (short form) - Note Progress Note: NEUROSURGERY Transferred back to floor care s/p humerus procedure Path still pending Incisional pain severe initially but better this am PE: AF, VSS Exam without change; R arm in sling Blood culture pending Multifocal skeletal and R parietal mets Adjuvant tx per med onc and rad onc Son for Sz prophylaxis Brain MRI and C spine MRI with diane when and if feasible May be a role for gamma knife tx for brain parenchymal lesion depending on # of lesions and extent of involvement Will sign off, reconsult PRN
--- NOTE | 2016-12-08 09:31 | OP ---
DATE OF OPERATION: 12/05/2016 PREOPERATIVE DIAGNOSIS: Impending pathological fracture, right proximal humerus. POSTOPERATIVE DIAGNOSIS: Impending pathological fracture, right proximal humerus. PROCEDURE: 1. Open biopsy of lytic lesion, right humerus. 2. Prophylactic intramedullary nailing of the right humerus. SURGICAL ATTENDING: Hector Burnett MD HAMMERSMITH HELPER: DEANDRE Jones ANESTHESIA: General with endotracheal intubation. POSITION: Beach chair. CLOSURE: A Chen intramedullary humeral nail that was statically locked, 0 Vicryl for fascia, 2-0 for subcutaneous, 3-0 Monocryl for subcuticular, skin with skin glue. ESTIMATED BLOOD LOSS: Less than 100 mL. COMPLICATIONS: None. CONDITION: To recovery room in stable condition. DESCRIPTION OF OPERATIVE PROCEDURE: Patient taken to the operating room on December 05, 2016. General anesthesia with endotracheal intubation was administered by the anesthesiologist. Kefzol 2 g was administered prophylactically prior to the case. Patient was placed in the supine position with all prominences well padded. The site of the lytic lesion in the proximal humeral shaft was isolated on the skin by use of fluoroscopy. A 3- to 4-cm longitudinal incision over that lesion at the lateral aspect of the humerus was . Blunt dissection was carried down to the level of the humeral shaft with anterior and posterior retractors placed, exposing the area of the lesion. Multiple small drill holes were used to cut out an ellipse of bone in the humeral shaft. The bone was very thin in this region. Curets were used to pull out soft tissue and tumor from the intramedullary canal. This tissue was sent immediately down to Pathology with confirmation that a sufficient specimen of tumor was sent to Pathology and that a diagnosis could be made. As much tumor as possible was curetted. The wound was irrigated. We then closed in layers with 0 Vicryl for fascia, 2-0 Vicryl for subcutaneous, and 3-0 Monocryl subcuticular for skin. Next, a 3-cm longitudinal incision over the anterolateral aspect of the proximal humerus was made. Hemostasis was achieved with Bovie cautery. Sharp dissection was from through the fascial layers of the deltoid and then it was switched to the direction of the fibers. A guidewire was drilled from the starting point in the greater tuberosity into the intramedullary canal overreamed with the starter reamer. Ball-tipped guidewires were placed down the humeral shaft into the intramedullary canal down towards the elbow. It was measured for length and thickness. The intramedullary canal was reamed with a 10-mm reamer. A 9 x 260-mm sonam was then malleted into place. Using the outrigger through small stab incisions, 2 proximal statically locked screws were placed by drilling, depth gauging, screws. The outrigger was then removed. The patient was placed in a more supine position, where then using a free-hand technique 1 [id number] distal locking screw was placed through a small stab incision, locking the sonam. Proper placement of all hardware with excellent position of the locking screws from the AP, lateral . The incisions were irrigated, closed with 0 Vicryl for fascia, 2-0 for subcutaneous, and 3-0 Monocryl for subcuticular with skin glue to the skin. Pressure dressing followed by a sling was applied. Patient awakened from anesthesia and transferred to recovery in stable condition. No complications. Estimated blood loss: Negligible. Kelvin [id number]
--- NOTE | 2016-12-08 09:38 | PN ---
Progress Note, Physician Chief Complaint: ID Post op day 3 therapy Post op fever but this resolved NO chills or other complaints I gave him Vanco and Cefepime empirically. - Current Medication List Current Medications: Active Medications Allopurinol (Zyloprim -) 300 mg PO DAILY [facility] Last Admin: 12/08/16 09:12 Dose: 300 mg Calcitonin (Miacalcin [place] -) 200 units NS DAILY [facility] Last Admin: 12/08/16 09:13 Dose: 1 inh Cefepime HCl (Maxipime 2gm Ivpb (Pre-Docked)) 2 gm IVPB Q8H-IV AMINAH PRN Reason: Protocol Last Admin: 12/08/16 02:31 Dose: 2 gm Diazepam (Valium -) 5 mg PO Q12H PRN PRN Reason: AGITATION Last Admin: 12/07/16 20:59 Dose: 5 mg Docusate Sodium (Colace -) 100 mg PO Q8H PRN PRN Reason: CONSTIPATION Last Admin: 12/07/16 09:36 Dose: 100 mg Ferrous Sulfate (Feosol -) 325 mg PO DAILY [facility] Last Admin: 12/08/16 09:11 Dose: 325 mg Furosemide (Lasix -) 40 mg PO DAILY [facility] Last Admin: 12/08/16 09:11 Dose: 40 mg Gabapentin (Neurontin -) 300 mg PO BID [facility] Last Admin: 12/08/16 09:12 Dose: 300 mg Hydromorphone HCl (Dilaudid Injection -) 2 mg IVPB Q3H PRN PRN Reason: PAIN Last Admin: 12/08/16 06:08 Dose: 2 mg Vancomycin HCl 1,500 mg/ (Dextrose) 500 mls @ 166.667 mls/hr IVPB BID [facility] Last Admin: 12/07/16 21:18 Dose: 166.667 mls/hr Insulin Aspart (Novolog Vial Sliding Scale -) 1 vial SQ BIDAC [facility] PRN Reason: Protocol Last Admin: 12/08/16 06:15 Dose: Not Given Lactobacillus Acidophilus (Bacid -) 1 tab PO DAILY [facility] Last Admin: 12/08/16 09:11 Dose: 1 tab Levetiracetam (Keppra -) 500 mg PO BID [facility] Last Admin: 12/08/16 09:11 Dose: 500 mg Magnesium Hydroxide (Milk Of Magnesia -) 30 ml PO Q8H PRN PRN Reason: INDIGESTION Methylnaltrexone [place] (Relistor -) 8 mg SQ DAILY [facility] Last Admin: 12/07/16 11:01 Dose: 8 mg Miscellaneous (Duragesic Patch Waste) 1 each MC PRN PRN PRN Reason: PAIN Morphine Sulfate (Ms Contin -) 15 mg PO BID [facility] Last Admin: 12/08/16 09:12 Dose: 15 mg Ondansetron HCl (Zofran Odt -) 8 mg SL Q6H PRN PRN Reason: NAUSEA AND/OR VOMITING Pantoprazole Sodium (Protonix -) 40 mg PO DAILY [facility] Last Admin: 12/08/16 09:12 Dose: 40 mg Polyethylene Glycol (Miralax (For Daily Use) -) 17 gm PO DAILY [facility] Last Admin: 12/08/16 09:11 Dose: 17 gm - Objective Vital Signs: Vital Signs Temperature 98.4 F 12/08/16 06:36 Pulse Rate 104 H 12/08/16 06:36 Respiratory Rate 20 12/08/16 06:36 Blood Pressure 124/90 12/08/16 06:36 O2 Sat by Pulse Oximetry (%) 96 12/07/16 20:02 Constitutional: Yes: No Distress, Obese Eyes: Yes: WNL, Conjunctiva Clear HENT: Yes: WNL, Atraumatic Neck: Yes: WNL, Supple Cardiovascular: Yes: Regular Rate and Rhythm, S1, S2 Respiratory: Yes: WNL, Regular, CTA Bilaterally. No: Rales, Rhonchi Gastrointestinal: Yes: Soft. No: Tenderness, Tenderness, Rebound Extremities: Yes: Other (POst op dressing) Labs: CBC, BMP 12/08/16 06:38 12/08/16 06:38 INR, PTT INR 1.23 (0.82-1.09) H 12/05/16 05:35 Fibrinogen 488.0 mg/dL (238-498) 12/05/16 05:35 Problem List - Problems (1) Lytic bone lesions on xray Code(s): M89.9 - DISORDER OF BONE, UNSPECIFIED (2) Encounter for HIV counseling Code(s): Z71.7 - HUMAN IMMUNODEFICIENCY VIRUS [HIV] COUNSELING Assessment/Plan Microbiology 12/06/16 12:45 Blood - Peripheral Venous Blood Culture - Preliminary NO GROWTH OBTAINED AFTER 24 HOURS, INCUBATION TO CONTINUE FOR 4 DAYS. 12/06/16 12:30 Blood - Peripheral Venous Blood Culture - Preliminary NO GROWTH OBTAINED AFTER 24 HOURS, INCUBATION TO CONTINUE FOR 4 DAYS. Laboratory Tests 12/04/16 12/08/16 12/08/16 07:00 06:38 06:38 WBC 11.5 H Hgb 8.1 L Hct 24.6 L Plt Count 356 ESR 96 H BUN 13 Creatinine 1.0 Assessment At this point no obvious focus of infection He is afebrile Asymptomatic and cultures no growth. Rather then continue him on antibiotic I would opt to stop antibiotics and observe. Awaiting biopsy Kianna MONTENEGRO
[2016-12-08 10:08] LABS: Hgb A2 1.9 % (0.7-3.1)
[2016-12-08] MEDS ORDERED: diazePAM 5 MG TABLET PO PRN (10:58)
[2016-12-08] MEDS ORDERED: DOCUSATE SODIUM 100 MG CAPSULE (FP) PO PRN (10:58)
[2016-12-08] MEDS ORDERED: FENTANYL PATCH WASTE MC PRN (10:58)
[2016-12-08] MEDS ORDERED: ONDANSETRON *ODT* 4 MG TABLET SL PRN (10:58)
--- NOTE | 2016-12-08 11:18 | PN ---
Progress Note (short form) - Note Progress Note: No CP or SOB. Some incisional discomfort, better than yesterday. Intake & Output 12/05/16 12/06/16 12/07/16 12/08/16 23:59 23:59 23:59 23:59 Intake Total 2630 800 1150 750 Output Total 50 400 Balance 2580 800 750 750 Last Vital Signs Temp Pulse Resp BP Pulse Ox 97.7 F 100 H 20 110/78 96 12/08/16 08:00 12/08/16 08:00 12/08/16 08:00 12/08/16 08:00 12/08/16 08:00 Active Medications Allopurinol (Zyloprim -) 300 mg PO DAILY [facility] Calcitonin (Miacalcin [place] -) 200 units NS DAILY [facility] Diazepam (Valium -) 5 mg PO Q12H PRN PRN Reason: AGITATION Docusate Sodium (Colace -) 100 mg PO Q8H PRN PRN Reason: CONSTIPATION Ferrous Sulfate (Feosol -) 325 mg PO DAILY [facility] Furosemide (Lasix -) 40 mg PO DAILY [facility] Gabapentin (Neurontin -) 300 mg PO BID [facility] Hydromorphone HCl (Dilaudid Injection -) 2 mg IVPB Q3H PRN PRN Reason: PAIN Insulin Aspart (Novolog Vial Sliding Scale -) 1 vial SQ BIDAC [facility] PRN Reason: Protocol Lactobacillus Acidophilus (Bacid -) 1 tab PO DAILY [facility] Levetiracetam (Keppra -) 500 mg PO BID [facility] Last Admin: 12/08/16 09:11 Dose: 500 mg Magnesium Hydroxide (Milk Of Magnesia -) 30 ml PO Q8H PRN PRN Reason: INDIGESTION Methylnaltrexone [place] (Relistor -) 8 mg SQ DAILY [facility] Miscellaneous (Duragesic Patch Waste) 1 each MC PRN PRN PRN Reason: PAIN Morphine Sulfate (Ms Contin -) 15 mg PO BID [facility] Ondansetron HCl (Zofran Odt -) 8 mg SL Q6H PRN PRN Reason: NAUSEA AND/OR VOMITING Pantoprazole Sodium (Protonix -) 40 mg PO DAILY [facility] Polyethylene Glycol (Miralax (For Daily Use) -) 17 gm PO DAILY [facility] Gen: NAD Heart: S1S2, (+) ESM Lung: decreased breath sounds at the bases Abd: soft, nontender Ext: (+) edema Laboratory Results - last 24 hr 12/04/16 12/04/16 12/07/16 07:00 17:40 12:45 WBC 11.2 H RBC 3.00 L Hgb 8.2 L Hct 24.9 L MCV 83.2 MCHC 33.0 RDW 15.3 Plt Count 335 MPV 6.5 L Neutrophils % 84.8 H Lymphocytes % 8.5 D Monocytes % 4.0 Eosinophils % 2.3 Basophils % 0.4 Hemoglobin A 98.1 H Hemoglobin A2 1.9 Hemoglobin C 0 Hemoglobin S 0 Variant Hemoglobin TNP Hemoglobin Interpret Maternal Rh 0 Hemoglobin Solubility Negative Sodium Potassium Chloride Carbon Dioxide Anion Gap BUN Creatinine Creat Clearance w eGFR POC Glucometer Random Glucose Lactic Acid Calcium Phosphorus Magnesium Total Bilirubin AST ALT Alkaline Phosphatase Total Protein Albumin Blood Type O NEGATIVE Antibody Screen Negative Crossmatch See Detail 12/07/16 12/08/16 12/08/16 16:36 06:04 06:38 WBC RBC Hgb Hct MCV MCHC RDW Plt Count MPV Neutrophils % Lymphocytes % Monocytes % Eosinophils % Basophils % Hemoglobin A Hemoglobin A2 Hemoglobin C Hemoglobin S Variant Hemoglobin Hemoglobin Interpret Maternal Rh Hemoglobin Solubility Sodium Potassium Chloride Carbon Dioxide Anion Gap BUN Creatinine Creat Clearance w eGFR POC Glucometer 163 187 Random Glucose Lactic Acid 0.792 Calcium Phosphorus Magnesium Total Bilirubin AST ALT Alkaline Phosphatase Total Protein Albumin Blood Type Antibody Screen Crossmatch 12/08/16 12/08/16 06:38 06:38 WBC 11.5 H RBC 2.97 L Hgb 8.1 L Hct 24.6 L MCV 82.7 MCHC 33.0 RDW 14.9 Plt Count 356 MPV 7.1 L Neutrophils % 77.4 Lymphocytes % 12.5 D Monocytes % 7.3 D Eosinophils % 2.3 Basophils % 0.5 Hemoglobin A Hemoglobin A2 Hemoglobin C Hemoglobin S Variant Hemoglobin Hemoglobin Interpret Maternal Rh Hemoglobin Solubility Sodium 131 L Potassium 3.8 Chloride 96 L Carbon Dioxide 27 Anion Gap 8 BUN 13 Creatinine 1.0 Creat Clearance w eGFR > 60 POC Glucometer Random Glucose 140 H D Lactic Acid Calcium 9.0 Phosphorus 3.4 Magnesium 2.0 Total Bilirubin 0.4 AST 38 H ALT 27 Alkaline Phosphatase 135 H Total Protein 6.4 Albumin 2.5 L Blood Type Antibody Screen Crossmatch Problem List - Problems (1) Altered mental status Code(s): R41.82 - ALTERED MENTAL STATUS, UNSPECIFIED (2) Humerus fracture Code(s): S42.309A - UNSP FRACTURE OF SHAFT OF HUMERUS, UNSP ARM, INIT Qualifiers: Humerus Location: proximal Laterality: right (3) Lytic bone lesions on xray Code(s): M89.9 - DISORDER OF BONE, UNSPECIFIED A/P Altered Mental Status resolved Sepsis Multiple Lytic Bone Lesions - r/o Malignancy Humeral Fracture s/p IM sonam placement Anemia - pain control - ABX - O2 as needed - IVF - Incentive spirometry - DVT prophylaxis Dr Delgado
--- NOTE | 2016-12-08 11:40 | PN ---
Progress Note (short form) - Note Progress Note: Pt seen and examined. He is s/p right humeral nail. He is comfortable, not in a lot of pain. RUE looks good. Nl ROM at the fingers, thumb, wrist, forearm, elbow. Overall doing well s/p prophylactic IM rodding of the right humerus. Can DC from an orthopedic pov. F/u with Dr Burnett in 7-10 days
[2016-12-08] MEDS: Methylnaltrexone Bromide 12 MG/0.6 ML KIT SQ SCH (12:03)
[2016-12-08] MEDS ORDERED: INSULIN (NOVOLOG) ASPART 100 UNITS/ML 10ML VIAL ONE (15:49)
--- NOTE | 2016-12-08 19:11 | PN ---
Progress Note (short form) - Note Progress Note: patient seen and examined pain better controlled Last Vital Signs Temp Pulse Resp BP Pulse Ox 98.0 F 105 H 20 110/78 96 12/08/16 14:15 12/08/16 14:15 12/08/16 14:15 12/08/16 08:00 12/08/16 08:00 HEENT: LORI, EOM Intact Cor: RSR, No murmurs, No gallops Lungs: Clear to P&A Abd: Soft, Normal bowel sounds, No organomegaly Ext:chronic stasis dermatitis. 2+ edema b/l Abnormal Lab Results 12/04/16 12/04/16 12/08/16 07:00 17:40 06:38 WBC 11.5 H RBC 2.97 L Hgb 8.1 L Hct 24.6 L MPV 7.1 L Hemoglobin A 98.1 H Sodium Chloride Random Glucose AST Alkaline Phosphatase Albumin Crossmatch See Detail 12/08/16 06:38 WBC RBC Hgb Hct MPV Hemoglobin A Sodium 131 L Chloride 96 L Random Glucose 140 H D AST 38 H Alkaline Phosphatase 135 H Albumin 2.5 L Crossmatch Current Medications Allopurinol (Zyloprim -) 300 mg PO DAILY [facility] Calcitonin (Miacalcin [place] -) 200 units NS DAILY [facility] Diazepam (Valium -) 5 mg PO Q12H PRN PRN Reason: AGITATION Docusate Sodium (Colace -) 100 mg PO Q8H PRN PRN Reason: CONSTIPATION Ferrous Sulfate (Feosol -) 325 mg PO DAILY [facility] Furosemide (Lasix -) 40 mg PO DAILY [facility] Gabapentin (Neurontin -) 300 mg PO BID [facility] Hydromorphone HCl (Dilaudid Injection -) 2 mg IVPB Q3H PRN PRN Reason: PAIN Last Admin: 12/08/16 17:25 Dose: 2 mg Insulin Aspart (Novolog Vial Sliding Scale -) 1 vial SQ BIDAC [facility] PRN Reason: Protocol Last Admin: 12/08/16 15:56 Dose: Not Given Lactobacillus Acidophilus (Bacid -) 1 tab PO DAILY [facility] Levetiracetam (Keppra -) 500 mg PO BID [facility] Last Admin: 12/08/16 09:11 Dose: 500 mg Magnesium Hydroxide (Milk Of Magnesia -) 30 ml PO Q8H PRN PRN Reason: INDIGESTION Methylnaltrexone [place] (Relistor -) 8 mg SQ DAILY [facility] Last Admin: 12/08/16 12:03 Dose: 8 mg Morphine Sulfate (Ms Contin -) 15 mg PO BID [facility] Ondansetron HCl (Zofran Odt -) 8 mg SL Q6H PRN PRN Reason: NAUSEA AND/OR VOMITING Pantoprazole Sodium (Protonix -) 40 mg PO DAILY [facility] Polyethylene Glycol (Miralax (For Daily Use) -) 17 gm PO DAILY [facility] a/p 56 y/o patient with b/l clavicular severe pain. multiple lytic lesions on skeletal survey. rue abduction deficit CT scan chest/b/l humerus, a/p--multiple osteolytic lesions --ribs, vertebrae, T5 fx, b/l humerii. no lung/liver,asses/nodes Ct head shows small lesion in rt. parietal lobe --- MRI vs CT contrast was suggested. Patient not able to get MRI , due to obesity, claustrophobia, in house. will get CT brain with and without contrast prior to discharge. ?PAtient to decide and let us know tomorrow s/p prophylactic rodding for rt. humeral lytic lesion. preliminary biopsy suggestive of myeloma check peripheral flow/cytogenetics/FISH Hyponatremia --monitor may need renal consult if worsening on lasix PAin management/severe constipation --will increase dilaudid as patient reporting inadequate pain control. Hold for sedation/lethargy Consider pain management/ gi consult anemia -- marrow infiltration.? chronic disease. valerie positive but LDH/ haptoglobin nl monitor
[2016-12-08] MEDS: MAGNESIUM HYDROX 2400MG/30ML ORAL SUSPENSION 30 ML CUP PO PRN (23:48)
[2016-12-09] MEDS: HYDROmorphone HCL CARPU-JECT 2 MG/1 ML DISP.SYRIN IVPB PRN ×6 (03:14→22:31)
[2016-12-09] MEDS: INSULIN SLIDING SCALE (NOVOLOG) 1 VIAL SQ SCH (06:34)
[2016-12-09 07:35] LABS: BASOPHIL 0.6 % (0-2.0); EOSINOPHIL 2.4 % (0-4.5); MCH 27.4 pg (25.7-33.7); MCHC 33.3 g/dl (32.0-35.9); MEAN CELL VOLUME 82.3 fl (80-96); MEAN PLT VOLUME 7.3 fl (7.5-11.1); NEUTROPHILS 77.3 % (42.8-82.8); PLATELET COUNT 408 K/MM3 (134-434); RDW 15.1 % (11.9-15.9); WHITE BLOOD COUNT 11.5 K/mm3 (4.0-10.0)
[2016-12-09 08:02] LABS: ALBUMIN 2.9 g/dl (3.4-5.0); CALCIUM 9.6 mg/dL (8.5-10.1); GLUCOSE,RANDOM 114 mg/dL (74-106)
[2016-12-09 08:05] LABS: ALK PHOS 142 U/L (45-117); ANION GAP 10 (8-16); BILIRUBIN,TOTAL 0.6 mg/dL (0.2-1.0); CO2 29 mmol/L (21-32); CREATININE 1.1 mg/dL (0.7-1.3); SGOT/AST 52 U/L (15-37); SGPT/ALT 36 U/L (12-78); TOT PROT 6.9 g/dl (6.4-8.2)
--- NOTE | 2016-12-09 08:33 | PN ---
Progress Note (short form) - Note Progress Note: Ortho Pt seen and examined s/p right humerus IM sonam Selected Entries 12/09/16 07:03 Temperature 98.0 F Pulse Rate 100 H Respiratory 20 Rate Blood Pressure 103/69 Laboratory Tests 12/09/16 05:35 WBC 11.5 H Hgb 8.7 L Hct 26.3 L Plt Count 408 dressing c/d/i, compartments soft nvi a/p sling for comfort ROM exercises f/u pathology report d/c planning
[2016-12-09] MEDS ORDERED: CALCITONIN - SALMON SYNTHETIC 3.7 ML SPRAY.PUMP NS SCH (10:00)
--- NOTE | 2016-12-09 10:53 | PN ---
Progress Note (short form) - Note Progress Note: Radiation Oncology: patient seen and examined. consult dictated.
[2016-12-09] MEDS: FERROUS SO4 325 MG TABLET (FP) PO SCH (10:54)
[2016-12-09] MEDS: LACTOBACILLUS ACIDOPHILUS 1 EACH TAB (FP) PO SCH (10:54)
[2016-12-09] MEDS: ALLOPURINOL 300 MG TABLET (FP) PO SCH (10:55)
[2016-12-09] MEDS: morphine SO4 SUSTAINED ACTING 15 MG TABLET.SA PO SCH ×2 (10:55→21:34)
[2016-12-09] MEDS: PANTOPRAZOLE 40 MG TABLET (FP) PO SCH (10:55)
[2016-12-09] MEDS: GABAPENTIN 300 MG CAPSULE (FP) PO SCH ×2 (10:56→21:34)
[2016-12-09] MEDS: FUROSEMIDE 40 MG TABLET (FP) PO SCH (10:56)
[2016-12-09] MEDS: levETIRAcetam 500 MG TABLET (FP) PO SCH ×2 (10:56→21:33)
--- NOTE | 2016-12-09 11:30 | PN ---
Progress Note (short form) - Note Progress Note: OOB to chair. No CP or SOB. Feels overall better today. Intake & Output 12/06/16 12/07/16 12/08/16 12/09/16 23:59 23:59 23:59 23:59 Intake Total 800 1150 850 150 Output Total 400 Balance 800 750 850 150 Last Vital Signs Temp Pulse Resp BP Pulse Ox 98.0 F 100 H 20 103/69 96 12/09/16 07:03 12/09/16 07:03 12/09/16 07:03 12/09/16 07:03 12/08/16 19:59 Active Medications Allopurinol (Zyloprim -) 300 mg PO DAILY [facility] Last Admin: 12/09/16 10:55 Dose: 300 mg Calcitonin (Miacalcin [place] -) 200 units NS DAILY [facility] Diazepam (Valium -) 5 mg PO Q12H PRN PRN Reason: AGITATION Last Admin: 12/08/16 21:08 Dose: 5 mg Docusate Sodium (Colace -) 100 mg PO Q8H PRN PRN Reason: CONSTIPATION Ferrous Sulfate (Feosol -) 325 mg PO DAILY [facility] Last Admin: 12/09/16 10:54 Dose: 325 mg Furosemide (Lasix -) 40 mg PO DAILY [facility] Last Admin: 12/09/16 10:56 Dose: 40 mg Gabapentin (Neurontin -) 300 mg PO BID [facility] Last Admin: 12/09/16 10:56 Dose: 300 mg Hydromorphone HCl (Dilaudid Injection -) 2.5 mg IVPB Q3H PRN PRN Reason: PAIN Last Admin: 12/09/16 10:54 Dose: 2.5 mg Insulin Aspart (Novolog Vial Sliding Scale -) 1 vial SQ BIDAC [facility] PRN Reason: Protocol Last Admin: 12/09/16 06:34 Dose: Not Given Lactobacillus Acidophilus (Bacid -) 1 tab PO DAILY [facility] Last Admin: 12/09/16 10:54 Dose: 1 tab Levetiracetam (Keppra -) 500 mg PO BID [facility] Last Admin: 12/09/16 10:56 Dose: 500 mg Magnesium Hydroxide (Milk Of Magnesia -) 30 ml PO Q8H PRN PRN Reason: INDIGESTION Last Admin: 12/08/16 23:48 Dose: 30 ml Methylnaltrexone [place] (Relistor -) 8 mg SQ DAILY [facility] Last Admin: 12/08/16 12:03 Dose: 8 mg Morphine Sulfate (Ms Contin -) 15 mg PO BID [facility] Last Admin: 12/09/16 10:55 Dose: 15 mg Ondansetron HCl (Zofran Odt -) 8 mg SL Q6H PRN PRN Reason: NAUSEA AND/OR VOMITING Pantoprazole Sodium (Protonix -) 40 mg PO DAILY [facility] Last Admin: 12/09/16 10:55 Dose: 40 mg Polyethylene Glycol (Miralax (For Daily Use) -) 17 gm PO DAILY [facility] Gen: NAD Heart: S1S2, (+) ESM Lung: decreased breath sounds at the bases Abd: soft, nontender Ext: (+) edema Laboratory Results - last 24 hr 12/04/16 12/08/16 12/09/16 17:40 15:51 05:35 WBC 11.5 H RBC 3.19 L Hgb 8.7 L Hct 26.3 L MCV 82.3 MCHC 33.3 RDW 15.1 Plt Count 408 MPV 7.3 L Neutrophils % 77.3 Lymphocytes % 13.8 Monocytes % 5.9 Eosinophils % 2.4 Basophils % 0.6 Sodium Potassium Chloride Carbon Dioxide Anion Gap BUN Creatinine Creat Clearance w eGFR POC Glucometer 158 Random Glucose Calcium Total Bilirubin AST ALT Alkaline Phosphatase Total Protein Albumin Blood Type O NEGATIVE Antibody Screen Negative Crossmatch See Detail 12/09/16 12/09/16 05:35 05:58 WBC RBC Hgb Hct MCV MCHC RDW Plt Count MPV Neutrophils % Lymphocytes % Monocytes % Eosinophils % Basophils % Sodium 133 L Potassium 4.2 Chloride 94 L Carbon Dioxide 29 Anion Gap 10 BUN 17 D Creatinine 1.1 Creat Clearance w eGFR > 60 POC Glucometer 129 Random Glucose 114 H Calcium 9.6 Total Bilirubin 0.6 D AST 52 H D ALT 36 D Alkaline Phosphatase 142 H Total Protein 6.9 Albumin 2.9 L Blood Type Antibody Screen Crossmatch Problem List - Problems (1) Altered mental status Code(s): R41.82 - ALTERED MENTAL STATUS, UNSPECIFIED (2) Humerus fracture Code(s): S42.309A - UNSP FRACTURE OF SHAFT OF HUMERUS, UNSP ARM, INIT Qualifiers: Humerus Location: proximal Laterality: right (3) Lytic bone lesions on xray Code(s): M89.9 - DISORDER OF BONE, UNSPECIFIED A/P Altered Mental Status resolved Sepsis Multiple Lytic Bone Lesions - r/o Malignancy Humeral Fracture s/p IM sonam placement Anemia - pain control - ABX - O2 as needed - IVF - Incentive spirometry - DVT prophylaxis Dr Delgado
--- NOTE | 2016-12-09 12:23 | PN ---
Progress Note (short form) - Note Progress Note: Renal Follow up for STEPHEN Pt seen and examined at the bedside no acute complaints AMS from weekend now resolved denies any chest pain, sob, Abd pain, N/V/D Vital Signs Temperature 98.0 F 12/09/16 07:03 Pulse Rate 100 H 12/09/16 11:41 Respiratory Rate 20 12/09/16 07:03 Blood Pressure 103/69 12/09/16 07:03 O2 Sat by Pulse Oximetry (%) 92 L 12/09/16 11:41 Intake & Output 12/06/16 12/07/16 12/08/16 12/09/16 23:59 23:59 23:59 23:59 Intake Total 800 1150 850 150 Output Total 400 Balance 800 750 850 150 Gen: NAD, awake and alert CVS: Dec BS lung bases, no rales Abd: soft NT/ND, Obese Ext: 2+ edema in LE CBC, BMP 12/09/16 05:35 12/09/16 05:35 Current Medications Allopurinol (Zyloprim -) 300 mg PO DAILY [facility] Last Admin: 12/09/16 10:55 Dose: 300 mg Calcitonin (Miacalcin [place] -) 200 units NS DAILY [facility] Diazepam (Valium -) 5 mg PO Q12H PRN PRN Reason: AGITATION Last Admin: 12/08/16 21:08 Dose: 5 mg Docusate Sodium (Colace -) 100 mg PO Q8H PRN PRN Reason: CONSTIPATION Ferrous Sulfate (Feosol -) 325 mg PO DAILY [facility] Last Admin: 12/09/16 10:54 Dose: 325 mg Furosemide (Lasix -) 40 mg PO DAILY [facility] Last Admin: 12/09/16 10:56 Dose: 40 mg Gabapentin (Neurontin -) 300 mg PO BID [facility] Last Admin: 12/09/16 10:56 Dose: 300 mg Hydromorphone HCl (Dilaudid Injection -) 2.5 mg IVPB Q3H PRN PRN Reason: PAIN Last Admin: 12/09/16 10:54 Dose: 2.5 mg Insulin Aspart (Novolog Vial Sliding Scale -) 1 vial SQ BIDAC [facility] PRN Reason: Protocol Last Admin: 12/09/16 06:34 Dose: Not Given Lactobacillus Acidophilus (Bacid -) 1 tab PO DAILY [facility] Last Admin: 12/09/16 10:54 Dose: 1 tab Levetiracetam (Keppra -) 500 mg PO BID [facility] Last Admin: 12/09/16 10:56 Dose: 500 mg Magnesium Hydroxide (Milk Of Magnesia -) 30 ml PO Q8H PRN PRN Reason: INDIGESTION Last Admin: 12/08/16 23:48 Dose: 30 ml Methylnaltrexone [place] (Relistor -) 8 mg SQ DAILY [facility] Last Admin: 12/08/16 12:03 Dose: 8 mg Morphine Sulfate (Ms Contin -) 15 mg PO BID [facility] Last Admin: 12/09/16 10:55 Dose: 15 mg Ondansetron HCl (Zofran Odt -) 8 mg SL Q6H PRN PRN Reason: NAUSEA AND/OR VOMITING Pantoprazole Sodium (Protonix -) 40 mg PO DAILY [facility] Last Admin: 12/09/16 10:55 Dose: 40 mg Polyethylene Glycol (Miralax (For Daily Use) -) 17 gm PO DAILY [facility] A/p 56 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 #Acute Renal insufficiency secondary to volume depletion Renal function improved and stable #Hyponatremia in setting of total body volume overload continue lasix 40mg Daily, can titrate up to BID dosing if weight loss not achieved #Mild Hypercalcemia no indication for IVF trend for now likely related to malignancy #Lytic lesions on CT of the Neck SPEP showed M-spike Tissue diagnosis pending F/u Oncology Recs Bone scan showed multiple lytic lesions from the skull to the humerus Work up/Tx as per Oncology/Ortho #Pre-HTN/Hypertension/Edema Trend BP for now pain control Start Lasix 40mg PO once daily after Sx Trend weights, edema Didier Yen DO
[2016-12-09] MEDS: Methylnaltrexone Bromide 12 MG/0.6 ML KIT SQ SCH (12:47)
[2016-12-09] MEDS: POLYETHYLENE GLYCOL 3350 119 GM BTL PO SCH (12:48)
--- NOTE | 2016-12-09 14:52 | PATH ---
Surgical Pathology Report Patient Name: LEN LANDRY [facility]. Rec. #: [id number] /Age/Gender: 1960 (Age: 56) / M Account: [id number] Location: [address] [place] [address] Taken: 12/05/2016 Received: 12/05/2016 Reported: 12/26/2016 Physicians: Hector Burnett M.D. Denise Powers M.D. Mgiel Dozier M.D. Jose Isaacs M.D., PhD Specimen(s) Received BONE BIOPSY RIGHT HUMERUS Clinical History Bone biopsy right humerus Intraoperative Consult Diagnosis Bone biopsy right humerus, touch prep: Lesional material is present. Dr. Sarabia, 12/05/16. 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 Comment: The biopsy sections show sheets of plasma cells with atypical morphology and occasional multinucleated forms and mitotic figures. Immunohistochemical stain performed and interpreted at [facility] on block A1 shows the tumor cells are negative for Ae1/Ae3 keratin. Additional immunohistochemical stains performed at [facility], [place], [place] ([id number]) and interpreted [facility] show the following: The tumor cells are positive for CD138 and MUM1 immunostains, negative for CD20, Cam5.2 and CD45 immunostains; CD3 highlights surrounding T lymphocytes, CD56 is positive in a few cells. Lambda IHC and AQUILINO are positive in tumor cells, [place] IHC and AQUILINO are negative. CAM is negative. Flow cytometry performed and interpreted at [place], [place] ([id number]) on the concurrent specimen shows small clonal IgG lambda plasma cell population. The B cells (11% of total) were polytypic. The T cells (to 6% of total) showed no pontis antigenic dilution. A small (<2% of total) clonal (IgG lambda) plasma cell population was detected. The morphologic findings and the immunoprofile are consistent with involvement by plasma cell neoplasm (IgG Lambda). Clinical and serological correlations are suggested. The case was preliminary discussed with Dr. Powers on 12/08/16. Electronically Signed Prabhjot Conway M.D. Amendments Amended: 12/26/2016 Previous Signout Date: 12/17/2016 Comment: Amended by error. No changes made. Addendum Reported: 12/15/2016 Addendum Diagnosis Special stain for amyloid ([place] Red) performed and interpreted at [place], [place] ([id number]) is negative for amyloid deposits. Prabhjot Conway M.D. Gross Description Received fresh, labeled "bone biopsy right humerus" is a 3.0 x 2.5 x 0.4 cm aggregate of koehler-red soft tissue fragments admixed with blood clot. A touch prep is performed and a employee representative portion is placed in RPMI solution for flow cytometry. The remainder of the specimen is entirely submitted in 2 cassettes for permanent sections. /12/05/2016 saudi12/05/2016
--- NOTE | 2016-12-09 15:14 | DS ---
Physical Examination Vital Signs: Vital Signs Temperature 98.0 F 12/09/16 07:03 Pulse Rate 100 H 12/09/16 11:41 Respiratory Rate 20 12/09/16 07:03 Blood Pressure 103/69 12/09/16 07:03 O2 Sat by Pulse Oximetry (%) 92 L 12/09/16 11:41 Constitutional: Yes: Mild Distress Eyes: Yes: WNL HENT: Yes: WNL Neck: Yes: WNL Cardiovascular: Yes: WNL, Murmur Respiratory: Yes: WNL Gastrointestinal: Yes: WNL Renal/: Yes: WNL Musculoskeletal: Yes: Joint Swelling, Muscle Weakness Extremities: Yes: Other Edema: Yes Edema: LLE: 2+, RLE: 2+ Peripheral Pulses WNL: Yes Integumentary: Yes: WNL Wound/Incision: Yes: Clean/Dry Neurological: Yes: Weakness ...Motor Strength: RUE Psychiatric: Yes: Other Labs: CBC, BMP 12/09/16 05:35 12/09/16 05:35 Discharge Summary Reason For Visit: MALIGNANT NEOPLASM, LYSIC LESION OF BONE Current Active Problems STEPHEN (acute kidney injury) (Acute) Altered mental status (Acute) Brain mass (Acute) Cancer (Acute) Encounter for HIV counseling (Acute) Humerus fracture (Acute) Lytic bone lesions on xray (Acute) Murmur (Acute) Positive Davi test (Acute) Sepsis (Acute) Procedures: Principal: RIGHT HUMERUS BERNA INSERTION Other Procedures: CT SCAN/XRAYS/BIOPSY Hospital Course: ADMITTED WITH NEW LYTIC LESIONS SEEN ON SKELETAL SURVEY, METASTATIC WORKUP, LIKELY MYELOMA WILL TRET OUTPATIENT, BERNA IN HUMERUS IS MRI SAFE, WILL NEED MRI BRAIN, ONCOLOGY FOLLOW UP. Condition: Fair - Instructions Diet, Activity, Other Instructions: LOW SALT Referrals: Bryson Villarreal MD [Primary Care Provider] - Disposition: HOME - Home Medications Comprehensive Discharge Medication List: Ambulatory Orders Diazepam [Valium] 10 mg PO HS #6 tablet MDD 3 11/12/16 Docusate Sodium [Colace -] 100 mg PO BID PRN #60 capsule 12/01/16 Hydromorphone [Dilaudid -] 2 mg PO Q6H PRN #20 tablet MDD 4 12/01/16
[2016-12-09] MEDS ORDERED: morphine SO4 SUSTAINED ACTING 30 MG TABLET.SA PO SCH (15:30)
[2016-12-09] MEDS: ESCITALOPRAM OXALATE 10 MG TABLET (FP) PO SCH (17:13)
--- NOTE | 2016-12-09 18:31 | PN ---
Progress Note (short form) - Note Progress Note: Patient seen and examined S/p surgery on right humerus. Path- positive for myeloma. In view of normal light chain ratio, this suggests NON -Secretory Myeloma Will ask path to do , if possible additional testing on bone marrow. Last Vital Signs Temp Pulse Resp BP Pulse Ox 98.0 F 96 H 20 136/99 92 L 12/09/16 07:03 12/09/16 14:00 12/09/16 14:00 12/09/16 14:00 12/09/16 11:41 HEENT: LORI, EOM Intact, mild left ptosis Oropharynx: No thrush, No mucositis Cor: RSR, No murmurs, No gallops Lungs: Clear to P&A Abd: Soft, Normal bowel sounds, No organomegaly Ext: right upper extremity s/p surgery Skin: No rashes, Integument intact CBC, BMP 12/09/16 05:35 12/09/16 05:35 Current Medications Generic Name Dose Route Start Last Admin Trade Name Freq PRN Reason Stop Dose Admin Allopurinol 300 mg 12/09/16 10:00 12/09/16 10:55 Zyloprim - PO 300 mg DAILY [facility] Administration Docusate Sodium 100 mg 12/08/16 10:58 Colace - PO Q8H PRN CONSTIPATION Escitalopram Oxalate 10 mg 12/09/16 15:15 12/09/16 17:13 Lexapro - PO 10 mg DAILY [facility] Administration Ferrous Sulfate 325 mg 12/09/16 10:00 12/09/16 10:54 Feosol - PO 325 mg DAILY [facility] Administration Furosemide 40 mg 12/09/16 10:00 12/09/16 10:56 Lasix - PO 40 mg DAILY [facility] Administration Gabapentin 300 mg 12/08/16 22:00 12/09/16 10:56 Neurontin - PO 300 mg BID [facility] Administration Hydromorphone HCl 2.5 mg 12/08/16 19:55 12/09/16 14:19 Dilaudid Injection - IVPB 2.5 mg Q3H PRN Administration PAIN Lactobacillus Acidophilus 1 tab 12/09/16 10:00 12/09/16 10:54 Bacid - PO 1 tab DAILY [facility] Administration Levetiracetam 500 mg 12/07/16 10:45 12/09/16 10:56 Keppra - PO 500 mg BID [facility] Administration Magnesium Hydroxide 30 ml 12/08/16 10:58 12/08/16 23:48 Milk Of Magnesia - PO 30 ml Q8H PRN Administration INDIGESTION Methylnaltrexone [place] 8 mg 12/09/16 10:00 12/09/16 12:47 Relistor - SQ 8 mg DAILY [facility] Administration Morphine Sulfate 30 mg 12/09/16 16:03 Ms Contin - PO TID [facility] Pantoprazole Sodium 40 mg 12/09/16 10:00 12/09/16 10:55 Protonix - PO 40 mg DAILY [facility] Administration Polyethylene Glycol 17 gm 12/09/16 10:00 12/09/16 12:48 Miralax (For Daily Use) - PO 17 gm DAILY [facility] Administration Impression: Non secretory myeloma Patient will need RT to right humerus. Treatment with 3 drug regimen such as velcade, decadron, revlimid to be considered. Patient has expressed desire to seek opinion at [facility] . Problem List - Problems (1) Brain mass Code(s): G93.9 - DISORDER OF BRAIN, UNSPECIFIED (2) Humerus fracture Code(s): S42.309A - UNSP FRACTURE OF SHAFT OF HUMERUS, UNSP ARM, INIT Qualifiers: Humerus Location: proximal Laterality: right (3) Lytic bone lesions on xray Code(s): M89.9 - DISORDER OF BONE, UNSPECIFIED (4) Positive Davi test Code(s): R76.8 - OTHER SPECIFIED ABNORMAL IMMUNOLOGICAL FINDINGS IN SERUM
--- NOTE | 2016-12-09 18:53 | CONS ---
DATE OF CONSULTATION: 12/09/2016 TIME OF CONSULTATION: 11:14 a.m. INITIAL CONSULTATION DIAGNOSIS: Multiple myeloma. HISTORY OF PRESENT ILLNESS: Patient is a 56-year-old man who has had a 4-month history of pain in his upper back and chest that precipitated multiple visits to urgent care centers and ERs. He was admitted this time to re evaluate his pain. On November 28, he had a cervical spine CT, showed multiple lytic lesions suspicious for metastases. On December 01, 2016, he had a metastatic series that also showed multiple lesions with throughout the skull and there was a lytic lesion in the right proximal humerus which measured about 4 cm. There is a rounded lytic lesion in the distal humerus about 4 mm. There is a 1.5-cm lytic lesion of the mid distal right clavicle. He was discharged on December 01 and readmitted on December 02 when he had a CAT scan of the chest, abdomen, and pelvis as well as the upper extremity. The upper extremity CT identified a 3.3 cm osteolytic lesion involving the proximal humerus. The CAT scan of the chest, abdomen, and pelvis also done on December 02 showed in addition to that mild atelectasis, no pulmonary mass lesion, nodular infiltrate, multiple other osteolytic lesions were seen. It was done without contrast. A head CT done on the same day showed a small right parietal subcortical hypodense focus without mass effect. On 12/05/2016 he had a pinning of the right humerus. Post operatively he is still on pain medications. REVIEW OF SYSTEMS: In addition to the pain in his upper body, he had some limitation in motion of his right arm. He denied any symptoms related to the head, ears, eyes, nose and throat. No other cardiac, respiratory, gastrointestinal, genitourinary , neurologic, musculoskeletal, hematologic, or allergic complaints. The pain was not relieved with ibuprofen, naproxen, or Flexeril, and the admission on November 29 , he could not use his right arm. He had limited range of motion. CURRENT MEDICATIONS: Include odansetron, gabapentin, allopurinol, diazepam, Colace, Miralax, insulin, iron, furosemide, hydromorphone, as well as morphine, calcitonin, Protonix. PERFORMANCE STATUS AND QUALITY OF LIFE: Fair to poor. NUTRITIONAL STATUS: Fair. HOME MEDICATIONS: Included diazepam, hydromorphone, and Colace. PHYSICAL EXAMINATION: Vital signs: Include blood pressure of 103/69, pulse 100, respiratory rate 26, KPS is about 60. Head, Ears, Eyes, Nose, and Throat: Face is symmetric. Tongue is midline. He has his own teeth. Visual inspection of his oral cavity was unremarkable. Neck: No adenopathy in his neck, axilla or groin. He is unable to move his right arm. He is able to move his left arm. Heart: He has a systolic murmur. Lungs: Clear to auscultation. Abdomen: Soft. Bowel sounds are present. Extremities: His right arm is in a sling. He has edema bilaterally in both lower extremities. Neurologic: Cranial nerves are intact. He has a focal motor deficit is of his right arm and hand. No other focal deficit noted. IMPRESSION/PLAN: I will review his case with his primary care doctor and oncologist. He is on narcotics for managing his pain, and we will reduce the need for narcotics with palliative radiotherapy to symptomatic sites This will also help control tumor in his humerus MARK VALDIVIA M.D. BRITTNI/[id number] MTDD
[2016-12-09] MEDS ORDERED: diazePAM 5 MG TABLET PO ONE (22:00)
[2016-12-10] MEDS: HYDROmorphone HCL CARPU-JECT 2 MG/1 ML DISP.SYRIN IVPB PRN ×3 (02:07→09:04)
[2016-12-10] MEDS: MAGNESIUM HYDROX 2400MG/30ML ORAL SUSPENSION 30 ML CUP PO PRN (05:28)
[2016-12-10 06:01] VITALS: PULSE 98; TEMP 98.1
[2016-12-10 06:09] LABS: HEP B SURFACE AB Non Reactive (.)
[2016-12-10] MEDS: morphine SO4 SUSTAINED ACTING 15 MG TABLET.SA PO SCH ×2 (06:38→14:06)
--- NOTE | 2016-12-10 08:12 | PN ---
Progress Note (short form) - Note Progress Note: Patient seen and examined. According to the patient he will be discharged today. He is concerned about pain medications at home. Recommendations for outpatient pain medications: 1. MS CONTIN 30mg PO q12h 2. MSIR 15mg PO q8h prn breakthrough pain 3. Patient should be educated that these medication may cause drowsiness and sedation. He should not drive while on these medications. IN addition, if treatment is effective and his pain resolves, these medications will be titrated down.
[2016-12-10] MEDS: FUROSEMIDE 40 MG TABLET (FP) PO SCH (09:05)
[2016-12-10] MEDS: FERROUS SO4 325 MG TABLET (FP) PO SCH (09:05)
[2016-12-10] MEDS: LACTOBACILLUS ACIDOPHILUS 1 EACH TAB (FP) PO SCH (09:05)
[2016-12-10] MEDS: ESCITALOPRAM OXALATE 10 MG TABLET (FP) PO SCH (09:06)
[2016-12-10] MEDS: ALLOPURINOL 300 MG TABLET (FP) PO SCH (09:06)
[2016-12-10] MEDS: levETIRAcetam 500 MG TABLET (FP) PO SCH (09:06)
[2016-12-10] MEDS: GABAPENTIN 300 MG CAPSULE (FP) PO SCH (09:08)
[2016-12-10] MEDS: Methylnaltrexone Bromide 12 MG/0.6 ML KIT SQ SCH (09:08)
[2016-12-10] MEDS: PANTOPRAZOLE 40 MG TABLET (FP) PO SCH (09:08)
[2016-12-10] MEDS: POLYETHYLENE GLYCOL 3350 119 GM BTL PO SCH (09:14)
--- NOTE | 2016-12-10 10:19 | PN ---
Progress Note (short form) - Note Progress Note: Ortho Pt seen and examined s/p right humerus IM sonam Selected Entries 12/09/16 07:03 Temperature 98.0 F Pulse Rate 100 H Respiratory 20 Rate Blood Pressure 103/69 Laboratory Tests 12/09/16 05:35 WBC 11.5 H Hgb 8.7 L Hct 26.3 L Plt Count 408 dressing c/d/i, compartments soft nvi path- myeloma a/p sling for comfort ROM exercises d/c planning f/u in our office 1 -2 weeks
[2016-12-10 10:51] VITALS: BP 132/73
--- NOTE | 2016-12-10 10:52 | PN ---
Progress Note (short form) - Note Progress Note: PATIENT SEEN AND EXAMINED WILL DISCHARGE HOME PATIENT IS GOING TO [facility] FOR SECOND OPINION AND CONTINUATION OF CARE. FORMS COMPLETED SEE IN MY OFFICE PRN Problem List - Problems (1) STEPHEN (acute kidney injury) Code(s): N17.9 - ACUTE KIDNEY FAILURE, UNSPECIFIED (2) Cancer Code(s): C80.1 - MALIGNANT (PRIMARY) NEOPLASM, UNSPECIFIED (3) Lytic bone lesions on xray Code(s): M89.9 - DISORDER OF BONE, UNSPECIFIED (4) Brain mass Code(s): G93.9 - DISORDER OF BRAIN, UNSPECIFIED (5) Humerus fracture Code(s): S42.309A - UNSP FRACTURE OF SHAFT OF HUMERUS, UNSP ARM, INIT Qualifiers: Humerus Location: proximal Laterality: right (6) Sepsis Code(s): A41.9 - SEPSIS, UNSPECIFIED ORGANISM
--- NOTE | 2016-12-10 13:35 | PN ---
Progress Note (short form) - Note Progress Note: Renal Follow up for STEPHEN Pt seen and examined at the bedside for discharge today Vital Signs Temperature 98.1 F 12/10/16 05:59 Pulse Rate 98 H 12/10/16 10:24 Respiratory Rate 20 12/10/16 10:00 Blood Pressure 132/73 12/10/16 10:00 O2 Sat by Pulse Oximetry (%) 96 12/10/16 10:24 Intake & Output 12/07/16 12/08/16 12/09/16 12/10/16 23:59 23:59 23:59 23:59 Intake Total 1150 850 480 330 Output Total 400 Balance 750 850 480 330 Gen: NAD, awake and alert CVS: Dec BS lung bases, no rales Abd: soft NT/ND, Obese Ext: 2+ edema in LE CBC, BMP 12/09/16 05:35 12/09/16 05:35 Current Medications Allopurinol (Zyloprim -) 300 mg PO DAILY [facility] Last Admin: 12/10/16 09:06 Dose: 300 mg Docusate Sodium (Colace -) 100 mg PO Q8H PRN PRN Reason: CONSTIPATION Escitalopram Oxalate (Lexapro -) 10 mg PO DAILY [facility] Last Admin: 12/10/16 09:06 Dose: 10 mg Ferrous Sulfate (Feosol -) 325 mg PO DAILY [facility] Last Admin: 12/10/16 09:05 Dose: 325 mg Furosemide (Lasix -) 40 mg PO DAILY [facility] Last Admin: 12/10/16 09:05 Dose: 40 mg Gabapentin (Neurontin -) 300 mg PO BID [facility] Last Admin: 12/10/16 09:08 Dose: 300 mg Hydromorphone HCl (Dilaudid Injection -) 2.5 mg IVPB Q3H PRN PRN Reason: PAIN Last Admin: 12/10/16 09:04 Dose: 2.5 mg Lactobacillus Acidophilus (Bacid -) 1 tab PO DAILY [facility] Last Admin: 12/10/16 09:05 Dose: 1 tab Levetiracetam (Keppra -) 500 mg PO BID [facility] Last Admin: 12/10/16 09:06 Dose: 500 mg Magnesium Hydroxide (Milk Of Magnesia -) 30 ml PO Q8H PRN PRN Reason: INDIGESTION Last Admin: 12/10/16 05:28 Dose: 30 ml Methylnaltrexone [place] (Relistor -) 8 mg SQ DAILY [facility] Last Admin: 12/10/16 09:08 Dose: 8 mg Morphine Sulfate (Ms Contin -) 30 mg PO TID [facility] Last Admin: 12/10/16 06:38 Dose: 30 mg Pantoprazole Sodium (Protonix -) 40 mg PO DAILY [facility] Last Admin: 12/10/16 09:08 Dose: 40 mg Polyethylene Glycol (Miralax (For Daily Use) -) 17 gm PO DAILY [facility] Last Admin: 12/10/16 09:14 Dose: 17 gm A/p 56 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 #Acute Renal insufficiency secondary to volume depletion Renal function improved and stable #Hyponatremia in setting of total body volume overload continue lasix 40mg Daily, can titrate up to BID dosing if weight loss not achieved follow up with primary or our office as outpatient for further titration #Mild Hypercalcemia no indication for IVF trend for now likely related to malignancy #Lytic lesions on CT of the Neck SPEP showed M-spike Tissue diagnosis pending F/u Oncology Recs Bone scan showed multiple lytic lesions from the skull to the humerus Work up/Tx as per Oncology/Ortho #Pre-HTN/Hypertension/Edema Trend BP for now pain control Start Lasix 40mg PO once daily after Sx Trend weights, edema Didier Yen DO
[2016-12-11 14:22] LABS: CALCIUM 9.1 mg/dL (8.7-10.2)
== END 2016-12-10 14:32 | disposition home or self-care (01) | DRG 823 ==
LOC: SUPCPDRO 20:55 → JER 20:55 → JERBED 11-29 03:36 → UNDOADMIN 11-29 03:40 → JERBED 11-29 03:40 → J6S 11-29 05:00 → JICU 12-06 12:37 → J6S 12-07 17:52
PROVIDERS: ADMIT Family Medicine; ATTEND Family Medicine
PROC: 0PBF0ZX Excision of Right Humeral Shaft, Open Approach, Diagnostic (ICD-10-PCS; 2016-12-05)
PROC: 30233N1 Transfusion of Nonautologous Red Blood Cells into Peripheral Vein, Percutaneous Approach (ICD-10-PCS; 2016-12-05)
PROC: 0PSF06Z Reposition Right Humeral Shaft with Intramedullary Internal Fixation Device, Open Approach (ICD-10-PCS; principal; 2016-12-05 11:15)
DX: C90.00 Multiple myeloma not having achieved remission (principal); A41.9 Sepsis, unspecified organism; M84.421A Pathological fracture, right humerus, initial encounter for fracture; N17.9 Acute kidney failure, unspecified; Z68.41 Body mass index [BMI] 40.0-44.9, adult; E87.1 Hypo-osmolality and hyponatremia; M89.9 Disorder of bone, unspecified; C80.1 Malignant (primary) neoplasm, unspecified; R01.1 Cardiac murmur, unspecified; G93.9 Disorder of brain, unspecified; M62.830 Muscle spasm of back; E83.52 Hypercalcemia; M54.5 Low back pain; E66.01 Morbid (severe) obesity due to excess calories; R76.8 Other specified abnormal immunological findings in serum; Z71.3 Dietary counseling and surveillance; I10 Essential (primary) hypertension; D64.9 Anemia, unspecified; M48.8X2 Other specified spondylopathies, cervical region; S16.1XXA Strain of muscle, fascia and tendon at neck level, initial encounter; X58.XXXA Exposure to other specified factors, initial encounter; Y93.89 Activity, other specified; Y92.89 Other specified places as the place of occurrence of the external cause; Z71.7 Human immunodeficiency virus [HIV] counseling; Z87.891 Personal history of nicotine dependence
CPT/HCPCS: 36415; 36430; 36600; 70450-TC; 71010-TC; 71250-TC; 72125-TC; 73200-TC-RT; 74176-TC; 76001-TC; 76775-TC; 77074-TC; 80048; 80053; 81003; 81015; 82105; 82232; 82310; 82378; 82550; 82570; 82607; 82728; 82747; 82784; 82803; 83010; 83021; 83540; 83550; 83605; 83615; 83735; 83880; 83883; 83970; 84100; 84153; 84155; 84156; 84165; 84300; 84439; 84443; 84484; 84550; 84702; 85014; 85025; 85027; 85044; 85379; 85384; 85610; 85651; 85660; 85730; 86140; 86704; 86706; 86708; 86850; 86880; 86900; 86901; 86922; 87040; 87086; 87340; 88305-TC; 93005; 93010; 93306-TC; 93970-TC; 94010; 94760; 97116-GP; 97162-PG; 99281-25; J1644; J1756; P9038; P9054; P9058

== ENCOUNTER 2018-06-27 06:43 | Inpatient (IN) | payer OTHER ==
--- NOTE | 2018-06-27 06:46 | PDOC ---
History of Present Illness - General Chief Complaint: Injury Stated Complaint: FELL OUT OF BED INJURING RIGHT HIP Time Seen by Provider: 06/27/18 06:45 - History of Present Illness Initial Comments: 06/27/18 06:49 This 58-year-old man with a history of multiple myeloma arrives by ambulance with a history of falling out of bed earlier this morning, injuring his right hip area. Patient states that he "stretched his legs" as he fell but struck the lateral aspect of the right hip against the floor. He was unable to get to his feet and lay on the floor for approximately an hour until he was able to reach his phone and call EMS. He denies LOC, head injury or neck pain. Other than complaining of shortness of breath briefly when he was first transferred onto hospital stretcher, patient's only complaint is right hip pain. Multiple myeloma was diagnosed approximately 18 months ago. Past History - Past Medical History Allergies/Adverse Reactions: Allergies Allergy/AdvReac Type Severity Reaction Status Date / Time No Known Allergies Allergy Verified 11/28/16 21:02 Home Medications: Ambulatory Orders Acyclovir [Zovirax -] 400 mg PO BID 06/27/18 Alprazolam 1 mg PO DAILY PRN 06/27/18 Ergocalciferol [Vitamin D2] 50,000 unit PO WEEKLY 06/27/18 Escitalopram Oxalate [Lexapro -] 10 mg PO DAILY 06/27/18 FENTANYL 12mcg PATCH [DURAGESIC 12mcg PATCH -] 1 patch TD Q72H 06/27/18 Ferrous Sulfate 325 mg PO BID 06/27/18 Gabapentin [Neurontin -] 300 mg PO BID 06/27/18 Hydromorphone HCl 2 mg PO Q8H PRN 06/27/18 Levetiracetam [Keppra] 500 mg PO BID 06/27/18 Pantoprazole Sodium [Protonix -] 20 mg PO HS 06/27/18 Sulfamethoxazole/Trimethoprim [Bactrim DS -] 1 tab PO Q2D 06/27/18 - Surgical History Abdominal Surgery: Yes Appendectomy: Yes - Immunization History Immunization Up to Date: No - Suicide/Smoking/Psychosocial Hx Smoking Status: Yes Smoking History: Former smoker Years of Tobacco Use: 10 Have you smoked in the past 12 months: No Number of Cigarettes Smoked Daily: 8 If you are a former smoker, when did you quit?: 9 MONTHS Cigars Per Day: 0 'Breaking Loose' booklet given: 11/11/16 Hx Alcohol Use: Yes (Occasional glass of wine or shot of [place]) Drug/Substance Use Hx: No Substance Use Type: None Trauma Specific PMHX - Complaint Specific PMHX Arthritis: No Back Injury: No Neck Injury: No Hx Sacro Iliac Joint Dysfunction: No Review of Systems - Review of Systems Able to Perform ROS?: Yes Comments:: 12 point review of systems is negative except for what is noted in the history of present illness *Physical Exam - Physical Exam Comments: GENERAL: Morbidly obese man in moderate distress secondary to right hip/pelvis pain HEAD: Normal with no signs of trauma. EYES: PERRLA, EOMI, sclera anicteric, conjunctiva clear. ENT: Ears normal, nares patent, oropharynx clear without exudates. Dry mucous membranes. NECK: Normal range of motion, supple without lymphadenopathy, JVD, or masses. LUNGS: Breath sounds equal, clear to auscultation bilaterally. No wheezes, and no crackles. HEART:Regular rate and rhythm, normal S1 and S2 without murmur, rub or gallop. ABDOMEN:.normal bowel sounds No guarding,tenderness or rebound.No masses No distention. EXTREMITIES: Right lower extremity-tenderness to palpation of anterior and lateral aspect of the hip joint Pain reproduced with active and passive movement of the hip joint No obvious shortening or rotation of the right foot; distal extremity warm with good capillary refill Remainder of extremity exam appears normal NEUROLOGICAL: Cranial nerves II through XII grossly intact. Normal speech. No focal neurological deficits. MUSCULOSKELETAL: Back non-tender to palpation, no CVA tenderness SKIN: Warm, Dry, normal turgor, no rashes or lesions noted. ED Treatment Course - LABORATORY CBC & Chemistry Diagram: 06/28/18 21:20 06/28/18 06:45 Medical Decision Making - Medical Decision Making 06/27/18 07:00 This 58-year-old man with history of multiple myeloma arrives via EMS after falling out of bed and striking his right hip area. Patient is complaining of pain in the right hip and is unable to bear weight. Initial physical exam reveals tenderness of the anterior/lateral aspect of the right hip and pain reproduced with movement of hip joint. Toradol 60 mg IM given Right hip/pelvis/chest x-ray ordered. 06/27/18 07:11 Case signed out to Dr Silverio at end of shift. *DC/Admit/Observation/Transfer Diagnosis at time of Disposition: Anemia, Hip fracture - Discharge Dispostion Condition at time of disposition: Guarded - Referrals - Patient Instructions - Post Discharge Activity
[2018-06-27] MEDS ORDERED: KETOROLAC TROMETHAMINE 60 MG/2 ML VIAL IM ONE (06:53)
[2018-06-27] MEDS ORDERED: KETOROLAC TROMETHAMINE 60 MG/2 ML VIAL ONE (06:56)
--- NOTE | 2018-06-27 07:23 | PDOC ---
*Physical Exam - Vital Signs Last Vital Signs Temp Pulse Resp BP Pulse Ox 98.5 F 110 H 22 157/133 100 06/27/18 06:52 06/27/18 06:52 06/27/18 06:52 06/27/18 06:52 06/27/18 06:52 ED Treatment Course - LABORATORY CBC & Chemistry Diagram: 06/27/18 08:07 06/27/18 08:07 - Medications Given in the ED: ED Medications Discontinued Medications Generic Name Dose Route Start Last Admin Trade Name Angela PRN Reason Stop Dose Admin Ketorolac Tromethamine 60 mg 06/27/18 06:53 06/27/18 06:58 Toradol Injection - IM 06/27/18 06:54 60 mg ONCE ONE Administration Medical Decision Making - Medical Decision Making 06/27/18 07:49 Pt with pain despite toradol on prior shift. Will place IV, obtain labs, and give IV pain medication. 06/27/18 09:12 Pt continued to have pain despite first dose of morphine. Second dose given, then patient had episode of hypotension. IV bolus given, placed on monitor. Patient is awake and alert, no distress. Will cont to monitor. 06/27/18 09:21 Discussion with patient at bedside. He has had prior transfusions, he may have antibodies. The anemia may be due to the multiple myeloma, which is most likely. However, given that he had a fall, have to r/o pelvic bleeding. Will obtain CT instead of XR. 06/27/18 10:[address] Loredo's service (patient's oncologist at [facility])- [phone]. Awaiting callback. 06/27/18 11:08 Case discussed with covering physician at [facility], no transfer over there at this time, as there is no surgical team available over this weekend ( holiday, currently Thursday). Will discuss with ortho and transfer to [facility]. 06/27/18 11:[address] Burnett's service, as he previously operated on patient for humerus fx. 06/27/18 11:20 Case d/w Dr. Burnett, will plan for OR tomorrow pending medical clearance. 06/27/18 11:38 Case d/w BRYANNA Rosario, accepted to hospitalist service Dr. Tomlin in lieu of Dr. Dozier. *DC/Admit/Observation/Transfer Diagnosis at time of Disposition: Anemia Qualifiers: Anemia type: unspecified type Qualified Code(s): D64.9 - Anemia, unspecified Hip fracture Qualifiers: Encounter type: initial encounter Fracture type: closed Laterality: right Qualified Code(s): S72.001A - Fracture of unspecified part of neck of right femur, initial encounter for closed fracture - Discharge Dispostion Condition at time of disposition: Guarded Decision to Admit order: Yes - Referrals - Patient Instructions - Post Discharge Activity
[2018-06-27] MEDS ORDERED: morphine CARPU-JECT 4 MG/1 ML DISP.SYRIN IVPUSH ONE ×2 (07:49→08:34)
[2018-06-27] MEDS ORDERED: SODIUM CHLORIDE 1,000 ML IV STA (07:50)
[2018-06-27] MEDS ORDERED: morphine SULFATE 4 MG/ML VIAL ONE ×2 (08:09→08:47)
[2018-06-27 08:42] LABS: HEMATOCRIT 15.1 % (35.4-49); MCH 25.7 pg (25.7-33.7); MCHC 30.7 g/dl (32.0-35.9); MEAN CELL VOLUME 83.8 fl (80-96); MEAN PLT VOLUME 8.4 fl (7.5-11.1); PLATELET COUNT 326 K/MM3 (134-434); RDW 21.3 % (11.9-15.9); WHITE BLOOD COUNT 14.5 K/mm3 (4.0-10.8)
[2018-06-27 08:44] LABS: HEMOGLOBIN 4.6 GM/dl (11.7-16.9)
[2018-06-27 08:56] LABS: ALBUMIN 3.1 g/dl (3.5-5.0); ALK PHOS 68 U/L (32-92); ANION GAP 14 MMOL/L (8-16); BILIRUBIN,TOTAL 0.8 mg/dl (0.2-1.0); BLOOD UREA NITROGEN 37 mg/dl (7-18); CALCIUM 8.4 mg/dl (8.4-10.2); CHLORIDE 106 mmol/L (98-107); CO2 15 mmol/L (22-28); CREATININE 1.7 mg/dl (0.6-1.3); GLUCOSE,RANDOM 159 mg/dl (74-106); POTASSIUM 3.8 mmol/L (3.5-5.1); SGOT/AST 38 U/L (10-42); SGPT/ALT 17 U/L (10-40); SODIUM 135 mmol/L (136-145); TOT PROT 6.3 g/dl (6.4-8.3)
[2018-06-27 09:05] LABS: INR 1.53 (0.82-1.09)
[2018-06-27 09:25] LABS: ANISOCYTOSIS 3+; PLATELET ESTIMATE ADEQUATE
[2018-06-27] MEDS ORDERED: SODIUM CHLORIDE 1,000 ML IV SCH (15:15)
[2018-06-27] MEDS ORDERED: ONDANSETRON 4 MG/2 ML VIAL IVPUSH PRN (15:17)
[2018-06-27] MEDS ORDERED: morphine SULFATE 4 MG/ML VIAL IVPUSH ONE (15:18)
[2018-06-27] MEDS ORDERED: ACETAMINOPHEN 1000 MG/100 ML VIAL (NON FORMULARY) IVPB ONE (15:18)
[2018-06-27 15:34] VITALS: BMI 42.3
[2018-06-27] MEDS: GABAPENTIN 300 MG CAPSULE (FP) PO SCH ×2 (15:39→21:04)
--- NOTE | 2018-06-27 15:48 | HP ---
PCP: Migel Dozier CHIEF COMPLAINT: Right hip pain HISTORY OF PRESENT ILLNESS: This is a 58 year old man who comes to the ED complaining of pain in his right hip. He says that he lost his balance while getting out of bed this morning and fell hitting his right hip on the floor. He was unable to get up from the floor and so he remained on the floor for about 1 hour, until he was able to get his cell phone and call EMS. He denies head trauma, loss of consciousness. PAST MEDICAL HISTORY Multiple myeloma PAST SURGICAL HISTORY Right humerus IM nailing secondary to impending pathological fracture Social History Smoking: Quit 4-5 years ago Alcohol: Socially Drugs: Denies Family History: Non-contributory Recent Travel: No Allergies No Known Allergies Allergy (Verified 11/28/16 21:02) Home Medications Medication Instructions Recorded Gabapentin [Neurontin -] 300 mg PO Q8H 06/27/18 Levetiracetam [Keppra] 500 mg PO BID 06/27/18 NK [No Known Home Medication] 06/27/18 REVIEW OF SYSTEMS CONSTITUTIONAL: Absent: fever, chills, diaphoresis, generalized weakness, malaise, loss of appetite, weight change HEENT: Absent: rhinorrhea, nasal congestion, throat pain, throat swelling, difficulty swallowing, mouth swelling, ear pain, eye pain, visual changes CARDIOVASCULAR: Absent: chest pain, syncope, palpitations, lightheadedness, peripheral edema RESPIRATORY: Absent: cough, shortness of breath, dyspnea with exertion, orthopnea, wheezing, stridor, hemoptysis GASTROINTESTINAL: Absent: abdominal pain, abdominal distension, nausea, vomiting , diarrhea, constipation, melena, hematochezia GENITOURINARY: Absent: dysuria, frequency, urgency, hesitancy, hematuria, flank pain, genital pain MUSCULOSKELETAL: Present: right hip pain. Absent: arthralgia, joint swelling, back pain, neck pain SKIN: Absent: rash, itching, pallor HEMATOLOGIC/IMMUNOLOGIC: Absent: easy bleeding, easy bruising, lymphadenopathy, frequent infections ENDOCRINE:Absent: unexplained weight gain, unexplained weight loss, heat intolerance, cold intolerance NEUROLOGIC: Absent: headache, focal weakness, paresthesias, dizziness, unsteady gait, seizure, mental status changes, bladder or bowel incontinence PSYCHIATRIC: Absent: anxiety, depression, suicidal or homicidal ideation, hallucinations. PHYSICAL EXAMINATION Vital Signs - 24 hr 06/27/18 06/27/18 06/27/18 06:52 08:54 09:03 Temperature 98.5 F Pulse Rate 110 H Pulse Rate [ 123 H 110 H Left Radial] Respiratory 22 24 20 Rate Blood Pressure 157/133 Blood Pressure 101/54 79/43 [Right Arm] O2 Sat by Pulse 100 100 100 Oximetry (%) 06/27/18 06/27/18 06/27/18 09:21 09:42 10:27 Temperature Pulse Rate Pulse Rate [ 112 H 116 H 118 H Left Radial] Respiratory 20 20 20 Rate Blood Pressure Blood Pressure 93/68 96/60 105/63 [Right Arm] O2 Sat by Pulse 100 Oximetry (%) 06/27/18 06/27/18 06/27/18 10:40 11:34 11:46 Temperature 98.3 F 98.3 F 98.1 F Pulse Rate Pulse Rate [ 118 H 115 H Left Radial] Respiratory 22 17 Rate Blood Pressure Blood Pressure 101/61 98/57 [Right Arm] O2 Sat by Pulse 100 100 Oximetry (%) 06/27/18 06/27/18 06/27/18 11:59 12:25 13:06 Temperature 98.5 F Pulse Rate Pulse Rate [ 100 H 112 H 114 H Left Radial] Respiratory 18 20 20 Rate Blood Pressure Blood Pressure 102/59 108/59 115/68 [Right Arm] O2 Sat by Pulse 100 100 100 Oximetry (%) 06/27/18 14:06 Temperature 98.5 F Pulse Rate Pulse Rate [ 114 H Left Radial] Respiratory 20 Rate Blood Pressure Blood Pressure 110/73 [Right Arm] O2 Sat by Pulse 100 Oximetry (%) GENERAL: Awake, alert, and fully oriented, in moderate distress from right hip pain. HEAD: Normal with no signs of trauma. EYES: Pupils equal, round and reactive to light, extraocular movements intact, sclerae anicteric, conjunctivae clear. EARS, NOSE, THROAT: Ears normal, nares patent, oropharynx clear without exudates. Moist mucous membranes. NECK: Normal range of motion, supple without lymphadenopathy, JVD, or masses. LUNGS: Breath sounds equal, clear to auscultation bilaterally. No wheezes, and no crackles. No accessory muscle use. HEART: Regular rhythm, tachycardic, normal S1 and S2, (+) 3/6 systolic murmur. ABDOMEN: Obese, soft, nontender, not distended, normoactive bowel sounds, no guarding, no rebound, no masses. UPPER EXTREMITIES: 2+ pulses, warm, well-perfused. No cyanosis. No clubbing. No peripheral edema. LOWER EXTREMITIES: 2+ pulses, warm, well-perfused. No calf tenderness. No peripheral edema. RLE externally rotated. NEUROLOGICAL: Cranial nerves II-XII intact. Normal speech. Gait not observed. PSYCHIATRIC: Cooperative. Good eye contact. Appropriate mood and affect. SKIN: Warm, dry, normal turgor, no rashes or lesions noted, normal capillary refill. Laboratory Results - last 24 hr 06/27/18 06/27/18 06/27/18 08:07 08:07 08:07 WBC 14.5 H RBC 1.80 L Hgb 4.6 L* Hct 15.1 L MCV 83.8 MCH 25.7 MCHC 30.7 L RDW 21.3 H Plt Count 326 MPV 8.4 Absolute Neuts (auto) 12.6 Neutrophils % No Result Required. Neutrophils % (Manual) 86.0 H Lymphocytes % No Result Required. Lymphocytes % (Manual) 8.0 Monocytes % (Manual) 4 Eosinophils % (Manual) 1.0 Basophils % (Manual) 1.0 Hypochromia 1+ Platelet Estimate Adequate Anisocytosis 3+ Retic Count PT with INR 17.0 H INR 1.53 H Sodium 135 L Potassium 3.8 Chloride 106 Carbon Dioxide 15 L Anion Gap 14 BUN 37 H Creatinine 1.7 H Creat Clearance w eGFR 41.75 Random Glucose 159 H Calcium 8.4 Total Bilirubin 0.8 AST 38 ALT 17 Alkaline Phosphatase 68 LD Total Creatine Kinase Total Protein 6.3 L Albumin 3.1 L Blood Type Antibody Screen Crossmatch 06/27/18 06/27/18 06/27/18 08:07 08:07 08:07 WBC RBC Hgb Hct MCV MCH MCHC RDW Plt Count MPV Absolute Neuts (auto) Neutrophils % Neutrophils % (Manual) Lymphocytes % Lymphocytes % (Manual) Monocytes % (Manual) Eosinophils % (Manual) Basophils % (Manual) Hypochromia Platelet Estimate Anisocytosis Retic Count PT with INR INR Sodium Potassium Chloride Carbon Dioxide Anion Gap BUN Creatinine Creat Clearance w eGFR Random Glucose Calcium Total Bilirubin AST ALT Alkaline Phosphatase LD Total Creatine Kinase 131 Total Protein Albumin Blood Type Cancelled O NEGATIVE Antibody Screen Cancelled Negative Crossmatch See Detail 06/27/18 06/27/18 09:41 09:41 WBC RBC Hgb Hct MCV MCH MCHC RDW Plt Count MPV Absolute Neuts (auto) Neutrophils % Neutrophils % (Manual) Lymphocytes % Lymphocytes % (Manual) Monocytes % (Manual) Eosinophils % (Manual) Basophils % (Manual) Hypochromia Platelet Estimate Anisocytosis Retic Count 4.20 H PT with INR INR Sodium Potassium Chloride Carbon Dioxide Anion Gap BUN Creatinine Creat Clearance w eGFR Random Glucose Calcium Total Bilirubin AST ALT Alkaline Phosphatase LD Total 242 H Creatine Kinase Total Protein Albumin Blood Type Antibody Screen Crossmatch ASSESSMENT/PLAN: This is a 58 year old man who presented to the ED with right hip pain after falling while getting out of bed this morning. 1. Right femoral neck fracture - Pain control - Ortho consult 2. Severe anemia secondary to multiple myeloma - Transfused 1 unit PRBCs and awaiting 2nd unit - Monitor hemoglobin 3. Acute kidney injury - Most recent available creatinine was 1.1 (11/2016) - Likely secondary to hypoperfusion, may have chronic component secondary to multiple myeloma - Transfuse, IV fluids - Monitor BUN/creatinine 4. Multiple myeloma - Heme/onc consult 5. Cardiac murmur - Murmur was noted 11/2016 and echo at that time showed normal size LV, normal LV systolic function, mild aortic sclerosis Visit type - Emergency Visit Emergency Visit: Yes ED Registration Date: 06/27/18 Care time: The patient presented to the Emergency Department on the above date and was hospitalized for further evaluation of their emergent condition. - New Patient This patient is new to me today: Yes Date on this admission: 06/27/18 - Critical Care Critical Care patient: No Hospitalist Screening - Colonoscopy Questionnaire Colonoscopy Questionnaire: Colonoscopy Questionnaire - Patient: 50 - 75 years old and never had a screening colonoscopy: No History of colon or rectal polyps, or CA: No History of IBD, Crohn's disease or UC: No History of abdominal radiation therapy as a child: No - Relative: 1 with colon or rectal CA, or polyps at age 60 or younger: No Colon or rectal CA diagnosed at age 45 or younger: No Multiple relatives with colon or rectal CA: No - Outcome: Screening Result: Negative Screen
--- NOTE | 2018-06-27 17:56 | CONSULT ---
Consult - text type - Consultation Consultation Note: 58 year old man who comes to the ED complaining of pain in his right hip. He says that he lost his balance while getting out of bed this morning and fell hitting his right hip on the floor. He was unable to get up from the floor and so he remained on the floor for about 1 hour, until he was able to get his cell phone and call EMS. He denies head trauma, loss of consciousness. Now with right femur neck fx, severe anemia, Hgb 4.6, mild renal insufficiency PAST MEDICAL HISTORY Multiple myeloma PAST SURGICAL HISTORY Right humerus IM nailing secondary to impending pathological fracture Social History Smoking: Quit 4-5 years ago Alcohol: Socially Drugs: Denies Family History: Non-contributory Recent Travel: No Allergies No Known Allergies Allergy (Verified 11/28/16 21:02) Home Medications Medication Instructions Recorded Gabapentin [Neurontin -] 300 mg PO Q8H 06/27/18 Levetiracetam [Keppra] 500 mg PO BID 06/27/18 NK [No Known Home Medication] 06/27/18 PHYSICAL EXAMINATION Last Vital Signs Temp Pulse Resp BP Pulse Ox 98.4 F 115 H 20 117/77 100 06/27/18 15:27 06/27/18 15:27 06/27/18 15:27 06/27/18 15:27 06/27/18 14:06 Cor: RSR, No murmurs, No gallops Lungs: Clear to P&A Abd: Soft, Normal bowel sounds, No organomegaly Ext:No significant edema Skin: No rashes, Integument intact Laboratory Results - last 24 hr 06/27/18 06/27/18 06/27/18 08:07 08:07 08:07 WBC 14.5 H RBC 1.80 L Hgb 4.6 L* Hct 15.1 L MCV 83.8 MCH 25.7 MCHC 30.7 L RDW 21.3 H Plt Count 326 MPV 8.4 Absolute Neuts (auto) 12.6 Neutrophils % No Result Required. Neutrophils % (Manual) 86.0 H Lymphocytes % No Result Required. Lymphocytes % (Manual) 8.0 Monocytes % (Manual) 4 Eosinophils % (Manual) 1.0 Basophils % (Manual) 1.0 Hypochromia 1+ Platelet Estimate Adequate Anisocytosis 3+ Retic Count PT with INR 17.0 H INR 1.53 H Sodium 135 L Potassium 3.8 Chloride 106 Carbon Dioxide 15 L Anion Gap 14 BUN 37 H Creatinine 1.7 H Creat Clearance w eGFR 41.75 Random Glucose 159 H Calcium 8.4 Total Bilirubin 0.8 AST 38 ALT 17 Alkaline Phosphatase 68 LD Total Creatine Kinase Total Protein 6.3 L Albumin 3.1 L Blood Type Antibody Screen Crossmatch 06/27/18 06/27/18 06/27/18 08:07 08:07 08:07 WBC RBC Hgb Hct MCV MCH MCHC RDW Plt Count MPV Absolute Neuts (auto) Neutrophils % Neutrophils % (Manual) Lymphocytes % Lymphocytes % (Manual) Monocytes % (Manual) Eosinophils % (Manual) Basophils % (Manual) Hypochromia Platelet Estimate Anisocytosis Retic Count PT with INR INR Sodium Potassium Chloride Carbon Dioxide Anion Gap BUN Creatinine Creat Clearance w eGFR Random Glucose Calcium Total Bilirubin AST ALT Alkaline Phosphatase LD Total Creatine Kinase 131 Total Protein Albumin Blood Type Cancelled O NEGATIVE Antibody Screen Cancelled Negative Crossmatch See Detail 06/27/18 06/27/18 09:41 09:41 WBC RBC Hgb Hct MCV MCH MCHC RDW Plt Count MPV Absolute Neuts (auto) Neutrophils % Neutrophils % (Manual) Lymphocytes % Lymphocytes % (Manual) Monocytes % (Manual) Eosinophils % (Manual) Basophils % (Manual) Hypochromia Platelet Estimate Anisocytosis Retic Count 4.20 H PT with INR INR Sodium Potassium Chloride Carbon Dioxide Anion Gap BUN Creatinine Creat Clearance w eGFR Random Glucose Calcium Total Bilirubin AST ALT Alkaline Phosphatase LD Total 242 H Creatine Kinase Total Protein Albumin Blood Type Antibody Screen Crossmatch ASSESSMENT/PLAN: This is a 58 year old man who presented to the ED with right hip pain after falling while getting out of bed this morning. Presenting with severe anemia, mild renal insufficiency Patient was diagnosed with myeloma in 12/2016--shifted care to Dr. Ajay Artis at [facility] [place] . Does not recall the induction regimen. Received auto SCT in 12/13. Has been on revlimid 10mg daily and was last seen by Dr. Artis 2 weeks ago per patient. ?unsure if he is on bisphosphonates/denosumab recheck protein studies will discuss with Dr. Artis Severe anemia-- ? myeloma ? iron deficiency anemia ? myelosuppression from revlimid revlimid on hold for now
[2018-06-27] MEDS: morphine SULFATE 4 MG/ML VIAL IVPUSH PRN ×2 (18:31→23:27)
[2018-06-27 20:15] LABS: MCH 26.8 pg (25.7-33.7); MCHC 32.5 g/dl (32.0-35.9); MEAN CELL VOLUME 82.4 fl (80-96); MEAN PLT VOLUME 7.8 fl (7.5-11.1); PLATELET COUNT 164 K/MM3 (134-434); RBC 1.91 M/mm3 (4.00-5.60); RDW 18.4 % (11.9-15.9)
[2018-06-27] MEDS: oxyCODONE HCL 5 MG TABLET PO PRN (20:15)
[2018-06-27 20:19] LABS: HEMATOCRIT 15.7 % (35.4-49); HEMOGLOBIN 5.1 GM/dL (11.7-16.9)
[2018-06-27] MEDS: levETIRAcetam 500 MG TABLET (FP) PO SCH (21:04)
[2018-06-27 21:17] LABS: BASO % 0.4 % (0-2.0); EOS % 0.2 % (0-4.5); LYMPH % 5.2 % (8-40); NEUT % 89.2 % (42.8-82.8)
[2018-06-27 23:39] LABS: BASO % 0.2 % (0-2.0); EOS % 0.8 % (0-4.5); MCH 26.9 pg (25.7-33.7); MCHC 32.6 g/dl (32.0-35.9); MEAN CELL VOLUME 82.3 fl (80-96); MEAN PLT VOLUME 7.5 fl (7.5-11.1); MONO % 5.2 % (3.8-10.2); NEUT % 85.8 % (42.8-82.8); PLATELET COUNT 164 K/MM3 (134-434); RBC 1.99 M/mm3 (4.00-5.60); RDW 18.3 % (11.9-15.9); WHITE BLOOD COUNT 11.1 K/mm3 (4.0-10.0)
[2018-06-27 23:46] LABS: HEMATOCRIT 16.4 % (35.4-49); HEMOGLOBIN 5.3 GM/dL (11.7-16.9)
[2018-06-28] MEDS: oxyCODONE HCL 5 MG TABLET PO PRN ×3 (02:37→19:44)
[2018-06-28] MEDS: GABAPENTIN 300 MG CAPSULE (FP) PO SCH ×3 (05:26→21:11)
[2018-06-28] MEDS: morphine SULFATE 4 MG/ML VIAL IVPUSH PRN ×5 (05:26→21:20)
[2018-06-28 06:10] LABS: SERUM IRON SATURATION 8 % (15-55); TOTAL IRON BINDING CAPACITY 266 ug/dL (250-450); UIBC 246 ug/dL (111-343)
[2018-06-28 08:12] LABS: HEMATOCRIT 18.5 % (35.4-49); MCH 26.5 pg (25.7-33.7); MCHC 31.9 g/dl (32.0-35.9); MEAN CELL VOLUME 83.2 fl (80-96); MEAN PLT VOLUME 7.9 fl (7.5-11.1); PLATELET COUNT 152 K/MM3 (134-434); RBC 2.22 M/mm3 (4.00-5.60); RDW 17.1 % (11.9-15.9); WHITE BLOOD COUNT 11.2 K/mm3 (4.0-10.0)
[2018-06-28 08:15] LABS: CHLORIDE 109 mmol/L (98-107); POTASSIUM 4.3 mmol/L (3.5-5.1); SODIUM 140 mmol/L (136-145)
[2018-06-28 08:23] LABS: INR 1.49 (0.83-1.09); PROTHROMBIN TIME (PATIENT) 16.8 SEC (9.7-13.0)
[2018-06-28 08:26] LABS: ACTIVATED PTT 24.3 SECONDS (25.2-36.5)
[2018-06-28 08:32] LABS: ANION GAP 10 MMOL/L (8-16); BLOOD UREA NITROGEN 34 mg/dL (7-18); CALCIUM 7.7 mg/dL (8.5-10.1); CO2 21 mmol/L (21-32); GLUCOSE,RANDOM 104 mg/dL (74-106)
[2018-06-28 08:52] LABS: HEMOGLOBIN 5.9 GM/dL (11.7-16.9)
[2018-06-28 08:55] LABS: CREATININE 1.3 mg/dL (0.7-1.3)
[2018-06-28] MEDS ORDERED: PHYTONADIONE 10 MG/1 ML AMP SQ ONE (09:19)
[2018-06-28] MEDS: levETIRAcetam 500 MG TABLET (FP) PO SCH ×2 (09:33→21:11)
[2018-06-28] MEDS: FERROUS SO4 325 MG TABLET (FP) PO SCH ×2 (09:33→21:11)
[2018-06-28] MEDS: ALPRAZolam 0.25 MG TABLET PO PRN ×2 (09:34→21:11)
[2018-06-28] MEDS: ESCITALOPRAM OXALATE 10 MG TABLET (FP) PO SCH (09:34)
--- NOTE | 2018-06-28 09:50 | CONSULT ---
Consult - text type - Consultation Consultation Note: FULL CONSULT DICTATED IMP: RIGHT DISPLACED FEMORAL NECK FRACTURE WITH EXTREMELY LOW hct PLAN: --> OR FOR RIGHT HEMIARTHROPLASTY ONCE MEDICALLY OPTIMIZED
[2018-06-28 09:53] LABS: BASO % 0.5 % (0-2.0); EOS % 1.3 % (0-4.5); HEMATOCRIT 18.4 % (35.4-49); MCH 27.3 pg (25.7-33.7); MCHC 32.6 g/dl (32.0-35.9); MEAN CELL VOLUME 83.8 fl (80-96); MEAN PLT VOLUME 8.6 fl (7.5-11.1); MONO % 4.1 % (3.8-10.2); NEUT % 88.1 % (42.8-82.8); PLATELET COUNT 170 K/MM3 (134-434); RDW 17.2 % (11.9-15.9); WHITE BLOOD COUNT 10.8 K/mm3 (4.0-10.0)
--- NOTE | 2018-06-28 14:15 | EKG ---
Test Reason : Blood Pressure : / mmHG Vent. Rate : 122 BPM Atrial Rate : 122 BPM P-R Int : 124 ms QRS Dur : 078 ms QT Int : 338 ms P-R-T Axes : 063 035 072 degrees QTc Int : 481 ms SINUS TACHYCARDIA NONSPECIFIC ST AND T WAVE ABNORMALITY ABNORMAL ECG WHEN COMPARED WITH ECG OF 06-DEC-2016 11:26, NONSPECIFIC T WAVE ABNORMALITY NOW EVIDENT IN LATERAL LEADS Confirmed by PATRICA RICH MD ([id number]) on 06/28/2018 2:14:53 PM Referred By: TAVO MENON Confirmed By:PATRICA RICH MD
--- NOTE | 2018-06-28 15:23 | CONS ---
DATE OF CONSULTATION: 06/28/2018 HISTORY: The patient is a 58-year-old male well known to me with a long history of multiple myeloma. I had operated on this gentleman last year for a pathological lesion of his right humeral shaft. That is doing quite well. The patient now complains of pain in his right hip status post fall. Prior to the fall, the patient denies any hip pain. X-rays in the emergency room revealed a displaced right femoral neck fracture. The patient was admitted to the hospital. PHYSICAL EXAMINATION: He has a great deal of pain with any motion of his hip with lying and external rotation and flexion of his hip but good motion of the knee, ankle, and toes. Neurovascularly intact. Calf is soft and nontender. DIAGNOSTIC DATA: I evaluated his x-rays, which do in fact show a displaced right femoral neck fracture. No evidence of any pathological lesions in and around the hip region. The patient's hematocrit upon admission was 5/12. The patient has so far received 3 units of packed red blood cells. This morning, hematocrit is up to 18 and a patent change. IMPRESSION: Right displaced femoral neck fracture, questionable pathologic versus atraumatic fracture in a patient with multiple myeloma and severe anemia. PLAN: Patient will require a right hip hemiarthroplasty. With the potential risks being pathologic, I would most likely do a cemented hemiarthroplasty to kill any tumor that is not seen on a regular x-ray. I have ordered an x-ray further down in the femur to ensure that there are no lesions in the femoral shaft down to the knee on the injured side. At this point, the patient may require a longer stem prosthesis. Currently, his major problem is his severe anemia. The patient already received 3 units and his hematocrit is only up to 18, but datapower developer/oncologist has seen the patient and are following the patient. We need to get the patient up at least in the mid-20s prior to performing the procedure for this to be done in a safe manner as recommended by Hematology. I believe that probably will not happen by tomorrow. If it does, we can do surgery tomorrow. Otherwise, will likely do the procedure Thursday or later in the week. In the interim, continue prophylactic analgesics . I will follow the patient daily to see how he is doing. HAILEE DAILY M.D. [id number]
[2018-06-28 17:06] LABS: URINE APPEARANCE CLOUDY; URINE BILIRUBIN NEGATIVE (<2.0 mg/dL); URINE COLOR LTYELLOW; URINE GLUCOSE (UA) NEGATIVE (NEGATIVE); URINE KETONE NEGATIVE (NEGATIVE); URINE LEUK ESTERASE NEGATIVE (NEGATIVE); URINE NITRITE NEGATIVE (NEGATIVE); URINE PROTEIN NEGATIVE (NEGATIVE); URINE UROBILINOGEN NEGATIVE mg/dL (0.2-1.0)
--- NOTE | 2018-06-28 20:55 | PN ---
Progress Note (short form) - Note Progress Note: Patient seen and examined c/o left hip pain Last Vital Signs Temp Pulse Resp BP Pulse Ox 99.2 F 101 H 18 126/80 97 06/28/18 18:00 06/28/18 18:00 06/28/18 18:00 06/28/18 18:00 06/28/18 20:11 Cor: RSR, No murmurs, No gallops Lungs: Clear to P&A Abd: Soft, Normal bowel sounds, No organomegaly Ext:No significant edema LLE externally rotated Abnormal Lab Results 06/27/18 06/27/18 06/27/18 08:07 09:41 19:40 WBC RBC Hgb Hct MCHC RDW Absolute Neuts (auto) 10.7 H Neutrophils % 89.2 H Lymphocytes % 5.2 L D Nucleated RBC % 1 H PT with INR INR PTT (Actin FS) Fibrinogen Chloride BUN Calcium Iron 20 L Iron Saturation 8 L C-Reactive Protein Vitamin B12 Crossmatch See Detail 06/27/18 06/28/18 06/28/18 23:30 06:45 06:45 WBC 11.1 H 11.2 H RBC 1.99 L 2.22 L Hgb 5.3 L* 5.9 L* Hct 16.4 L 18.5 L MCHC 31.9 L RDW 18.3 H 17.1 H Absolute Neuts (auto) 9.6 H Neutrophils % 85.8 H Lymphocytes % Nucleated RBC % 1 H PT with INR 16.80 H INR 1.49 H PTT (Actin FS) 24.3 L Fibrinogen Chloride BUN Calcium Iron Iron Saturation C-Reactive Protein Vitamin B12 Crossmatch 06/28/18 06/28/18 06/28/18 06:45 06:45 09:30 WBC 10.8 H RBC 2.20 L Hgb 6.0 L* Hct 18.4 L MCHC RDW 17.2 H Absolute Neuts (auto) 9.5 H Neutrophils % 88.1 H Lymphocytes % 6.0 L D Nucleated RBC % 1 H PT with INR INR PTT (Actin FS) Fibrinogen 664.0 H Chloride 109 H D BUN 34 H Calcium 7.7 L Iron Iron Saturation C-Reactive Protein 16.0 H Vitamin B12 1289 H D Crossmatch 06/28/18 09:45 WBC RBC Hgb Hct MCHC RDW Absolute Neuts (auto) Neutrophils % Lymphocytes % Nucleated RBC % PT with INR INR PTT (Actin FS) Fibrinogen Chloride BUN Calcium Iron Iron Saturation C-Reactive Protein Vitamin B12 Crossmatch See Detail Active Medications Generic Name Dose Route Start Last Admin Trade Name Freq PRN Reason Stop Dose Admin Acetaminophen 650 mg 06/27/18 15:11 Tylenol - PO Q4H PRN FEVER Alprazolam 0.5 mg 06/28/18 07:17 06/28/18 09:34 Xanax - PO 0.5 mg Q8H PRN Administration ANXIETY Escitalopram Oxalate 10 mg 06/28/18 10:00 06/28/18 09:34 Lexapro - PO 10 mg DAILY AMINAH Administration Ferrous Sulfate 325 mg 06/28/18 10:00 06/28/18 09:33 Feosol - PO 325 mg BID AMINAH Administration Gabapentin 300 mg 06/27/18 16:00 06/28/18 13:02 Neurontin - PO 300 mg TID AMINAH Administration Levetiracetam 500 mg 06/27/18 22:00 06/28/18 09:33 Keppra - PO 500 mg BID AMINAH Administration Morphine Sulfate 4 mg 06/27/18 15:18 06/28/18 16:58 Morphine Sulfate IVPUSH 4 mg Q4H PRN Administration PAIN LEVEL 6-10 Ondansetron HCl 4 mg 06/27/18 15:17 Zofran Injection IVPUSH Q6H PRN NAUSEA Oxycodone HCl 10 mg 06/27/18 15:22 06/28/18 19:44 Roxicodone - PO 10 mg Q6H PRN Administration PAIN LEVEL 1-5 Pantoprazole Sodium 20 mg 06/28/18 22:00 Protonix - PO HS AMINAH A/P This is a 58 year old man who presented to the ED with right hip pain after falling while getting out of bed Presenting with severe anemia, mild renal insufficiency Patient was diagnosed with NOnsecretory myeloma in 12/2016--[place] [facility] [place] Does not recall the induction regimen. Received auto SCT in 12/13. Has been on revlimid 10mg daily and was last seen by Dr. Artis 2 weeks ago per patient. ?unsure if he is on bisphosphonates/denosumab rechecking protein studies---but patient with nonsecretory myeloma will discuss with Dr. Artis Severe anemia-- ? myeloma + iron deficiency anemia ? myelosuppression from revlimid revlimid on hold for now transfusing PRBCs Will consult GI team aswell Davi negative. LDH borderline hence hemolysis unlikely monitor INR--s/p vit. K f/u cultures. cxr neg. needs to be medically optimized before surgery
--- NOTE | 2018-06-28 21:00 | PN ---
Progress Note, Physician - Current Medication List Current Medications: Active Medications Acetaminophen (Tylenol -) 650 mg PO Q4H PRN PRN Reason: FEVER Alprazolam (Xanax -) 0.5 mg PO Q8H PRN PRN Reason: ANXIETY Last Admin: 06/28/18 09:34 Dose: 0.5 mg Escitalopram Oxalate (Lexapro -) 10 mg PO DAILY [facility] Last Admin: 06/28/18 09:34 Dose: 10 mg Ferrous Sulfate (Feosol -) 325 mg PO BID [facility] Last Admin: 06/28/18 09:33 Dose: 325 mg Gabapentin (Neurontin -) 300 mg PO TID [facility] Last Admin: 06/28/18 13:02 Dose: 300 mg Levetiracetam (Keppra -) 500 mg PO BID [facility] Last Admin: 06/28/18 09:33 Dose: 500 mg Morphine Sulfate (Morphine Sulfate) 4 mg IVPUSH Q4H PRN PRN Reason: PAIN LEVEL 6-10 Last Admin: 06/28/18 16:58 Dose: 4 mg Ondansetron HCl (Zofran Injection) 4 mg IVPUSH Q6H PRN PRN Reason: NAUSEA Oxycodone HCl (Roxicodone -) 10 mg PO Q6H PRN PRN Reason: PAIN LEVEL 1-5 Last Admin: 06/28/18 19:44 Dose: 10 mg Pantoprazole Sodium (Protonix -) 20 mg PO [facility] - Objective Vital Signs: Vital Signs Temperature 99.2 F 06/28/18 18:00 Pulse Rate 101 H 06/28/18 18:00 Respiratory Rate 18 06/28/18 18:00 Blood Pressure 126/80 06/28/18 18:00 O2 Sat by Pulse Oximetry (%) 97 06/28/18 20:11 Labs: CBC, BMP 06/28/18 09:30 06/28/18 06:45 INR, PTT INR 1.49 (0.83-1.09) H 06/28/18 06:45 Fibrinogen 664.0 mg/dL (238-498) H 06/28/18 06:45 Problem List - Problems (1) Fall Assessment/Plan: -Unkown Etiology' -Ck trop -Cardio Code(s): W19.XXXA - UNSPECIFIED FALL, INITIAL ENCOUNTER (2) Multiple myeloma Assessment/Plan: - Heme/onc consult 5. Cardiac murmur - Murmur was noted 11/2016 and echo at that time showed normal size LV, normal LV systolic function, mild aortic sclerosis Code(s): C90.00 - MULTIPLE MYELOMA NOT HAVING ACHIEVED REMISSION (3) Hip fracture Assessment/Plan: -Ortho on Board -Cardio clearance Code(s): S72.009A - FRACTURE OF UNSP PART OF NECK OF UNSP FEMUR, INIT Qualifiers: Encounter type: initial encounter Fracture type: closed Laterality: right Qualified Code(s): S72.001A - Fracture of unspecified part of neck of right femur, initial encounter for closed fracture (4) Murmur Code(s): R01.1 - CARDIAC MURMUR, UNSPECIFIED (5) STEPHEN (acute kidney injury) Assessment/Plan: - Most recent available creatinine was 1.1 (11/2016) - Likely secondary to hypoperfusion, may have chronic component secondary to multiple myeloma - Transfuse, IV fluids - Monitor BUN/creatinine -Oncology on board Code(s): N17.9 - ACUTE KIDNEY FAILURE, UNSPECIFIED (6) Anemia Assessment/Plan: - Severe anemia secondary to multiple myeloma - Transfused PRBCs and awaiting Repeat - Monitor hemoglobin Code(s): D64.9 - ANEMIA, UNSPECIFIED Qualifiers: Anemia type: unspecified type Qualified Code(s): D64.9 - Anemia, unspecified
[2018-06-28] MEDS: PANTOPRAZOLE 20 MG TABLET (FP) PO SCH (21:11)
[2018-06-28 21:54] LABS: BASO % 0.4 % (0-2.0); EOS % 0.6 % (0-4.5); HEMATOCRIT 20.3 % (35.4-49); MCH 27.1 pg (25.7-33.7); MCHC 32.6 g/dl (32.0-35.9); MEAN CELL VOLUME 83.3 fl (80-96); MEAN PLT VOLUME 7.7 fl (7.5-11.1); MONO % 5.5 % (3.8-10.2); NEUT % 87.5 % (42.8-82.8); PLATELET COUNT 158 K/MM3 (134-434); RBC 2.44 M/mm3 (4.00-5.60); WHITE BLOOD COUNT 12.4 K/mm3 (4.0-10.0)
[2018-06-28 22:04] LABS: HEMOGLOBIN 6.6 GM/dL (11.7-16.9)
[2018-06-28] MEDS: ACETAMINOPHEN 325 MG TABLET (FP) PO PRN (23:27)
[2018-06-29] MEDS: morphine SULFATE 4 MG/ML VIAL IVPUSH PRN ×5 (02:45→21:07)
[2018-06-29] MEDS: oxyCODONE HCL 5 MG TABLET PO PRN ×2 (04:07→17:01)
[2018-06-29] MEDS: GABAPENTIN 300 MG CAPSULE (FP) PO SCH ×3 (06:42→21:08)
[2018-06-29 08:05] LABS: BASO % 0.4 % (0-2.0); EOS % 0.8 % (0-4.5); HEMATOCRIT 21.6 % (35.4-49); HEMOGLOBIN 7.1 GM/dL (11.7-16.9); LYMPH % 7.3 % (8-40); MCH 27.2 pg (25.7-33.7); MCHC 32.8 g/dl (32.0-35.9); MEAN CELL VOLUME 82.9 fl (80-96); MEAN PLT VOLUME 7.8 fl (7.5-11.1); MONO % 5.8 % (3.8-10.2); NEUT % 85.7 % (42.8-82.8); PLATELET COUNT 137 K/MM3 (134-434); RBC 2.61 M/mm3 (4.00-5.60); RDW 16.4 % (11.9-15.9); WHITE BLOOD COUNT 13.2 K/mm3 (4.0-10.0)
[2018-06-29 08:22] LABS: INR 1.41 (0.83-1.09); PROTHROMBIN TIME (PATIENT) 15.9 SEC (9.7-13.0)
[2018-06-29 08:25] LABS: ACTIVATED PTT 25.4 SECONDS (25.2-36.5)
[2018-06-29 08:51] LABS: ALBUMIN 2.4 g/dl (3.4-5.0); ANION GAP 11 MMOL/L (8-16); BLOOD UREA NITROGEN 21 mg/dL (7-18); CALCIUM 7.5 mg/dL (8.5-10.1); CHLORIDE 105 mmol/L (98-107); CO2 22 mmol/L (21-32); GLUCOSE,RANDOM 98 mg/dL (74-106); POTASSIUM 3.8 mmol/L (3.5-5.1); SODIUM 138 mmol/L (136-145)
[2018-06-29 08:56] LABS: ALK PHOS 79 U/L (45-117); BILIRUBIN,TOTAL 1.4 mg/dL (0.2-1.0); SGOT/AST 22 U/L (15-37); SGPT/ALT 12 U/L (12-78); TOT PROT 5.5 g/dl (6.4-8.2)
--- NOTE | 2018-06-29 08:57 | PN ---
Progress Note, Physician - Current Medication List Current Medications: Active Medications Acetaminophen (Tylenol -) 650 mg PO Q4H PRN PRN Reason: FEVER Last Admin: 06/28/18 23:27 Dose: 650 mg Alprazolam (Xanax -) 0.5 mg PO Q8H PRN PRN Reason: ANXIETY Last Admin: 06/28/18 21:11 Dose: 0.5 mg Escitalopram Oxalate (Lexapro -) 10 mg PO DAILY [facility] Last Admin: 06/28/18 09:34 Dose: 10 mg Ferrous Sulfate (Feosol -) 325 mg PO BID [facility] Last Admin: 06/28/18 21:11 Dose: 325 mg Gabapentin (Neurontin -) 300 mg PO TID [facility] Last Admin: 06/29/18 06:42 Dose: 300 mg Levetiracetam (Keppra -) 500 mg PO BID [facility] Last Admin: 06/28/18 21:11 Dose: 500 mg Morphine Sulfate (Morphine Sulfate) 4 mg IVPUSH Q4H PRN PRN Reason: PAIN LEVEL 6-10 Last Admin: 06/29/18 07:31 Dose: 4 mg Ondansetron HCl (Zofran Injection) 4 mg IVPUSH Q6H PRN PRN Reason: NAUSEA Oxycodone HCl (Roxicodone -) 10 mg PO Q6H PRN PRN Reason: PAIN LEVEL 1-5 Last Admin: 06/29/18 04:07 Dose: 10 mg Pantoprazole Sodium (Protonix -) 20 mg PO HS [facility] Last Admin: 06/28/18 21:11 Dose: 20 mg - Objective Vital Signs: Vital Signs Temperature 98.8 F 06/29/18 00:31 Pulse Rate 104 H 06/29/18 00:31 Respiratory Rate 20 06/29/18 00:31 Blood Pressure 104/62 06/29/18 00:31 O2 Sat by Pulse Oximetry (%) 97 06/28/18 20:11 Labs: CBC, BMP 06/29/18 06:30 INR, PTT INR 1.41 (0.83-1.09) H 06/29/18 06:30 Fibrinogen 664.0 mg/dL (238-498) H 06/28/18 06:45
[2018-06-29] MEDS: levETIRAcetam 500 MG TABLET (FP) PO SCH ×2 (09:17→21:08)
[2018-06-29] MEDS: ESCITALOPRAM OXALATE 10 MG TABLET (FP) PO SCH (09:17)
[2018-06-29] MEDS: ALPRAZolam 0.25 MG TABLET PO PRN (09:17)
[2018-06-29] MEDS: FERROUS SO4 325 MG TABLET (FP) PO SCH ×2 (09:17→21:08)
[2018-06-29] MEDS: POLYETHYLENE GLYCOL 3350 119 GM BTL PO SCH (10:08)
--- NOTE | 2018-06-29 10:31 | CON.CARD ---
Consult Consult Specialty:: Cardiology Referred by:: Dr. Hunter Reason for Consultation:: Preop cardiac evaluation - History of Present Illness Chief Complaint: R hip pain History of Present Illness: 58 year old man with pmh multiple myeloma, RLE surgery approximately 1 year ago , admitted with displaced R hip fracture after losing his balance and falling and is planned for surgery, noted to be significantly anemic. Pt seen and examined today in nad. 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 states he can walk up and down the stairs and perform his daily activities without limitations. denies having any chest pain or sob either at rest or with exertion. No pnd, orthopnea, or LE edema. No palpitations, lightheadedness, dizziness, syncope, or near syncope. - History Source History Provided By: Patient, Medical Record Limitations to Obtaining History: No Limitations - Past Medical History Heme/Onc: Yes: Other - Past Surgical History Past Surgical History: Yes: Appendectomy - Alcohol/Substance Use Hx Alcohol Use: Yes (Occasional glass of wine or shot of [place]) History of Substance Use: reports: None - Smoking History Smoking history: Former smoker Have you smoked in the past 12 months: No Aproximately how many cigarettes per day: 8 If you are a former smoker, when did you quit?: 9 MONTHS - Social History ADL: Independent History of Recent Travel: No Home Medications - Allergies Allergies/Adverse Reactions: Allergies Allergy/AdvReac Type Severity Reaction Status Date / Time No Known Allergies Allergy Verified 11/28/16 21:02 - Home Medications Home Medications: Ambulatory Orders Acyclovir [Zovirax -] 400 mg PO BID 06/27/18 Alprazolam 1 mg PO DAILY PRN 06/27/18 Ergocalciferol [Vitamin D2] 50,000 unit PO WEEKLY 06/27/18 Escitalopram Oxalate [Lexapro -] 10 mg PO DAILY 06/27/18 FENTANYL 12mcg PATCH [DURAGESIC 12mcg PATCH -] 1 patch TD Q72H 06/27/18 Ferrous Sulfate 325 mg PO BID 06/27/18 Gabapentin [Neurontin -] 300 mg PO BID 06/27/18 Hydromorphone HCl 2 mg PO Q8H PRN 06/27/18 Levetiracetam [Keppra] 500 mg PO BID 06/27/18 Pantoprazole Sodium [Protonix -] 20 mg PO HS 06/27/18 Sulfamethoxazole/Trimethoprim [Bactrim DS -] 1 tab PO Q2D 06/27/18 Family Disease History - Family Disease History Family Disease History: Heart Disease: Father Review of Systems - Review of Systems Constitutional: denies: No Symptoms, Chills, Diaphoresis, Fever, Lethargy, Loss of Appetite, Malaise, Night Sweats, Unintentional Wgt. Loss, Weakness, Other Eyes: denies: No Symptoms, Blind Spots, Blurred Vision, Double Vision, Eye Pain , Floaters, Photophobia, Recent Change in Vision, Other HENT: denies: No Symptoms, Difficult Swallowing, Ear Discharge, Ear Pain, Epistaxis, Gingival Bleeding, Hearing Loss, Mouth Swelling, Nasal Congestion, Ocular Prosthesis, Throat Pain, Toothache, Ringing in Ears, Other Neck: denies: No Symptoms, Decreased ROM, Lumps, Pain on Movement, Stiffness, Swollen Glands, Tenderness, Other Cardiovascular: denies: No Symptoms, Chest Pain, Edema, Palpitations, Shortness of Breath, Other Respiratory: denies: No Symptoms, Cough, Exercise Intolerance, Hemoptysis, Orthopnea, PND, Snoring, SOB, SOB on Exertion, Wheezing, Other Gastrointestinal: denies: No Symptoms, Abdominal Pain, Bloating, Constipation, Diarrhea, Dysphagia, Indigestion, Melena, Nausea, Rectal Bleeding, Vomiting, Vomiting Blood, Other Genitourinary: denies: No Symptoms, Burning, Discharge, Dysuria, Flank Pain, Frequency, Hematuria, Incontinence, Lesions, Menses, Pain, Testicular Mass, Testicular Pain, Testicular Swelling, Urgency, Vaginal Bleeding, Other Breasts: denies: No Symptoms Reported, See HPI, Breast Implants, Discharge from Nipple, Lumps, Pain, Skin Changes, Other Musculoskeletal: reports: Decreased ROM, Extremity Pain, Joint Pain. denies: No Symptoms, Back Pain, Crepitus, Joint Swelling, Muscle Pain, Muscle Cramps, Muscle Weakness, Other Integumentary: denies: No Symptoms, Blister, Bruising, Change in Color, Eczema, Erythema, Incision, Lesions, Lump, Pallor, Pruritis, Rash, Wound, Other Neurological: denies: No Symptoms, Change in LOC, Change in Speech, Confusion, Dizziness, Headache, Incoordination, Numbness, Parasthesia, Pre-Existing Deficit , Seizure, Syncope, Tremors, Unsteady Gait, Weakness, Other Endocrine: denies: No Symptoms, Excessive Sweating, Flushing, Increased Hunger, Increased Thirst, Intolerance to Cold, Intolerance to Heat, Unexplained Weight Gain, Unexplained Weight Loss, Other Hematology/Lymphatic: denies: No Symptoms, Easily Bruised, Excessive Bleeding, Swollen Glands, Other Psychiatric: denies: No Symptoms, Altered Sleep Pattern, Anxiety, Depression, Hallucinations, Panic, Paranoia, Suicidal, Other Vital Signs: Vital Signs Temperature 98.8 F 06/29/18 00:31 Pulse Rate 104 H 06/29/18 00:31 Respiratory Rate 20 06/29/18 00:31 Blood Pressure 104/62 06/29/18 00:31 O2 Sat by Pulse Oximetry (%) 97 06/28/18 20:11 Constitutional: Yes: No Distress, Calm, Obese Eyes: Yes: Conjunctiva Clear, EOM Intact, PERRL HENT: Yes: Atraumatic, Normocephalic Neck: Yes: Supple, Trachea Midline Respiratory: Yes: Regular, CTA Bilaterally. No: Rales, Rhonchi, SOB, Wheezes Gastrointestinal: Yes: Normal Bowel Sounds, Soft. No: Distention, Tenderness Cardiovascular: Yes: Regular Rate and Rhythm. No: Bradycardia, Tachycardia, Pulse Irregular, Gallop, Rub, Varicosities JVD: No Carotid Bruit: No PMI: Non-Displaced Heart Sounds: Yes: S1, S2. No: Split S2, S3, S4, Clicks, Gallop, Rub, Bruit Murmur: Yes: Systolic Murmur, Grade 3. No: Diastolic Murmur Musculoskeletal: Yes: Joint Stiffness, Joint Swelling Edema: No Peripheral Pulses WNL: Yes Peripheral Pulses: 2+ Left Doralis Pedis, 2+ Right Dorsalis Pedis Neurological: Yes: Alert, Oriented Psychiatric: Yes: Alert, Oriented - Other Data Labs, Other Data: CBC, BMP 06/29/18 06:30 06/29/18 06:30 INR, PTT INR 1.41 (0.83-1.09) H 06/29/18 06:30 Fibrinogen 664.0 mg/dL (238-498) H 06/28/18 06:45 Troponin, BNP 06/28/18 21:35 Troponin I 0.06 H D Troponin, BNP 06/28/18 21:35 Troponin I 0.06 H D ekg-nsr 100bpm, LVH Echo: Report Reviewed Imaging - Results Chest X-ray: Report Reviewed, Image Reviewed EKG: Report Reviewed, Image Reviewed Other: Report Reviewed, Image Reviewed Assessment/Plan 58 year old man with pmh multiple myeloma, RLE surgery approximately 1 year ago , admitted with displaced R hip fracture after losing his balance and falling and is planned for surgery, noted to be significantly anemic. Pt seen and examined today in nad. 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 states he can walk up and down the stairs and perform his daily activities without limitations. denies having any chest pain or sob either at rest or with exertion. Preop cardiac evaluation -At this time there is no cardiac contraindications to the planned procedure and would recommend to proceed without delay for additional cardiac work up once H/H is at an acceptable range from a surgical standpoint -echo done 11/2016 showed mild aortic sclerosis as likely source of his known murmur with no aortic stenosis or other sig valvular abnl and normal LV systolic function -BP is wnl without medications -recc routing perioperative monitoring. Please call with any additional questions. Will see again as needed.
--- NOTE | 2018-06-29 11:05 | PN ---
Physical Exam: SUBJECTIVE: Patient seen and examined at bed side this morning. Complaining of Right hip pain controlled with medication. Denies chest pain, sob, cough, palpitation, abdominal pain, nausea or vomiting. Last bowel movement was 2 days ago. Bladder habit normal. Sleep normal. No acute overnight events. Received 5 units of PRBC since admission. OBJECTIVE: Vital Signs Period Temp Pulse Resp BP Sys/[place] Pulse Ox Last 24 Hr 98.0 F-99.5 F 96-104 18-20 104-126/62-80 96-97 GENERAL: Morbidly obese patient, lying comfortably in bed, is awake, alert, and fully oriented, in no acute distress. HEAD: Normal with no signs of trauma. EYES: EOM intact, Pallor +, no icterus. . ENT: Ears normal. moist mucous membranes. NECK: Supple. LUNGS: B/L Breath sounds equal, clear to auscultation bilaterally, no wheezes, no crackles, no accessory muscle use. HEART: Regular rate and rhythm, S1, S2 with systolic murmur. ABDOMEN: Soft, nontender, nondistended, normoactive bowel sounds, no guarding, no rebound, no hepatosplenomegaly, no masses. UPPER EXTREMITIES: 2+ pulses, warm, well-perfused, no edema. LOWER EXTREMITIES: LEFT: 2+ pulses, warm, well-perfused, no edema. RIGHT: Pain in the right hip. NEUROLOGICAL: No facial droop. Normal speech, gait not observed. PSYCH: Normal mood, normal affect. SKIN: Warm, dry, normal turgor, no rashes or lesions noted Laboratory Results - last 24 hr 06/27/18 06/27/18 06/28/18 08:07 09:41 06:45 WBC RBC Hgb Hct MCV MCH MCHC RDW Plt Count MPV Absolute Neuts (auto) Neutrophils % Lymphocytes % Monocytes % Eosinophils % Basophils % Nucleated RBC % Retic Count PT with INR INR PTT (Actin FS) Sodium 140 Potassium 4.3 Chloride 109 H D Carbon Dioxide 21 D Anion Gap 10 BUN 34 H Creatinine 1.3 Creat Clearance w eGFR 56.90 Random Glucose 104 Calcium 7.7 L Ferritin Cancelled 48.4 Total Bilirubin AST ALT Alkaline Phosphatase Creatine Kinase Troponin I C-Reactive Protein 16.0 H Total Protein Albumin Vitamin B12 1289 H D Urine Color Urine Appearance Urine pH Ur Specific Pool Urine Protein Urine Glucose (UA) Urine Ketones Urine Blood Urine Nitrite Urine Bilirubin Urine Urobilinogen Ur Leukocyte Esterase Blood Type O NEGATIVE Antibody Screen Negative Direct Antiglob Test Crossmatch See Detail 06/28/18 06/28/18 06/28/18 09:45 16:00 21:20 WBC 12.4 H RBC 2.44 L Hgb 6.6 L* Hct 20.3 L MCV 83.3 MCH 27.1 MCHC 32.6 RDW 17.0 H Plt Count 158 MPV 7.7 D Absolute Neuts (auto) 10.8 H Neutrophils % 87.5 H Lymphocytes % 6.0 L Monocytes % 5.5 Eosinophils % 0.6 Basophils % 0.4 Nucleated RBC % 1 H Retic Count PT with INR INR PTT (Actin FS) Sodium Potassium Chloride Carbon Dioxide Anion Gap BUN Creatinine Creat Clearance w eGFR Random Glucose Calcium Ferritin Total Bilirubin AST ALT Alkaline Phosphatase Creatine Kinase Troponin I C-Reactive Protein Total Protein Albumin Vitamin B12 Urine Color Ltyellow Urine Appearance Cloudy Urine pH 5.0 Ur Specific Pool 1.019 Urine Protein Negative Urine Glucose (UA) Negative Urine Ketones Negative Urine Blood Negative Urine Nitrite Negative Urine Bilirubin Negative Urine Urobilinogen Negative Ur Leukocyte Esterase Negative Blood Type Antibody Screen Direct Antiglob Test Negative Crossmatch See Detail 06/28/18 06/29/18 06/29/18 21:35 06:30 06:30 WBC RBC Hgb Hct MCV MCH MCHC RDW Plt Count MPV Absolute Neuts (auto) Neutrophils % Lymphocytes % Monocytes % Eosinophils % Basophils % Nucleated RBC % Retic Count 3.50 H D PT with INR 15.90 H INR 1.41 H PTT (Actin FS) 25.4 Sodium Potassium Chloride Carbon Dioxide Anion Gap BUN Creatinine Creat Clearance w eGFR Random Glucose Calcium Ferritin Total Bilirubin AST ALT Alkaline Phosphatase Creatine Kinase 128 Troponin I 0.06 H D C-Reactive Protein Total Protein Albumin Vitamin B12 Urine Color Urine Appearance Urine pH Ur Specific Pool Urine Protein Urine Glucose (UA) Urine Ketones Urine Blood Urine Nitrite Urine Bilirubin Urine Urobilinogen Ur Leukocyte Esterase Blood Type Antibody Screen Direct Antiglob Test Crossmatch 06/29/18 06/29/18 06/29/18 06:30 06:30 08:45 WBC 13.2 H RBC 2.61 L Hgb 7.1 L Hct 21.6 L MCV 82.9 MCH 27.2 MCHC 32.8 RDW 16.4 H Plt Count 137 MPV 7.8 Absolute Neuts (auto) 11.3 H Neutrophils % 85.7 H Lymphocytes % 7.3 L D Monocytes % 5.8 Eosinophils % 0.8 Basophils % 0.4 Nucleated RBC % 1 H Retic Count PT with INR INR PTT (Actin FS) Sodium 138 Potassium 3.8 Chloride 105 Carbon Dioxide 22 Anion Gap 11 BUN 21 H Creatinine 1.0 Creat Clearance w eGFR > 60 Random Glucose 98 Calcium 7.5 L Ferritin Total Bilirubin 1.4 H AST 22 D ALT 12 D Alkaline Phosphatase 79 Creatine Kinase Troponin I C-Reactive Protein Total Protein 5.5 L Albumin 2.4 L Vitamin B12 Urine Color Urine Appearance Urine pH Ur Specific Pool Urine Protein Urine Glucose (UA) Urine Ketones Urine Blood Urine Nitrite Urine Bilirubin Urine Urobilinogen Ur Leukocyte Esterase Blood Type Antibody Screen Direct Antiglob Test Negative Crossmatch Active Medications Generic Name Dose Route Start Last Admin Trade Name Freq PRN Reason Stop Dose Admin Acetaminophen 650 mg 06/27/18 15:11 06/28/18 23:27 Tylenol - PO 650 mg Q4H PRN Administration FEVER Alprazolam 0.5 mg 06/28/18 07:17 06/29/18 09:17 Xanax - PO 0.5 mg Q8H PRN Administration ANXIETY Escitalopram Oxalate 10 mg 06/28/18 10:00 06/29/18 09:17 Lexapro - PO 10 mg DAILY AMINAH Administration Ferrous Sulfate 325 mg 06/28/18 10:00 06/29/18 09:17 Feosol - PO 325 mg BID AMINAH Administration Gabapentin 300 mg 06/27/18 16:00 06/29/18 06:42 Neurontin - PO 300 mg TID AMINAH Administration Levetiracetam 500 mg 06/27/18 22:00 06/29/18 09:17 Keppra - PO 500 mg BID AMINAH Administration Morphine Sulfate 4 mg 06/27/18 15:18 06/29/18 07:31 Morphine Sulfate IVPUSH 4 mg Q4H PRN Administration PAIN LEVEL 6-10 Ondansetron HCl 4 mg 06/27/18 15:17 Zofran Injection IVPUSH Q6H PRN NAUSEA Oxycodone HCl 10 mg 06/27/18 15:22 06/29/18 04:07 Roxicodone - PO 10 mg Q6H PRN Administration PAIN LEVEL 1-5 Pantoprazole Sodium 20 mg 06/28/18 22:00 06/28/18 21:11 Protonix - PO 20 mg HS AMINAH Administration Polyethylene Glycol 17 gm 06/29/18 10:00 06/29/18 10:08 Miralax (For Daily Use) - PO 17 gm DAILY AMINAH Administration Senna 1 tab 06/29/18 22:00 Senna - PO HS AMINAH 06/27/2018 x-ray right Hip: Acute right femoral neck fracture with right inferior pubic ramus deformity compatible with probable old trauma. Patient is a 58 year old man who presented to the ED with right hip pain after he had a mechanical fall. ASSESSMENT: Right femoral neck fracture Acute blood loss normocytic anemia STEPHEN Increased troponin: likely from demand ischemia. Multiple myeloma Seizure disorder-on Keppra. Plan: Acute blood loss normocytic Iron deficiency anemia H/H on admission 06/27/2018 4.6---received 5 units of PRBC---> today's H/H is 7.1/21.6. Despite 5 units of transfusion, H/H is still on the lower side.Repeat CBC is 7.1/21.3, will give 1 unit of PRBC (discussed with Dr. Walker). Etiology could be GI source (has Iron def anemia), would consider Endoscopy and Colonoscopy when stable. Will discuss with the GI team if CT abdomen/pelvis would be of any help. Hemolysis ruled out: Davi test negative, LDH normal. Multiple myeloma is also a contributing factor for anemia. Increased INR in patient not on AC INR on admission 1.53-->1.49--> 1.41 today. Patient received 10mg of Vit K sq without any significant changes. Hence, Increased INR could be from liver disease. Needs more work up. Vit K is not required today. Acute femoral neck fracture Needs surgery, however, has to be medically optimized for surgery. Will repeat CBC and transfuse if Hb is < 8 gm/dl. Has been getting IV morphine and oxy as scheduled. Rest as per primary team. Plan of care explained to the patient. He verbalized understanding. Case discussed with Dr. Lee. Visit type - Emergency Visit Emergency Visit: Yes ED Registration Date: 06/27/18 Care time: The patient presented to the Emergency Department on the above date and was hospitalized for further evaluation of their emergent condition. - New Patient This patient is new to me today: Yes Date on this admission: 06/29/18 - Critical Care Critical Care patient: No - Discharge Referral Referred to [facility] Med [facility].C.: No
--- NOTE | 2018-06-29 11:25 | PN ---
Progress Note (short form) - Note Progress Note: Ortho Pt seen and examined, c/o right hip pain Selected Entries 06/29/18 10:26 Temperature 98.0 F Pulse Rate 96 H Respiratory 18 Rate Blood Pressure 115/71 Laboratory Tests 06/29/18 06:30 WBC 13.2 H Hgb 7.1 L Hct 21.6 L Plt Count 137 + ttp, shortened and ER,dec rom secondary to pain, nvi a/p OR tomorrow for right hip nathan if cleared may need 2 units of PRBCs as per hematology to d/w hem and anesthesia surgical clearance NPO after midnight d/w Dr. Burnett
[2018-06-29 11:45] LABS: HEMATOCRIT 21.3 % (35.4-49); HEMOGLOBIN 7.1 GM/dL (11.7-16.9); MCH 27.6 pg (25.7-33.7); MCHC 33.1 g/dl (32.0-35.9); MEAN CELL VOLUME 83.2 fl (80-96); MEAN PLT VOLUME 7.6 fl (7.5-11.1); PLATELET COUNT 140 K/MM3 (134-434); RBC 2.56 M/mm3 (4.00-5.60); RDW 16.8 % (11.9-15.9); WHITE BLOOD COUNT 12.9 K/mm3 (4.0-10.0)
--- NOTE | 2018-06-29 12:02 | CON.GI ---
Consult Consult Specialty:: GI Referred by:: Dr. Migel Dozier Reason for Consultation:: Anemia - History of Present Illness Chief Complaint: Right hip pain History of Present Illness: 58M s/p fall at home (denies LOC) with right hip fracture. On admission: 06/27/18 : Hgb 4.6. he has received 5 units PRBC. Hgb is 7.1. Asked to evaluate anemia. Mr. Leiva denies change in bowel habits / abdominal pain. He denies overt rectal bleeding. His stool is chronically dark since having been placed on iron twice daily. He denies NSAID use. He received toradol in the ED and is receiving morphine now for his right hip pain. He has never had an upper endoscopy or colonoscopy. There is no family history of colorectal cancer or other GI malignancy. 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 - History Source History Provided By: Patient, Medical Record - Past Medical History Heme/Onc: Yes: Other (Multiple Myeloma) - Past Surgical History Past Surgical History: Yes: Appendectomy Additional Surgical History: Frank placement, right humerus - Alcohol/Substance Use Hx Alcohol Use: Yes (Occasional glass of wine or shot of [place]) History of Substance Use: reports: None - Smoking History Smoking history: Former smoker Have you smoked in the past 12 months: No Aproximately how many cigarettes per day: 8 If you are a former smoker, when did you quit?: 9 MONTHS - Social History ADL: Independent Occupation: Work's for [employer] Place of : [employer] History of Recent Travel: No Home Medications - Allergies Allergies/Adverse Reactions: Allergies Allergy/AdvReac Type Severity Reaction Status Date / Time No Known Allergies Allergy Verified 11/28/16 21:02 - Home Medications Home Medications: Ambulatory Orders Acyclovir [Zovirax -] 400 mg PO BID 06/27/18 Alprazolam 1 mg PO DAILY PRN 06/27/18 Ergocalciferol [Vitamin D2] 50,000 unit PO WEEKLY 06/27/18 Escitalopram Oxalate [Lexapro -] 10 mg PO DAILY 06/27/18 FENTANYL 12mcg PATCH [DURAGESIC 12mcg PATCH -] 1 patch TD Q72H 06/27/18 Ferrous Sulfate 325 mg PO BID 06/27/18 Gabapentin [Neurontin -] 300 mg PO BID 06/27/18 Hydromorphone HCl 2 mg PO Q8H PRN 06/27/18 Levetiracetam [Keppra] 500 mg PO BID 06/27/18 Pantoprazole Sodium [Protonix -] 20 mg PO HS 06/27/18 Sulfamethoxazole/Trimethoprim [Bactrim DS -] 1 tab PO Q2D 06/27/18 Family Disease History - Family Disease History Family Disease History: Heart Disease: Father (: 70's: ID), Other: Father, Mother (: 70: CHF), Sister (1, healthy), Son (1, healthy), Daughter (4, healthy) Other Family History: No family history of colorectaql cancer or other GI malignancy Review of Systems - Review of Systems Constitutional: denies: Chills Cardiovascular: denies: Chest Pain, Shortness of Breath Gastrointestinal: reports: Constipation (no BM since admission). denies: Abdominal Pain, Diarrhea, Melena, Rectal Bleeding, Vomiting, Vomiting Blood Genitourinary: denies: Dysuria Physical Exam-GI Vital Signs: Vital Signs Temperature 98.0 F 06/29/18 10:26 Pulse Rate 96 H 06/29/18 10:26 Respiratory Rate 18 06/29/18 10:26 Blood Pressure 115/71 06/29/18 10:26 O2 Sat by Pulse Oximetry (%) 96 06/29/18 09:00 Constitutional: Yes: Calm Eyes: No: Sclera Icterus Cardiovascular: Yes: Tachycardia, Murmur (Holosystolic murmur at the LSB and RSB ) Respiratory: Yes: Diminished (Amteriorly. Patient could not turn for posterior auscultation of the lungs) Gastrointestinal Inspection: No: Hernia ...Auscultate: Yes: Normoactive Bowel Sounds ...Palpate: No: Hepatomegaly, Splenomegaly, Tenderness ...Percussion: No: Tympanitic ...Rectal Exam: Yes: Other (Refused by patient) Musculoskeletal: Yes: Other (Right hip pain) Edema: No (No LE edema) Neurological: Yes: Alert, Oriented Labs: CBC, BMP 06/29/18 11:30 06/29/18 06:30 INR, PTT INR 1.41 (0.83-1.09) H 06/29/18 06:30 Fibrinogen 664.0 mg/dL (238-498) H 06/28/18 06:45 Problem List - Problems (1) Anemia Assessment/Plan: Normocytic anemia: I suspect multifactorial including his underlying hematologic D/O, blood loss from femoral fracture, ? medication regimen From GI standpoint, evaluation is limited as rectal exam was deferred by the patient as were potential procedures such as EGD and colonoscopy. In the setting of an acute femoral fracture, bowel preparation would be extremely difficult to perform at this time as would positioning during the procedure. Check stool for OB when able Continue to eval for non-GI causes of anemia PPI Avoid NSAIDs Code(s): D64.9 - ANEMIA, UNSPECIFIED Qualifiers: Anemia type: unspecified type Qualified Code(s): D64.9 - Anemia, unspecified
--- NOTE | 2018-06-29 14:33 | EKG ---
Test Reason : Blood Pressure : / mmHG Vent. Rate : 100 BPM Atrial Rate : 100 BPM P-R Int : 132 ms QRS Dur : 088 ms QT Int : 352 ms P-R-T Axes : 056 024 027 degrees QTc Int : 454 ms NORMAL SINUS RHYTHM MINIMAL VOLTAGE CRITERIA FOR LVH, MAY BE NORMAL VARIANT BORDERLINE ECG WHEN COMPARED WITH ECG OF 27-JUN-2018 09:19, ST NO LONGER DEPRESSED IN ANTERIOR LEADS NONSPECIFIC T WAVE ABNORMALITY NO LONGER EVIDENT IN LATERAL LEADS Confirmed by Daryn Miranda ([id number]) on 06/29/2018 2:32:55 PM Referred By: Corona GALICIA Confirmed By:Daryn Miranda
--- NOTE | 2018-06-29 16:13 | PN ---
Progress Note, Physician Chief Complaint: EVENTS AND NOTES REVIEWED SCHEDULED FOR SURGERY HIP REPAIR TOMORROW MORNING - Current Medication List Current Medications: Active Medications Acetaminophen (Tylenol -) 650 mg PO Q4H PRN PRN Reason: FEVER Last Admin: 06/28/18 23:27 Dose: 650 mg Alprazolam (Xanax -) 0.5 mg PO Q8H PRN PRN Reason: ANXIETY Last Admin: 06/29/18 09:17 Dose: 0.5 mg Escitalopram Oxalate (Lexapro -) 10 mg PO DAILY [facility] Last Admin: 06/29/18 09:17 Dose: 10 mg Ferrous Sulfate (Feosol -) 325 mg PO BID [facility] Last Admin: 06/29/18 09:17 Dose: 325 mg Gabapentin (Neurontin -) 300 mg PO TID [facility] Last Admin: 06/29/18 13:45 Dose: 300 mg Levetiracetam (Keppra -) 500 mg PO BID [facility] Last Admin: 06/29/18 09:17 Dose: 500 mg Morphine Sulfate (Morphine Sulfate) 4 mg IVPUSH Q4H PRN PRN Reason: PAIN LEVEL 6-10 Last Admin: 06/29/18 15:17 Dose: 4 mg Ondansetron HCl (Zofran Injection) 4 mg IVPUSH Q6H PRN PRN Reason: NAUSEA Oxycodone HCl (Roxicodone -) 10 mg PO Q6H PRN PRN Reason: PAIN LEVEL 1-5 Last Admin: 06/29/18 04:07 Dose: 10 mg Pantoprazole Sodium (Protonix -) 20 mg PO [facility] Last Admin: 06/28/18 21:11 Dose: 20 mg Polyethylene Glycol (Miralax (For Daily Use) -) 17 gm PO DAILY [facility] Last Admin: 06/29/18 10:08 Dose: 17 gm Senna (Senna -) 1 tab PO [facility] - Objective Vital Signs: Vital Signs Temperature 98.0 F 06/29/18 10:26 Pulse Rate 96 H 06/29/18 10:26 Respiratory Rate 18 06/29/18 10:26 Blood Pressure 115/71 06/29/18 10:26 O2 Sat by Pulse Oximetry (%) 96 06/29/18 09:00 Constitutional: Yes: Moderate Distress Eyes: Yes: WNL HENT: Yes: WNL Neck: Yes: WNL Cardiovascular: Yes: Regular Rate and Rhythm, Murmur Respiratory: Yes: WNL Gastrointestinal: Yes: WNL Genitourinary: Yes: WNL Musculoskeletal: Yes: Joint Swelling, Muscle Pain, Muscle Weakness Extremities: Yes: Deformity Edema: Yes Peripheral Pulses WNL: Yes Integumentary: Yes: WNL Wound/Incision: Yes: Clean/Dry Neurological: Yes: Pre-Existing Deficit ...Motor Strength: RLE Psychiatric: Yes: WNL Labs: CBC, BMP 06/29/18 11:30 06/29/18 06:30 INR, PTT INR 1.41 (0.83-1.09) H 06/29/18 06:30 Fibrinogen 664.0 mg/dL (238-498) H 06/28/18 06:45 Problem List - Problems (1) Anemia Code(s): D64.9 - ANEMIA, UNSPECIFIED Qualifiers: Anemia type: unspecified type Qualified Code(s): D64.9 - Anemia, unspecified (2) Fall Code(s): W19.XXXA - UNSPECIFIED FALL, INITIAL ENCOUNTER (3) Hip fracture Code(s): S72.009A - FRACTURE OF UNSP PART OF NECK OF UNSP FEMUR, INIT Qualifiers: Encounter type: initial encounter Fracture type: closed Laterality: right Qualified Code(s): S72.001A - Fracture of unspecified part of neck of right femur, initial encounter for closed fracture (4) Multiple myeloma Code(s): C90.00 - MULTIPLE MYELOMA NOT HAVING ACHIEVED REMISSION (5) STEPHEN (acute kidney injury) Code(s): N17.9 - ACUTE KIDNEY FAILURE, UNSPECIFIED Assessment/Plan MEDICALLY CLEARED FOR RIGHT HIP FRACTURE SURGERY FOR AT THIS POINT THE BENEFI OUTWEIGHS THE RISK PATIENT IS REFUSING COLONOSCOPY HE IS MENTALLY ABLE TO MAKE DECISIONS ALERT AND ORIENTED X 3 DVT PROPHYLXIS CHECK LABS
--- NOTE | 2018-06-29 18:34 | PN ---
Progress Note (short form) - Note Progress Note: Patient seen and examined Complains of pain at hip Has received 5 units of packed cells to date. Still with low Hct Last Vital Signs Temp Pulse Resp BP Pulse Ox 98.0 F 96 H 18 115/71 96 06/29/18 10:26 06/29/18 10:26 06/29/18 10:26 06/29/18 10:06/29/18 09:00 HEENT: LORI, EOM Intact Oropharynx: No thrush, No mucositis Cor: RSR, No murmurs, No gallops Lungs: Clear to P&A Abd: Soft, Normal bowel sounds, No organomegaly Ext:no significant swelling right hip site Skin: No rashes, Integument intact CBC, BMP 06/29/18 11:30 06/29/18 06:30 Current Medications Generic Name Dose Route Start Last Admin Trade Name Freq PRN Reason Stop Dose Admin Acetaminophen 650 mg 06/27/18 15:11 06/28/18 23:27 Tylenol - PO 650 mg Q4H PRN Administration FEVER Alprazolam 0.5 mg 06/28/18 07:17 06/29/18 09:17 Xanax - PO 0.5 mg Q8H PRN Administration ANXIETY Escitalopram Oxalate 10 mg 06/28/18 10:00 06/29/18 09:17 Lexapro - PO 10 mg DAILY AMINAH Administration Ferrous Sulfate 325 mg 06/28/18 10:00 06/29/18 09:17 Feosol - PO 325 mg BID AMINAH Administration Gabapentin 300 mg 06/27/18 16:00 06/29/18 13:45 Neurontin - PO 300 mg TID AMINAH Administration Levetiracetam 500 mg 06/27/18 22:00 06/29/18 09:17 Keppra - PO 500 mg BID AMINAH Administration Morphine Sulfate 4 mg 06/27/18 15:18 06/29/18 15:17 Morphine Sulfate IVPUSH 4 mg Q4H PRN Administration PAIN LEVEL 6-10 Ondansetron HCl 4 mg 06/27/18 15:17 Zofran Injection IVPUSH Q6H PRN NAUSEA Oxycodone HCl 10 mg 06/27/18 15:22 06/29/18 17:01 Roxicodone - PO 10 mg Q6H PRN Administration PAIN LEVEL 1-5 Pantoprazole Sodium 20 mg 06/28/18 22:00 06/28/18 21:11 Protonix - PO 20 mg HS AMINAH Administration Polyethylene Glycol 17 gm 06/29/18 10:00 06/29/18 10:08 Miralax (For Daily Use) - PO 17 gm DAILY AMINAH Administration Senna 1 tab 06/29/18 22:00 Senna - PO HS AMINAH Impression: Multiple myeloma s/p SCT Non secretory myeloma hip fracture for repair ?? pathologic Anemia Anemia - likely multifactorial FE++/TIBC-- compatible with Fe++ deficiency - acute bleeding into femur would not explain these values- therefore must presume that patient was iron deficient prior to current anemia - needs GI work up in future . Hence anemia- Fe++ deficiency, blood loss from fracture, ineffective erythropoiesis from revlimid , ?? other Haptoglobin pending, low retic may not that helpful in view of revlimid, Davi is negative, LDH only minimally elevated - against hemolysis. Ideally would like hct to be 25% or higher prior to planned surgery. Will therefore need to transfuse.
[2018-06-29] MEDS: ACETAMINOPHEN 325 MG TABLET (FP) PO PRN (19:58)
[2018-06-29 19:59] LABS: BASO % 0.3 % (0-2.0); EOS % 0.2 % (0-4.5); HEMATOCRIT 22.3 % (35.4-49); HEMOGLOBIN 7.5 GM/dL (11.7-16.9); LYMPH % 6.1 % (8-40); MCH 27.9 pg (25.7-33.7); MCHC 33.4 g/dl (32.0-35.9); MEAN CELL VOLUME 83.7 fl (80-96); MEAN PLT VOLUME 7.9 fl (7.5-11.1); MONO % 5.1 % (3.8-10.2); NEUT % 88.3 % (42.8-82.8); PLATELET COUNT 138 K/MM3 (134-434); RBC 2.67 M/mm3 (4.00-5.60); RDW 17.4 % (11.9-15.9); WHITE BLOOD COUNT 14.2 K/mm3 (4.0-10.0)
[2018-06-29 20:21] LABS: INR 1.42 (0.83-1.09); PROTHROMBIN TIME (PATIENT) 16.1 SEC (9.7-13.0)
[2018-06-29] MEDS: SENNOSIDES 8.6MG TABLET (FP) PO SCH (21:08)
[2018-06-29] MEDS: PANTOPRAZOLE 20 MG TABLET (FP) PO SCH (21:08)
[2018-06-30] MEDS: morphine SULFATE 4 MG/ML VIAL IVPUSH PRN ×5 (01:08→23:51)
[2018-06-30] MEDS: GABAPENTIN 300 MG CAPSULE (FP) PO SCH ×3 (05:49→21:33)
--- NOTE | 2018-06-30 08:17 | PN ---
Progress Note (short form) - Note Progress Note: Scheduled for O.R. Received overnight one unit of packed cells. 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 with Vitamin K. Last Vital Signs Temp Pulse Resp BP Pulse Ox 98.7 F 96 H 18 133/77 96 06/30/18 06:00 06/30/18 06:00 06/29/18 17:00 06/30/18 06:00 06/29/18 20:49 HEENT: LORI, EOM Intact Oropharynx: No thrush, No mucositis Cor: RSR, systolic murmur Lungs: Clear to P&A Abd: Soft, Normal bowel sounds, No organomegaly Ext:LE edema CBC, BMP 06/29/18 19:43 06/29/18 06:30 INR, PTT INR 1.42 (0.83-1.09) H 06/29/18 19:43 Fibrinogen 664.0 mg/dL (238-498) H 06/28/18 06:45 Current Medications Generic Name Dose Route Start Last Admin Trade Name Freq PRN Reason Stop Dose Admin Acetaminophen 650 mg 06/27/18 15:11 06/29/18 19:58 Tylenol - PO 650 mg Q4H PRN Administration FEVER Alprazolam 0.5 mg 06/28/18 07:17 06/29/18 09:17 Xanax - PO 0.5 mg Q8H PRN Administration ANXIETY Escitalopram Oxalate 10 mg 06/28/18 10:00 06/29/18 09:17 Lexapro - PO 10 mg DAILY AMINAH Administration Ferrous Sulfate 325 mg 06/28/18 10:00 06/29/18 21:08 Feosol - PO 325 mg BID AMINAH Administration Gabapentin 300 mg 06/27/18 16:00 06/30/18 05:49 Neurontin - PO Not Given TID AMINAH Levetiracetam 500 mg 06/27/18 22:00 06/29/18 21:08 Keppra - PO 500 mg BID AMINAH Administration Morphine Sulfate 4 mg 06/27/18 15:18 06/30/18 05:45 Morphine Sulfate IVPUSH 4 mg Q4H PRN Administration PAIN LEVEL 6-10 Ondansetron HCl 4 mg 06/27/18 15:17 Zofran Injection IVPUSH Q6H PRN NAUSEA Oxycodone HCl 10 mg 06/27/18 15:22 06/29/18 17:01 Roxicodone - PO 10 mg Q6H PRN Administration PAIN LEVEL 1-5 Pantoprazole Sodium 20 mg 06/28/18 22:00 06/29/18 21:08 Protonix - PO 20 mg HS AMINAH Administration Polyethylene Glycol 17 gm 06/29/18 10:00 06/29/18 10:08 Miralax (For Daily Use) - PO 17 gm DAILY AMINAH Administration Senna 1 tab 06/29/18 22:00 06/29/18 21:08 Senna - PO 1 tab HS AMINAH Administration Impression: Non secretory Myeloma O.R. Anemia Coagulopathy For VitK, FFP. and transfusion of packed cells.
[2018-06-30] MEDS ORDERED: PHYTONADIONE 10 MG/1 ML AMP SQ ONE (08:30)
[2018-06-30 09:23] LABS: HEMATOCRIT 23.6 % (35.4-49); HEMOGLOBIN 7.8 GM/dL (11.7-16.9); MCH 27.9 pg (25.7-33.7); MCHC 33.1 g/dl (32.0-35.9); MEAN CELL VOLUME 84.5 fl (80-96); MEAN PLT VOLUME 7.7 fl (7.5-11.1); PLATELET COUNT 122 K/MM3 (134-434); RBC 2.79 M/mm3 (4.00-5.60); RDW 16.7 % (11.9-15.9); WHITE BLOOD COUNT 12.7 K/mm3 (4.0-10.0)
[2018-06-30] MEDS: FERROUS SO4 325 MG TABLET (FP) PO SCH ×2 (09:24→21:33)
[2018-06-30] MEDS: levETIRAcetam 500 MG TABLET (FP) PO SCH ×2 (09:24→21:33)
[2018-06-30] MEDS: POLYETHYLENE GLYCOL 3350 119 GM BTL PO SCH (09:24)
[2018-06-30] MEDS: ESCITALOPRAM OXALATE 10 MG TABLET (FP) PO SCH (09:24)
[2018-06-30 09:25] LABS: INR 1.41 (0.83-1.09); PROTHROMBIN TIME (PATIENT) 15.9 SEC (9.7-13.0)
[2018-06-30] MEDS ORDERED: DEXAMETHASONE SOD PHOSPHATE 4 MG/1 ML VIAL ONE ×2 (09:38→11:14)
[2018-06-30] MEDS ORDERED: ONDANSETRON 4 MG/2 ML VIAL ONE ×2 (09:38→11:14)
[2018-06-30] MEDS ORDERED: KETOROLAC TROMETHAMINE 30 MG/1 ML VIAL ONE (09:38)
[2018-06-30 09:39] LABS: ANION GAP 11 MMOL/L (8-16); BLOOD UREA NITROGEN 18 mg/dL (7-18); CALCIUM 7.9 mg/dL (8.5-10.1); CHLORIDE 105 mmol/L (98-107); CO2 22 mmol/L (21-32); CREATININE 0.8 mg/dL (0.7-1.3); GLUCOSE,RANDOM 107 mg/dL (74-106); POTASSIUM 3.6 mmol/L (3.5-5.1); SODIUM 138 mmol/L (136-145)
[2018-06-30] MEDS ORDERED: MIDAZOLAM HCL 2 MG/2 ML SINGLE DOSE VIAL ONE (09:41)
--- NOTE | 2018-06-30 09:41 | PN ---
Progress Note, Physician Chief Complaint: SEEN IN PREOP TRANSFUSED PRBC PRIOR TO SURGERY IN [facility], COMFORTABLE - Current Medication List Current Medications: Active Medications Acetaminophen (Tylenol -) 650 mg PO Q4H PRN PRN Reason: FEVER Last Admin: 06/29/18 19:58 Dose: 650 mg Alprazolam (Xanax -) 0.5 mg PO Q8H PRN PRN Reason: ANXIETY Last Admin: 06/29/18 09:17 Dose: 0.5 mg Escitalopram Oxalate (Lexapro -) 10 mg PO DAILY REPLACED BY [facility] Last Admin: 06/30/18 09:24 Dose: Not Given Ferrous Sulfate (Feosol -) 325 mg PO BID REPLACED BY [facility] Last Admin: 06/30/18 09:24 Dose: Not Given Gabapentin (Neurontin -) 300 mg PO TID REPLACED BY [facility] Last Admin: 06/30/18 05:49 Dose: Not Given Levetiracetam (Keppra -) 500 mg PO BID REPLACED BY [facility] Last Admin: 06/30/18 09:24 Dose: Not Given Morphine Sulfate (Morphine Sulfate) 4 mg IVPUSH Q4H PRN PRN Reason: PAIN LEVEL 6-10 Last Admin: 06/30/18 05:45 Dose: 4 mg Ondansetron HCl (Zofran Injection) 4 mg IVPUSH Q6H PRN PRN Reason: NAUSEA Oxycodone HCl (Roxicodone -) 10 mg PO Q6H PRN PRN Reason: PAIN LEVEL 1-5 Last Admin: 06/29/18 17:01 Dose: 10 mg Pantoprazole Sodium (Protonix -) 20 mg PO [facility] Last Admin: 06/29/18 21:08 Dose: 20 mg Polyethylene Glycol (Miralax (For Daily Use) -) 17 gm PO DAILY REPLACED BY [facility] Last Admin: 06/30/18 09:24 Dose: Not Given Senna (Senna -) 1 tab PO [facility] Last Admin: 06/29/18 21:08 Dose: 1 tab - Objective Vital Signs: Vital Signs Temperature 98.7 F 06/30/18 06:00 Pulse Rate 96 H 06/30/18 06:00 Respiratory Rate 18 06/29/18 17:00 Blood Pressure 133/77 06/30/18 06:00 O2 Sat by Pulse Oximetry (%) 96 06/29/18 20:49 Constitutional: Yes: No Distress Eyes: Yes: WNL HENT: Yes: WNL Neck: Yes: WNL Cardiovascular: Yes: WNL Respiratory: Yes: WNL Gastrointestinal: Yes: WNL Genitourinary: Yes: WNL Musculoskeletal: Yes: Muscle Pain, Muscle Weakness Extremities: Yes: Deformity Peripheral Pulses WNL: Yes Integumentary: Yes: WNL Wound/Incision: Yes: Unapproximated Neurological: Yes: Pre-Existing Deficit ...Motor Strength: LLE, RLE Psychiatric: Yes: WNL Labs: CBC, BMP 06/30/18 08:45 06/30/18 08:45 INR, PTT INR 1.41 (0.83-1.09) H 06/30/18 08:45 Fibrinogen 664.0 mg/dL (238-498) H 06/28/18 06:45 Problem List - Problems (1) Anemia Code(s): D64.9 - ANEMIA, UNSPECIFIED Qualifiers: Anemia type: unspecified type Qualified Code(s): D64.9 - Anemia, unspecified (2) Fall Code(s): W19.XXXA - UNSPECIFIED FALL, INITIAL ENCOUNTER (3) Hip fracture Code(s): S72.009A - FRACTURE OF UNSP PART OF NECK OF UNSP FEMUR, INIT Qualifiers: Encounter type: initial encounter Fracture type: closed Laterality: right Qualified Code(s): S72.001A - Fracture of unspecified part of neck of right femur, initial encounter for closed fracture (4) Multiple myeloma Code(s): C90.00 - MULTIPLE MYELOMA NOT HAVING ACHIEVED REMISSION (5) STEPHEN (acute kidney injury) Code(s): N17.9 - ACUTE KIDNEY FAILURE, UNSPECIFIED Assessment/Plan TRANSFUSE PRBC NEEDED CHECK LABS POSTOP FOLLOW UP WILL NEED RADIATION THERAPY FOR HIP LESION PAIN CONTROL DVT PROPHYLAXIS
[2018-06-30] MEDS ORDERED: ONDANSETRON 4 MG/2 ML VIAL IVPUSH PRN ×2 (09:45→11:30)
[2018-06-30] MEDS ORDERED: ROCURONIUM BROMIDE 50 MG/5 ML VIAL ONE (10:05)
[2018-06-30] MEDS ORDERED: ceFAZolin SODIUM 1 GM VIAL IVPB ONE (10:17)
[2018-06-30] MEDS ORDERED: PROPOFOL 20 ML ONE ×2 (10:24)
[2018-06-30] MEDS ORDERED: SODIUM CHLORIDE 0.9% P/F 10 ML VIAL IJ ONE (10:24)
[2018-06-30] MEDS ORDERED: ceFAZolin SODIUM 1 GM VIAL ONE (10:24)
[2018-06-30] MEDS ORDERED: LIDOCAINE HCL/PF 2% SDV 5ML VIAL ONE ×2 (10:26→10:57)
[2018-06-30] MEDS ORDERED: NEOSTIGMINE METHYLSULFATE 0.5 MG/ML - 10 ML MDV ONE (10:44)
[2018-06-30] MEDS ORDERED: GLYCOPYRROLATE 0.2 MG/1 ML VIAL ONE ×2 (10:44→10:48)
[2018-06-30] MEDS ORDERED: METOPROLOL TARTRATE 5 MG/5 ML VIAL ONE (10:44)
[2018-06-30] MEDS ORDERED: HYDROmorphone HCL/PF 1 MG/ML AMP ONE (10:58)
[2018-06-30] MEDS ORDERED: LACTATED RINGERS SOLUTION 1,000 ML IV SCH (11:30)
[2018-06-30] MEDS ORDERED: MAGNESIUM HYDROX 2400MG/30ML ORAL SUSPENSION 30 ML CUP PO PRN (11:30)
[2018-06-30] MEDS ORDERED: MAG HYDROX/AL HYDROX/SIMETH 30 ML UNIT-DOSE CUP PO PRN (11:30)
--- NOTE | 2018-06-30 11:34 | OP ---
Operative Note - Note: Operative Date: 06/30/18 ([facility]) Pre-Operative Diagnosis: right femoral neck fx Operation: right hip hemiarthroplasty- cemented Post-Operative Diagnosis: Same as Pre-op Surgeon: Hector Burnett Criminal Profiler: Michael Ricardo Anesthesiologist/VETERINARY SURGERY TECHNICIAN: Cristi Garcia Anesthesia: General, Local Specimens Removed: femoral head Estimated Blood Loss (mls): 250 Operative Report Dictated: Yes
[2018-06-30] MEDS ORDERED: oxyCODONE HCL 5 MG TABLET PO PRN (12:38)
[2018-06-30] MEDS ORDERED: ACETAMINOPHEN 1000 MG/100 ML VIAL (NON FORMULARY) IVPB ONE (12:38)
--- NOTE | 2018-06-30 12:52 | OP ---
DATE OF OPERATION: 06/30/2018 PREOPERATIVE DIAGNOSIS: Pathologic fracture of right femoral neck. POSTOPERATIVE DIAGNOSIS: Pathologic fracture of right femoral neck. PROCEDURE: Right cemented hip hemiarthroplasty. SURGICAL ATTENDING: Hector Burnett MD IRON INSTALLER: DEANDRE Jones ANESTHESIA: General. CLOSURE: A Chen Accolade cemented stem No. 6 and a standard 49 bipolar. No. 1 Vicryl for capsule and fascia, 0 and 2-0 subcutaneous and david for skin. ESTIMATED BLOOD LOSS: Approximately 150 mL. COMPLICATIONS: None. CONDITION TO RECOVERY ROOM: Stable condition. INDICATIONS FOR OPERATIVE PROCEDURE: Patient is a 58-year-old male with known multiple myeloma status post fall. Patient was denying any pain in his hip prior to the fall. He was admitted through the emergency room with a diagnosis of a displaced femoral neck fracture. Workup in the hospital revealed a hematocrit of 12. Patient required multiple transfusions pre- and perioperatively to get his hematocrit to an operable state. Preoperative CAT scan also revealed that the patient did have some lytic lesions superior in the acetabulum and in the pelvis and down in the greater trochanter region. It was thus decided to put in a cemented hemiarthroplasty. I discussed the possibility of a total hip replacement with the patient. He wanted less of a procedure as well, and due to his low blood count I felt a total hip replacement would extend the case and be more blood loss and be more difficult for the patient, so we elected to go forward with the cemented hemiarthroplasty. DESCRIPTION OF PROCEDURE: Patient taken to the operating room on June 30, 2018. General anesthesia with endotracheal intubation was administered by the anesthesiologist. IV Kefzol was administered prophylactically prior to the case. Patient was placed in the lateral decubitus position with all prominences well padded by using a hip positioner. Foam rolls were placed under the knee and the ankle of the down leg, and an axillary roll was placed as well. The right hip area was prepped and draped in the usual sterile fashion. A 12- to 14-cm curved longitudinal incision on the posterolateral aspect of the greater trochanter was incised. Hemostasis was achieved with Bovie electrocautery. Sharp dissection was carried down to the level of the fascia, which was opened the entire length of the incision, spreading the fibers of the gluteus nick. A Charnley retractor was placed, and care was taken not to impale the sciatic nerve. Short external rotators were detached off the insertion of the greater trochanter, peeled off the capsule. The capsule had been torn due to the fracture. The osteotomy was performed on the neck using the saw at the appropriate level. A corkscrew was used to remove the femoral head from the acetabulum and was measured to be 49 mm. A 49 trial achieved good suction fit. The proximal femur was prepared using a box chisel, lateralizing reamers, and serial broaches until the No. 6 stem achieved good fill. A trial reduction with a standard high-offset neck and a 49 bipolar achieved equal limb lengths and was stable to marked flexion at 90 degrees' flexion, was stable to adduction, internal rotation, had a positive hang test, negative telescoping, and good stability in external rotation and in extension. Trial component was removed. The real No. 6 was then cemented in using modern generation cement techniques with antibiotic cement and pressurization. The hip was copiously irrigated, and I investigated to remove all excess cement. The real 49 bipolar was then cold welded and the hip was reduced. Range of motion, stability, and limb lengths were as described earlier. The hip was pulse antibiotic irrigated. The fascia and the capsule were closed with No. 1 Vicryl, 0 and 2-0 subcutaneous, and david to the skin. A sterile pressure dressing was applied. Patient was flipped to the supine position. Bilateral SCDs and abduction pillow were applied, as well as an x-ray showing excellent position of the components. Patient was awakened from anesthesia and transferred to recovery room in stable condition. No complications. Estimated blood loss less than 150 mL. Kelvin [id number]
[2018-06-30] MEDS: LACTATED RINGERS SOLUTION 1,000 ML IV SCH (13:00)
[2018-06-30] MEDS: CEFAZOLIN 2 GM/D5W 2 GM/50 ML ML IVPB SCH (18:40)
[2018-06-30] MEDS: SENNOSIDES/DOCUSATE COMBO (SENNA PLUS) TABLET (UD) PO SCH (21:33)
[2018-06-30] MEDS: SENNOSIDES 8.6MG TABLET (FP) PO SCH (21:33)
[2018-06-30] MEDS: PANTOPRAZOLE 20 MG TABLET (FP) PO SCH (21:33)
[2018-06-30] MEDS ORDERED: GABAPENTIN 300 MG CAPSULE (FP) PO SCH (22:00)
[2018-06-30] MEDS: oxyCODONE HCL 5 MG TABLET PO PRN (22:22)
[2018-07-01] MEDS: ACETAMINOPHEN 325 MG TABLET (FP) PO PRN ×2 (01:19→16:03)
[2018-07-01] MEDS: ALPRAZolam 0.25 MG TABLET PO PRN (01:23)
[2018-07-01] MEDS: CEFAZOLIN 2 GM/D5W 2 GM/50 ML ML IVPB SCH (02:34)
[2018-07-01] MEDS: oxyCODONE HCL 5 MG TABLET PO PRN ×4 (02:39→21:58)
[2018-07-01] MEDS: morphine SULFATE 4 MG/ML VIAL IVPUSH PRN ×2 (04:49→08:50)
[2018-07-01] MEDS: GABAPENTIN 300 MG CAPSULE (FP) PO SCH ×3 (06:11→21:02)
[2018-07-01] MEDS: LACTATED RINGERS SOLUTION 1,000 ML IV SCH ×2 (06:13→10:45)
[2018-07-01 07:56] LABS: HEMATOCRIT 20.5 % (35.4-49); MCH 27.7 pg (25.7-33.7); MCHC 32.9 g/dl (32.0-35.9); MEAN PLT VOLUME 7.8 fl (7.5-11.1); PLATELET COUNT 114 K/MM3 (134-434); RBC 2.43 M/mm3 (4.00-5.60); RDW 17.9 % (11.9-15.9); WHITE BLOOD COUNT 11.2 K/mm3 (4.0-10.0)
[2018-07-01 08:02] LABS: HEMOGLOBIN 6.7 GM/dL (11.7-16.9)
[2018-07-01 08:32] LABS: ANION GAP 9 MMOL/L (8-16); BLOOD UREA NITROGEN 27 mg/dL (7-18); CALCIUM 7.7 mg/dL (8.5-10.1); CHLORIDE 103 mmol/L (98-107); CO2 26 mmol/L (21-32); CREATININE 1.1 mg/dL (0.7-1.3); GLUCOSE,RANDOM 114 mg/dL (74-106); POTASSIUM 3.6 mmol/L (3.5-5.1); SODIUM 138 mmol/L (136-145)
--- NOTE | 2018-07-01 09:26 | PN ---
Progress Note (short form) - Note Progress Note: Ortho Pt seen and examined s/p right hip nathan pod #1 Selected Entries 07/01/18 08:18 Temperature 98.7 F Pulse Rate 102 H Respiratory 20 Rate Blood Pressure 110/70 Laboratory Tests 07/01/18 07:15 WBC 11.2 H Hgb 6.7 L* Hct 20.5 L Plt Count 114 L dressing with slight saturation but not to the borders, calf soft, nt nvi a/p PT,wbat monitor h/h pain control dvt ppx hip precautions d/c planning
--- NOTE | 2018-07-01 09:37 | PN ---
Progress Note, Physician Chief Complaint: patient seen and examined wants to go home h/h note will give PRBC PT to see patient today - Current Medication List Current Medications: Active Medications Acetaminophen (Tylenol -) 650 mg PO Q4H PRN PRN Reason: FEVER Last Admin: 07/01/18 01:19 Dose: 650 mg Al Hydroxide/Mg Hydroxide (Mylanta Oral Suspension -) 30 ml PO Q4H PRN PRN Reason: DYSPEPSIA Alprazolam (Xanax -) 0.5 mg PO Q8H PRN PRN Reason: ANXIETY Last Admin: 07/01/18 01:23 Dose: 0.5 mg Enoxaparin Sodium (Lovenox -) 30 mg SQ BID [facility] Escitalopram Oxalate (Lexapro -) 10 mg PO DAILY [facility] Last Admin: 06/30/18 09:24 Dose: Not Given Fentanyl (Sublimaze Injection -) 50 mcg IVPUSH [id number] PRN PRN Reason: PAIN-PACU ORDER X 4 DOSES ONLY Last Admin: 06/30/18 13:35 Dose: 50 mcg Ferrous Sulfate (Feosol -) 325 mg PO BID [facility] Last Admin: 06/30/18 21:33 Dose: 325 mg Gabapentin (Neurontin -) 300 mg PO TID [facility] Last Admin: 07/01/18 06:11 Dose: 300 mg Gabapentin (Neurontin -) 300 mg PO BID [facility] Stop: 07/03/18 21:59 Last Admin: 06/30/18 21:34 Dose: 300 mg Lactated Ringer's (Lactated Ringers Solution) 1,000 mls @ 75 mls/hr IV ASDIR [facility] Last Admin: 07/01/18 06:13 Dose: 75 mls/hr Levetiracetam (Keppra -) 500 mg PO BID [facility] Last Admin: 06/30/18 21:33 Dose: 500 mg Magnesium Hydroxide (Milk Of Magnesia -) 30 ml PO PRN PRN PRN Reason: CONSTIPATION Morphine Sulfate (Morphine Sulfate) 4 mg IVPUSH Q4H PRN PRN Reason: PAIN LEVEL 6-10 Last Admin: 07/01/18 08:50 Dose: 4 mg Multivitamins/Minerals/Vitamin C (Tab-A-Vit -) 1 tab PO DAILY [facility] Ondansetron HCl (Zofran Injection) 4 mg IVPUSH Q6H PRN PRN Reason: NAUSEA Ondansetron HCl (Zofran Injection) 4 mg IVPUSH Q6H PRN PRN Reason: NAUSEA AND/OR VOMITING Ondansetron HCl (Zofran Injection) 4 mg IVPUSH Q6H PRN PRN Reason: NAUSEA Oxycodone HCl (Roxicodone -) 10 mg PO Q6H PRN PRN Reason: PAIN LEVEL 1-5 Last Admin: 06/29/18 17:01 Dose: 10 mg Oxycodone HCl (Roxicodone -) 5 mg PO Q3H PRN PRN Reason: PAIN LEVEL 1-5 Oxycodone HCl (Roxicodone -) 10 mg PO Q3H PRN PRN Reason: PAIN LEVEL 6-10 Last Admin: 07/01/18 06:37 Dose: 10 mg Pantoprazole Sodium (Protonix -) 20 mg PO [facility] Last Admin: 06/30/18 21:33 Dose: 20 mg Polyethylene Glycol (Miralax (For Daily Use) -) 17 gm PO DAILY [facility] Last Admin: 06/30/18 09:24 Dose: Not Given Senna (Senna -) 1 tab PO [facility] Last Admin: 06/30/18 21:33 Dose: 1 tab Senna/Docusate Sodium (Pericolace -) 1 tablet PO BID [facility] Last Admin: 06/30/18 21:33 Dose: 1 tablet - Objective Vital Signs: Vital Signs Temperature 98.7 F 07/01/18 08:18 Pulse Rate 102 H 07/01/18 08:18 Respiratory Rate 20 07/01/18 08:18 Blood Pressure 110/70 07/01/18 08:18 O2 Sat by Pulse Oximetry (%) 98 06/30/18 21:00 Constitutional: Yes: Calm Neck: Yes: Trachea Midline Cardiovascular: Yes: Regular Rate and Rhythm, S1, S2 Respiratory: Yes: CTA Bilaterally Gastrointestinal: Yes: Normal Bowel Sounds, Soft Musculoskeletal: Yes: Other (right hip aquacel dressing slightly soaked) Neurological: Yes: Alert, Oriented Labs: CBC, BMP 07/01/18 07:15 07/01/18 07:15 INR, PTT INR 1.41 (0.83-1.09) H 06/30/18 08:45 Fibrinogen 664.0 mg/dL (238-498) H 06/28/18 06:45 Problem List - Problems (1) Hip fracture Assessment/Plan: - Note: Operative Date: 06/30/18 ([facility]) Pre-Operative Diagnosis: right femoral neck fx Operation: right hip hemiarthroplasty- cemented Post-Operative Diagnosis: Same as Pre-op Surgeon: Hector Burnett Learning And Development Administrator: Michael Ricardo Anesthesiologist/CENTRAL STERILE SUPPLY TECHNICIAN: Cristi Garcia Anesthesia: General, Local Specimens Removed: femoral head Estimated Blood Loss (mls): 250 Operative Report Dictated: Yes PT today to see patient VNS with PT at home pain control MS contin bid and oxycodone q4hrs prn stool softners Code(s): S72.009A - FRACTURE OF UNSP PART OF NECK OF UNSP FEMUR, INIT Qualifiers: Encounter type: initial encounter Fracture type: closed Laterality: right Qualified Code(s): S72.001A - Fracture of unspecified part of neck of right femur, initial encounter for closed fracture (2) Anemia Assessment/Plan: prbc today given drop in h/h from 7.8 to 6.7 got prbc yesterday prior to surgery venofer iv given low iron after prbc transfusion heme follow up avoid NSAIDS appreciate GI follow up Code(s): D64.9 - ANEMIA, UNSPECIFIED Qualifiers: Anemia type: unspecified type Qualified Code(s): D64.9 - Anemia, unspecified
[2018-07-01] MEDS: FERROUS SO4 325 MG TABLET (FP) PO SCH ×2 (10:51→21:02)
[2018-07-01] MEDS: SENNOSIDES/DOCUSATE COMBO (SENNA PLUS) TABLET (UD) PO SCH ×2 (10:51→21:02)
[2018-07-01] MEDS: MULTIVITAMINS (DAILY MVI) TABLET (FP) PO SCH (10:51)
[2018-07-01] MEDS: morphine SO4 SUSTAINED ACTING 30 MG TABLET.SA PO SCH ×2 (10:51→21:02)
[2018-07-01] MEDS: ESCITALOPRAM OXALATE 10 MG TABLET (FP) PO SCH (10:51)
[2018-07-01] MEDS: ENOXAPARIN NA (PORCINE) 30 MG/0.3 ML DISP.SYRIN SQ SCH ×2 (10:52→21:01)
[2018-07-01] MEDS: levETIRAcetam 500 MG TABLET (FP) PO SCH ×2 (10:52→21:02)
[2018-07-01] MEDS: POLYETHYLENE GLYCOL 3350 119 GM BTL PO SCH (10:55)
--- NOTE | 2018-07-01 13:15 | PN ---
Progress Note (short form) - Note Progress Note: Anesthesia POD#1 S/P Right Hip repair under GA VSS,anemic today,Hg dropped,PRBC transfusion to given. Pain is under control now.No N/V. No complication to anesthesia seen. Sherrill Townsend MD.
--- NOTE | 2018-07-01 16:43 | PN ---
Physical Exam: SUBJECTIVE: Patient seen and examined at bed side this morning. Denies chest pain, sob, cough, palpitation, abdominal pain, nausea or vomiting. Bladder habit normal. Sleep normal. No acute overnight events. OBJECTIVE: Vital Signs Period Temp Pulse Resp BP Sys/[place] Pulse Ox Last 24 Hr 98.0 F-100 F 90-109 20-20 110-133/61-74 95-98 GENERAL: Morbidly obese patient, lying comfortably in bed, is awake, alert, and fully oriented, in no acute distress. HEAD: Normal with no signs of trauma. EYES: EOM intact, Pallor +, no icterus. . ENT: Ears normal. moist mucous membranes. NECK: Supple. LUNGS: B/L Breath sounds equal, clear to auscultation bilaterally, no wheezes, no crackles, no accessory muscle use. HEART: Regular rate and rhythm, S1, S2 with systolic murmur. ABDOMEN: Soft, nontender, nondistended, normoactive bowel sounds, no guarding, no rebound, no hepatosplenomegaly, no masses. UPPER EXTREMITIES: 2+ pulses, warm, well-perfused, no edema. LOWER EXTREMITIES: LEFT: 2+ pulses, warm, well-perfused, no edema. RIGHT: Pain in the right hip, dressing over the surgical site NEUROLOGICAL: No facial droop. Normal speech, gait not observed. PSYCH: Normal mood, normal affect. SKIN: Warm, dry, normal turgor, no rashes or lesions noted Laboratory Results - last 24 hr 06/27/18 06/28/18 06/29/18 08:07 06:45 08:45 WBC RBC Hgb Hct MCV MCH MCHC RDW Plt Count MPV Sodium Potassium Chloride Carbon Dioxide Anion Gap BUN Creatinine Creat Clearance w eGFR Random Glucose Calcium LIVIER & SPEP Interp Blood Type O NEGATIVE Antibody Screen Negative Crossmatch See Detail See Detail 07/01/18 07/01/18 07/01/18 07:15 07:15 10:45 WBC 11.2 H RBC 2.43 L Hgb 6.7 L* Hct 20.5 L MCV 84.0 MCH 27.7 MCHC 32.9 RDW 17.9 H Plt Count 114 L MPV 7.8 Sodium 138 Potassium 3.6 Chloride 103 Carbon Dioxide 26 Anion Gap 9 BUN 27 H Creatinine 1.1 Creat Clearance w eGFR > 60 Random Glucose 114 H Calcium 7.7 L LIVIER & SPEP Interp Blood Type O NEGATIVE Antibody Screen Negative Crossmatch See Detail Active Medications Generic Name Dose Route Start Last Admin Trade Name Ubaldoq PRN Reason Stop Dose Admin Acetaminophen 650 mg 06/27/18 15:11 07/01/18 16:03 Tylenol - PO 650 mg Q4H PRN Administration FEVER Al Hydroxide/Mg Hydroxide 30 ml 06/30/18 11:30 Mylanta Oral Suspension - PO Q4H PRN DYSPEPSIA Alprazolam 0.5 mg 06/28/18 07:17 07/01/18 01:23 Xanax - PO 0.5 mg Q8H PRN Administration ANXIETY Enoxaparin Sodium 30 mg 07/01/18 10:00 07/01/18 10:52 Lovenox - SQ 30 mg BID AMIN[facility] Administration Escitalopram Oxalate 10 mg 06/28/18 10:00 07/01/18 10:51 Lexapro - PO 10 mg DAILY [facility] Administration Fentanyl 50 mcg 06/30/18 09:45 06/30/18 13:35 Sublimaze Injection - IVPUSH 50 mcg [id number] PRN Administration PAIN-PACU ORDER X 4 DOSES ONLY Ferrous Sulfate 325 mg 06/28/18 10:00 07/01/18 10:51 Feosol - PO 325 mg BID [facility] Administration Gabapentin 300 mg 06/27/18 16:00 07/01/18 14:48 Neurontin - PO 300 mg TID AMINAH Administration Levetiracetam 500 mg 06/27/18 22:00 07/01/18 10:52 Keppra - PO 500 mg BID [facility] Administration Magnesium Hydroxide 30 ml 06/30/18 11:30 Milk Of Magnesia - PO PRN PRN CONSTIPATION Morphine Sulfate 30 mg 07/01/18 10:45 07/01/18 10:51 Ms Contin - PO 30 mg BID [facility]IN[facility] Administration Multivitamins/Minerals/Vitamin C 1 tab 07/01/18 10:00 07/01/18 10:51 Tab-A-Vit - PO 1 tab DAILY [facility] Administration Ondansetron HCl 4 mg 06/27/18 15:17 Zofran Injection IVPUSH Q6H PRN NAUSEA Ondansetron HCl 4 mg 06/30/18 09:45 Zofran Injection IVPUSH Q6H PRN NAUSEA AND/OR VOMITING Ondansetron HCl 4 mg 06/30/18 11:30 Zofran Injection IVPUSH Q6H PRN NAUSEA Oxycodone HCl 10 mg 07/01/18 09:56 07/01/18 16:03 Roxicodone - PO 10 mg Q4H PRN Administration PAIN LEVEL 1-5 Pantoprazole Sodium 20 mg 06/28/18 22:00 06/30/18 21:33 Protonix - PO 20 mg HS AMIN[facility] Administration Polyethylene Glycol 17 gm 06/29/18 10:00 07/01/18 10:55 Miralax (For Daily Use) - PO Not Given DAILY [facility] Senna 1 tab 06/29/18 22:00 06/30/18 21:33 Senna - PO 1 tab HS [facility] Administration Senna/Docusate Sodium 1 tablet 06/30/18 22:00 07/01/18 10:51 Pericolace - PO 1 tablet BID [facility] Administration 06/27/2018 x-ray right Hip: Acute right femoral neck fracture with right inferior pubic ramus deformity compatible with probable old trauma. Patient is a 58 year old man who presented to the ED with right hip pain after he had a mechanical fall. ASSESSMENT: Right femoral neck fracture s/p right hip nathan pod #2 Acute blood loss normocytic anemia STEPHEN Increased troponin: likely from demand ischemia. Multiple myeloma Seizure disorder-on Keppra. Plan: Acute blood loss normocytic Iron deficiency anemia H/H 6.7/20.5 s/p 1 prbc today. Etiology could be GI source (has Iron def anemia), would consider Endoscopy and Colonoscopy when stable. Hemolysis ruled out: Davi test negative, LDH normal. Multiple myeloma is also a contributing factor for anemia. Increased INR in patient not on AC INR-1.4 could be from liver disease. Needs more work up. Rest as per primary team. Plan of care explained to the patient. He verbalized understanding. Case discussed with Dr. Walker Visit type - Emergency Visit Emergency Visit: Yes ED Registration Date: 06/27/18 Care time: The patient presented to the Emergency Department on the above date and was hospitalized for further evaluation of their emergent condition. - New Patient This patient is new to me today: No - Critical Care Critical Care patient: No - Discharge Referral Referred to [facility] Med [facility].C[facility] No
[2018-07-01 17:44] LABS: BASO % 0.2 % (0-2.0); EOS % 1.1 % (0-4.5); HEMOGLOBIN 7.6 GM/dL (11.7-16.9); LYMPH % 8.9 % (8-40); MCH 28.2 pg (25.7-33.7); MCHC 33.2 g/dl (32.0-35.9); MEAN CELL VOLUME 84.8 fl (80-96); MEAN PLT VOLUME 7.9 fl (7.5-11.1); MONO % 9.2 % (3.8-10.2); NEUT % 80.6 % (42.8-82.8); PLATELET COUNT 130 K/MM3 (134-434); RBC 2.71 M/mm3 (4.00-5.60); RDW 16.7 % (11.9-15.9); WHITE BLOOD COUNT 11.9 K/mm3 (4.0-10.0)
[2018-07-01] MEDS: SENNOSIDES 8.6MG TABLET (FP) PO SCH (21:01)
[2018-07-01] MEDS: PANTOPRAZOLE 20 MG TABLET (FP) PO SCH (21:01)
[2018-07-02] MEDS: oxyCODONE HCL 5 MG TABLET PO PRN ×3 (01:54→15:53)
[2018-07-02] MEDS: ALPRAZolam 0.25 MG TABLET PO PRN (04:31)
[2018-07-02] MEDS: GABAPENTIN 300 MG CAPSULE (FP) PO SCH ×3 (06:00→21:38)
[2018-07-02 07:34] LABS: HEMATOCRIT 22.3 % (35.4-49); HEMOGLOBIN 7.4 GM/dL (11.7-16.9); MCH 28.1 pg (25.7-33.7); MCHC 33.3 g/dl (32.0-35.9); MEAN CELL VOLUME 84.3 fl (80-96); MEAN PLT VOLUME 7.4 fl (7.5-11.1); PLATELET COUNT 116 K/MM3 (134-434); RBC 2.65 M/mm3 (4.00-5.60); WHITE BLOOD COUNT 11.6 K/mm3 (4.0-10.0)
[2018-07-02] MEDS: MULTIVITAMINS (DAILY MVI) TABLET (FP) PO SCH (09:41)
[2018-07-02] MEDS: FERROUS SO4 325 MG TABLET (FP) PO SCH ×2 (09:41→21:38)
[2018-07-02] MEDS: levETIRAcetam 500 MG TABLET (FP) PO SCH ×2 (09:41→21:37)
[2018-07-02] MEDS: ESCITALOPRAM OXALATE 10 MG TABLET (FP) PO SCH (09:41)
[2018-07-02] MEDS: ENOXAPARIN NA (PORCINE) 30 MG/0.3 ML DISP.SYRIN SQ SCH ×2 (09:41→21:39)
[2018-07-02] MEDS: morphine SO4 SUSTAINED ACTING 30 MG TABLET.SA PO SCH ×2 (09:41→21:37)
[2018-07-02] MEDS: SENNOSIDES/DOCUSATE COMBO (SENNA PLUS) TABLET (UD) PO SCH ×2 (09:42→21:38)
[2018-07-02] MEDS: POLYETHYLENE GLYCOL 3350 119 GM BTL PO SCH (09:43)
--- NOTE | 2018-07-02 10:44 | PN ---
Progress Note, Physician Chief Complaint: patient got PRBC yesterday h/h slightly improved today got out of bed with walker and stood up currently back in bed in pain explained to him he will need rehab therapy prior to going home - Current Medication List Current Medications: Active Medications Acetaminophen (Tylenol -) 650 mg PO Q4H PRN PRN Reason: FEVER Last Admin: 07/01/18 16:03 Dose: 650 mg Al Hydroxide/Mg Hydroxide (Mylanta Oral Suspension -) 30 ml PO Q4H PRN PRN Reason: DYSPEPSIA Last Admin: 07/02/18 07:32 Dose: 30 ml Alprazolam (Xanax -) 0.5 mg PO Q8H PRN PRN Reason: ANXIETY Last Admin: 07/02/18 04:31 Dose: 0.5 mg Enoxaparin Sodium (Lovenox -) 30 mg SQ BID [facility] Last Admin: 07/02/18 09:41 Dose: 30 mg Escitalopram Oxalate (Lexapro -) 10 mg PO DAILY [facility] Last Admin: 07/02/18 09:41 Dose: 10 mg Fentanyl (Sublimaze Injection -) 50 mcg IVPUSH [id number] PRN PRN Reason: PAIN-PACU ORDER X 4 DOSES ONLY Last Admin: 06/30/18 13:35 Dose: 50 mcg Ferrous Sulfate (Feosol -) 325 mg PO BID [facility] Last Admin: 07/02/18 09:41 Dose: 325 mg Gabapentin (Neurontin -) 300 mg PO TID [facility] Last Admin: 07/02/18 06:00 Dose: 300 mg Levetiracetam (Keppra -) 500 mg PO BID [facility] Last Admin: 07/02/18 09:41 Dose: 500 mg Magnesium Hydroxide (Milk Of Magnesia -) 30 ml PO PRN PRN PRN Reason: CONSTIPATION Morphine Sulfate (Ms Contin -) 30 mg PO BID [facility] Last Admin: 07/02/18 09:41 Dose: 30 mg Multivitamins/Minerals/Vitamin C (Tab-A-Vit -) 1 tab PO DAILY [facility] Last Admin: 07/02/18 09:41 Dose: 1 tab Ondansetron HCl (Zofran Injection) 4 mg IVPUSH Q6H PRN PRN Reason: NAUSEA Ondansetron HCl (Zofran Injection) 4 mg IVPUSH Q6H PRN PRN Reason: NAUSEA AND/OR VOMITING Ondansetron HCl (Zofran Injection) 4 mg IVPUSH Q6H PRN PRN Reason: NAUSEA Oxycodone HCl (Roxicodone -) 10 mg PO Q4H PRN PRN Reason: PAIN LEVEL 1-5 Last Admin: 07/02/18 06:00 Dose: 10 mg Pantoprazole Sodium (Protonix -) 20 mg PO HS [facility] Last Admin: 07/01/18 21:01 Dose: 20 mg Polyethylene Glycol (Miralax (For Daily Use) -) 17 gm PO DAILY [facility] Last Admin: 07/02/18 09:43 Dose: Not Given Senna (Senna -) 1 tab PO HS [facility] Last Admin: 07/01/18 21:01 Dose: 1 tab Senna/Docusate Sodium (Pericolace -) 1 tablet PO BID [facility] Last Admin: 07/02/18 09:42 Dose: 1 tablet - Objective Vital Signs: Vital Signs Temperature 98.8 F 07/02/18 09:34 Pulse Rate 111 H 07/02/18 09:34 Respiratory Rate 20 07/02/18 09:34 Blood Pressure 116/71 07/02/18 09:34 O2 Sat by Pulse Oximetry (%) 96 07/01/18 21:00 Constitutional: Yes: Calm Cardiovascular: Yes: Regular Rate and Rhythm, S1, S2 Respiratory: Yes: CTA Bilaterally Gastrointestinal: Yes: Normal Bowel Sounds, Soft Musculoskeletal: Yes: Other (aquacel dressing) Edema: No Neurological: Yes: Alert, Oriented Labs: CBC, BMP 07/02/18 07:00 07/01/18 07:15 INR, PTT INR 1.41 (0.83-1.09) H 06/30/18 08:45 Fibrinogen 664.0 mg/dL (238-498) H 06/28/18 06:45 Problem List - Problems (1) Hip fracture Assessment/Plan: - Note: Operative Date: 06/30/18 ([facility]) Pre-Operative Diagnosis: right femoral neck fx Operation: right hip hemiarthroplasty- cemented Post-Operative Diagnosis: Same as Pre-op Surgeon: Hector Burnett Dairy Scientist: Michael Ricardo Anesthesiologist/INTERNATIONAL RECRUITER: Cristi Garcia Anesthesia: General, Local Specimens Removed: femoral head Estimated Blood Loss (mls): 250 Operative Report Dictated: Yes PT saw pateint will most likely need rehab pain control MS contin bid and oxycodone q4hrs prn stool softners Code(s): S72.009A - FRACTURE OF UNSP PART OF NECK OF UNSP FEMUR, INIT Qualifiers: Encounter type: initial encounter Fracture type: closed Laterality: right Qualified Code(s): S72.001A - Fracture of unspecified part of neck of right femur, initial encounter for closed fracture (2) Anemia Assessment/Plan: s/p prbc now h/h in 7 range heme folow up appreciated avoid NSAIDS appreciate GI follow up Code(s): D64.9 - ANEMIA, UNSPECIFIED Qualifiers: Anemia type: unspecified type Qualified Code(s): D64.9 - Anemia, unspecified Assessment/Plan awaiting rehab placement prbc iv venofer
--- NOTE | 2018-07-02 12:03 | PN ---
Progress Note (short form) - Note Progress Note: Ortho Pt seen and examined s/p right hip nathan pod #2 Selected Entries 07/02/18 09:34 Temperature 98.8 F Pulse Rate 111 H Respiratory 20 Rate Blood Pressure 116/71 Laboratory Tests 07/02/18 07:00 WBC 11.6 H Hgb 7.4 L Hct 22.3 L Plt Count 116 L dressing with slight saturation, calf soft, nt nvi a/p dressing changed PT,wbat pain control dvt ppx hip precautions d/c planning
--- NOTE | 2018-07-02 12:16 | PN ---
GI Progress Note Subjective: Found laying in bed in no distress States having some hip pain but that it is improved - Objective Vital Signs: Vital Signs Temperature 98.8 F 07/02/18 09:34 Pulse Rate 111 H 07/02/18 09:34 Respiratory Rate 20 07/02/18 09:34 Blood Pressure 116/71 07/02/18 09:34 O2 Sat by Pulse Oximetry (%) 96 07/02/18 09:00 Constitutional: Calm Eyes: No: Sclera Icterus Cardiovascular: Yes: Regular Rate and Rhythm, Murmur Gastrointestinal Inspection: No: Distention ...Auscultate: Yes: Normoactive Bowel Sounds ...Palpate: No: Hepatomegaly, Splenomegaly, Tenderness Labs: CBC, BMP 07/02/18 07:00 07/01/18 07:15 INR, PTT INR 1.41 (0.83-1.09) H 06/30/18 08:45 Fibrinogen 664.0 mg/dL (238-498) H 06/28/18 06:45 Problem List - Problems (1) Anemia Assessment/Plan: Spoke with Mr. Leiva. I explained that there is a component of iron deficiency and to exclude potential sources of GI blood loss such as colon cancer, bleeding blood vessel, EGD/COlonoscopy can be undertaken. He stated "Not now, That is for Paulohue to sort out". I advised that he follow-up with his Oncologist when acute issues are resolved to arrange further evaluation. Code(s): D64.9 - ANEMIA, UNSPECIFIED Qualifiers: Anemia type: unspecified type Qualified Code(s): D64.9 - Anemia, unspecified
[2018-07-02] MEDS: ACETAMINOPHEN 325 MG TABLET (FP) PO PRN (15:54)
[2018-07-02] MEDS: PANTOPRAZOLE 20 MG TABLET (FP) PO SCH (21:37)
[2018-07-02] MEDS: SENNOSIDES 8.6MG TABLET (FP) PO SCH (21:38)
--- NOTE | 2018-07-02 23:13 | PN ---
Progress Note (short form) - Note Progress Note: Patient seen No specific complaints Refused to be examined AFVSS Refused to be examined Labs/meds reviewed A/P This is a 58 year old man who presented to the ED with right hip pain after falling while getting out of bed Presenting with severe anemia, mild renal insufficiency Patient was diagnosed with Non/Oligo secretory myeloma in 12/2016--shifted care to Dr. Ajay Artis at [facility] . Does not recall the induction regimen. Received auto SCT in 12/13. Has been on revlimid 10mg daily and was last seen by Dr. Artis 2 weeks ago per patient. ?unsure if he is on bisphosphonates/denosumab rechecking protein studies---but patient with non/oligosecretory myeloma. mostly bony disease Discussed with Dr. Artis at [facility]--s/p autoSCT in 12/13. BMBX 03/12 showed no evidence of disease anemia-- ++ iron deficiency anemia-- refusing gi w/u ++ component of chronic disease from myeloma bone disease BMBX 03/12 showed no e/o myeloma per Dr. Artis, oncologist at [facility]---Baseline Hgb never above [address] Artis revlimid on hold for now transfusing PRBCs as necessary. s/p 5 to 7 units Davi negative. LDH borderline hence hemolysis unlikely
[2018-07-03] MEDS: oxyCODONE HCL 5 MG TABLET PO PRN ×5 (00:44→19:14)
[2018-07-03] MEDS: ACETAMINOPHEN 325 MG TABLET (FP) PO PRN ×4 (04:49→19:15)
[2018-07-03] MEDS: GABAPENTIN 300 MG CAPSULE (FP) PO SCH ×3 (06:21→21:38)
[2018-07-03 08:30] LABS: BASO % 0.9 % (0-2.0); EOS % 2.7 % (0-4.5); HEMATOCRIT 22.7 % (35.4-49); HEMOGLOBIN 7.6 GM/dL (11.7-16.9); LYMPH % 8.8 % (8-40); MCH 28.3 pg (25.7-33.7); MCHC 33.3 g/dl (32.0-35.9); MEAN CELL VOLUME 85.1 fl (80-96); MEAN PLT VOLUME 7.7 fl (7.5-11.1); MONO % 9.3 % (3.8-10.2); NEUT % 78.3 % (42.8-82.8); PLATELET COUNT 132 K/MM3 (134-434); RBC 2.67 M/mm3 (4.00-5.60); WHITE BLOOD COUNT 10.9 K/mm3 (4.0-10.0)
[2018-07-03] MEDS: morphine SO4 SUSTAINED ACTING 30 MG TABLET.SA PO SCH ×2 (09:20→21:38)
[2018-07-03] MEDS: SENNOSIDES/DOCUSATE COMBO (SENNA PLUS) TABLET (UD) PO SCH ×2 (09:22→21:38)
[2018-07-03] MEDS: FERROUS SO4 325 MG TABLET (FP) PO SCH ×2 (09:22→21:39)
[2018-07-03] MEDS: MULTIVITAMINS (DAILY MVI) TABLET (FP) PO SCH (09:22)
[2018-07-03] MEDS: ENOXAPARIN NA (PORCINE) 30 MG/0.3 ML DISP.SYRIN SQ SCH ×2 (09:22→21:39)
[2018-07-03] MEDS: POLYETHYLENE GLYCOL 3350 119 GM BTL PO SCH (09:22)
[2018-07-03] MEDS: levETIRAcetam 500 MG TABLET (FP) PO SCH ×2 (09:22→21:38)
[2018-07-03] MEDS: ESCITALOPRAM OXALATE 10 MG TABLET (FP) PO SCH (09:22)
--- NOTE | 2018-07-03 12:36 | PN ---
Progress Note, Physician - Current Medication List Current Medications: Active Medications Acetaminophen (Tylenol -) 650 mg PO Q4H PRN PRN Reason: FEVER Last Admin: 07/03/18 11:11 Dose: 650 mg Al Hydroxide/Mg Hydroxide (Mylanta Oral Suspension -) 30 ml PO Q4H PRN PRN Reason: DYSPEPSIA Last Admin: 07/02/18 07:32 Dose: 30 ml Alprazolam (Xanax -) 0.5 mg PO Q8H PRN PRN Reason: ANXIETY Last Admin: 07/02/18 04:31 Dose: 0.5 mg Enoxaparin Sodium (Lovenox -) 30 mg SQ BID [facility] Last Admin: 07/03/18 09:22 Dose: 30 mg Escitalopram Oxalate (Lexapro -) 10 mg PO DAILY [facility] Last Admin: 07/03/18 09:22 Dose: 10 mg Fentanyl (Sublimaze Injection -) 50 mcg IVPUSH [id number] PRN PRN Reason: PAIN-PACU ORDER X 4 DOSES ONLY Last Admin: 06/30/18 13:35 Dose: 50 mcg Ferrous Sulfate (Feosol -) 325 mg PO BID [facility] Last Admin: 07/03/18 09:22 Dose: 325 mg Gabapentin (Neurontin -) 300 mg PO TID [facility] Last Admin: 07/03/18 06:21 Dose: 300 mg Levetiracetam (Keppra -) 500 mg PO BID [facility] Last Admin: 07/03/18 09:22 Dose: 500 mg Magnesium Hydroxide (Milk Of Magnesia -) 30 ml PO PRN PRN PRN Reason: CONSTIPATION Morphine Sulfate (Ms Contin -) 30 mg PO BID [facility] Last Admin: 07/03/18 09:20 Dose: 30 mg Multivitamins/Minerals/Vitamin C (Tab-A-Vit -) 1 tab PO DAILY [facility] Last Admin: 07/03/18 09:22 Dose: 1 tab Ondansetron HCl (Zofran Injection) 4 mg IVPUSH Q6H PRN PRN Reason: NAUSEA Ondansetron HCl (Zofran Injection) 4 mg IVPUSH Q6H PRN PRN Reason: NAUSEA AND/OR VOMITING Ondansetron HCl (Zofran Injection) 4 mg IVPUSH Q6H PRN PRN Reason: NAUSEA Oxycodone HCl (Roxicodone -) 10 mg PO Q4H PRN PRN Reason: PAIN LEVEL 1-5 Last Admin: 07/03/18 11:11 Dose: 10 mg Pantoprazole Sodium (Protonix -) 20 mg PO [facility] Last Admin: 07/02/18 21:37 Dose: 20 mg Polyethylene Glycol (Miralax (For Daily Use) -) 17 gm PO DAILY [facility] Last Admin: 07/03/18 09:22 Dose: Not Given Senna (Senna -) 1 tab PO HS [facility] Last Admin: 07/02/18 21:38 Dose: 1 tab Senna/Docusate Sodium (Pericolace -) 1 tablet PO BID [facility] Last Admin: 07/03/18 09:22 Dose: 1 tablet - Objective Vital Signs: Vital Signs Temperature 98.2 F 07/03/18 08:00 Pulse Rate 98 H 07/03/18 08:00 Respiratory Rate 16 07/03/18 08:00 Blood Pressure 111/66 07/03/18 08:00 O2 Sat by Pulse Oximetry (%) 96 07/03/18 09:00 Labs: CBC, BMP 07/03/18 06:20 07/01/18 07:15 INR, PTT INR 1.41 (0.83-1.09) H 06/30/18 08:45 Fibrinogen 664.0 mg/dL (238-498) H 06/28/18 06:45 Problem List - Problems (1) Fall Assessment/Plan: -pt Code(s): W19.XXXA - UNSPECIFIED FALL, INITIAL ENCOUNTER (2) Multiple myeloma Assessment/Plan: - Heme/onc consult-on board Code(s): C90.00 - MULTIPLE MYELOMA NOT HAVING ACHIEVED REMISSION (3) Hip fracture Assessment/Plan: [facility] Pre-Operative Diagnosis: right femoral neck fx Operation: right hip hemiarthroplasty- cemented Post-Operative Diagnosis: Same as Pre-op Surgeon: Hector Burnett Code(s): S72.009A - FRACTURE OF UNSP PART OF NECK OF UNSP FEMUR, INIT Qualifiers: Encounter type: initial encounter Fracture type: closed Laterality: right Qualified Code(s): S72.001A - Fracture of unspecified part of neck of right femur, initial encounter for closed fracture (4) Murmur Code(s): R01.1 - CARDIAC MURMUR, UNSPECIFIED (5) STEPHEN (acute kidney injury) Assessment/Plan: - Most recent available creatinine was 1.1 (11/2016) - Likely secondary to hypoperfusion, may have chronic component secondary to multiple myeloma - Transfuse, IV fluids - Monitor BUN/creatinine -Oncology on board Code(s): N17.9 - ACUTE KIDNEY FAILURE, UNSPECIFIED (6) Anemia Assessment/Plan: - Severe anemia secondary to multiple myeloma - Transfused PRBCs - Monitor hemoglobin hem anemia-- ++ iron deficiency anemia-- refusing gi w/u ++ component of chronic disease from myeloma bone disease BMBX 03/12 showed no e/o myeloma per Dr. Artis, oncologist at [facility] [place]---Baseline Hgb never above [address] Artis revlimid on hold for now transfusing PRBCs as necessary. s/p 5 to 7 units Davi negative. LDH borderline hence hemolysis unlikely Code(s): D64.9 - ANEMIA, UNSPECIFIED Qualifiers: Anemia type: unspecified type Qualified Code(s): D64.9 - Anemia, unspecified
--- NOTE | 2018-07-03 13:00 | PN ---
Progress Note (short form) - Note Progress Note: HEMATOLOGY CONSULT NOTE : Patient seen No specific complaints AFVSS Labs/meds reviewed CBC, BMP 07/03/18 06:20 07/01/18 07:15 Current Medications Generic Name Dose Route Start Last Admin Trade Name Freq PRN Reason Stop Dose Admin Acetaminophen 650 mg 06/27/18 15:11 07/03/18 11:11 Tylenol - PO 650 mg Q4H PRN Administration FEVER Al Hydroxide/Mg Hydroxide 30 ml 06/30/18 11:30 07/02/18 07:32 Mylanta Oral Suspension - PO 30 ml Q4H PRN Administration DYSPEPSIA Alprazolam 0.5 mg 06/28/18 07:17 07/02/18 04:31 Xanax - PO 0.5 mg Q8H PRN Administration ANXIETY Enoxaparin Sodium 30 mg 07/01/18 10:00 07/03/18 09:22 Lovenox - SQ 30 mg BID AMINAH Administration Escitalopram Oxalate 10 mg 06/28/18 10:00 07/03/18 09:22 Lexapro - PO 10 mg DAILY AMINAH Administration Fentanyl 50 mcg 06/30/18 09:45 06/30/18 13:35 Sublimaze Injection - IVPUSH 50 mcg [id number] PRN Administration PAIN-PACU ORDER X 4 DOSES ONLY Ferrous Sulfate 325 mg 06/28/18 10:00 07/03/18 09:22 Feosol - PO 325 mg BID AMINAH Administration Gabapentin 300 mg 06/27/18 16:00 07/03/18 06:21 Neurontin - PO 300 mg TID AMINAH Administration Levetiracetam 500 mg 06/27/18 22:00 07/03/18 09:22 Keppra - PO 500 mg BID AMINAH Administration Magnesium Hydroxide 30 ml 06/30/18 11:30 Milk Of Magnesia - PO PRN PRN CONSTIPATION Morphine Sulfate 30 mg 07/01/18 10:45 07/03/18 09:20 Ms Contin - PO 30 mg BID AMINAH Administration Multivitamins/Minerals/Vitamin C 1 tab 07/01/18 10:00 07/03/18 09:22 Tab-A-Vit - PO 1 tab DAILY AMINAH Administration Ondansetron HCl 4 mg 06/27/18 15:17 Zofran Injection IVPUSH Q6H PRN NAUSEA Ondansetron HCl 4 mg 06/30/18 09:45 Zofran Injection IVPUSH Q6H PRN NAUSEA AND/OR VOMITING Ondansetron HCl 4 mg 06/30/18 11:30 Zofran Injection IVPUSH Q6H PRN NAUSEA Oxycodone HCl 10 mg 07/01/18 09:56 07/03/18 11:11 Roxicodone - PO 10 mg Q4H PRN Administration PAIN LEVEL 1-5 Pantoprazole Sodium 20 mg 06/28/18 22:00 07/02/18 21:37 Protonix - PO 20 mg HS AMINAH Administration Polyethylene Glycol 17 gm 06/29/18 10:00 07/03/18 09:22 Miralax (For Daily Use) - PO Not Given DAILY AMINAH Senna 1 tab 06/29/18 22:00 07/02/18 21:38 Senna - PO 1 tab HS AMINAH Administration Senna/Docusate Sodium 1 tablet 06/30/18 22:00 07/03/18 09:22 Pericolace - PO 1 tablet BID [facility]IN[facility] Administration A/P This is a 58 year old man who presented to the ED with right hip pain after falling while getting out of bed Presenting with severe anemia, mild renal insufficiency Patient was diagnosed with Non/Oligo secretory myeloma in 12/2016--shifted care to Dr. Ajay Artis at [facility] . Does not recall the induction regimen. Received auto SCT in 12/13. Has been on revlimid 10mg daily and was last seen by Dr. Artis 2 weeks ago per patient. ?unsure if he is on bisphosphonates/denosumab rechecking protein studies---but patient with non/oligosecretory myeloma. mostly bony disease Discussed with Dr. Artis at [facility]--s/p autoSCT in 12/13. BMBX 03/12 showed no evidence of disease anemia-- ++ iron deficiency anemia-- declines gi w/u ++ component of chronic disease from myeloma bone disease BMBX 03/12 showed no e/o myeloma per Dr. Artis, oncologist at [facility]---Baseline Hgb never above [address] Artis revlimid on hold for now transfusing PRBCs as necessary. s/p 5 to 7 units Davi negative. LDH borderline hence hemolysis unlikely
--- NOTE | 2018-07-03 17:16 | PN ---
Progress Note (short form) - Note Progress Note: Ortho Pt seen and examined s/p right hip nathan pod #3 Selected Entries 07/03/18 15:16 Temperature 98.0 F Pulse Rate 99 H Respiratory 16 Rate Blood Pressure 113/68 Laboratory Tests 07/03/18 06:20 WBC 10.9 H Hgb 7.6 L Hct 22.7 L Plt Count 132 L dressing c/d/i, calf soft, nt nvi a/p PT,wbat pain control dvt ppx hip precautions d/c to snf tomorrow
[2018-07-03] MEDS: PANTOPRAZOLE 20 MG TABLET (FP) PO SCH (21:38)
[2018-07-03] MEDS: SENNOSIDES 8.6MG TABLET (FP) PO SCH (21:39)
[2018-07-04] MEDS: ACETAMINOPHEN 325 MG TABLET (FP) PO PRN ×3 (00:51→13:04)
[2018-07-04] MEDS: oxyCODONE HCL 5 MG TABLET PO PRN ×4 (00:52→20:13)
[2018-07-04] MEDS: ALPRAZolam 0.25 MG TABLET PO PRN ×2 (06:01→22:09)
[2018-07-04] MEDS: GABAPENTIN 300 MG CAPSULE (FP) PO SCH ×3 (06:02→22:03)
[2018-07-04 07:52] LABS: BASO % 0.9 % (0-2.0); EOS % 5.9 % (0-4.5); HEMATOCRIT 24.7 % (35.4-49); HEMOGLOBIN 8.2 GM/dL (11.7-16.9); LYMPH % 8.4 % (8-40); MCH 28.5 pg (25.7-33.7); MCHC 33.1 g/dl (32.0-35.9); MEAN CELL VOLUME 85.9 fl (80-96); MEAN PLT VOLUME 7.8 fl (7.5-11.1); MONO % 9.7 % (3.8-10.2); NEUT % 75.1 % (42.8-82.8); PLATELET COUNT 141 K/MM3 (134-434); RBC 2.87 M/mm3 (4.00-5.60); RDW 16.7 % (11.9-15.9); WHITE BLOOD COUNT 8.1 K/mm3 (4.0-10.0)
[2018-07-04 08:52] LABS: ALBUMIN 2.1 g/dl (3.4-5.0); ANION GAP 11 MMOL/L (8-16); BLOOD UREA NITROGEN 16 mg/dL (7-18); CHLORIDE 104 mmol/L (98-107); CO2 25 mmol/L (21-32); GLUCOSE,RANDOM 116 mg/dL (74-106); POTASSIUM 3.6 mmol/L (3.5-5.1); SGOT/AST 49 U/L (15-37); SGPT/ALT 50 U/L (12-78); SODIUM 140 mmol/L (136-145)
[2018-07-04 08:55] LABS: ALK PHOS 210 U/L (45-117); BILIRUBIN,TOTAL 1.1 mg/dL (0.2-1.0); CREATININE 0.8 mg/dL (0.7-1.3); TOT PROT 5.3 g/dl (6.4-8.2)
[2018-07-04] MEDS: MULTIVITAMINS (DAILY MVI) TABLET (FP) PO SCH (09:38)
[2018-07-04] MEDS: ESCITALOPRAM OXALATE 10 MG TABLET (FP) PO SCH (09:38)
[2018-07-04] MEDS: morphine SO4 SUSTAINED ACTING 30 MG TABLET.SA PO SCH ×2 (09:38→22:02)
[2018-07-04] MEDS: levETIRAcetam 500 MG TABLET (FP) PO SCH ×2 (09:38→22:03)
[2018-07-04] MEDS: SENNOSIDES/DOCUSATE COMBO (SENNA PLUS) TABLET (UD) PO SCH ×2 (09:38→22:03)
[2018-07-04] MEDS: FERROUS SO4 325 MG TABLET (FP) PO SCH ×2 (09:38→22:03)
[2018-07-04] MEDS: ENOXAPARIN NA (PORCINE) 30 MG/0.3 ML DISP.SYRIN SQ SCH ×2 (09:39→22:03)
[2018-07-04] MEDS: POLYETHYLENE GLYCOL 3350 119 GM BTL PO SCH (09:39)
--- NOTE | 2018-07-04 14:21 | PN ---
Progress Note, Physician - Current Medication List Current Medications: Active Medications Acetaminophen (Tylenol -) 650 mg PO Q4H PRN PRN Reason: FEVER Last Admin: 07/04/18 13:04 Dose: 650 mg Al Hydroxide/Mg Hydroxide (Mylanta Oral Suspension -) 30 ml PO Q4H PRN PRN Reason: DYSPEPSIA Last Admin: 07/02/18 07:32 Dose: 30 ml Alprazolam (Xanax -) 0.5 mg PO Q8H PRN PRN Reason: ANXIETY Last Admin: 07/04/18 06:01 Dose: 0.5 mg Enoxaparin Sodium (Lovenox -) 30 mg SQ BID [facility] Last Admin: 07/04/18 09:39 Dose: 30 mg Escitalopram Oxalate (Lexapro -) 10 mg PO DAILY [facility] Last Admin: 07/04/18 09:38 Dose: 10 mg Ferrous Sulfate (Feosol -) 325 mg PO BID [facility] Last Admin: 07/04/18 09:38 Dose: 325 mg Gabapentin (Neurontin -) 300 mg PO TID [facility] Last Admin: 07/04/18 13:04 Dose: 300 mg Levetiracetam (Keppra -) 500 mg PO BID [facility] Last Admin: 07/04/18 09:38 Dose: 500 mg Magnesium Hydroxide (Milk Of Magnesia -) 30 ml PO PRN PRN PRN Reason: CONSTIPATION Morphine Sulfate (Ms Contin -) 30 mg PO BID [facility] Last Admin: 07/04/18 09:38 Dose: 30 mg Multivitamins/Minerals/Vitamin C (Tab-A-Vit -) 1 tab PO DAILY [facility] Last Admin: 07/04/18 09:38 Dose: 1 tab Pantoprazole Sodium (Protonix -) 20 mg PO [facility] Last Admin: 07/03/18 21:38 Dose: 20 mg Polyethylene Glycol (Miralax (For Daily Use) -) 17 gm PO DAILY [facility] Last Admin: 07/04/18 09:39 Dose: Not Given Senna (Senna -) 1 tab PO [facility] Last Admin: 07/03/18 21:39 Dose: 1 tab Senna/Docusate Sodium (Pericolace -) 1 tablet PO BID [facility] Last Admin: 07/04/18 09:38 Dose: 1 tablet - Objective Vital Signs: Vital Signs Temperature 98.0 F 07/04/18 09:26 Pulse Rate 99 H 09/09/18 09:26 Respiratory Rate 16 07/04/18 09:26 Blood Pressure 112/57 07/04/18 09:26 O2 Sat by Pulse Oximetry (%) 96 07/03/18 09:00 Cardiovascular: Yes: S1, S2 Respiratory: Yes: Regular, CTA Bilaterally Gastrointestinal: Yes: Normal Bowel Sounds, Soft Labs: CBC, BMP 07/04/18 06:45 07/04/18 06:45 INR, PTT INR 1.41 (0.83-1.09) H 06/30/18 08:45 Fibrinogen 664.0 mg/dL (238-498) H 06/28/18 06:45 Problem List - Problems (1) Fall Assessment/Plan: -pt--snf Code(s): W19.XXXA - UNSPECIFIED FALL, INITIAL ENCOUNTER (2) Multiple myeloma Assessment/Plan: - Heme/onc consult-on board Code(s): C90.00 - MULTIPLE MYELOMA NOT HAVING ACHIEVED REMISSION (3) Hip fracture Assessment/Plan: Operative Date: 06/30/18 ([facility]) Pre-Operative Diagnosis: right femoral neck fx Operation: right hip hemiarthroplasty- cemented Post-Operative Diagnosis: Same as Pre-op Surgeon: Hector Burnett Oxycodonmilli prn Code(s): S72.009A - FRACTURE OF UNSP PART OF NECK OF UNSP FEMUR, INIT Qualifiers: Encounter type: initial encounter Fracture type: closed Laterality: right Qualified Code(s): S72.001A - Fracture of unspecified part of neck of right femur, initial encounter for closed fracture (4) Murmur Code(s): R01.1 - CARDIAC MURMUR, UNSPECIFIED (5) STEPHEN (acute kidney injury) Assessment/Plan: - Most recent available creatinine was 1.1 (11/2016) - Likely secondary to hypoperfusion, may have chronic component secondary to multiple myeloma - Transfused - Monitor BUN/creatinine -Oncology on board Code(s): N17.9 - ACUTE KIDNEY FAILURE, UNSPECIFIED (6) Anemia Assessment/Plan: - Severe anemia secondary to multiple myeloma - Transfused PRBCs - Monitor hemoglobin Laboratory Tests 07/04/18 06:45 Hgb 8.2 L Hct 24.7 L hem anemia-- ++ iron deficiency anemia-- refusing gi w/u ++ component of chronic disease from myeloma bone disease BMBX 03/12 showed no e/o myeloma per Dr. Artis, oncologist at [facility]---Baseline Hgb never above [address] Artis revlimid on hold for now transfusing PRBCs as necessary. s/p 5 to 7 units Davi negative. LDH borderline hence hemolysis unlikely Code(s): D64.9 - ANEMIA, UNSPECIFIED Qualifiers: Anemia type: unspecified type Qualified Code(s): D64.9 - Anemia, unspecified
[2018-07-04] MEDS: SENNOSIDES 8.6MG TABLET (FP) PO SCH (22:03)
[2018-07-04] MEDS: PANTOPRAZOLE 20 MG TABLET (FP) PO SCH (22:03)
[2018-07-05] MEDS: GABAPENTIN 300 MG CAPSULE (FP) PO SCH ×3 (05:54→21:33)
[2018-07-05] MEDS: oxyCODONE HCL 5 MG TABLET PO PRN ×2 (05:54→14:01)
[2018-07-05] MEDS: MULTIVITAMINS (DAILY MVI) TABLET (FP) PO SCH (10:43)
[2018-07-05] MEDS: levETIRAcetam 500 MG TABLET (FP) PO SCH ×2 (10:44→21:33)
[2018-07-05] MEDS: morphine SO4 SUSTAINED ACTING 30 MG TABLET.SA PO SCH ×2 (10:44→21:33)
[2018-07-05] MEDS: ESCITALOPRAM OXALATE 10 MG TABLET (FP) PO SCH (10:44)
[2018-07-05] MEDS: FERROUS SO4 325 MG TABLET (FP) PO SCH ×2 (10:44→21:32)
[2018-07-05] MEDS: SENNOSIDES/DOCUSATE COMBO (SENNA PLUS) TABLET (UD) PO SCH ×2 (10:44→21:33)
[2018-07-05] MEDS: ENOXAPARIN NA (PORCINE) 30 MG/0.3 ML DISP.SYRIN SQ SCH ×2 (10:45→21:33)
[2018-07-05] MEDS: POLYETHYLENE GLYCOL 3350 119 GM BTL PO SCH (10:50)
--- NOTE | 2018-07-05 11:10 | PN ---
Progress Note (short form) - Note Progress Note: Ortho Pt seen and examined s/p right hip nathan pod #5 Selected Entries 07/04/18 07/05/18 21:00 06:00 Temperature 98.8 F Pulse Rate 105 H Respiratory 18 Rate Blood Pressure 141/81 Laboratory Tests 07/04/18 06:45 WBC 8.1 Hgb 8.2 L Hct 24.7 L Plt Count 141 dressing c/d/i, calf soft, nt nvi a/p PT,wbat pain control dvt ppx hip precautions d/c planning
[2018-07-05] MEDS ORDERED: PT OWN MED DRAWER 7, Y5N ONE (11:48)
--- NOTE | 2018-07-05 17:36 | PATH ---
Surgical Pathology Report Patient Name: LEN LANDRY Med. Rec. #: [id number] /Age/Gender: 1960 (Age: 58) / M Account: [id number] Location: [address] [place] [address]/[facility] Taken: 06/30/2018 Received: 06/30/2018 Reported: 07/05/2018 Physicians: Kelvin Ro M.D. Smitha Mellacheruvu, M.D. 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 INTRATRABECULAR HEMORRHAGE CONSISTENT WITH FRACTURE. SEE COMMENT. Comment: Histologic sections show diffuse involvement of plasma cells including rare atypical forms and mitosis. Immunohistochemical stains performed at [place], [place] ([id number]) and interpreted at [facility] show the plasma cells are positive for CD138 and lambda IHC; while negative for MUM-1 and [place] (I[facility]). Overall morphologic findings and immunophenotype are consistent with involvement by a plasma cell neoplasm. Suggest clinical/radiologic correlation. Findings discussed with Dr. Powers. Electronically Signed Nicolette Bhatia M.D. Gross Description Received in formalin labeled "femoral head," is a 4.6 x 4.6 x 2.8 cm portion of femoral head with no femoral neck attached. There is an attached ligament but no additional soft tissue. The margin of resection is brown and focally jagged. The articular surface is focally lifting away from the underlying bone. There are no areas of eburnation identified. The underlying trabecular bone is focally necrotic. Revenue Accounting Manager sections are submitted in 6 cassettes as follows: 1-ligament; 8-6-vmtaugtvwmvqhm bone, following decalcification. /07/01/2018 saudi/07/01/2018
--- NOTE | 2018-07-05 18:10 | DS ---
Physical Examination Vital Signs: Vital Signs Temperature 98.9 F 07/05/18 10:52 Pulse Rate 103 H 07/05/18 10:52 Respiratory Rate 18 07/05/18 10:52 Blood Pressure 107/65 07/05/18 10:52 O2 Sat by Pulse Oximetry (%) 96 07/05/18 09:00 Findings/Remarks: This is a 58 year old man who comes to the ED complaining of pain in his right hip. He says that he lost his balance while getting out of bed this morning and fell hitting his right hip on the floor. He was unable to get up from the floor and so he remained on the floor for about 1 hour, until he was able to get his cell phone and call EMS. He denies head trauma, loss of consciousness. Constitutional: Yes: Well Nourished, No Distress, Calm Cardiovascular: Yes: Regular Rate and Rhythm Respiratory: Yes: Regular Gastrointestinal: Yes: Normal Bowel Sounds, Soft, Abdomen, Obese Musculoskeletal: Yes: Muscle Weakness Wound/Incision: Yes: Dressing Dry and Intact (right hip) Neurological: Yes: Alert, Oriented Psychiatric: Yes: Alert, Oriented Labs: CBC, BMP 07/04/18 06:45 07/04/18 06:45 Discharge Summary Reason For Visit: ANEMIA, FX OF HIP Current Active Problems Anemia (Acute) Fall (Acute) Hip fracture (Acute) Multiple myeloma (Acute) Hospital Course: Operative Date: 06/30/18 ([facility]) Pre-Operative Diagnosis: right femoral neck fx Operation: right hip hemiarthroplasty- cemented Post-Operative Diagnosis: Same as Pre-op Surgeon: Hector Burnett Research Engineer: Michael Ricardo Condition: Stable - Instructions Diet, Activity, Other Instructions: Follow up with Dr Hector Burnett within 3 weeks Follow up with PCP within 2 weeks Follow up with Oncology within 1 month Repeat CBC/CMP in 2 weeks Referrals: Hector Burnett MD [Staff Physician] - Migel Dozier MD [Staff Physician] - Denise Powers MD [Staff Physician] - Disposition: VNS/HOME HEALTH CARE - Home Medications Comprehensive Discharge Medication List: Ambulatory Orders Acyclovir [Zovirax -] 400 mg PO BID 06/27/18 Alprazolam 1 mg PO DAILY PRN 06/27/18 Ergocalciferol [Vitamin D2] 50,000 unit PO WEEKLY 06/27/18 Escitalopram Oxalate [Lexapro -] 10 mg PO DAILY 06/27/18 FENTANYL 12mcg PATCH [DURAGESIC 12mcg PATCH -] 1 patch TD Q72H 06/27/18 Ferrous Sulfate 325 mg PO BID 06/27/18 Gabapentin [Neurontin -] 300 mg PO BID 06/27/18 Hydromorphone HCl 2 mg PO Q8H PRN 06/27/18 Levetiracetam [Keppra] 500 mg PO BID 06/27/18 Pantoprazole Sodium [Protonix -] 20 mg PO HS 06/27/18 Sulfamethoxazole/Trimethoprim [Bactrim DS -] 1 tab PO Q2D 06/27/18
[2018-07-05] MEDS: ACETAMINOPHEN 325 MG TABLET (FP) PO PRN (18:59)
[2018-07-05] MEDS: IRON SUCROSE INJECTION 300 MG in SODIUM CHLORIDE 235 ML IVPB SCH (19:57)
[2018-07-05] MEDS: ALPRAZolam 0.25 MG TABLET PO PRN (21:32)
[2018-07-05] MEDS: PANTOPRAZOLE 20 MG TABLET (FP) PO SCH (21:32)
[2018-07-05] MEDS: SENNOSIDES 8.6MG TABLET (FP) PO SCH (21:32)
[2018-07-06] MEDS: oxyCODONE HCL 5 MG TABLET PO PRN ×2 (02:30→08:46)
[2018-07-06 04:06] LABS: URINE APPEARANCE CLEAR; URINE BILIRUBIN NEGATIVE (<2.0 mg/dL); URINE COLOR AMBER; URINE GLUCOSE (UA) NEGATIVE (NEGATIVE); URINE KETONE NEGATIVE (NEGATIVE); URINE LEUK ESTERASE NEGATIVE (NEGATIVE); URINE NITRITE NEGATIVE (NEGATIVE); URINE PROTEIN NEGATIVE (NEGATIVE); URINE UROBILINOGEN 4.0 E.U/dl mg/dL (0.2-1.0)
[2018-07-06 04:10] LABS: URINE MUCUS RARE
[2018-07-06] MEDS: GABAPENTIN 300 MG CAPSULE (FP) PO SCH ×2 (05:51→15:06)
[2018-07-06 08:18] LABS: CHLORIDE 100 mmol/L (98-107); POTASSIUM 3.8 mmol/L (3.5-5.1); SODIUM 134 mmol/L (136-145)
[2018-07-06 08:27] LABS: ALBUMIN 2.2 g/dl (3.4-5.0); ALK PHOS 211 U/L (45-117); ANION GAP 8 MMOL/L (8-16); BASO % 0.9 % (0-2.0); BLOOD UREA NITROGEN 13 mg/dL (7-18); CO2 26 mmol/L (21-32); CREATININE 0.8 mg/dL (0.7-1.3); EOS % 2.2 % (0-4.5); GLUCOSE,RANDOM 104 mg/dL (74-106); HEMATOCRIT 26.2 % (35.4-49); HEMOGLOBIN 8.4 GM/dL (11.7-16.9); LYMPH % 8.6 % (8-40); MCH 27.6 pg (25.7-33.7); MCHC 32.1 g/dl (32.0-35.9); MEAN PLT VOLUME 8.5 fl (7.5-11.1); MONO % 8.9 % (3.8-10.2); NEUT % 79.4 % (42.8-82.8); PLATELET COUNT 177 K/MM3 (134-434); RBC 3.05 M/mm3 (4.00-5.60); RDW 16.9 % (11.9-15.9); SGOT/AST 43 U/L (15-37); SGPT/ALT 41 U/L (12-78); TOT PROT 5.6 g/dl (6.4-8.2); WHITE BLOOD COUNT 8.4 K/mm3 (4.0-10.0)
[2018-07-06] MEDS: morphine SO4 SUSTAINED ACTING 30 MG TABLET.SA PO SCH (10:21)
[2018-07-06] MEDS: ESCITALOPRAM OXALATE 10 MG TABLET (FP) PO SCH (10:22)
[2018-07-06] MEDS: levETIRAcetam 500 MG TABLET (FP) PO SCH (10:22)
[2018-07-06] MEDS: MULTIVITAMINS (DAILY MVI) TABLET (FP) PO SCH (10:22)
[2018-07-06] MEDS: FERROUS SO4 325 MG TABLET (FP) PO SCH (10:22)
[2018-07-06] MEDS: SENNOSIDES/DOCUSATE COMBO (SENNA PLUS) TABLET (UD) PO SCH (10:22)
[2018-07-06] MEDS: POLYETHYLENE GLYCOL 3350 119 GM BTL PO SCH (10:27)
[2018-07-06] MEDS: ENOXAPARIN NA (PORCINE) 30 MG/0.3 ML DISP.SYRIN SQ SCH (10:27)
[2018-07-06] MEDS: IRON SUCROSE INJECTION 300 MG in SODIUM CHLORIDE 235 ML IVPB SCH (10:53)
--- NOTE | 2018-07-06 11:10 | PN ---
Progress Note, Physician Chief Complaint: Right femoral head fracture History of Present Illness: NAD awaiting discharge home with VNS walker prescription provided meds sent to pharmacy - Current Medication List Current Medications: Active Medications Acetaminophen (Tylenol -) 650 mg PO Q4H PRN PRN Reason: FEVER Last Admin: 07/05/18 18:59 Dose: 650 mg Al Hydroxide/Mg Hydroxide (Mylanta Oral Suspension -) 30 ml PO Q4H PRN PRN Reason: DYSPEPSIA Last Admin: 07/02/18 07:32 Dose: 30 ml Alprazolam (Xanax -) 0.5 mg PO Q8H PRN PRN Reason: ANXIETY Last Admin: 07/05/18 21:32 Dose: 0.5 mg Enoxaparin Sodium (Lovenox -) 30 mg SQ BID [facility] Last Admin: 07/06/18 10:27 Dose: 30 mg Escitalopram Oxalate (Lexapro -) 10 mg PO DAILY [facility] Last Admin: 07/06/18 10:22 Dose: 10 mg Ferrous Sulfate (Feosol -) 325 mg PO BID [facility] Last Admin: 07/06/18 10:22 Dose: 325 mg Gabapentin (Neurontin -) 300 mg PO TID [facility] Last Admin: 07/06/18 05:51 Dose: 300 mg Levetiracetam (Keppra -) 500 mg PO BID [facility] Last Admin: 07/06/18 10:22 Dose: 500 mg Magnesium Hydroxide (Milk Of Magnesia -) 30 ml PO PRN PRN PRN Reason: CONSTIPATION Morphine Sulfate (Ms Contin -) 30 mg PO BID [facility] Last Admin: 07/06/18 10:21 Dose: 30 mg Multivitamins/Minerals/Vitamin C (Tab-A-Vit -) 1 tab PO DAILY [facility] Last Admin: 07/06/18 10:22 Dose: 1 tab Oxycodone HCl (Roxicodone -) 10 mg PO Q6H PRN PRN Reason: PAIN LEVEL 6-10 Last Admin: 07/06/18 08:46 Dose: 10 mg Pantoprazole Sodium (Protonix -) 20 mg PO [facility] Last Admin: 07/05/18 21:32 Dose: 20 mg Polyethylene Glycol (Miralax (For Daily Use) -) 17 gm PO DAILY [facility] Last Admin: 07/06/18 10:27 Dose: Not Given Senna (Senna -) 1 tab PO [facility] Last Admin: 07/05/18 21:32 Dose: 1 tab Senna/Docusate Sodium (Pericolace -) 1 tablet PO BID [facility] Last Admin: 07/06/18 10:22 Dose: 1 tablet - Objective Vital Signs: Vital Signs Temperature 99.5 F 07/06/18 06:00 Pulse Rate 100 H 07/06/18 06:00 Respiratory Rate 20 07/06/18 06:00 Blood Pressure 106/74 07/06/18 06:00 O2 Sat by Pulse Oximetry (%) 96 07/05/18 22:00 Constitutional: Yes: Well Nourished, No Distress, Calm Cardiovascular: Yes: Regular Rate and Rhythm Respiratory: Yes: Regular Gastrointestinal: Yes: Normal Bowel Sounds, Soft, Abdomen, Obese Musculoskeletal: Yes: Muscle Pain (right hip), Muscle Weakness Edema: No Peripheral Pulses WNL: Yes Neurological: Yes: Alert, Oriented Psychiatric: Yes: Alert, Oriented Labs: CBC, BMP 07/06/18 06:20 07/06/18 06:20 INR, PTT INR 1.41 (0.83-1.09) H 06/30/18 08:45 Fibrinogen 664.0 mg/dL (238-498) H 06/28/18 06:45 Problem List - Problems (1) Chronic pain syndrome Assessment/Plan: Others' Prescriptions Patient Name: Nito Leiva Date: 1960 Address: [address] [place] [address] Sex: Male Rx Written Rx Dispensed Drug Quantity Days Supply Prescriber Name 06/09/2018 06/10/2018 hydromorphone 2 mg tablet 45 15 Ajay Loredo MD 06/09/2018 06/10/2018 fentanyl 25 mcg/hr patch 10 30 Ajay Loredo MD 04/08/2018 04/09/2018 hydromorphone 2 mg tablet 30 15 Ajay Loredo MD 04/08/2018 04/09/2018 alprazolam 1 mg tablet 30 30 Ajay Loredo MD 04/08/2018 04/09/2018 fentanyl 25 mcg/hr patch 10 30 Ajay Loredo MD 03/09/2018 03/09/2018 alprazolam 1 mg tablet 30 30 Ginny Duncan (RESEARCH AND EVALUATION ANALYST) 03/09/2018 03/09/2018 hydromorphone 2 mg tablet 30 15 PerlaGinny irwin N (RESEARCH AND EVALUATION ANALYST) 03/09/2018 03/09/2018 fentanyl 25 mcg/hr patch 10 30 Perla, Ginny N (RESEARCH AND EVALUATION ANALYST) 02/01/2018 02/02/2018 alprazolam 1 mg tablet 84 28 Jane Bennett 02/02/2018 02/02/2018 hydromorphone 2 mg tablet 60 30 Perla, Ginny N (RESEARCH AND EVALUATION ANALYST) 02/02/2018 02/02/2018 fentanyl 25 mcg/hr patch 10 30 Perla, Ginny N (RESEARCH AND EVALUATION ANALYST) 11/19/2017 11/19/2017 alprazolam 2 mg tablet 60 20 Ajay Loredo MD [facility] meds continued: MS contin 30 mg po bid Oxycodone 10 mg po Q6H Alrpazolam 0.5 mg po BID PRN for anxiety Code(s): G89.4 - CHRONIC PAIN SYNDROME (2) Anemia Assessment/Plan: -H/H stable -BO -Venofer given Code(s): D64.9 - ANEMIA, UNSPECIFIED Qualifiers: Anemia type: unspecified type Qualified Code(s): D64.9 - Anemia, unspecified (3) Fall Assessment/Plan: -Physical therapy with walker Code(s): W19.XXXA - UNSPECIFIED FALL, INITIAL ENCOUNTER (4) Hip fracture Assessment/Plan: -seen by orthopedist Operative Date: 06/30/18 ([facility]) Pre-Operative Diagnosis: right femoral neck fx Operation: right hip hemiarthroplasty- cemented Post-Operative Diagnosis: Same as Pre-op Surgeon: Hector Burnett Pbx Inspector: Michael Ricardo Code(s): S72.009A - FRACTURE OF UNSP PART OF NECK OF UNSP FEMUR, INIT Qualifiers: Encounter type: initial encounter Fracture type: closed Laterality: right Qualified Code(s): S72.001A - Fracture of unspecified part of neck of right femur, initial encounter for closed fracture (5) Multiple myeloma Assessment/Plan: -f/u with hematology outpatient Code(s): C90.00 - MULTIPLE MYELOMA NOT HAVING ACHIEVED REMISSION Assessment/Plan see problem list
[2018-07-06 11:56] VITALS: BP 100/64; PULSE 75; TEMP 98.8
== END 2018-07-06 15:30 | disposition home health service (06) | DRG 470 ==
LOC: FER 06:43 → JERBED 11:09 → J6S 14:44
PROVIDERS: ADMIT Internal Medicine; ATTEND Family Medicine
PROC: 30233N1 Transfusion of Nonautologous Red Blood Cells into Peripheral Vein, Percutaneous Approach (ICD-10-PCS; 2018-06-27)
PROC: 30233L1 Transfusion of Nonautologous Fresh Plasma into Peripheral Vein, Percutaneous Approach (ICD-10-PCS; 2018-06-30)
PROC: 30233K1 Transfusion of Nonautologous Frozen Plasma into Peripheral Vein, Percutaneous Approach (ICD-10-PCS; 2018-06-30)
PROC: 0SRR0J9 Replacement of Right Hip Joint, Femoral Surface with Synthetic Substitute, Cemented, Open Approach (ICD-10-PCS; principal; 2018-06-30 09:30)
DX: S72.001A Fracture of unspecified part of neck of right femur, initial encounter for closed fracture (principal); N17.9 Acute kidney failure, unspecified; C90.00 Multiple myeloma not having achieved remission; D62 Acute posthemorrhagic anemia; D68.9 Coagulation defect, unspecified; Z68.41 Body mass index [BMI] 40.0-44.9, adult; W06.XXXA Fall from bed, initial encounter; Y93.9 Activity, unspecified; Y92.89 Other specified places as the place of occurrence of the external cause; Y99.9 Unspecified external cause status; R01.1 Cardiac murmur, unspecified; D50.9 Iron deficiency anemia, unspecified; G40.909 Epilepsy, unspecified, not intractable, without status epilepticus; E66.9 Obesity, unspecified
CPT/HCPCS: 36415; 36430; 71045-TC-FY; 73502-TC-RT; 73523-TC-FY; 73700-TC-RT; 74176-TC; 80048; 80053; 81003; 81015; 82550; 82607; 82728; 82747; 82784; 83010; 83540; 83550; 83615; 83883; 84155; 84165; 84466; 84484; 85014; 85025; 85027; 85044; 85384; 85610; 85730; 86140; 86334; 86850; 86880; 86900; 86901; 86922; 87040; 87086; 88305-TC; 88311-TC; 93005; 93010; 94010; 94760; 97116-GP; 97162-GP; 99284-25; J0131; J1756; J7030; P9017; P9038; P9058